=== PATIENT | male | born 1965 | race African-American/Black ===

== ENCOUNTER 2016-03-27 21:55 | Emergency (ER) | payer MEDICARE, OTHER ==
[~2016-03-27] VITALS: Ht 180.3 cm; Wt 136.0 kg
[~2016-03-27 21:55] MED LIST: ADVA250A INH; ALBU0.08 NEB; APIX5TAB PO; CEFT500T3 PO; CHLOR50 PO; DIFL0.0512 RIGHT EYE; DILA4TAB2 PO; DILT-64 PO; DOXE50CA3 PO; GABA300C5 PO; LIPI40TA PO; LORA2TAB7 PO; METH5INJ SQ; METO50TA PO; OXYB5TAB10 PO; POTA-163 PO; PROT40TA PO; ZOFR4TAB PO
[2016-03-27 21:57] VITALS: BP 129/82; PULSE 85; RESP 16; TEMP 98.6; O2SAT 97
[2016-03-28 00:30] VITALS: BP 144/90; PULSE 79; RESP 16; O2SAT 94
[2016-03-28] MEDS ORDERED: SODIUM CHLORID 0.9% 500 ML INJ 500 ML IV ONE (02:30)
[2016-03-28] MEDS ORDERED: ONDANSETRON HCL 4 MG/2 ML VIAL IV PUSH ONE ×2 (02:30→04:15)
[2016-03-28] MEDS ORDERED: KETOROLAC TROMETHAMINE 30 MG/ML (IVP) VIAL IV PUSH ONE (02:30)
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
[2016-03-28 02:52] LABS: AUTOMATED NEUTROPHIL # 4.1 TH/MM3 (1.8-7.7); BASOPHIL # 0.1 TH/MM3 (0-0.2); BASOPHIL % 0.8 % (0.0-2.0); EOSINOPHIL # 0.3 TH/MM3 (0-0.4); EOSINOPHIL % 3.8 % (0.0-4.0); HEMATOCRIT 39.4 % (39.0-51.0); HEMO FLAGS DIFF FINAL; LYMPH % 24.8 % (9.0-44.0); LYMPHOCYTE # 1.7 TH/MM3 (1.0-4.8); MEAN CELL VOLUME 78.7 FL (80.0-100.0); MEAN CORPUSCULAR HGB CONC 34.3 % (32.0-36.0); MONO % 11.7 % (0.0-8.0); NEUT % 58.9 % (16.0-70.0); PLATELET COUNT 327 TH/MM3 (150-450); RED CELL DISTRIBUTION WIDTH 15.3 % (11.6-17.2); WHITE BLOOD COUNT 6.9 TH/MM3 (4.0-11.0)
[2016-03-28 02:59] LABS: APTT (PATIENT) 31.2 SEC (24.3-30.1); INTERNATIONAL NORMALIZED RATIO 1.1 RATIO; PROTHROMBIN TIME - PATIENT 11.9 SEC (9.8-11.6)
--- NOTE | 2016-03-28 03:00 | RADRPT ---
EXAM DATE/TIME: 03/28/2016 02:47 [facility] COMPARISON: CHEST PA & LAT, February 25, 2016, 16:54. CHEST SINGLE AP, February 12, 2016, 23:52. INDICATIONS : Chest pain. MEDICAL HISTORY : Chronic obstructive pulmonary disease. Congestive heart failure. Cardiovascular disease. Hyperte nsion. Gastroesophageal reflux disease. Chemotherapy. SURGICAL HISTORY : Colon resection. ENCOUNTER: Initial ACUITY: 2 weeks PAIN SCORE: 6/10 LOCATION: Bilateral chest FINDINGS: 2 portable frontal views of the chest show no change in the bilateral pulmonary infiltrates and small effusions. Heart normal in size. CONCLUSION: No change. Frank Walton Jr., MD on March 28, 2016 at 2:57 Board Certified Radiologist. This report was verified electronically.
[2016-03-28 03:05] LABS: ALKALINE PHOSPHATASE 104 U/L (45-117); TOTAL BILIRUBIN ADULT 0.5 MG/DL (0.2-1.0)
[2016-03-28 03:18] LABS: ALT (GPT) 17 U/L (12-78); ANION GAP 7 MEQ/L (5-15); AST (GOT) 27 U/L (15-37); BICARBONATE 27.1 MEQ/L (21.0-32.0); BLOOD UREA NITROGEN 13 MG/DL (7-18); CHLORIDE 104 MEQ/L (98-107); GLOMERULAR FILTRATION RATE 91 ML/MIN (>89); POTASSIUM 4.6 MEQ/L (3.5-5.1); SODIUM (NA) 138 MEQ/L (136-145)
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
[2016-03-28] MEDS ORDERED: MORPHINE SULFATE 4 MG/ML INJ IV PUSH ONE (04:15)
[2016-03-28 04:25] LABS: BLOOD, URINE NEG (NEG); COMMENT (UR) CULT NOT INDICATED; CULTURE IF INDICATED CULT NOT INDICATED; GLUCOSE,URINE NEG (NEG); KETONE, URINE NEG (NEG); MUCUS URINE MOD /lpf (OCC); NITRITE,URINE NEG (NEG); PH, URINE 6.5 (5.0-8.5); SQUAMOUS EPITHELIAL CELL URINE <1 /hpf (0-5); URINE COLOR YELLOW (YELLW/STRAW)
[2016-03-28] MEDS ORDERED: CIPROFLOXACIN 400 MG PREMIX 200 ML IV ONE (04:30)
[2016-03-28] MEDS ORDERED: CIPR-9 PO (04:31)
[2016-03-28 06:13] VITALS: BP 133/82; PULSE 88; RESP 14; O2SAT 95
--- NOTE | 2016-03-28 11:08 | EKG ---
Date Performed: 03/28/2016 Time Performed: 03:28:15 PTAGE: 51 years EKG: Sinus rhythm POSSIBLE RIGHT VENTRICULAR CONDUCTION DELAY NONSPECIFIC T-WAVE ABNORMALITY BORDERLINE ECG PREVIOUS TRACING : 03/07/2016 18.11 DOCTOR: Prasanna Hsieh Interpretating Date/Time 03/28/2016 11:08:02
== END 2016-03-28 06:36 | disposition home or self-care (01) ==
LOC: NEPC 21:55
DX: R10.13 Epigastric pain (principal); I50.32 Chronic diastolic (congestive) heart failure; Z79.01 Long term (current) use of anticoagulants; J44.9 Chronic obstructive pulmonary disease, unspecified; I10 Essential (primary) hypertension; E78.5 Hyperlipidemia, unspecified
CPT/HCPCS: 71010; 74176; 80053; 81001; 83605; 83690; 85025; 85610; 85730; 86140; 93005; 96361; 96365; 96375; 96376; 99284; J0744; J1885; J2270; J2405; J7040

== ENCOUNTER 2016-04-02 20:20 | Emergency (ER) | payer MEDICARE, OTHER ==
[~2016-04-02] VITALS: Ht 180.3 cm; Wt 136.0 kg
[~2016-04-02 20:20] MED LIST changes: +CIPR-9 PO
[2016-04-02 20:23] VITALS: BP 128/64; PULSE 98; RESP 18; TEMP 98; O2SAT 95
[2016-04-03] MEDS ORDERED: ONDANSETRON HCL 4 MG/2 ML VIAL IVP ONE (02:00)
[2016-04-03] MEDS ORDERED: PANTOPRAZOLE SODIUM 40 MG VIAL IVP ONE (02:00)
[2016-04-03] MEDS ORDERED: SODIUM CHLORIDE 0.9% FLUSH 5 ML FLUSH IVF PRN (02:00)
[2016-04-03] MEDS ORDERED: MORPHINE SULFATE 4 MG/ML INJ IV PUSH ONE (02:00)
[2016-04-03 02:05] VITALS: O2SAT 99
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
[2016-04-03 02:48] VITALS: RESP 18
[2016-04-03 02:50] LABS: ANION GAP 3 MEQ/L (5-15); BICARBONATE 30.9 MEQ/L (21.0-32.0); BLOOD UREA NITROGEN 11 MG/DL (7-18); CHLORIDE 104 MEQ/L (98-107); GLOMERULAR FILTRATION RATE 75 ML/MIN (>89); SODIUM (NA) 138 MEQ/L (136-145)
[2016-04-03 02:51] LABS: POTASSIUM 4.7 MEQ/L (3.5-5.1)
[2016-04-03 02:53] LABS: AUTOMATED NEUTROPHIL # 3.8 TH/MM3 (1.8-7.7); BASOPHIL % 0.4 % (0.0-2.0); EOSINOPHIL # 0.3 TH/MM3 (0-0.4); EOSINOPHIL % 4.2 % (0.0-4.0); HEMATOCRIT 38.4 % (39.0-51.0); HEMO FLAGS DIFF FINAL; LYMPH % 25.7 % (9.0-44.0); LYMPHOCYTE # 1.7 TH/MM3 (1.0-4.8); MEAN CORPUSCULAR HEMOGLOBIN 26.2 PG (27.0-34.0); MEAN CORPUSCULAR HGB CONC 33.1 % (32.0-36.0); MONO % 12.7 % (0.0-8.0); PLATELET COUNT 393 TH/MM3 (150-450); RED BLOOD COUNT 4.86 MIL/MM3 (4.50-5.90); RED CELL DISTRIBUTION WIDTH 15.6 % (11.6-17.2); WHITE BLOOD COUNT 6.7 TH/MM3 (4.0-11.0)
--- NOTE | 2016-04-03 03:02 | RADRPT ---
EXAM DATE/TIME: 04/03/2016 02:02 [facility] COMPARISON: CHEST SINGLE AP, March 28, 2016, 2:47. INDICATIONS : Short of breath. MEDICAL HISTORY : Chronic obstructive pulmonary disease. Congestive heart failure. Cardiovascular disease. Hypertension . Gastroesophageal reflux disease. Chemotherapy. SURGICAL HISTORY : Colon resection. ENCOUNTER: Initial ACUITY: 1 day PAIN SCORE: Non-responsive. LOCATION: Bilateral chest FINDINGS: A single view of the chest demonstrates diffuse patchy bilateral airspace densities. Small right pleu ral effusion .The cardiomediastinal contours are unremarkable. Osseous structures are intact. CONCLUSION: 1. Unchanged bilateral pulmonary opacities. 2. Small right pleural effusion. Markell Falcon MD on April 03, 2016 at 3:01 Board Certified Radiologist. This report was verified electronically.
[2016-04-03 03:07] LABS: APTT (PATIENT) 29.7 SEC (24.3-30.1); PROTHROMBIN TIME - PATIENT 10.8 SEC (9.8-11.6)
[2016-04-03] MEDS ORDERED: IOHEXOL 350 MG/ML 10 ML VIAL (for RAD DIAG) IV ONE (03:23)
--- NOTE | 2016-04-03 04:10 | RADRPT ---
EXAM DATE/TIME: 04/03/2016 03:17 [facility] COMPARISON: CT ABDOMEN & PELVIS W/O CONTRAST, March 28, 2016, 3:04. INDICATIONS : Abdomen pain past 3 days.. IV CONTRAST: 96 cc Omnipaque 350 (iohexol) IV ORAL CONTRAST: No oral contrast ingested. RADIATION DOSE: 22.18 CTDIvol (mGy) MEDICAL HISTORY : Cardiovascular disease. Hypertension. Gastroesophageal reflux disease.COPD SURGICAL HISTORY : Colon resection. ENCOUNTER: Initial ACUITY: 3 days PAIN SCALE: 10/10 LOCATION: Bilateral abdomen TECHNIQUE: Volumetric scanning of the abdomen and pelvis was performed. Using automated exposure control and ad justment of the mA and/or kV according to patient size, radiation dose was kept as low as reasonably achievable to obtain optimal diagnostic quality images. FINDINGS: LOWER LUNGS: Right basilar consolidation LIVER: Homogeneous density without lesion. There is no dilation of the biliary tree. No calcified gallston es. SPLEEN: Normal size without lesion. PANCREAS: Within normal limits. KIDNEYS: Normal in size and shape. There is no mass, stone or hydronephrosis. ADRENAL GLANDS: Within normal limits. VASCULAR: There is no aortic aneurysm. BOWEL/MESENTERY: Postsurgical changes with previous bowel surgery in the left lower abdomen. There is no free intraper itoneal air or fluid. ABDOMINAL WALL: Within normal limits. RETROPERITONEUM: There is no lymphadenopathy. BLADDER: No wall thickening or mass. REPRODUCTIVE: Within normal limits. INGUINAL: There is no lymphadenopathy or hernia. MUSCULOSKELETAL: Within normal limits for patient age. CONCLUSION: 1. Right basilar consolidation. 2. No acute inflammatory process. 3. Previous bowel surgery. Markell Falcon MD on April 03, 2016 at 4:07 Board Certified Radiologist. This report was verified electronically.
[2016-04-03] MEDS ORDERED: IBUP-232 PO (04:26)
[2016-04-03] MEDS ORDERED: EXTR500C PO (05:17)
--- NOTE | 2016-04-03 14:09 | EKG ---
Date Performed: 04/03/2016 Time Performed: 01:30:42 PTAGE: 51 years EKG: Sinus rhythm NONSPECIFIC ST ELEVATION BORDERLINE ECG Since PREVIOUS TRACING , no significant change noted PREVIOUS TRACIN03/28/2016 03.28 DOCTOR: Bib Tirado Interpretating Date/Time 04/03/2016 14:01:01
== END 2016-04-03 05:39 | disposition home or self-care (01) ==
LOC: NEPE 20:20
DX: R10.9 Unspecified abdominal pain (principal); R94.31 Abnormal electrocardiogram [ECG] [EKG]; J44.9 Chronic obstructive pulmonary disease, unspecified; I10 Essential (primary) hypertension; E78.5 Hyperlipidemia, unspecified; I50.9 Heart failure, unspecified; I48.91 Unspecified atrial fibrillation; G47.30 Sleep apnea, unspecified
CPT/HCPCS: 71010; 74177; 80048; 83690; 84484; 85025; 85610; 85730; 93005; 96374; 96375; 99284; C9113; J2270; J2405; Q9967

== ENCOUNTER 2016-04-05 23:13 | Inpatient (IN) | payer MEDICARE, OTHER ==
[~2016-04-05] VITALS: Ht 180.3 cm; Wt 141.4 kg
[~2016-04-05 23:13] MED LIST changes: +EXTR500C PO; +IBUP-232 PO
[2016-04-05 23:25] VITALS: BP 177/102; PULSE 117; RESP 20; TEMP 100.1
[2016-04-05] MEDS ORDERED: HYDROmorphone HCL PF 1 MG/ML VIAL IV PUSH ONE (23:45)
[2016-04-05] MEDS ORDERED: ONDANSETRON HCL 4 MG/2 ML VIAL IV PUSH ONE (23:45)
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
[2016-04-05 23:53] LABS: AUTOMATED NEUTROPHIL # 6.6 TH/MM3 (1.8-7.7); BASOPHIL % 0.4 % (0.0-2.0); EOSINOPHIL # 0.2 TH/MM3 (0-0.4); EOSINOPHIL % 2.5 % (0.0-4.0); HEMATOCRIT 41.9 % (39.0-51.0); LYMPH % 20.8 % (9.0-44.0); LYMPHOCYTE # 1.9 TH/MM3 (1.0-4.8); MEAN CELL VOLUME 79.9 FL (80.0-100.0); MEAN CORPUSCULAR HEMOGLOBIN 25.3 PG (27.0-34.0); MEAN CORPUSCULAR HGB CONC 31.7 % (32.0-36.0); MONO % 5.5 % (0.0-8.0); NEUT % 70.8 % (16.0-70.0); PLATELET COUNT 436 TH/MM3 (150-450); RED BLOOD COUNT 5.24 MIL/MM3 (4.50-5.90); WHITE BLOOD COUNT 9.3 TH/MM3 (4.0-11.0)
[2016-04-05 23:56] LABS: HEMO FLAGS DIFF FINAL
[2016-04-06] VITALS (14 sets, daily range): BP systolic 116–167; BP diastolic 70–107; PULSE 82–109; RESP 15–20; TEMP 96.6–99.8; O2SAT 93–99
[2016-04-06 00:02] LABS: CHLORIDE 100 MEQ/L (98-107); POTASSIUM 4.2 MEQ/L (3.5-5.1); SODIUM (NA) 139 MEQ/L (136-145)
[2016-04-06 00:05] LABS: ANION GAP 8 MEQ/L (5-15); BICARBONATE 30.6 MEQ/L (21.0-32.0)
[2016-04-06 00:06] LABS: BLOOD UREA NITROGEN 10 MG/DL (7-18)
[2016-04-06 00:08] LABS: ALT (GPT) 13 U/L (12-78); AST (GOT) 10 U/L (15-37); GLOMERULAR FILTRATION RATE 85 ML/MIN (>89)
[2016-04-06 00:10] LABS: TOTAL BILIRUBIN ADULT 0.3 MG/DL (0.2-1.0)
[2016-04-06 00:11] LABS: ALKALINE PHOSPHATASE 108 U/L (45-117)
[2016-04-06] MEDS ORDERED: ACETAMINOPHEN 500 MG CPLT PO ONE (00:15)
--- NOTE | 2016-04-06 00:22 | RADHPO ---
EXAM DATE/TIME: 04/05/2016 23:46 [facility] COMPARISON: CT PULMONARY ANGIOGRAM, February 03, 2016, 23:58. CHEST SINGLE AP, February 07, 2016, 3:00. CHEST S KAMAR AP, April 03, 2016, 2:02. INDICATIONS : Shortness of breath. MEDICAL HISTORY : Hypertension. Chronic obstructive pulmonary disease. Congestive heart failure. Gastroesophageal r eflux disease, Cardiovascular disease SURGICAL HISTORY : Colon resection ENCOUNTER: Initial ACUITY: 1 day PAIN SCORE: 1/10 LOCATION: Bilateral chest FINDINGS: The cardiac silhouette is normal in transverse diameter. There is extensive chronic pleural-parenchym al disease bilaterally with superimposed acute opacity in the right midlung characteristic of pneumon ia. Followup examination is recommended if clinically indicated. No pleural effusions are identified. CONCLUSION: Extensive pulmonary fibrosis with superimposed acute opacity in the right midlung characteristic of p neumonia. Followup examination to insure clearing is recommended. Keven Moscoso MD on April 06, 2016 at 0:18 Board Certified Radiologist. This report was verified electronically.
[2016-04-06] MEDS ORDERED: ACETAMINOPHEN 325 MG TAB PO ONE (00:45)
[2016-04-06] MEDS ORDERED: CEFEPIME INJ 2,000 MG in SODIUM CHLORIDE 0.9% INJ 100 ML IV ONE (00:45)
[2016-04-06] MEDS ORDERED: AZITHROMYCIN INJ 500 MG in SODIUM CHLOR 0.9% 250 ML INJ 250 ML IV ONE (00:45)
--- NOTE | 2016-04-06 00:50 | PD ---
Data Data Last Documented VS Vital Signs Date Time Temp Pulse Resp B/P Pulse Ox O2 Delivery O2 Flow Rate FiO2 04/06/16 00:30 107 20 167/107 96 Nasal Cannula 2 04/05/16 23:25 100.1 Orders Electrocardiogram (04/05/16 23:36) Complete Blood Count With Diff (04/05/16 23:36) Comprehensive Metabolic Panel (04/05/16 23:36) Troponin I (04/05/16 23:36) B-Type Natriuretic Peptide (04/05/16 23:36) Lipase (04/05/16 23:36) Urinalysis - C+S If Indicated (04/05/16 23:36) Chest, Single Ap (04/05/16 23:36) Ondansetron Inj (Zofran Inj) (04/05/16 23:45) Hydromorphone Pf Inj (Dilaudid Pf Inj) (04/05/16 23:45) Acetaminophen (Tylenol) (04/06/16 00:15) Blood Culture (04/06/16 00:42) Cefepime Inj (Maxipime Inj) (04/06/16 00:45) Azithromycin Inj (Zithromax Inj) (04/06/16 00:45) Acetaminophen (Tylenol) (04/06/16 00:45) Admit Order (Ed Use Only) (04/06/16 01:24) Labs Laboratory Tests Test 04/05/16 23:45 White Blood Count 9.3 TH/MM3 Red Blood Count 5.24 MIL/MM3 Hemoglobin 13.3 GM/DL Hematocrit 41.9 % Mean Corpuscular Volume 79.9 FL Mean Corpuscular Hemoglobin 25.3 PG Mean Corpuscular Hemoglobin 31.7 % Concent Red Cell Distribution Width 15.0 % Platelet Count 436 TH/MM3 Mean Platelet Volume 7.6 FL Neutrophils (%) (Auto) 70.8 % Lymphocytes (%) (Auto) 20.8 % Monocytes (%) (Auto) 5.5 % Eosinophils (%) (Auto) 2.5 % Basophils (%) (Auto) 0.4 % Neutrophils # (Auto) 6.6 TH/MM3 Lymphocytes # (Auto) 1.9 TH/MM3 Monocytes # (Auto) 0.5 TH/MM3 Eosinophils # (Auto) 0.2 TH/MM3 Basophils # (Auto) 0.0 TH/MM3 CBC Comment DIFF FINAL Differential Comment Sodium Level 139 MEQ/L Potassium Level 4.2 MEQ/L Chloride Level 100 MEQ/L Carbon Dioxide Level 30.6 MEQ/L Anion Gap 8 MEQ/L Blood Urea Nitrogen 10 MG/DL Creatinine 1.10 MG/DL Estimat Glomerular Filtration 85 ML/MIN Rate Random Glucose 91 MG/DL Calcium Level 8.9 MG/DL Total Bilirubin 0.3 MG/DL Aspartate Amino Transf 10 U/L (AST/SGOT) Alanine Aminotransferase 13 U/L (ALT/SGPT) Alkaline Phosphatase 108 U/L Troponin I LESS THAN 0.02 NG/ML B-Type Natriuretic Peptide 9 PG/ML Total Protein 8.7 GM/DL Albumin 3.1 GM/DL Lipase 115 U/L [facility] Medical Record Reviewed: Yes Supervised Visit with JONNY: No Narrative Course Last Impressions Chest X-Ray 04/05/16 [id number] Signed Impressions: Service Date/Time: March 23:46 - CONCLUSION: Extensive pulmonary fibrosis with superimposed acute opacity in the right midlung characteristic of pneumonia. Followup examination to insure clearing is recommended. Keven Moscoso MD CBC & BMP Diagram 04/05/16 23:45 Tn < 0.02 BNP 9 EKG: Sinus, rate 107, normal axis/intervals Please refer to the outgoing provider documentation. In summary the patient's 51 years old and has had epigastric pain and fever. The workup today reveals a right lung pneumonia. He is currently not on any antibiotics. Patient will be admitted for treatment of right lung pneumonia and treatment of epigastric abdominal pain. Most recent stress test was > 18 months prior. Cefepime and azithromycin started. Blood cultures drawn. Case d/w Dr Villatoro. Sepsis Criteria SIRS Criteria (2 or more): Heart rate over 90 Diagnosis Primary Impression: PNA (pneumonia) Qualified Code: J18.1 - Pneumonia of right middle lobe due to infectious organism Additional Impressions: Epigastric abdominal pain Chest pain Qualified Code: R07.9 - Chest pain, unspecified type Admitting Information Admitting Physician Requests: Admit Armando Rice MD Apr 06, 2016 00:50
[2016-04-06] MEDS ORDERED: NALOXONE HCL 0.4 MG/ML AMP IV PRN (01:30)
[2016-04-06] MEDS ORDERED: SODIUM CHLORIDE 0.9% FLUSH 5 ML FLUSH FLUSH PRN (01:30)
[2016-04-06] MEDS ORDERED: FOLI1TAB4 PO (02:02)
[2016-04-06] MEDS ORDERED: VESI5TAB PO (02:02)
[2016-04-06] MEDS ORDERED: FURO40TA PO (02:02)
[2016-04-06] MEDS ORDERED: ALBUAER3 INH (02:04)
[2016-04-06 06:58] LABS: BLOOD, URINE NEG (NEG); GLUCOSE,URINE NEG (NEG); KETONE, URINE TRACE mg/dL (NEG); NITRITE,URINE NEG (NEG)
[2016-04-06] MEDS ORDERED: ACETAMINOPHEN 325 MG TAB PO PRN (07:00)
[2016-04-06 07:03] LABS: METHOD OF COLLECTION CLEAN CATCH; URINE COLOR YELLOW (YELLW/STRAW)
[2016-04-06 07:04] LABS: COMMENT (UR) CULT NOT INDICATED; CULTURE IF INDICATED CULT NOT INDICATED; WBC, URINE 0-2 /hpf (0-5)
[2016-04-06] MEDS ORDERED: KETOROLAC TROMETHAMINE 30 MG/ML (IVP) VIAL IV PUSH ONE (08:45)
[2016-04-06] MEDS: SODIUM CHLORIDE 0.9% FLUSH 5 ML FLUSH FLUSH SCH ×2 (08:55→21:18)
[2016-04-06] MEDS: ENOXAPARIN SODIUM 40 MG/0.4 ML SYRINGE SQ SCH (08:56)
[2016-04-06] MEDS ORDERED: LORazepam 2 MG TAB PO PRN (12:00)
--- NOTE | 2016-04-06 12:10 | HHI.HP ---
[facility] Service [facility] Primary Care Physician Non-Staff Admission Diagnosis R Lung PNA, Epigastric/Chest Discomfort Diagnoses: Travel History International Travel<30 Days: Yes Contact w/Intl Traveler <30 Da: Yes Traveled to Known Affected Are: Yes Sepsis Criteria SIRS Criteria (2 or more): Heart rate over 90 History of Present Illness Patient is a 51 year-old gentleman with a history of sarcoidosis who has been having increased chest and abdominal pain over the last several weeks. He has come to the emergency room for further evaluation. He reports that the pain is worse when he is eating although it does remain constantly. It is not relieved with ibuprofen. Patient did have evidence of a right lung consolidation and has been treated in the past for pneumonia. He has significant pulmonary fibrosis. Patient has also past and treated for partial bowel obstruction which resolved nonsurgically. Patient this time has been admitted to the hospital due to increased abdominal discomfort and for treatment of pneumonia. He normally does take methotrexate and folic acid but has been off of this due to his recent pneumonia treatment. He follows up at [facility] for sarcoidosis Review of Systems Constitutional: DENIES: Diaphoretic episodes, Fatigue, Fever, Weight gain, Weight loss, Chills, Dizziness, Change in appetite, Night Sweats Endocrine: DENIES: Heat/cold intolerance, Polydipsia, Polyuria, Polyphagia Eyes: DENIES: Blurred vision, Diplopia, Eye inflammation, Eye pain, Vision loss , Photosensitivity, Double Vision Ears, nose, mouth, throat: DENIES: Tinnitus, Hearing loss, Vertigo, Nasal discharge, Oral lesions, Throat pain, Hoarseness, Ear Pain, Running Nose, Epistaxis, Sinus Pain, Toothache, Odynophagia Respiratory: COMPLAINS OF: Cough, Shortness of breath, DENIES: Apneas, Snoring , Wheezing, Hemoptysis, Sputum production Cardiovascular: DENIES: Chest pain, Palpitations, Syncope, Dyspnea on Exertion , PND, Lower Extremity Edema, Orthopnea, Claudication Gastrointestinal: COMPLAINS OF: Abdominal pain, DENIES: Black stools, Bloody stools, Constipation, Diarrhea, Nausea, Vomiting, Difficulty Swallowing, Anorexia Genitourinary: DENIES: Sexual dysfunction, Urinary frequency, Urinary incontinence, Urgency, Hematuria, Dysuria, Nocturia, Penile Discharge, Testicular Pain, Testicular Swelling Musculoskeletal: DENIES: Joint pain, Muscle aches, Stiffness, Joint Swelling, Back pain, Neck pain Integumentary: DENIES: Abnormal pigmentation, Nail changes, Pruritus, Rash Hematologic/lymphatic: DENIES: Bruising, Lymphadenopathy Immunologic/allergic: DENIES: Eczema, Urticaria Neurologic: DENIES: Abnormal gait, Headache, Localized weakness, Paresthesias, Seizures, Speech Problems, Tremor, Poor Balance Psychiatric: DENIES: Anxiety, Confusion, Mood changes, Depression, Hallucinations, Agitation, Suicidal Ideation, Homicidal Ideation, Delusions Past Family Social History Past Medical History Sarcoidosis, COPD Chronic back pain on chronic narcotics a lot atrial fibrillation Hyperlipidemia Past Surgical History Exploratory laparotomy of the abdomen Hemorrhoidectomy eye surgery Reported Medications Reviewed in the medical record Allergies: Coded Allergies: No Known Allergies (Verified , 04/06/16) Active Ordered Medications Reviewed in the medical record Family History No family history of sarcoidosis, family history per patient is negative Social History No current tobacco or alcohol dependency, lives with his Physical Exam Vital Signs Vital Signs Date Time Temp Pulse Resp B/P Pulse Ox O2 Delivery O2 Flow Rate FiO2 04/06/16 09:06 97.3 92 15 116/82 93 04/06/16 08:00 88 04/06/16 06:00 98.1 98 18 125/75 04/06/16 04:00 98.1 98 18 125/75 93 04/06/16 03:37 92 18 147/70 97 04/06/16 03:30 82 04/06/16 03:00 100 17 144/89 97 Nasal Cannula 2 04/06/16 02:09 99 18 162/83 96 Nasal Cannula 2 04/06/16 01:35 99.8 109 20 153/86 96 Nasal Cannula 2 04/06/16 00:30 107 20 167/107 96 Nasal Cannula 2 04/06/16 00:22 17 04/05/16 23:25 100.1 117 20 177/102 Physical Exam GENERAL: This is an obese, well-developed patient, in no apparent distress. SKIN: No rashes, ecchymoses or lesions. Cool and dry. HEAD: Atraumatic. Normocephalic. No temporal or scalp tenderness. EYES: Pupils equal round and reactive. Extraocular motions intact. No scleral icterus. No injection or drainage. ENT: Nose without bleeding, purulent drainage or septal hematoma. Throat without erythema, tonsillar hypertrophy or exudate. Uvula midline. Airway patent. NECK: Trachea midline. No JVD or lymphadenopathy. Supple, nontender, no meningeal signs. CARDIOVASCULAR: Regular rate and rhythm without murmurs, gallops, or rubs. RESPIRATORY: Clear to auscultation. Breath sounds equal bilaterally. No wheezes , rales, or rhonchi. GASTROINTESTINAL: Abdomen soft, non-tender, nondistended. No hepato-splenomegaly , or palpable masses. No guarding. MUSCULOSKELETAL: Extremities without clubbing, cyanosis, or edema. No joint tenderness, effusion, or edema noted. No calf tenderness. Negative Homans sign bilaterally. NEUROLOGICAL: Awake and alert. Cranial nerves II through XII intact. Motor and sensory grossly within normal limits. Five out of 5 muscle strength in all muscle groups. Normal speech. Laboratory Laboratory Tests Test 04/05/16 04/06/16 23:45 06:37 White Blood Count 9.3 Red Blood Count 5.24 Hemoglobin 13.3 Hematocrit 41.9 Mean Corpuscular Volume 79.9 Mean Corpuscular Hemoglobin 25.3 Mean Corpuscular Hemoglobin 31.7 Concent Red Cell Distribution Width 15.0 Platelet Count 436 Mean Platelet Volume 7.6 Neutrophils (%) (Auto) 70.8 Lymphocytes (%) (Auto) 20.8 Monocytes (%) (Auto) 5.5 Eosinophils (%) (Auto) 2.5 Basophils (%) (Auto) 0.4 Neutrophils # (Auto) 6.6 Lymphocytes # (Auto) 1.9 Monocytes # (Auto) 0.5 Eosinophils # (Auto) 0.2 Basophils # (Auto) 0.0 CBC Comment DIFF FINAL Differential Comment Sodium Level 139 Potassium Level 4.2 Chloride Level 100 Carbon Dioxide Level 30.6 Anion Gap 8 Blood Urea Nitrogen 10 Creatinine 1.10 Estimat Glomerular Filtration 85 Rate Random Glucose 91 Calcium Level 8.9 Total Bilirubin 0.3 Aspartate Amino Transf 10 (AST/SGOT) Alanine Aminotransferase 13 (ALT/SGPT) Alkaline Phosphatase 108 Troponin I LESS THAN 0.02 B-Type Natriuretic Peptide 9 Total Protein 8.7 Albumin 3.1 Lipase 115 Urine Collection Type CLEAN CATCH Urine Color YELLOW Urine Turbidity CLEAR Urine pH 6.0 Urine Specific Ryan 1.027 Urine Protein NEG Urine Glucose (UA) NEG Urine Ketones TRACE Urine Occult Blood NEG Urine Nitrite NEG Urine Bilirubin NEG Urine Leukocyte Esterase NEG Urine WBC 0-2 Microscopic Urinalysis Comment CULT NOT INDICATED Date/Time Procedure Status Source Growth 04/06/16 01:09 Aerobic Blood Culture Received Blood Peripheral Pending 04/06/16 01:09 Anaerobic Blood Culture Received Blood Peripheral Pending Result Diagram: 04/05/16 2345 04/05/16 2345 Imaging Last Impressions Chest X-Ray 04/05/16 2336 Signed Impressions: Service Date/Time: March 23:46 - CONCLUSION: Extensive pulmonary fibrosis with superimposed acute opacity in the right midlung characteristic of pneumonia. Followup examination to insure clearing is recommended. Keven Moscoso MD Septic Shock Reassessment Heart: Regular rate and rhythm Lungs: Diminished Skin: Warm Peripheral Pulses: Bounding Right Radial Bounding Left Radial Bounding Right Popliteal Bounding Left Popliteal Bounding Right Dorsalis Pedis Bounding Left Dorsalis Pedis Bounding Right Posterior Tibial Bounding Left Posterior Tibial Capillary Refill: Brisk Assessment and Plan Problem List: (1) Pneumonia ICD Code: J18.9 Status: Acute Plan: Pulmonary consult pending Will continue with cefepime and azithromycin for now. Fever better. Shortness of breath is better. Patient more ambulatory with physical therapy this morning (2) COPD (chronic obstructive pulmonary disease) ICD Code: J44.9 Status: Chronic (3) Atrial fibrillation ICD Code: I48.91 Status: Chronic Plan: Rate controlled on Cardizem and metoprolol Continue Eliquis (4) Sarcoidosis ICD Code: D86.9 Status: Chronic Plan: Patient is on methotrexate which has been held due to his pneumonia. We' ll continue Fink acid Continue bronchodilators Significant pulmonary fibrosis on imaging. Patient follows up in [facility] Physician Certification 2 Midnight Certification Type: Admission for Inpatient Services Order for Inpatient Services The services are ordered in accordance with Medicare regulations or non- Medicare payer requirements, as applicable. In the case of services not specified as inpatient-only, they are appropriately provided as inpatient services in accordance with the 2-midnight benchmark. Estimated LOS (days): 3 3 days is the estimated time the patient will need to remain in the hospital, assuming treatment plan goals are met and no additional complications. Post-Hospital Plan: Not yet determined Zenaida Taylor MD Apr 06, 2016 12:10
[2016-04-06] MEDS: CEFEPIME INJ 2,000 MG in SODIUM CHLORIDE 0.9% INJ 100 ML IV SCH (13:06)
[2016-04-06] MEDS: HYDROmorphone HCL 4 MG TAB PO PRN (13:07)
[2016-04-06] MEDS ORDERED: ONDANSETRON HCL 4 MG/2 ML VIAL IV PUSH PRN (14:45)
--- NOTE | 2016-04-06 18:52 | EKG ---
Date Performed: 04/06/2016 Time Performed: 00:05:06 PTAGE: 51 years EKG: Sinus tachycardia Normal ECG except for rate PREVIOUS TRACING : 04/03/2016 0130.42 Since previous tracing, no significant change note d DOCTOR: Codi Duff Interpretating Date/Time 04/06/2016 18:51:07
[2016-04-06] MEDS: GABAPENTIN 300 MG CAP PO SCH (20:14)
[2016-04-06] MEDS: DOXEPIN HCL 50 MG CAP PO SCH (20:15)
[2016-04-06] MEDS: METOPROLOL TARTRATE 50 MG TAB PO SCH (20:15)
[2016-04-06] MEDS: POTASSIUM CHLORIDE 20 MEQ CONTROLLED RELEASE TAB PO SCH (20:15)
[2016-04-06] MEDS: ATORVASTATIN 40 MG TAB PO SCH (20:15)
[2016-04-06] MEDS: APIXABAN 5 MG TABLET PO SCH (20:15)
[2016-04-06] MEDS ORDERED: IOHEXOL 350 MG/ML 10 ML VIAL (for RAD DIAG) IV ONE (20:52)
[2016-04-06] MEDS: methylPREDNISolone SOD SUCC 40 MG/1 ML VIAL IV PUSH SCH (21:17)
--- NOTE | 2016-04-06 21:19 | RADHPO ---
EXAM DATE/TIME: 04/06/2016 20:28 [place] COMPARISON: CT PULMONARY ANGIOGRAM, February 03, 2016, 23:58. INDICATIONS : Bilateral lower chest pain and shortness of breath. IV CONTRAST: 70 cc Omnipaque 350 (iohexol) IV RADIATION DOSE: 34.82 CTDIvol (mGy) MEDICAL HISTORY : Congestive heart failure. Chronic obstructive pulmonary disease. Gastroesophage al reflux disease .Hypertension. Sarcoidosis. SURGICAL HISTORY : Tonsillectomy. ENCOUNTER: Initial ACUITY: 2 days PAIN SCALE: 4/10 LOCATION: Bilateral lower chest TECHNIQUE: Volumetric scanning of the chest was performed. Using automated exposure control and adjustment of the mA and/or kV according to patient size, radiation dose was kept as low as reasonab ly achievable to obtain optimal diagnostic quality images. FINDINGS: There are irregular areas of parenchymal density seen in the upper lungs bilaterally. The area in the anterior left upper lung appears to be the most prominent in the upper lungs measurin g 7.3 x 3.3 cm. This area has enlarged since the prior exam. The areas of density in the periphery of the right upper lung also appear to have progressed. There is increased density in the subpleura l regional bilaterally in the lower lungs being worse on the right. There is chronic appearing inter stitial disease at the lung bases seen as prominent linear and tiny nodular densities. There is adenopathy seen throughout the mediastinum. The largest lymph node is seen in the posterior superior right mediastinum measuring 2.9 x 2.3 cm. There are lymph nodes throughout the superior med iastinum, in the right paratracheal, left paratracheal, subcarinal, tracheal bronchial and hilar audi ons bilaterally. A significant effusion is not seen. There is mild fatty infiltration of the liver. The remaining visualized structures in the upper abdom en are unremarkable. CONCLUSION: 1. Progression of areas of parenchymal density seen throughout the lungs. 2. Persistent chronic interstitial change at the lung bases. 3. Prominent adenopathy throughout the mediastinum and hilar regions. This was present previously. Benjie Adamson MD on April 06, 2016 at 20:51 Board Certified Radiologist. This report was verified electronically.
[2016-04-06] MEDS: RESP: ALBUTEROL 2.5 MG/IPRATROPIUM 0.5 MG NEB (SCH) NEB (23:44)
[2016-04-07] VITALS (8 sets, daily range): BP systolic 119–150; BP diastolic 75–107; PULSE 81–106; RESP 14–18; TEMP 97–98; O2SAT 91–98
[2016-04-07] MEDS: CEFEPIME INJ 2,000 MG in SODIUM CHLORIDE 0.9% INJ 100 ML IV SCH ×2 (00:06→13:32)
[2016-04-07] MEDS: HYDROmorphone HCL 4 MG TAB PO PRN ×2 (00:11→20:39)
[2016-04-07 00:14] LABS: BLOOD GAS BASE EXCESS 3.9 mmol/L (-2-2); BLOOD GAS CARBOXYHEMOGLOBIN 1.3 % (0-4); BLOOD GAS HCO3 29 mmol/L (22-26); BLOOD GAS METHEMOGLOBIN 0.8 % (0-2); BLOOD GAS O2 HGB SATURATION 95 % (90-100); BLOOD GAS OXYGEN CONTENT 17.1 Vol % (12.0-20.0); BLOOD GAS PCO2 58 mmHg (38-42); BLOOD GAS PO2 82 mmHg (61-120); BLOOD GAS TOTAL HGB 12.8 G/DL (12.0-16.0)
[2016-04-07 00:15] LABS: CRITICAL VALUE YES; DRAW SITE LT BRACHIAL; LITER FLOW 2 L/M; NUMBER OF ARTERIAL PUNCTURES 1; OXYGEN DEVICE NASAL CANNULA; STAT NO
[2016-04-07] MEDS: AZITHROMYCIN INJ 500 MG in SODIUM CHLOR 0.9% 250 ML INJ 250 ML IV SCH (01:12)
[2016-04-07] MEDS: methylPREDNISolone SOD SUCC 40 MG/1 ML VIAL IV PUSH SCH ×3 (06:11→20:31)
--- NOTE | 2016-04-07 06:38 | MB ---
cc: ALIZA HARDING DATE OF CONSULTATION: 04/06/2016 REASON FOR CONSULTATION: Sarcoidosis and respiratory distress. PRESENT ILLNESS This 48-year-old man with a history of sarcoidosis, has had bilateral pulmonary infiltrates with extensive fibrotic lung disease. The patient apparently came to the ER for abdominal and epigastric pain and he had some bloating as well. His chest x-ray demonstrated an infiltrate in the right lung field as well as interstitial pulmonary infiltrates. The patient does have a cough and brings up whitish mucus. He is on oxygen at 2 liters. He has previously been diagnosed to have sarcoidosis and received methotrexate therapy at [facility] in [place] and has been treated for pneumonia in the past. PAST HISTORY Also includes chronic back pain and exploratory laparotomy with lysis of the lesions and hemorrhoidectomy. ALLERGIES None listed. FAMILY HISTORY Significant for hypertension. HABITS The patient does not smoke and uses alcohol occasionally. REVIEW OF SYSTEMS The patient has been overweight. He has dizziness, postnasal drip, cough and wheezing, epigastric distress. No nausea, vomiting or urinary symptoms. No leg or calf muscle pains. She has had some joint pains. Extremities and no skin lesions. PHYSICAL EXAMINATION: IN GENERAL: This a moderately obese middle-aged -[place]alian male no acute distress. VITAL SIGNS: Blood pressure 130/70, pulse 85, respirations 22, temperature 92. HEAD, EYES, EARS, NOSE, AND THROAT: Head normocephalic. Pupils reactive. Tongue is moist. Throat was clear. Nasal mucosa injected. NECK: Supple. No bruits or thyroid enlargement. CHEST: Equal movements with distant breath sounds in spite of the expiratory wheezes scattered bilaterally. HEART: Heart sounds irregular, normal S1-S2. ABDOMEN: Soft, protuberant without masses or organomegaly. EXTREMITIES: No edema. No lesions. NEUROLOGIC: Normal reflexes. No gross motor deficits. Cranial nerves grossly intact. RECTUM: The rectal exam is deferred. IMPRESSION 1. Chronic obstructive pulmonary disease with acute exacerbation. 2. History of sarcoidosis in remission. 3. Nicotine dependency. PLAN 1. The patient has been placed on O2 at 2 liters nasal cannula. Continue with Zithromax 500 mg IV daily. 2. Cefepime 1 gram IV q.8 h 3. CTA of the chest to be done to evaluate him for any lung densities or pulmonary emboli. 4. PFT to be done at the bedside and he will be switched to Solu-Medrol 40 mg IV every 8 hours. 5. Follow up chest x-ray to be done in follow the case with you Dr. Dr. Zenaida Taylor, thank you for this consultation MD TERRY Rdz/veronica /11:34 PM /6:19 AM
[2016-04-07 07:47] LABS: AUTOMATED NEUTROPHIL # 7.4 TH/MM3 (1.8-7.7); BASOPHIL % 0.2 % (0.0-2.0); EOSINOPHIL % 0.1 % (0.0-4.0); HEMATOCRIT 38.8 % (39.0-51.0); LYMPH % 15.7 % (9.0-44.0); LYMPHOCYTE # 1.4 TH/MM3 (1.0-4.8); MEAN CELL VOLUME 79.9 FL (80.0-100.0); MEAN CORPUSCULAR HEMOGLOBIN 26.1 PG (27.0-34.0); MEAN CORPUSCULAR HGB CONC 32.7 % (32.0-36.0); MONO % 1.7 % (0.0-8.0); NEUT % 82.3 % (16.0-70.0); PLATELET COUNT 400 TH/MM3 (150-450); RED BLOOD COUNT 4.85 MIL/MM3 (4.50-5.90); RED CELL DISTRIBUTION WIDTH 14.3 % (11.6-17.2)
[2016-04-07 07:50] LABS: HEMO FLAGS AUTO DIFF
[2016-04-07 07:51] LABS: POTASSIUM 4.9 MEQ/L (3.5-5.1)
[2016-04-07 07:56] LABS: BICARBONATE 31.5 MEQ/L (21.0-32.0)
[2016-04-07] MEDS: RESP: ALBUTEROL 2.5 MG/IPRATROPIUM 0.5 MG NEB (SCH) NEB ×3 (07:56→19:48)
[2016-04-07] MEDS: FUROSEMIDE 40 MG TAB PO SCH (08:34)
[2016-04-07] MEDS: METOPROLOL TARTRATE 50 MG TAB PO SCH ×2 (08:35→20:31)
[2016-04-07] MEDS: DILTIAZEM-CD 240 MG CAP ER PO SCH (08:35)
[2016-04-07] MEDS: CHLORTHALIDONE 50 MG TAB PO SCH (08:35)
[2016-04-07] MEDS: POTASSIUM CHLORIDE 20 MEQ CONTROLLED RELEASE TAB PO SCH ×2 (08:35→20:31)
[2016-04-07] MEDS: PANTOPRAZOLE SOD 40 MG DELAYED RELEASE TAB PO SCH (08:36)
[2016-04-07] MEDS: TOLTERODINE TARTRATE 2 MG CAP LA PO SCH (08:36)
[2016-04-07] MEDS: FOLIC ACID 1 MG TAB PO SCH (08:36)
[2016-04-07] MEDS: APIXABAN 5 MG TABLET PO SCH ×2 (08:36→20:31)
[2016-04-07] MEDS: SODIUM CHLORIDE 0.9% FLUSH 5 ML FLUSH FLUSH SCH ×2 (08:37→20:32)
[2016-04-07] MEDS: ENOXAPARIN SODIUM 40 MG/0.4 ML SYRINGE SQ SCH (08:37)
[2016-04-07 08:46] LABS: SCAN/DIFF AUTO DIFF CONFIRMED
[2016-04-07] MEDS ORDERED: NON-FORMULARY DRUG (Solifenacin (Vesicare) 5 MG) PO SCH (09:00)
--- NOTE | 2016-04-07 12:57 | HHI.PR ---
Subjective Remarks Seen and evaluated in follow-up for abdominal pain, pneumonia and sarcoidosis. Doing better today. Jaskaran has remained stable. Had a discussion with his regarding patient's conditions and overall plan of care. hemoglobin 12.7 Blood cultures negative patient request pain meds Objective Vitals Vital Signs Date Time Temp Pulse Resp B/P Pulse Ox O2 Delivery O2 Flow Rate FiO2 04/07/16 08:00 97.7 83 18 147/107 97 04/07/16 04:00 97.0 106 18 119/87 91 04/07/16 00:57 97.3 82 18 150/103 95 04/06/16 23:45 94 Nasal Cannula 2.00 04/06/16 21:38 96.6 93 20 143/92 94 04/06/16 18:19 96.8 82 16 138/87 98 04/06/16 13:39 97.0 87 18 141/82 99 I/O 04/06/16 04/06/16 04/06/16 04/07/16 04/07/16 04/07/16 07:00 15:00 23:00 07:00 15:00 23:00 Intake Total 430 ml 1000 ml Output Total 200 ml 300 ml Balance 430 ml 800 ml -300 ml Intake Oral 80 ml 1000 ml IV Total 350 ml Output Urine Total 200 ml 300 ml # Voids 0 4 4 # Bowel Movements 0 1 Result Diagram: 04/07/16 0650 04/07/16 0650 Objective Remarks Last Impressions Chest CT 04/06/16 1950 Signed Impressions: Service Date/Time: Wednesday, April 06, 2016 20:28 - CONCLUSION: 1. Progression of areas of parenchymal density seen throughout the lungs. 2. Persistent chronic interstitial change at the lung bases. 3. Prominent adenopathy throughout the mediastinum and hilar regions. This was present previously. Benjie Adamson MD Chest X-Ray 04/05/16 [id number] Signed Impressions: Service Date/Time: March 23:46 - CONCLUSION: Extensive pulmonary fibrosis with superimposed acute opacity in the right midlung characteristic of pneumonia. Followup examination to insure clearing is recommended. Keven Moscoso MD A/P Problem List: (1) Pneumonia ICD Code: J18.9 Status: Acute Plan: Pulmonary consult pending Will continue with cefepime and azithromycin for now. Fever better. Shortness of breath is better. Patient more ambulatory with physical therapy this morning (2) COPD (chronic obstructive pulmonary disease) ICD Code: J44.9 Status: Chronic Plan: Pulmonary consult appreciated IV Steroids, Bronchodilators Abx, (3) Atrial fibrillation ICD Code: I48.91 Status: Chronic Plan: Rate controlled on Cardizem and metoprolol Continue Eliquis (4) Sarcoidosis ICD Code: D86.9 Status: Chronic Plan: Patient is on methotrexate which has been held due to his pneumonia. We' ll continue Folic acid Continue bronchodilators Significant pulmonary fibrosis on imaging. Patient follows up in [facility] (5) Abdominal pain ICD Code: R10.9 Status: Acute Plan: Chronic since December, patient will continue with proton pump inhibitor. Already has outpatient endoscopy scheduled through his doctors in [place] We'll follow hemoglobin Assessment and Plan Zenaida Parker MD Apr 07, 2016 12:57
[2016-04-07] MEDS: POLYETHYLENE GLYCOL 17 GM PKG PO SCH (13:29)
[2016-04-07] MEDS: ACETAMINOPHEN/HYDROcodone 325 MG/10 MG TAB PO SCH ×2 (13:29→17:10)
--- NOTE | 2016-04-07 18:53 | HHI.PR ---
Subjective Remarks 51 YOAA male with Sasrcoidosis, follows at [facility] has sob but improving No Fever Mild wheezing Objective Vital Signs Vital Signs Date Time Temp Pulse Resp B/P Pulse Ox O2 Delivery O2 Flow Rate FiO2 04/07/16 16:00 98.0 86 18 133/88 98 04/07/16 13:40 93 21 04/07/16 12:00 98.0 81 18 129/89 98 04/07/16 08:00 97.7 83 18 147/107 97 04/07/16 04:00 97.0 106 18 119/87 91 04/07/16 00:57 97.3 82 18 150/103 95 04/06/16 23:45 94 Nasal Cannula 2.00 04/06/16 21:38 96.6 93 20 143/92 94 I/O 04/06/16 04/06/16 04/06/16 04/07/16 04/07/16 04/07/16 07:00 15:00 23:00 07:00 15:00 23:00 Intake Total 430 ml 1000 ml 600 ml Output Total 200 ml 300 ml Balance 430 ml 800 ml -300 ml 600 ml Intake Oral 80 ml 1000 ml 600 ml IV Total 350 ml Output Urine Total 200 ml 300 ml # Voids 0 4 4 3 # Bowel Movements 0 1 Result Diagram: 04/07/16 0650 04/07/16 0650 Objective Remarks GENERAL: WBWN AA male mild sob SKIN: Warm and dry. HEAD: Normocephalic. EYES: No scleral icterus. No injection or drainage. NECK: Supple, trachea midline. No JVD or lymphadenopathy. CARDIOVASCULAR: Regular rate and rhythm without murmurs, gallops, or rubs. RESPIRATORY: Breath sounds equal bilaterally. No accessory muscle use. Exp rhonchi GASTROINTESTINAL: Abdomen soft, non-tender, nondistended. MUSCULOSKELETAL: No cyanosis, or edema. BACK: Nontender without obvious deformity. No CVA tenderness. A/P Assessment and Plan Pneumonia Worsening int infilt Sarcoidosis PLAN: Cont Abx Aerosol nebs Supplement 02 IV Solumedrol Eliquis 5 mg bid DW pt and his KyaraReji MD Apr 07, 2016 18:53
[2016-04-07] MEDS: GABAPENTIN 300 MG CAP PO SCH (20:31)
[2016-04-07] MEDS: ATORVASTATIN 40 MG TAB PO SCH (20:31)
[2016-04-07] MEDS: DOXEPIN HCL 50 MG CAP PO SCH (20:31)
[2016-04-08] VITALS (7 sets, daily range): BP systolic 130–150; BP diastolic 82–92; PULSE 71–94; RESP 18–20; TEMP 96–98; O2SAT 92–98
[2016-04-08] MEDS: CEFEPIME INJ 2,000 MG in SODIUM CHLORIDE 0.9% INJ 100 ML IV SCH ×2 (00:53→13:16)
[2016-04-08] MEDS: AZITHROMYCIN INJ 500 MG in SODIUM CHLOR 0.9% 250 ML INJ 250 ML IV SCH (02:55)
[2016-04-08] MEDS: methylPREDNISolone SOD SUCC 40 MG/1 ML VIAL IV PUSH SCH ×3 (06:29→21:46)
[2016-04-08] MEDS: RESP: ALBUTEROL 2.5 MG/IPRATROPIUM 0.5 MG NEB (SCH) NEB ×3 (07:38→20:10)
[2016-04-08 07:58] LABS: AUTOMATED NEUTROPHIL # 16.4 TH/MM3 (1.8-7.7); BASOPHIL % 0.1 % (0.0-2.0); HEMATOCRIT 38.3 % (39.0-51.0); LYMPH % 8.6 % (9.0-44.0); LYMPHOCYTE # 1.7 TH/MM3 (1.0-4.8); MEAN CELL VOLUME 80.6 FL (80.0-100.0); MEAN CORPUSCULAR HEMOGLOBIN 26.2 PG (27.0-34.0); MEAN CORPUSCULAR HGB CONC 32.6 % (32.0-36.0); MONO % 5.5 % (0.0-8.0); NEUT % 85.8 % (16.0-70.0); PLATELET COUNT 416 TH/MM3 (150-450); RED BLOOD COUNT 4.76 MIL/MM3 (4.50-5.90); RED CELL DISTRIBUTION WIDTH 14.7 % (11.6-17.2); WHITE BLOOD COUNT 19.2 TH/MM3 (4.0-11.0)
[2016-04-08 08:02] LABS: HEMO FLAGS AUTO DIFF
[2016-04-08 08:25] LABS: SCAN/DIFF AUTO DIFF CONFIRMED
[2016-04-08] MEDS: SODIUM CHLORIDE 0.9% FLUSH 5 ML FLUSH FLUSH SCH ×2 (09:00→21:45)
[2016-04-08] MEDS: CHLORTHALIDONE 50 MG TAB PO SCH (09:00)
[2016-04-08] MEDS: POLYETHYLENE GLYCOL 17 GM PKG PO SCH (10:41)
[2016-04-08] MEDS: TOLTERODINE TARTRATE 2 MG CAP LA PO SCH (10:41)
[2016-04-08] MEDS: APIXABAN 5 MG TABLET PO SCH ×2 (10:41→21:45)
[2016-04-08] MEDS: FOLIC ACID 1 MG TAB PO SCH (10:41)
[2016-04-08] MEDS: POTASSIUM CHLORIDE 20 MEQ CONTROLLED RELEASE TAB PO SCH ×2 (10:41→21:45)
[2016-04-08] MEDS: ENOXAPARIN SODIUM 40 MG/0.4 ML SYRINGE SQ SCH (10:41)
[2016-04-08] MEDS: DILTIAZEM-CD 240 MG CAP ER PO SCH (10:41)
[2016-04-08] MEDS: ACETAMINOPHEN/HYDROcodone 325 MG/10 MG TAB PO SCH ×3 (10:42→17:46)
[2016-04-08] MEDS: FUROSEMIDE 40 MG TAB PO SCH (10:42)
[2016-04-08] MEDS: METOPROLOL TARTRATE 50 MG TAB PO SCH ×2 (10:42→21:46)
[2016-04-08] MEDS: PANTOPRAZOLE SOD 40 MG DELAYED RELEASE TAB PO SCH (10:42)
--- NOTE | 2016-04-08 17:41 | HHI.PR ---
Subjective Remarks Patient evaluated this morning. Follow-up for pneumonia, h/o sarcoidosis. Patient states he is "up and down". He denies fevers or chills overnight. Denies cough. Denies any current abdominal pain. Denies vomiting or diarrhea. Objective Vitals Vital Signs Date Time Temp Pulse Resp B/P Pulse Ox O2 Delivery O2 Flow Rate FiO2 04/08/16 14:17 18 04/08/16 13:07 97.9 80 18 133/84 98 04/08/16 08:00 96.6 82 18 142/92 98 04/08/16 07:26 97 Nasal Cannula 2.00 04/08/16 01:21 96.0 78 18 146/82 92 04/07/16 20:18 97.8 96 14 142/75 98 04/07/16 19:48 96 Nasal Cannula 2.00 I/O 04/07/16 04/07/16 04/07/16 04/08/16 04/08/16 04/08/16 07:00 15:00 23:00 07:00 15:00 23:00 Intake Total 600 ml 900 ml 250 ml Output Total 300 ml Balance -300 ml 600 ml 900 ml 250 ml Intake Oral 600 ml 900 ml 250 ml Output Urine Total 300 ml # Voids 4 3 Result Diagram: 04/08/16 0720 04/07/16 0650 Imaging Last Impressions Chest CT 04/06/16 1950 Signed Impressions: Service Date/Time: Wednesday, April 06, 2016 20:28 - CONCLUSION: 1. Progression of areas of parenchymal density seen throughout the lungs. 2. Persistent chronic interstitial change at the lung bases. 3. Prominent adenopathy throughout the mediastinum and hilar regions. This was present previously. Benjie Adamson MD Chest X-Ray 04/05/16 [id number] Signed Impressions: Service Date/Time: March 23:46 - CONCLUSION: Extensive pulmonary fibrosis with superimposed acute opacity in the right midlung characteristic of pneumonia. Followup examination to insure clearing is recommended. Keven Moscoso MD Objective Remarks GENERAL: Morbidly obese well-developed patient in no apparent distress. SKIN: Warm and dry. CARDIOVASCULAR: Regular rate and rhythm. RESPIRATORY: Diminished expiratory breath sounds at the bases bilaterally, but otherwise clear. GASTROINTESTINAL: Abdomen soft, non-tender, nondistended. MUSCULOSKELETAL: No lower extremity edema. NEUROLOGICAL: Awake and alert. Motor grossly within normal limits. Normal speech. PSYCHIATRIC: Appropriate mood and affect; insight and judgment normal. Urinary Catheter: No Vascular Central Line Catheter: No A/P Problem List: (1) Pneumonia ICD Code: J18.9 Status: Acute (2) COPD (chronic obstructive pulmonary disease) ICD Code: J44.9 Status: Chronic (3) Atrial fibrillation ICD Code: I48.91 Status: Chronic (4) Sarcoidosis ICD Code: D86.9 Status: Chronic (5) Abdominal pain ICD Code: R10.9 Status: Acute Assessment and Plan (1) Pneumonia Pulmonary consultation appreciated Will continue with cefepime and azithromycin IV. Improved. Afebrile. 98% on 2 L. WBC increased to 19.2 likely due to steroids. Monitor CBC. (2) COPD (chronic obstructive pulmonary disease) Chronic Pulmonary consultation appreciated Continue Solu-Medrol 40 mg q8 hours, Bronchodilators Abx as above (3) Atrial fibrillation Chronic Rate controlled on Cardizem and metoprolol. Continue Eliquis. (4) Sarcoidosis Chronic Patient is on methotrexate which has been held due to his pneumonia. We'll continue Folic acid Continue bronchodilators Significant pulmonary fibrosis on imaging. Patient follows up in [facility] (5) Abdominal pain Acute Chronic since December, patient will continue with proton pump inhibitor. Already has outpatient endoscopy scheduled through his doctors in [place] Hemoglobin stable. DVT prophylaxis: Eliquis. Discharge Planning Patient has home oxygen, CPAP, and nebulizer. HHC? on discharge. Yue Radford Apr 08, 2016 17:41
--- NOTE | 2016-04-08 19:26 | HHI.PR ---
Subjective Remarks 51 YOAA male with Sasrcoidosis, follows at [facility] has sob but improving No Fever Mild wheezing breathing better Off 02 Objective Vital Signs Vital Signs Date Time Temp Pulse Resp B/P Pulse Ox O2 Delivery O2 Flow Rate FiO2 04/08/16 18:52 18 04/08/16 16:00 98.0 94 20 130/88 98 04/08/16 13:07 97.9 80 18 133/84 98 04/08/16 08:00 96.6 82 18 142/92 98 04/08/16 07:26 97 Nasal Cannula 2.00 04/08/16 01:21 96.0 78 18 146/82 92 04/07/16 20:18 97.8 96 14 142/75 98 04/07/16 19:48 96 Nasal Cannula 2.00 I/O 04/07/16 04/07/16 04/07/16 04/08/16 04/08/16 04/08/16 06:59 14:59 22:59 06:59 14:59 22:59 Intake Total 600 ml 900 ml 250 ml Output Total 300 ml Balance -300 ml 600 ml 900 ml 250 ml Intake Oral 600 ml 900 ml 250 ml Output Urine Total 300 ml # Voids 4 3 Result Diagram: 04/08/16 0720 04/07/16 0650 Objective Remarks GENERAL: WBWN AA male mild sob SKIN: Warm and dry. HEAD: Normocephalic. EYES: No scleral icterus. No injection or drainage. NECK: Supple, trachea midline. No JVD or lymphadenopathy. CARDIOVASCULAR: Regular rate and rhythm without murmurs, gallops, or rubs. RESPIRATORY: Breath sounds equal bilaterally. No accessory muscle use. Exp rhonchi GASTROINTESTINAL: Abdomen soft, non-tender, nondistended. MUSCULOSKELETAL: No cyanosis, or edema. BACK: Nontender without obvious deformity. No CVA tenderness. A/P Assessment and Plan Pneumonia Worsening int infilt Sarcoidosis PLAN: Cont Abx Aerosol nebs IV Solumedrol Eliquis 5 mg bid DW pt and his will FU in AM Reji Sparrow MD Apr 08, 2016 19:25
[2016-04-08] MEDS: GABAPENTIN 300 MG CAP PO SCH (21:46)
[2016-04-08] MEDS: ATORVASTATIN 40 MG TAB PO SCH (21:46)
[2016-04-08] MEDS: DOXEPIN HCL 50 MG CAP PO SCH (21:46)
[2016-04-08] MEDS: HYDROmorphone HCL 4 MG TAB PO PRN (21:51)
[2016-04-09] VITALS: BP 143/90; PULSE 90; RESP 20; TEMP 95.5; O2SAT 93
[2016-04-09] MEDS: CEFEPIME INJ 2,000 MG in SODIUM CHLORIDE 0.9% INJ 100 ML IV SCH (00:41)
[2016-04-09] MEDS: AZITHROMYCIN INJ 500 MG in SODIUM CHLOR 0.9% 250 ML INJ 250 ML IV SCH (01:35)
[2016-04-09 04:00] VITALS: BP 143/94; PULSE 80; RESP 20; TEMP 97.2; O2SAT 93
[2016-04-09] MEDS: methylPREDNISolone SOD SUCC 40 MG/1 ML VIAL IV PUSH SCH (06:11)
[2016-04-09 08:00] VITALS: BP 157/100; PULSE 87; RESP 18; TEMP 97.5; O2SAT 96
[2016-04-09 08:02] VITALS: O2SAT 96
[2016-04-09] MEDS: RESP: ALBUTEROL 2.5 MG/IPRATROPIUM 0.5 MG NEB (SCH) NEB (08:02)
[2016-04-09] MEDS: DILTIAZEM-CD 240 MG CAP ER PO SCH (08:32)
[2016-04-09] MEDS: POTASSIUM CHLORIDE 20 MEQ CONTROLLED RELEASE TAB PO SCH (08:32)
[2016-04-09] MEDS: METOPROLOL TARTRATE 50 MG TAB PO SCH (08:32)
[2016-04-09] MEDS: CHLORTHALIDONE 50 MG TAB PO SCH (08:32)
[2016-04-09] MEDS: ENOXAPARIN SODIUM 40 MG/0.4 ML SYRINGE SQ SCH (08:32)
[2016-04-09] MEDS: FUROSEMIDE 40 MG TAB PO SCH (08:32)
[2016-04-09] MEDS: TOLTERODINE TARTRATE 2 MG CAP LA PO SCH (08:32)
[2016-04-09] MEDS: FOLIC ACID 1 MG TAB PO SCH (08:32)
[2016-04-09] MEDS: POLYETHYLENE GLYCOL 17 GM PKG PO SCH (08:32)
[2016-04-09] MEDS: PANTOPRAZOLE SOD 40 MG DELAYED RELEASE TAB PO SCH (08:33)
[2016-04-09] MEDS: SODIUM CHLORIDE 0.9% FLUSH 5 ML FLUSH FLUSH SCH (08:33)
[2016-04-09] MEDS: ACETAMINOPHEN/HYDROcodone 325 MG/10 MG TAB PO SCH (08:33)
[2016-04-09] MEDS: APIXABAN 5 MG TABLET PO SCH (08:33)
[2016-04-09 08:34] LABS: BASOPHIL % 0.2 % (0.0-2.0); HEMATOCRIT 38.2 % (39.0-51.0); LYMPH % 9.4 % (9.0-44.0); LYMPHOCYTE # 1.6 TH/MM3 (1.0-4.8); MEAN CELL VOLUME 80.2 FL (80.0-100.0); MEAN CORPUSCULAR HEMOGLOBIN 25.8 PG (27.0-34.0); MEAN CORPUSCULAR HGB CONC 32.2 % (32.0-36.0); MONO % 2.4 % (0.0-8.0); PLATELET COUNT 418 TH/MM3 (150-450); RED BLOOD COUNT 4.76 MIL/MM3 (4.50-5.90); RED CELL DISTRIBUTION WIDTH 15.1 % (11.6-17.2)
[2016-04-09 08:36] LABS: HEMO FLAGS DIFF FINAL
[2016-04-09] MEDS ORDERED: CEFT500T3 PO (10:40)
[2016-04-09] MEDS ORDERED: AZIT500T2 PO (10:40)
--- NOTE | 2016-04-09 10:41 | HHI.DCPOC ---
Discharge Care Plan Diagnosis: (1) Bronchitis (2) Sarcoidosis Goals to Promote Your Health * To prevent worsening of your condition and complications * To maintain your health at the optimal level Directions to Meet Your Goals Take your medications as prescribed Follow your dietary instruction Follow activity as directed Keep your appointments as scheduled Take your immunizations and boosters as scheduled If your symptoms worsen call your PCP, if no PCP go to Urgent Care Center or Emergency Room Smoking is Dangerous to Your Health. Avoid second hand smoke Call the 24-hour hour crisis hotline for domestic abuse at Zenaida Taylor MD Apr 09, 2016 10:41
[2016-04-09] MEDS ORDERED: PRED20 PO (10:42)
--- NOTE | 2016-04-09 10:44 | HHI.DS ---
Discharge Summary Admission Date Apr 06, 2016 at 01:27 Discharge Date: Apr 09, 2016 Admitting Diagnosis R Lung PNA, Epigastric/Chest Discomfort (1) Pneumonia ICD Code: J18.9 (2) COPD (chronic obstructive pulmonary disease) ICD Code: J44.9 (3) Atrial fibrillation ICD Code: I48.91 (4) Sarcoidosis ICD Code: D86.9 (5) Abdominal pain ICD Code: R10.9 Procedures none Brief History - From Admission Patient is a 51 year-old gentleman with a history of sarcoidosis who has been having increased chest and abdominal pain over the last several weeks. He has come to the emergency room for further evaluation. He reports that the pain is worse when he is eating although it does remain constantly. It is not relieved with ibuprofen. Patient did have evidence of a right lung consolidation and has been treated in the past for pneumonia. He has significant pulmonary fibrosis. Patient has also past and treated for partial bowel obstruction which resolved nonsurgically. Patient this time has been admitted to the hospital due to increased abdominal discomfort and for treatment of pneumonia. He normally does take methotrexate and folic acid but has been off of this due to his recent pneumonia treatment. He follows up at [facility] for sarcoidosis CBC/BMP: 04/09/16 0810 04/07/16 0650 Significant Findings Laboratory Tests Test 04/07/16 04/07/16 04/08/16 04/09/16 00:00 06:50 07:20 08:10 Blood Gas HCO3 29 mmol/L (22-26) Blood Gas Base Excess 3.9 mmol/L (-2-2) Arterial Blood pH 7.33 (7.380-7.420) Arterial Blood Partial 58 mmHg (38-42) Pressure CO2 Hemoglobin 12.7 GM/DL 12.5 GM/DL 12.3 GM/DL (13.0-17.0) (13.0-17.0) (13.0-17.0) Hematocrit 38.8 % 38.3 % 38.2 % (39.0-51.0) (39.0-51.0) (39.0-51.0) Mean Corpuscular Volume 79.9 FL (80.0-100.0) Mean Corpuscular Hemoglobin 26.1 PG 26.2 PG 25.8 PG (27.0-34.0) (27.0-34.0) (27.0-34.0) Neutrophils (%) (Auto) 82.3 % 85.8 % 88.0 % (16.0-70.0) (16.0-70.0) (16.0-70.0) Random Glucose 108 MG/DL (74-106) White Blood Count 19.2 TH/MM3 17.0 TH/MM3 (4.0-11.0) (4.0-11.0) Lymphocytes (%) (Auto) 8.6 % (9.0-44.0) Neutrophils # (Auto) 16.4 TH/MM3 15.0 TH/MM3 (1.8-7.7) (1.8-7.7) Monocytes # (Auto) 1.1 TH/MM3 (0-0.9) Imaging Last Impressions Chest CT 04/06/16 1950 Signed Impressions: Service Date/Time: Wednesday, April 06, 2016 20:28 - CONCLUSION: 1. Progression of areas of parenchymal density seen throughout the lungs. 2. Persistent chronic interstitial change at the lung bases. 3. Prominent adenopathy throughout the mediastinum and hilar regions. This was present previously. Benjie Adamson MD Chest X-Ray 04/05/16 2336 Signed Impressions: Service Date/Time: March 23:46 - CONCLUSION: Extensive pulmonary fibrosis with superimposed acute opacity in the right midlung characteristic of pneumonia. Followup examination to insure clearing is recommended. Keven Moscoso MD PE at Discharge GENERAL: Morbidly obese well-developed patient in no apparent distress. SKIN: Warm and dry. CARDIOVASCULAR: Regular rate and rhythm. RESPIRATORY: Diminished expiratory breath sounds at the bases bilaterally, but otherwise clear. GASTROINTESTINAL: Abdomen soft, non-tender, nondistended. MUSCULOSKELETAL: No lower extremity edema. NEUROLOGICAL: Awake and alert. Motor grossly within normal limits. Normal speech. PSYCHIATRIC: Appropriate mood and affect; insight and judgment normal. Pt update on day of discharge Is seen today in follow-up for discharge planning. Respiratory status is stable. Discharge discussed with patient and with family. Patient tolerating antibiotics. Hospital Course Patient is a 51-year-old gentleman with sarcoidosis. Appear to have pneumonia and this was treated with antibiotics. He was also seen by pulmonary team for further evaluation due to his history of sarcoidosis. Patient has significant fibrosis in his lung. Patient also has chronic abdominal discomfort which is being monitored by his primary care team at [facility] and for which she has outpatient endoscopy scheduled. Patient will continue with current regimen at home. Pt Condition on Discharge: Good Discharge Disposition: Discharge Home Discharge Time: > 30 minutes Discharge Instructions DIET: Follow Instructions for: As Tolerated, No Restrictions Activities you can perform: Regular-No Restrictions Follow up Referrals: PCP Follow-up - 2 Weeks New Medications: Azithromycin (Azithromycin) 500 Mg Tab 500 MG PO DAILY Infection #5 Ref 0 TAB Cefuroxime (Ceftin) 500 Mg Tab 500 MG PO BID Infection #10 Ref 0 TAB Prednisone (Prednisone) 20 Mg Tab 20 MG PO BID Inflammation #10 Ref 0 TAB Continued Medications: Acetaminophen (Acetaminophen Extra Strength) 500 Mg Cap 500 MG PO Q6H PRN #20 Ref 0 CAP Albuterol 8.5 GM Inh (Proair Hfa 8.5 GM Inh) 90 Mcg/Act Aer 1 PUFF INH Q6H 108 mcg/actuation PRN SHORTNESS OF BREATH #1 Ref 0 INHALER Albuterol Neb (Albuterol Neb) 2.5 Mg/3 Ml Neb 2.5 MG NEB Q4HR NEB While awake Breathing Treatment #60 Ref 0 NEBULE Apixaban (Eliquis) 5 Mg Tab 5 MG PO BID Blood Clot Prevention #60 Ref 0 TAB Atorvastatin (Lipitor) 40 Mg Tab 40 MG PO HS Cholesterol Management #30 Ref 0 TAB Chlorthalidone (Chlorthalidone) 50 Mg Tab 50 MG PO DAILY Ref 0 TAB Diltiazem CD 24 HR (Diltiazem CD 24 HR) 240 Mg Caper 240 MG PO DAILY #30 Ref 0 CAP Doxepin (Doxepin) 50 Mg Cap 50 MG PO HS #30 Ref 0 CAP Folic Acid (Folate) 1 Mg Tab 1 MG PO DAILY Nutritional Supplement Ref 0 TAB Furosemide (Furosemide) 40 Mg Tab 40 MG PO DAILY #30 Ref 0 TAB Gabapentin (Gabapentin) 300 Mg Cap 300 MG PO HS #30 Ref 0 CAP Hydromorphone (Dilaudid) 4 Mg Tab 4 MG PO Q4H PRN Pain Management Ref 0 TAB Lorazepam (Lorazepam) 2 Mg Tab 2 MG PO Q6H PRN ANXIETY Ref 0 TAB Methotrexate Inj (Methotrexate Inj) 50 Mg/2 Ml Inj 15 MG SQ EVERY TWO WEEKS Metoprolol Tartrate (Metoprolol Tartrate) 50 Mg Tab 50 MG PO BID #60 Ref 0 TAB Ondansetron (Zofran) 4 Mg Tab 4 MG PO Q8HR PRN NAUSEA OR VOMITING Ref 0 TAB Pantoprazole (Protonix) 40 Mg Tab 40 MG PO DAILY Reflux #30 Ref 0 TAB Potassium Chloride ER (Potassium Chloride ER) 20 Meq Tab 20 MEQ PO BID Electrolyte Replacement #60 Ref 0 TAB Solifenacin (Vesicare) 5 Mg Tab 5 MG PO DAILY Urinary Symptom Managemen #30 Ref 0 TAB Zenaida Taylor MD Apr 09, 2016 10:44
--- NOTE | 2016-04-12 08:21 | RSPPFT ---
DATE OF PROCEDURE: 04/07/16 COMMENTS: Spirometry demonstrates an FEV1 of 1.1 at 30% of predicted, FVC of 2.5 at 50%, FEV1/FVC ratio is 47%. The FEF 25-75 is 9% of predicted. Post-bronchodilator study demonstrated improvements in the FEV1 and FEF 25-75. Flow volume loops suggest an obstructive pattern. IMPRESSION: 1. Severe obstructive disease. 2. Significant response to use of bronchodilator indicating reversibility.
== END 2016-04-09 11:29 | disposition home or self-care (01) | DRG 190 ==
LOC: PHED 23:13 → PHEDA 04-06 01:27 → PH3B 04-06 03:30
PROVIDERS: ADMIT Hospitalist; ATTEND Hospitalist
DX: J44.0 Chronic obstructive pulmonary disease with (acute) lower respiratory infection (principal); J18.9 Pneumonia, unspecified organism; J84.10 Pulmonary fibrosis, unspecified; Z68.41 Body mass index [BMI] 40.0-44.9, adult; D86.9 Sarcoidosis, unspecified; E66.01 Morbid (severe) obesity due to excess calories; K92.1 Melena; J44.1 Chronic obstructive pulmonary disease with (acute) exacerbation; R10.13 Epigastric pain; E78.5 Hyperlipidemia, unspecified; M54.9 Dorsalgia, unspecified; G89.29 Other chronic pain; R63.4 Abnormal weight loss; M19.90 Unspecified osteoarthritis, unspecified site; J45.909 Unspecified asthma, uncomplicated; I10 Essential (primary) hypertension; G47.30 Sleep apnea, unspecified; Z87.01 Personal history of pneumonia (recurrent); I48.2 Chronic atrial fibrillation; K21.9 Gastro-esophageal reflux disease without esophagitis; Z79.891 Long term (current) use of opiate analgesic; R94.31 Abnormal electrocardiogram [ECG] [EKG]
CPT/HCPCS: 36600; 71010; 71260; 74177; 80048; 80053; 81001; 82805; 83690; 83880; 84484; 85025; 85610; 85730; 87040; 87205; 93005; 94060; 94640; 94664; 96365; 96374; 96375; C9113; J0456; J0692; J1170; J1650; J1885; J2270; J2405; J2920; J7050; Q9967

== ENCOUNTER 2016-04-14 21:48 | Inpatient (IN) | payer MEDICARE, MEDICAID ==
[~2016-04-14] VITALS: Ht 180.3 cm; Wt 150.0 kg
[~2016-04-14 21:48] MED LIST changes: -ADVA250A INH; +ALBUAER3 INH; +AZIT500T2 PO; -CIPR-9 PO; -DIFL0.0512 RIGHT EYE; +FOLI1TAB4 PO; +FURO40TA PO; -IBUP-232 PO; -OXYB5TAB10 PO; +PRED20 PO; +VESI5TAB PO
[2016-04-14 21:51] VITALS: BP 139/93; PULSE 110; RESP 20; TEMP 97.9; O2SAT 94
[2016-04-14] MEDS ORDERED: SODIUM CHLOR 0.9% 1000 ML INJ 1,000 ML IV SCH (22:12)
[2016-04-14] MEDS ORDERED: ONDANSETRON HCL 4 MG/2 ML VIAL IVP ONE (22:15)
[2016-04-14] MEDS ORDERED: MORPHINE SULFATE 4 MG/ML INJ IV PUSH ONE (22:15)
[2016-04-14] MEDS ORDERED: SODIUM CHLORIDE 0.9% FLUSH 5 ML FLUSH IVF PRN (22:15)
[2016-04-14] MEDS ORDERED: PANTOPRAZOLE SODIUM 40 MG VIAL IVP ONE (22:15)
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
[2016-04-14 22:30] VITALS: PULSE 109; RESP 20; O2SAT 96
[2016-04-14 22:56] LABS: AUTOMATED NEUTROPHIL # 6.8 TH/MM3 (1.8-7.7); BASOPHIL # 0.1 TH/MM3 (0-0.2); BASOPHIL % 0.8 % (0.0-2.0); EOSINOPHIL # 0.3 TH/MM3 (0-0.4); EOSINOPHIL % 2.6 % (0.0-4.0); HEMATOCRIT 37.7 % (39.0-51.0); HEMO FLAGS DIFF FINAL; LYMPH % 19.9 % (9.0-44.0); MEAN CELL VOLUME 78.2 FL (80.0-100.0); MEAN CORPUSCULAR HEMOGLOBIN 26.9 PG (27.0-34.0); MEAN CORPUSCULAR HGB CONC 34.5 % (32.0-36.0); MONO % 10.8 % (0.0-8.0); NEUT % 65.9 % (16.0-70.0); PLATELET COUNT 365 TH/MM3 (150-450); RED BLOOD COUNT 4.82 MIL/MM3 (4.50-5.90); RED CELL DISTRIBUTION WIDTH 16.1 % (11.6-17.2); WHITE BLOOD COUNT 10.3 TH/MM3 (4.0-11.0)
[2016-04-14 23:15] LABS: ALKALINE PHOSPHATASE 101 U/L (45-117); TOTAL BILIRUBIN ADULT 0.4 MG/DL (0.2-1.0)
[2016-04-14 23:22] LABS: ALT (GPT) 29 U/L (12-78); ANION GAP 8 MEQ/L (5-15); AST (GOT) 44 U/L (15-37); BLOOD UREA NITROGEN 19 MG/DL (7-18); CHLORIDE 103 MEQ/L (98-107); GLOMERULAR FILTRATION RATE 83 ML/MIN (>89); POTASSIUM 5.3 MEQ/L (3.5-5.1); SODIUM (NA) 138 MEQ/L (136-145)
[2016-04-14 23:34] LABS: APTT (PATIENT) 28.5 SEC (24.3-30.1); PROTHROMBIN TIME - PATIENT 10.8 SEC (9.8-11.6)
[2016-04-14] MEDS ORDERED: IOHEXOL 350 MG/ML 10 ML VIAL (for RAD DIAG) IV ONE (23:44)
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
[2016-04-15] VITALS (11 sets, daily range): BP systolic 130–152; BP diastolic 77–94; PULSE 87–98; RESP 20; TEMP 96.5–98.3; O2SAT 92–97
--- NOTE | 2016-04-15 00:09 | RADRPT ---
EXAM DATE/TIME: 04/14/2016 23:36 [facility] COMPARISON: CT ABDOMEN & PELVIS W CONTRAST, April 03, 2016, 3:17. INDICATIONS : Abdominal pain with nausea, vomiting, and diarrhea starting today. IV CONTRAST: 96 cc Omnipaque 350 (iohexol) IV ORAL CONTRAST: No oral contrast ingested. RADIATION DOSE: 30.82 CTDIvol (mGy) MEDICAL HISTORY : Gastroesophageal reflux disease. Chronic obstructive pulmonary disease. Congestive heart failure.Hype rtension. Hiatal Hernia. Sarcoidosis. SURGICAL HISTORY : Colon resection. ENCOUNTER: Initial ACUITY: 1 week PAIN SCALE: 10/10 LOCATION: Bilateral upper quadrant TECHNIQUE: Volumetric scanning of the abdomen and pelvis was performed. Using automated exposure control and ad justment of the mA and/or kV according to patient size, radiation dose was kept as low as reasonably achievable to obtain optimal diagnostic quality images. FINDINGS: LOWER LUNGS: Patchy infiltrates at the right lung base are similar to prior CT. LIVER: Homogeneous density without lesion. There is no dilation of the biliary tree. No calcified gallston es. SPLEEN: Normal size without lesion. PANCREAS: Within normal limits. KIDNEYS: Normal in size and shape. There is no mass, stone or hydronephrosis. ADRENAL GLANDS: Within normal limits. VASCULAR: There is no aortic aneurysm. BOWEL/MESENTERY: Anastomosis suture from prior bowel surgery in the low midline abdomen. The configuration of the bow el loops observed placenta similar to prior CT on 04/03/16. No evidence of free fluid or free intrape ritoneal gas. ABDOMINAL WALL: Within normal limits. RETROPERITONEUM: There is no lymphadenopathy. BLADDER: No wall thickening or mass. REPRODUCTIVE: Within normal limits. INGUINAL: There is no lymphadenopathy or hernia. MUSCULOSKELETAL: Within normal limits for patient age. CONCLUSION: Persistent right lower lung partially consolidative infiltrates. No acute findings in the abdomen/pe lvis. Frank Ortega MD on April 15, 2016 at 0:01 Board Certified Radiologist. This report was verified electronically.
--- NOTE | 2016-04-15 00:24 | PD ---
Data Data Last Documented VS Vital Signs Date Time Temp Pulse Resp B/P Pulse Ox O2 Delivery O2 Flow Rate FiO2 04/14/16 23:19 98 Nasal Cannula 3 04/14/16 22:30 109 20 04/14/16 21:51 97.9 139/93 Orders Complete Blood Count With Diff (04/14/16 22:12) Comprehensive Metabolic Panel (04/14/16 22:12) Lipase (04/14/16 22:12) Lactic Acid (04/14/16 22:12) Prothrombin Time / Inr (Pt) (04/14/16 22:12) Act Partial Throm Time (Ptt) (04/14/16 22:12) Urinalysis - C+S If Indicated (04/14/16 22:12) Iv Access Insert/Monitor (04/14/16 22:12) Ecg Monitoring (04/14/16 22:12) Oximetry (04/14/16 22:12) NPO (04/14/16 22:12) Morphine Inj (Morphine Inj) (04/14/16 22:15) Ondansetron Inj (Zofran Inj) (04/14/16 22:15) Pantoprazole Inj (Protonix Inj) (04/14/16 22:15) Sodium Chlor 0.9% 1000 Ml Inj (Ns 1000 M (04/14/16 22:12) Sodium Chloride 0.9% Flush (Ns Flush) (04/14/16 22:15) Electrocardiogram (04/14/16 22:12) Chest, Pa & Lat (04/14/16 22:12) Ct Abd/Pel W Iv Contrast(Rout) (04/14/16 22:17) Influenzae A/B Antigen (04/14/16 22:24) Blood Culture (04/14/16 23:33) B-Type Natriuretic Peptide (04/14/16 23:39) Iohexol 350 Inj (Omnipaque 350 Inj) (04/14/16 23:44) Admit Order (Ed Use Only) (04/15/16 00:20) Labs Laboratory Tests Test 04/14/16 22:35 White Blood Count 10.3 TH/MM3 Red Blood Count 4.82 MIL/MM3 Hemoglobin 13.0 GM/DL Hematocrit 37.7 % Mean Corpuscular Volume 78.2 FL Mean Corpuscular Hemoglobin 26.9 PG Mean Corpuscular Hemoglobin 34.5 % Concent Red Cell Distribution Width 16.1 % Platelet Count 365 TH/MM3 Mean Platelet Volume 8.3 FL Neutrophils (%) (Auto) 65.9 % Lymphocytes (%) (Auto) 19.9 % Monocytes (%) (Auto) 10.8 % Eosinophils (%) (Auto) 2.6 % Basophils (%) (Auto) 0.8 % Neutrophils # (Auto) 6.8 TH/MM3 Lymphocytes # (Auto) 2.0 TH/MM3 Monocytes # (Auto) 1.1 TH/MM3 Eosinophils # (Auto) 0.3 TH/MM3 Basophils # (Auto) 0.1 TH/MM3 CBC Comment DIFF FINAL Differential Comment Prothrombin Time 10.8 SEC Prothromb Time International 1.0 RATIO Ratio Activated Partial 28.5 SEC Thromboplast Time Sodium Level 138 MEQ/L Potassium Level 5.3 MEQ/L Chloride Level 103 MEQ/L Carbon Dioxide Level 27.0 MEQ/L Anion Gap 8 MEQ/L Blood Urea Nitrogen 19 MG/DL Creatinine 1.12 MG/DL Estimat Glomerular Filtration 83 ML/MIN Rate Random Glucose 108 MG/DL Lactic Acid Level 1.6 mmol/L Calcium Level 8.1 MG/DL Total Bilirubin 0.4 MG/DL Aspartate Amino Transf 44 U/L (AST/SGOT) Alanine Aminotransferase 29 U/L (ALT/SGPT) Alkaline Phosphatase 101 U/L Total Protein 7.9 GM/DL Albumin 3.3 GM/DL Lipase 225 U/L MDM Supervised Visit with JONNY: Yes Narrative Course I, Dr. Torrez, have reviewed the advance practice practitioner's documentation and am in agreement, met with the patient face to face, made the diagnosis, and the medical decision making was done by me. See his note for further details. Briefly this is a 51-year-old male with history of sarcoidosis, recurrent abdominal pain, recent admission for pneumonia, discharged home on azithromycin and cefuroxime, here for evaluation of cough that is nonproductive, worsening, abdominal discomfort, multiple episodes of diarrhea, and hematemesis. Patient also states he noticed blood in his stool. Stool here is heme negative. He has mild abdominal tenderness which is diffuse. CBC is unremarkable. CMP is remarkable for potassium 5.3 with moderate hemolysis, otherwise unremarkable. Lipase is 225. Initial vital signs show heart rate of 110, blood pressure 139/ 93, pulse ox 94% on room air, oral temp of 97.9F. Chest x-ray shows stable diffuse bilateral infiltrates in stable right pleural effusion. CT abdomen pelvis shows a persistent right lower lung partial consolidative infiltrates, no acute finding in the abdomen or pelvis. Patient was started on cefepime and vancomycin. C. difficile PCR pending. Patient was made aware of all findings and plan for admission. Case discussed with hospitalist Dr. Cisse who will admit the patient to her service. Diagnosis Primary Impression: PNA (pneumonia) Qualified Code: J18.1 - Pneumonia of right lower lobe due to infectious organism Admitting Information Admitting Physician Requests: Admit Condition: Stable Lance Torrez MD Apr 15, 2016 00:24
[2016-04-15] MEDS ORDERED: BISACODYL 10 MG SUPP PR PRN (00:30)
[2016-04-15] MEDS ORDERED: CEFEPIME INJ 1,000 MG in SODIUM CHLORIDE 0.9% INJ 100 ML IV ONE (00:30)
[2016-04-15] MEDS ORDERED: RESP: ALBUTEROL 2.5 MG/3 ML NEB (PRN) NEB (00:30)
[2016-04-15] MEDS ORDERED: Vancomycin Consult Pharmacy 1 EA OTHER SCH (00:30)
[2016-04-15] MEDS ORDERED: ONDANSETRON HCL 4 MG/2 ML VIAL IVP PRN (00:30)
[2016-04-15] MEDS ORDERED: VANCOMYCIN INJ 1,000 MG in SODIUM CHLOR 0.9% 250 ML INJ 250 ML IV ONE (00:30)
[2016-04-15] MEDS ORDERED: ACETAMINOPHEN 325 MG TAB PO PRN (00:30)
[2016-04-15] MEDS ORDERED: SODIUM CHLORIDE 0.9% FLUSH 5 ML FLUSH FLUSH PRN (00:30)
--- NOTE | 2016-04-15 01:21 | HHI.HP ---
HPI Service [facility] Primary Care Physician Non-Staff Admission Diagnosis right lung pneumonia, shortness of breath Diagnoses: (1) Sarcoidosis Diagnosis: Principal (2) PNA (pneumonia) Diagnosis: Principal (3) Abdominal pain Diagnosis: Principal (4) Diarrhea Diagnosis: Principal (5) A-fib Diagnosis: Principal Travel History International Travel<30 Days: No Contact w/Intl Traveler <30 Da: No Traveled to Known Affected Are: No History of Present Illness This is a 51-year-old male with PMH of HTN, A. fib on Eliquis, Sarcoidosis and COPD who presented to the ER w/ complaints of abdominal pain, diarrhea and SOB. Recent admit 04/06-04/09/16 for similar complaints, found to have PNA and started on IV Abx, w/ eval by Dr. Stanley w/ Pulmonology and underwent PFTs. Pt normally on Methotrexate and Folic Acid, follows at [facility] for Sarcoidosis, off MTX x3 wks due to ongoing PNA. D/c'd on 04/09/16 w/ Zithro/Ceftin x5 days, however returned to ER today w/ progressive SOB and abd pain/diarrhea. H/o Chronic Abdominal Pain for which he is also following at [facility], and is scheduled for upcoming EGD. On arrival, BP 139/93, HR 110, O2 sat 94% on RA, Afebrile. WBC normal. K+ 5.3 w/ moderate hemolysis. CXR with persistent diffuse bilateral infiltrates and stable right pleural effusion. CT Abd/Pelvis w/ no intra-abdominal pathology. S/p Blood Cultures, Vanc/Cefepime in ER. Review of Systems Other ROS: 14 point review of systems otherwise negative. Past Family Social History Past Medical History PMH: HTN, A. fib on Eliquis, Sarcoidosis and [employer] Past Surgical History PAST SURGICAL HISTORY: Eye Surgery, Tonsillectomy, Hemorrhoidectomy Allergies: Coded Allergies: No Known Allergies (Verified , 04/14/16) Family History PAST FAMILY HISTORY: Reviewed. No h/o DM or CAD Social History PAST SOCIAL HISTORY: Negative for alcohol, tobacco or drugs. Physical Exam Vital Signs Vital Signs Date Time Temp Pulse Resp B/P Pulse Ox O2 Delivery O2 Flow Rate FiO2 04/15/16 00:42 97 Nasal Cannula 3.00 04/14/16 23:19 98 Nasal Cannula 3 04/14/16 22:30 109 20 96 Room Air 04/14/16 22:30 109 22 96 Room Air 04/14/16 21:51 97.9 110 20 139/93 94 Room Air Physical Exam PE: GENERAL: Middle-aged black male in no acute distress. HEENT: PERRLA, EOMI. No scleral icterus or conjunctival pallor. No lid lag or facial droop. CARDIOVASCULAR: Regular rate and rhythm. No obvious murmurs to auscultation. No chest tenderness to palpation. RESPIRATORY: No obvious rhonchi. Occasional expiratory wheezing. Breath sounds equal bilaterally. GASTROINTESTINAL: Abdomen soft, mild generalized tenderness to palpation, nondistended. BS normal. MUSCULOSKELETAL: Extremities without clubbing, cyanosis, or edema. No obvious deformities. NEUROLOGICAL: Awake, alert and oriented x4. No focal neurologic deficits. Moving both upper and lower extremities spontaneously. Laboratory Laboratory Tests Test 04/14/16 22:35 White Blood Count 10.3 Red Blood Count 4.82 Hemoglobin 13.0 Hematocrit 37.7 Mean Corpuscular Volume 78.2 Mean Corpuscular Hemoglobin 26.9 Mean Corpuscular Hemoglobin 34.5 Concent Red Cell Distribution Width 16.1 Platelet Count 365 Mean Platelet Volume 8.3 Neutrophils (%) (Auto) 65.9 Lymphocytes (%) (Auto) 19.9 Monocytes (%) (Auto) 10.8 Eosinophils (%) (Auto) 2.6 Basophils (%) (Auto) 0.8 Neutrophils # (Auto) 6.8 Lymphocytes # (Auto) 2.0 Monocytes # (Auto) 1.1 Eosinophils # (Auto) 0.3 Basophils # (Auto) 0.1 CBC Comment DIFF FINAL Differential Comment Prothrombin Time 10.8 Prothromb Time International 1.0 Ratio Activated Partial 28.5 Thromboplast Time Sodium Level 138 Potassium Level 5.3 Chloride Level 103 Carbon Dioxide Level 27.0 Anion Gap 8 Blood Urea Nitrogen 19 Creatinine 1.12 Estimat Glomerular Filtration 83 Rate Random Glucose 108 Lactic Acid Level 1.6 Calcium Level 8.1 Total Bilirubin 0.4 Aspartate Amino Transf 44 (AST/SGOT) Alanine Aminotransferase 29 (ALT/SGPT) Alkaline Phosphatase 101 Total Protein 7.9 Albumin 3.3 Lipase 225 B-Type Natriuretic Peptide LESS THAN 2 Date/Time Procedure Status Source Growth 04/15/16 00:20 Aerobic Blood Culture Received Blood Peripheral Pending 04/15/16 00:20 Anaerobic Blood Culture Received Blood Peripheral Pending 04/14/16 22:40 Influenza Types A,B Antigen (SABRINA) - Final Complete Nasal Washing NEGATIVE FOR FLU A AND B ANTIGEN.... Result Diagram: 04/14/16223404/14/162234 Assessment and Plan Problem List: (1) Sarcoidosis ICD Code: D86.9 Status: Acute (2) PNA (pneumonia) ICD Code: J18.9 Status: Acute (3) Abdominal pain ICD Code: R10.9 Status: Acute (4) Diarrhea ICD Code: R19.7 Status: Acute (5) A-fib ICD Code: I48.91 Status: Acute Assessment and Plan A/P: 1. Sarcoidosis: w/ severe pulmonary fibrosis, follows w/ Manager Freelance at [facility], s/p eval by Dr. Stanley on recent admission w/ PFTs 04/07/16 showing severe obstructive disease. On MTX and Folic Acid, however off treatment x3 wks due to ongoing PNA. Plan for outpatient follow up at [facility] w/ his Manager Freelance. Solu-Medrol, Albuterol prn. 2. PNA: Recent admit 04/06-04/09/16 w/ PNA s/p IV Abx, d/c'd on Zithro and Ceftin x5 days, CXR w/ persistent bilateral infiltrates and stable right pleural effusion, images reviewed by me. S/p Vanc/Cefepime in ER, will continue w/ IV Abx. 3. Abdominal Pain: Chronic. Schedule for EGD at [facility]. CT Abd/Pelvis w/ no acute intra-abdominal pathology, images reviewed by me. Protonix, analgesics/ antiemetics. 4. Diarrhea: Non-bloody, Hemoccult negative. C Diff pending. 5. A-fib: Chronic. Controlled. Resume home Cardizem, Metoprolol and Eliquis. 6. DVT Prophylaxis: On Eliquis. 7. Social work for d/c planning as needed. 8. Case discussed w/ ER physician at length. Physician Certification 2 Midnight Certification Type: Admission for Inpatient Services Order for Inpatient Services The services are ordered in accordance with Medicare regulations or non- Medicare payer requirements, as applicable. In the case of services not specified as inpatient-only, they are appropriately provided as inpatient services in accordance with the 2-midnight benchmark. Estimated LOS (days): 2 days is the estimated time the patient will need to remain in the hospital, assuming treatment plan goals are met and no additional complications. Post-Hospital Plan: Home Problem Qualifiers (1) PNA (pneumonia): Qualified Code: J18.1 - Pneumonia of right lower lobe due to infectious organism Claudia Cisse MD Apr 15, 2016 01:21
[2016-04-15] MEDS ORDERED: VANCOMYCIN 1,000 MG/NS 250 ML IV ONE ×2 (02:00)
[2016-04-15] MEDS: MORPHINE SULFATE 4 MG/ML INJ IV PRN ×4 (02:15→18:16)
[2016-04-15 02:33] LABS: BLOOD, URINE NEG (NEG); COMMENT (UR) CULT NOT INDICATED; CULTURE IF INDICATED CULT NOT INDICATED; GLUCOSE,URINE NEG (NEG); KETONE, URINE NEG (NEG); MUCUS URINE FEW /lpf (OCC); NITRITE,URINE NEG (NEG); SQUAMOUS EPITHELIAL CELL URINE <1 /hpf (0-5); URINE COLOR YELLOW (YELLW/STRAW)
[2016-04-15] MEDS: RESP: ALBUTEROL 2.5 MG/3 ML NEB (SCH) NEB ×6 (03:18→23:17)
[2016-04-15] MEDS: methylPREDNISolone SOD SUCC 40 MG/1 ML VIAL IV PUSH SCH ×3 (05:01→21:23)
--- NOTE | 2016-04-15 08:59 | HHI.PR ---
Subjective Remarks Follow-up for diarrhea. The patient states that after he was discharged home earlier this week, he had been feeling better and his shortness of breath had improved. He states at about day after discharge she began having abdominal pain, diarrhea. He states that he's been feeling hot and cold, no specific fevers or chills. For the past 2 days he's been having episodes of bright red vomitus. He still reports some shortness of breath, but continues to report that is better than his previous admission. No EGD scheduled yet in [facility]. Continues to have loose stools. Objective Vitals Vital Signs Date Time Temp Pulse Resp B/P Pulse Ox O2 Delivery O2 Flow Rate FiO2 04/15/16 07:37 96.5 88 20 134/77 92 04/15/16 05:19 98.2 95 20 152/94 93 04/15/16 02:11 98.2 93 20 152/88 96 04/15/16 02:00 98 04/15/16 00:42 97 Nasal Cannula 3.00 04/14/16 23:19 98 Nasal Cannula 3 04/14/16 22:30 109 20 96 Room Air 04/14/16 22:30 109 22 96 Room Air 04/14/16 21:51 97.9 110 20 139/93 94 Room Air Result Diagram: 04/14/16223404/14/162234 Imaging Last Impressions Abdomen/Pelvis CT 04/14/162216 Signed Impressions: Service Date/Time: Thursday, April 14, 2016 23:36 - CONCLUSION: Persistent right lower lung partially consolidative infiltrates. No acute findings in the abdomen/pelvis. Frank Ortega MD Chest X-Ray 04/14/162211 Signed Impressions: Service Date/Time: Thursday, April 14, 2016 23:20 - CONCLUSION: Stable diffuse bilateral infiltrates and stable right pleural effusion. Frank Ortega MD Objective Remarks GENERAL: Well-developed well-nourished morbidly obese. In no acute distress. SKIN: Warm and dry. No lesions noted. HEENT: Normocephalic. Pupils equal and round. Mucous membranes pink and moist. CARDIOVASCULAR: Regular rate and rhythm. No murmur appreciated. RESPIRATORY: No accessory muscle use. Clear to auscultation. Wheezing and decreased breath sounds. GASTROINTESTINAL: Abdomen large with previous midline incision, soft, non-tender , nondistended. Bowel sounds x4. MUSCULOSKELETAL: No obvious deformities. No clubbing or cyanosis. No edema. NEUROLOGICAL: Awake and alert. No focal neurological deficits. Moves upper and lower extremities spontaneously. Normal speech. PSYCHIATRIC: Appropriate mood and affect; insight and judgment normal. A/P Problem List: (1) Sarcoidosis ICD Code: D86.9 Status: Acute (2) PNA (pneumonia) ICD Code: J18.9 Status: Acute (3) Abdominal pain ICD Code: R10.9 Status: Acute (4) Diarrhea ICD Code: R19.7 Status: Acute (5) A-fib ICD Code: I48.91 Status: Acute Assessment and Plan 51-year-old male with PMH of HTN, A. fib on Eliquis, Sarcoidosis and COPD who presented to the ER w/ complaints of abdominal pain, diarrhea and SOB Sarcoidosis: w/ severe pulmonary fibrosis/chronic respiratory failure on home O2. Follows w/ Impress Associate at [facility]. PFTs 04/07/16 showing severe obstructive disease. On MTX and Folic Acid, however off treatment x3 wks due to ongoing PNA. Plan for outpatient follow up at [facility] w/ his Impress Associate. IV Solu- Medrol. Albuterol prn. PNA: Recent admit 04/06-04/09/16 w/ PNA s/p IV Abx, d/c'd on Zithro and Ceftin x5 days, CXR w/ persistent bilateral infiltrates and stable right pleural effusion. Covering for HCAP with IV Vanc/Cefepime, although patient has been slowly clinically improving. Chronic Abdominal Pain with hematemesis: Hemoglobin stable, lipase within normal limits. CT Abd/Pelvis w/ no acute intra-abdominal pathology. Protonix, analgesics/antiemetics. Consult gastroenterology. Clear liquids, diet per GI. Hold Eliquis. Repeat CBC today and in the morning Diarrhea: Non-bloody, Hemoccult negative. C Diff negative. Lactinex. A-fib: Chronic. Controlled. Continue home Cardizem, Metoprolol and hold Eliquis secondary to GI bleed. Hyperkalemia: Potassium 5.3. Moderate hemolysis noted. Follow-up BMP. DVT Prophylaxis: SCD Written by Brien Marshall, acting as scribe for Dr. Rocha on 04/15/16 at 08:59. The documentation accurately reflects the work performed [id number] by me on at 0859 Discharge Planning Disposition pending clinical course. Problem Qualifiers (1) PNA (pneumonia): Qualified Code: J18.1 - Pneumonia of right lower lobe due to infectious organism Brien Marshall Apr 15, 2016 08:59 Ramirez Rocha MD Apr 15, 2016 15:14
[2016-04-15 09:52] LABS: C. DIFF EPI 027 PRESUMPTIVE NEGATIVE (NEGATIVE); C. DIFF TOXIN PCR NEGATIVE (NEGATIVE)
[2016-04-15] MEDS: CEFEPIME INJ 1,000 MG in SODIUM CHLORIDE 0.9% INJ 100 ML IV SCH (10:23)
[2016-04-15] MEDS: DILTIAZEM-CD 240 MG CAP ER PO SCH (10:23)
[2016-04-15] MEDS: PANTOPRAZOLE SOD 40 MG DELAYED RELEASE TAB PO SCH (10:23)
[2016-04-15] MEDS: APIXABAN 5 MG TABLET PO SCH (10:23)
[2016-04-15] MEDS: METOPROLOL TARTRATE 50 MG TAB PO SCH ×2 (10:24→21:21)
[2016-04-15] MEDS: TOLTERODINE TARTRATE 2 MG CAP LA PO SCH (10:24)
[2016-04-15] MEDS: LACTOBACILLUS ACIDOPHILUS TAB PO SCH ×3 (10:24→18:10)
[2016-04-15] MEDS: FUROSEMIDE 40 MG TAB PO SCH (10:24)
[2016-04-15] MEDS: SODIUM CHLORIDE 0.9% FLUSH 5 ML FLUSH FLUSH SCH ×2 (10:24→21:21)
[2016-04-15] MEDS: FOLIC ACID 1 MG TAB PO SCH (10:24)
[2016-04-15] MEDS: CHLORTHALIDONE 50 MG TAB PO SCH (10:24)
[2016-04-15] MEDS: ACETAMINOPHEN/HYDROcodone 325 MG/5 MG TAB PO PRN (10:26)
[2016-04-15] MEDS: VANCOMYCIN INJ 1,750 MG in SODIUM CHLORID 0.9% 500 ML INJ 500 ML IV SCH (12:34)
[2016-04-15 16:44] LABS: AUTOMATED NEUTROPHIL # 8.5 TH/MM3 (1.8-7.7); BASOPHIL % 0.5 % (0.0-2.0); EOSINOPHIL % 0.2 % (0.0-4.0); HEMATOCRIT 39.4 % (39.0-51.0); HEMO FLAGS DIFF FINAL; LYMPH % 12.2 % (9.0-44.0); LYMPHOCYTE # 1.2 TH/MM3 (1.0-4.8); MEAN CELL VOLUME 80.3 FL (80.0-100.0); MEAN CORPUSCULAR HEMOGLOBIN 26.3 PG (27.0-34.0); MEAN CORPUSCULAR HGB CONC 32.8 % (32.0-36.0); MONO % 1.2 % (0.0-8.0); NEUT % 85.9 % (16.0-70.0); PLATELET COUNT 360 TH/MM3 (150-450); RED BLOOD COUNT 4.91 MIL/MM3 (4.50-5.90); RED CELL DISTRIBUTION WIDTH 16.9 % (11.6-17.2); WHITE BLOOD COUNT 9.9 TH/MM3 (4.0-11.0)
[2016-04-15 17:23] LABS: BICARBONATE 27.1 MEQ/L (21.0-32.0); MAGNESIUM 2.2 MG/DL (1.5-2.5); POTASSIUM 4.6 MEQ/L (3.5-5.1)
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
[2016-04-15] MEDS: GABAPENTIN 300 MG CAP PO SCH (21:21)
[2016-04-15] MEDS: ATORVASTATIN 40 MG TAB PO SCH (21:21)
[2016-04-15] MEDS: DOXEPIN HCL 50 MG CAP PO SCH (21:22)
--- NOTE | 2016-04-15 23:35 | EKG ---
Date Performed: 04/14/2016 Time Performed: 22:31:02 PTAGE: 51 years EKG: SINUS TACHYCARDIA NONSPECIFIC T-WAVE ABNORMALITY ABNORMAL RHYTHM ECG PREVIOUS TRACING : 04/06/2016 00.05 Compared to prior tracing no significant change DOCTOR: Alejandro Rice Interpretating Date/Time 04/15/2016 23:33:10
[2016-04-16] VITALS (11 sets, daily range): BP systolic 131–158; BP diastolic 63–88; PULSE 75–99; RESP 18–20; TEMP 95.8–98.2; O2SAT 91–98
[2016-04-16] MEDS: CEFEPIME INJ 1,000 MG in SODIUM CHLORIDE 0.9% INJ 100 ML IV SCH ×3 (00:52→23:23)
[2016-04-16] MEDS: VANCOMYCIN INJ 1,750 MG in SODIUM CHLORID 0.9% 500 ML INJ 500 ML IV SCH ×2 (02:54→15:00)
[2016-04-16] MEDS: RESP: ALBUTEROL 2.5 MG/3 ML NEB (SCH) NEB ×5 (03:02→20:48)
[2016-04-16] MEDS: methylPREDNISolone SOD SUCC 40 MG/1 ML VIAL IV PUSH SCH ×3 (05:38→22:05)
[2016-04-16] MEDS: MORPHINE SULFATE 4 MG/ML INJ IV PRN ×3 (05:40→22:13)
[2016-04-16 06:06] LABS: AUTOMATED NEUTROPHIL # 14.5 TH/MM3 (1.8-7.7); BASOPHIL % 0.2 % (0.0-2.0); HEMATOCRIT 37.5 % (39.0-51.0); HEMO FLAGS DIFF FINAL; LYMPH % 8.7 % (9.0-44.0); LYMPHOCYTE # 1.4 TH/MM3 (1.0-4.8); MEAN CELL VOLUME 78.9 FL (80.0-100.0); MEAN CORPUSCULAR HEMOGLOBIN 25.8 PG (27.0-34.0); MEAN CORPUSCULAR HGB CONC 32.7 % (32.0-36.0); MONO % 3.3 % (0.0-8.0); NEUT % 87.8 % (16.0-70.0); PLATELET COUNT 313 TH/MM3 (150-450); RED BLOOD COUNT 4.75 MIL/MM3 (4.50-5.90); RED CELL DISTRIBUTION WIDTH 16.8 % (11.6-17.2); WHITE BLOOD COUNT 16.6 TH/MM3 (4.0-11.0)
[2016-04-16 06:28] LABS: ALKALINE PHOSPHATASE 85 U/L (45-117); ALT (GPT) 19 U/L (12-78); ANION GAP 11 MEQ/L (5-15); AST (GOT) 8 U/L (15-37); BICARBONATE 28.5 MEQ/L (21.0-32.0); BLOOD UREA NITROGEN 12 MG/DL (7-18); CHLORIDE 98 MEQ/L (98-107); GLOMERULAR FILTRATION RATE 94 ML/MIN (>89); POTASSIUM 4.3 MEQ/L (3.5-5.1); SODIUM (NA) 137 MEQ/L (136-145); TOTAL BILIRUBIN ADULT 0.2 MG/DL (0.2-1.0)
[2016-04-16] MEDS: CHLORTHALIDONE 50 MG TAB PO SCH (10:03)
[2016-04-16] MEDS: FOLIC ACID 1 MG TAB PO SCH (10:03)
[2016-04-16] MEDS: FUROSEMIDE 40 MG TAB PO SCH (10:04)
[2016-04-16] MEDS: DILTIAZEM-CD 240 MG CAP ER PO SCH (10:04)
[2016-04-16] MEDS: TOLTERODINE TARTRATE 2 MG CAP LA PO SCH (10:04)
[2016-04-16] MEDS: METOPROLOL TARTRATE 50 MG TAB PO SCH ×2 (10:04→22:05)
[2016-04-16] MEDS: PANTOPRAZOLE SOD 40 MG DELAYED RELEASE TAB PO SCH (10:04)
[2016-04-16] MEDS: LACTOBACILLUS ACIDOPHILUS TAB PO SCH ×3 (10:04→17:27)
[2016-04-16] MEDS: SODIUM CHLORIDE 0.9% FLUSH 5 ML FLUSH FLUSH SCH ×2 (10:06→22:06)
[2016-04-16] MEDS: ACETAMINOPHEN/HYDROcodone 325 MG/5 MG TAB PO PRN (10:06)
--- NOTE | 2016-04-16 10:21 | HHI.PR ---
Subjective Remarks Follow-up for abdominal pain. The patient is reports some upper abdominal discomfort. He is tolerating clear liquids with no vomiting. He denies any hematemesis or bloody stools. No diarrhea. Objective Vitals Vital Signs Date Time Temp Pulse Resp B/P Pulse Ox O2 Delivery O2 Flow Rate FiO2 04/16/16 08:45 95.8 91 18 158/88 97 04/16/16 07:45 97 Nasal Cannula 3.00 04/16/16 05:45 22 04/16/16 04:47 98.2 91 20 131/79 94 04/16/16 01:39 98.2 75 20 148/80 98 04/15/16 20:08 97.8 94 20 130/78 97 04/15/16 19:40 93 04/15/16 16:23 89 04/15/16 15:39 97.8 87 20 135/87 97 04/15/16 11:17 98.3 91 20 145/89 93 04/15/16 11:03 96 Nasal Cannula 2.00 I/O 04/15/16 04/15/16 04/15/16 04/16/16 04/16/16 04/16/16 07:00 15:00 23:00 07:00 15:00 23:00 Intake Total 1560 ml Output Total 1000 ml Balance 560 ml Intake Oral 960 ml IV Total 600 ml Output Urine Total 1000 ml # Voids 2 Result Diagram: 04/16/16 0532 04/16/16 0532 Imaging Last Impressions Abdomen/Pelvis CT 04/14/162216 Signed Impressions: Service Date/Time: Thursday, April 14, 2016 23:36 - CONCLUSION: Persistent right lower lung partially consolidative infiltrates. No acute findings in the abdomen/pelvis. Frank Ortega MD Chest X-Ray 04/14/162211 Signed Impressions: Service Date/Time: Thursday, April 14, 2016 23:20 - CONCLUSION: Stable diffuse bilateral infiltrates and stable right pleural effusion. Frank Ortega MD Objective Remarks GENERAL: Well-developed well-nourished morbidly obese. In no acute distress. Sitting up in a chair eating breakfast. SKIN: Warm and dry. No lesions noted. HEENT: Normocephalic. Pupils equal and round. Mucous membranes pink and moist. CARDIOVASCULAR: Regular rate and rhythm. No murmur appreciated. RESPIRATORY: No accessory muscle use. Clear to auscultation. Wheezing and decreased breath sounds. GASTROINTESTINAL: Abdomen large with previous midline incision, soft, mild epigastric TTP, nondistended. Bowel sounds x4. MUSCULOSKELETAL: No obvious deformities. No clubbing or cyanosis. No edema. NEUROLOGICAL: Awake and alert. No focal neurological deficits. Moves upper and lower extremities spontaneously. Normal speech. PSYCHIATRIC: Appropriate mood and affect; insight and judgment normal. A/P Problem List: (1) Sarcoidosis ICD Code: D86.9 Status: Acute (2) PNA (pneumonia) ICD Code: J18.9 Status: Acute (3) Abdominal pain ICD Code: R10.9 Status: Acute (4) Diarrhea ICD Code: R19.7 Status: Acute (5) A-fib ICD Code: I48.91 Status: Acute Assessment and Plan 51-year-old male with PMH of HTN, A. fib on Eliquis, Sarcoidosis and COPD who presented to the ER w/ complaints of abdominal pain, diarrhea and SOB Sarcoidosis: w/ severe pulmonary fibrosis/chronic respiratory failure on home O2. Follows w/ Front Office Administrator at [facility]. PFTs 04/07/16 showing severe obstructive disease. On MTX and Folic Acid, however off treatment x3 wks due to ongoing PNA. IV Solu-Medrol. Albuterol prn. Pulmonology consulted for clearance for EGD. PNA: Recent admit 04/06-04/09/16 w/ PNA s/p IV Abx, d/c'd on Zithro and Ceftin x5 days, CXR w/ persistent bilateral infiltrates and stable right pleural effusion. Covering for HCAP with IV Vanc/Cefepime, although patient has been slowly clinically improving. Chronic Abdominal Pain with hematemesis: Hemoglobin stable, lipase within normal limits. CT Abd/Pelvis w/ no acute intra-abdominal pathology. Protonix, analgesics/antiemetics. Consulted gastroenterology, plan for EGD and colonoscopy when cleared by pulmonology. Clear liquids, diet per GI. No recurrence of hematemesis Diarrhea: Non-bloody, Hemoccult negative. C Diff negative. Lactinex. A-fib: Chronic. Controlled. Continue home Cardizem, Metoprolol. Resume anticoagulation with no further hematemesis and stable blood counts Hyperkalemia: Potassium 5.3. Moderate hemolysis noted. Follow-up BMP showed potassium within normal limits. DVT Prophylaxis: SCDs. Written by Brien Marshall, acting as scribe for Dr. Rocha on 04/16/16 at 10:21. The documentation accurately reflects the work performed [id number] by me on at 1021 Discharge Planning Disposition pending clinical course. Problem Qualifiers (1) PNA (pneumonia): Qualified Code: J18.1 - Pneumonia of right lower lobe due to infectious organism Brien Marshall Apr 16, 2016 10:21 Ramirez Rocha MD Apr 16, 2016 16:28
[2016-04-16] MEDS ORDERED: PHARMACY ORDERED LAB XX ONE (12:45)
--- NOTE | 2016-04-16 13:16 | HHI.GIFU ---
Subjective Remarks Resting in bed. Denies any nausea or vomiting. States his abdominal pain is better. Moved his bowels earlier today. Tolerating a clear liquid diet and would like this advance. Pulmonary consult has been placed (Susu Lauernt) Objective Vitals I&O Vital Signs Date Time Temp Pulse Resp B/P Pulse Ox O2 Delivery O2 Flow Rate FiO2 04/16/16 11:49 95.9 85 18 143/77 94 04/16/16 11:25 18 04/16/16 08:45 95.8 91 18 158/88 97 04/16/16 07:45 97 Nasal Cannula 3.00 04/16/16 05:45 22 04/16/16 04:47 98.2 91 20 131/79 94 04/16/16 01:39 98.2 75 20 148/80 98 04/15/16 20:08 97.8 94 20 130/78 97 04/15/16 19:40 93 04/15/16 16:23 89 04/15/16 15:39 97.8 87 20 135/87 97 I/O 04/15/16 04/15/16 04/15/16 04/16/16 04/16/16 04/16/16 07:00 15:00 23:00 07:00 15:00 23:00 Intake Total 1560 ml Output Total 1000 ml Balance 560 ml Intake Oral 960 ml IV Total 600 ml Output Urine Total 1000 ml # Voids 2 Laboratory Laboratory Tests Test 04/15/16 04/16/16 16:19 05:32 White Blood Count 9.9 16.6 Red Blood Count 4.91 4.75 Hemoglobin 12.9 12.3 Hematocrit 39.4 37.5 Mean Corpuscular Volume 80.3 78.9 Mean Corpuscular Hemoglobin 26.3 25.8 Mean Corpuscular Hemoglobin 32.8 32.7 Concent Red Cell Distribution Width 16.9 16.8 Platelet Count 360 313 Mean Platelet Volume 8.4 7.8 Neutrophils (%) (Auto) 85.9 87.8 Lymphocytes (%) (Auto) 12.2 8.7 Monocytes (%) (Auto) 1.2 3.3 Eosinophils (%) (Auto) 0.2 0.0 Basophils (%) (Auto) 0.5 0.2 Neutrophils # (Auto) 8.5 14.5 Lymphocytes # (Auto) 1.2 1.4 Monocytes # (Auto) 0.1 0.5 Eosinophils # (Auto) 0.0 0.0 Basophils # (Auto) 0.0 0.0 CBC Comment DIFF FINAL DIFF FINAL Differential Comment Sodium Level 135 137 Potassium Level 4.6 4.3 Chloride Level 100 98 Carbon Dioxide Level 27.1 28.5 Anion Gap 8 11 Blood Urea Nitrogen 10 12 Creatinine 1.07 1.01 Estimat Glomerular Filtration 88 94 Rate Random Glucose 168 138 Calcium Level 8.8 8.4 Magnesium Level 2.2 Total Bilirubin 0.2 Aspartate Amino Transf 8 (AST/SGOT) Alanine Aminotransferase 19 (ALT/SGPT) Alkaline Phosphatase 85 Total Protein 7.7 Albumin 3.1 Date/Time Procedure Status Source Growth 04/15/16 00:20 Aerobic Blood Culture - Preliminary Resulted Blood Peripheral NO GROWTH IN 1 DAY 04/15/16 00:20 Anaerobic Blood Culture - Preliminary Resulted Staphylococcus Aureus 04/14/16 22:40 Influenza Types A,B Antigen (SABRINA) - Final Complete Nasal Washing NEGATIVE FOR FLU A AND B ANTIGEN.... Imaging Last Impressions Abdomen/Pelvis CT 04/14/162216 Signed Impressions: Service Date/Time: Thursday, April 14, 2016 23:36 - CONCLUSION: Persistent right lower lung partially consolidative infiltrates. No acute findings in the abdomen/pelvis. Frank Ortega MD Chest X-Ray 04/14/162211 Signed Impressions: Service Date/Time: Thursday, April 14, 2016 23:20 - CONCLUSION: Stable diffuse bilateral infiltrates and stable right pleural effusion. Frank Ortega MD Physical Exam HEENT: Normocephalic; atraumatic; no jaundice. Throat is clear. NECK: Neck is supple, no JVD, no lymphadenopathy. CHEST: Resp even/unlabored, diminished CARDIAC: RRR. ABDOMEN: Soft, obese, nondistended, nontender; no hepatosplenomegaly; bowel sounds are present in all four quadrants. SKIN: Normal; no rash; no jaundice. ACADEMIC AFFAIRS VICE PRESIDENT: No focal deficits; alert and oriented times three. (Susu Laurent) Assessment and Plan Plan ASSESSMENT: - Abdominal pain. Abdomen/Pelvis CT (04/14/16)----> Persistent right lower lung partially consolidative infiltrates. No acute findings in the abdomen/pelvis. Feeling better. Tolerating clear liquids- wants diet advanced. Pulmonology consulted for pulmonary clearance prior to EGD/Colonoscopy. - Hematemesis. No further episodes. Tolerating clears. - Diarrhea. One bm today per patient. CT as above. CDiff negative. EGD/ Colonoscopy once cleared - Sarcoidosis with severe pulmonary fibrosis and chronic respiratory failure. He is on home O2. He follows at [facility]. Recent PFT showed severe obstructive disease. He was recently taken off his methotrexate for ongoing pneumonia. - PNA, nebs. Abx per primary. - Atrial fibrillation. Eliquis on hold. PLAN: - Heart healthy diet for now - Continue PPI - Monitor H&H - Stool studies - Plan for EGD/colonoscopy once cleared by pulmonology - Notify GI of active bleeding - Supportive care - Further recommendations to follow based on results of above - Patient seen and examined by Dr. Lopez and myself and this note is written on her behalf (Susu Laurent) Physician Comments seen, examined agree with above (Jeanette Lopez MD) Susu Laurent Apr 16, 2016 13:16 Jeanette Lopez MD Apr 16, 2016 18:47
[2016-04-16 18:16] LABS: BLOOD GAS BASE EXCESS 3.6 mmol/L (-2-2); BLOOD GAS HCO3 28 mmol/L (22-26); BLOOD GAS O2 HGB SATURATION 94 % (90-100); BLOOD GAS OXYGEN CONTENT 17.1 Vol % (12.0-20.0); BLOOD GAS PCO2 46 mmHg (38-42); BLOOD GAS PO2 92 mmHG (61-120); BLOOD GAS TOTAL HGB 12.8 G/DL (12.0-16.0); CRITICAL VALUE NO; DRAW SITE RT RADIAL; FIO2 21 %; NUMBER OF ARTERIAL PUNCTURES 1; TEMP CORR TO 98.6; ULNAR PULSE PRESENT
[2016-04-16 18:17] LABS: STAT NO
--- NOTE | 2016-04-16 18:18 | RADRPT ---
EXAM DATE/TIME: 04/16/2016 17:42 [place] COMPARISON: CT THORAX W CONTRAST, April 06, 2016, 20:28. INDICATIONS : Evaluate pleural effusions. RADIATION DOSE: 15.20 CTDIvol (mGy) MEDICAL HISTORY : Cardiovascular disease. Hypertension. Hiatal hernia SURGICAL HISTORY : None. ENCOUNTER: Initial ACUITY: 1 day PAIN SCALE: 0/10 LOCATION: chest TECHNIQUE: Volumetric scanning of the chest was performed. Using automated exposure control and adjustment of t he mA and/or kV according to patient size, radiation dose was kept as low as reasonably achievable to obtain optimal diagnostic quality images. FINDINGS: Comparison is April 06, 2016 and multiple prior studies over the last several years. There is chron ic parenchymal air space disease in both lungs with a chronic conglomerate mass of the left upper lob e and right lung base. There is chronic pleural thickening with some pleural calcification and thicke chase of the extrapleural fat. There is chronic adenopathy, stable since most recent examination. No s ignificant new abnormalities identified. Findings are most characteristic of chronic sarcoidosis. Asb estos-related pleural disease could give a similar appearance of the lung bases. CONCLUSION: 1. No significant change since April 06. Chronic parenchymal air space disease and adenopathy in th e lungs most characteristic of chronic sarcoidosis. Underlying pneumoconiosis and asbestos related pl eural disease can have a similar appearance. 2. Gallstones in gallbladder. No acute findings in upper abdomen. Inder Blanca MD on April 16, 2016 at 18:10 Board Certified Radiologist. This report was verified electronically.
[2016-04-16] MEDS: APIXABAN 5 MG TABLET PO SCH (22:05)
[2016-04-16] MEDS: DOXEPIN HCL 50 MG CAP PO SCH (22:05)
[2016-04-16] MEDS: GABAPENTIN 300 MG CAP PO SCH (22:05)
[2016-04-16] MEDS: ATORVASTATIN 40 MG TAB PO SCH (22:06)
[2016-04-17] MEDS: VANCOMYCIN INJ 1,750 MG in SODIUM CHLORID 0.9% 500 ML INJ 500 ML IV SCH ×2 (00:19→16:00)
[2016-04-17] MEDS: RESP: ALBUTEROL 2.5 MG/3 ML NEB (SCH) NEB ×6 (04:36→19:45)
[2016-04-17 04:50] VITALS: BP 119/62; PULSE 77; RESP 20; TEMP 98.1; O2SAT 95
[2016-04-17] MEDS: methylPREDNISolone SOD SUCC 40 MG/1 ML VIAL IV PUSH SCH ×3 (05:23→21:59)
--- NOTE | 2016-04-17 07:15 | MB ---
cc: ROBYN CARLSON,FADI DATE OF CONSULTATION 04/16/2016 REASON FOR CONSULTATION Sarcoidosis HISTORY OF PRESENT ILLNESS The patient is a 51-year-old -[place] male admitted with abdominal pain. GI evaluating same at this time. The patient was recently hospitalized at [facility] with pneumonia which has improved. The patient's chest x-ray reveals chronic changes which have not changed at least from the last admission from his last hospitalization. He denies a history of fever, chills, cough, expectoration or hemoptysis. He tells me he was followed by Dr. Jimenez in the past. He was on steroid therapy, however, this been stopped four months ago. PAST MEDICAL HISTORY 1. Hypertension 2. Atrial fibrillation on Eliquis 3. COPD 4. Previous tonsillectomy and adenoidectomy as a child. ALLERGIES None known to medication. FAMILY HISTORY Positive for hypertension, otherwise unremarkable. SOCIAL HISTORY Does not smoke or drink. No TB or industrial exposure. REVIEW OF SYSTEMS A 12-point review of systems as per HPI and past history otherwise negative. PHYSICAL EXAM On exam, the patient is alert. VITAL SIGNS: Temperature 96, pulse 84, respirations 18, blood pressure 140/76, oxygen saturation 94% on four liters oxygen nasal cannula. HEENT: Exam unremarkable. Eyes without icterus. NECK: Without adenopathy, thyroid enlargement, central trachea. CHEST: Without dullness to percussion, a few scattered rhonchi on auscultation. CARDIAC: PMI distant. S1-S2 audible. No murmur or rub. ABDOMEN: Lax, bowel sounds audible. EXTREMITIES: No clubbing, cyanosis or edema. LABORATORY DATA White count upon presentation 10,000, on the 9.9, today 16.6, hemoglobin 12.3, platelets at 313,000, INR 1.0. Sodium 137, potassium 4.3, BUN 12, creatinine 1.0. Chest x-ray done upon presentation with diffuse infiltrates bilaterally and right pleural effusion. IMPRESSION 1. Sarcoidosis by history as outlined above. 2. History of recent pneumonia. 3. Abdominal pain. 4. Morbid obesity PLAN The patient sarcoidosis apparently has been stable. We will attempt to obtain previous records to compare radiologic findings and whether the diffuse changes in both lungs are chronic. Meanwhile, we will obtain CT scan of the chest to further evaluate the findings on chest x-ray and the significance of the patient's pleural effusion and if indeed this is the case, a thoracentesis may become necessary. Baseline pulmonary function, arterial blood gas will be obtained. I do thank you for asking to partake in Mr. Billings's care. Robyn Carlson MD WWW/CHUNG /5:06 PM /7:00 AM
[2016-04-17] MEDS: SODIUM CHLORIDE 0.9% FLUSH 5 ML FLUSH FLUSH SCH ×2 (07:43→20:38)
[2016-04-17] MEDS: MORPHINE SULFATE 4 MG/ML INJ IV PRN ×2 (07:44→19:17)
[2016-04-17 08:00] VITALS: BP 135/79; PULSE 78; RESP 20; TEMP 96.6; O2SAT 94
[2016-04-17] MEDS: LACTOBACILLUS ACIDOPHILUS TAB PO SCH ×3 (08:20→18:03)
[2016-04-17] MEDS: PANTOPRAZOLE SOD 40 MG DELAYED RELEASE TAB PO SCH (08:20)
[2016-04-17] MEDS: METOPROLOL TARTRATE 50 MG TAB PO SCH ×2 (08:20→20:38)
[2016-04-17] MEDS: DILTIAZEM-CD 240 MG CAP ER PO SCH (08:20)
[2016-04-17] MEDS: FOLIC ACID 1 MG TAB PO SCH (08:21)
[2016-04-17] MEDS: APIXABAN 5 MG TABLET PO SCH ×2 (08:21→20:38)
[2016-04-17] MEDS: CHLORTHALIDONE 50 MG TAB PO SCH (08:21)
[2016-04-17] MEDS: FUROSEMIDE 40 MG TAB PO SCH (08:21)
[2016-04-17] MEDS: TOLTERODINE TARTRATE 2 MG CAP LA PO SCH (08:21)
--- NOTE | 2016-04-17 09:25 | HHI.PR ---
Subjective Remarks Follow-up Abdominal pain. Continues to have intermittent epigastric discomfort. No hematemesis, diarrhea and shortness of breath. Discussed with RN, awaiting pulmonary clearance for endoscopy. Objective Vitals Vital Signs Date Time Temp Pulse Resp B/P Pulse Ox O2 Delivery O2 Flow Rate FiO2 04/17/16 08:00 96.6 78 20 135/79 94 04/17/16 04:50 98.1 77 20 119/62 95 04/16/16 23:48 98.1 99 20 136/82 96 04/16/16 23:28 76 04/16/16 20:48 96 Nasal Cannula 3.00 04/16/16 19:48 98.1 90 20 132/63 95 04/16/16 17:36 96.4 96 18 148/82 91 04/16/16 16:00 18 04/16/16 11:49 95.9 85 18 143/77 94 04/16/16 11:25 18 I/O 04/16/16 04/16/16 04/16/16 04/17/16 04/17/16 04/17/16 07:00 15:00 23:00 07:00 15:00 23:00 Intake Total 255 ml Balance 255 ml IV Total 255 ml # Voids 1 Result Diagram: 04/16/16 0532 04/17/16 0657 Imaging Last Impressions Chest CT 04/16/16 0000 Signed Impressions: Service Date/Time: Saturday, April 16, 2016 17:42 - CONCLUSION: 1. No significant change since April 06. Chronic parenchymal air space disease and adenopathy in the lungs most characteristic of chronic sarcoidosis. Underlying pneumoconiosis and asbestos related pleural disease can have a similar appearance. 2. Gallstones in gallbladder. No acute findings in upper abdomen. Inder Blanca MD Abdomen/Pelvis CT 04/14/162216 Signed Impressions: Service Date/Time: Thursday, April 14, 2016 23:36 - CONCLUSION: Persistent right lower lung partially consolidative infiltrates. No acute findings in the abdomen/pelvis. Frank Ortega MD Chest X-Ray 04/14/162211 Signed Impressions: Service Date/Time: Thursday, April 14, 2016 23:20 - CONCLUSION: Stable diffuse bilateral infiltrates and stable right pleural effusion. Frank Ortega MD Objective Remarks GENERAL: Well-developed well-nourished morbidly obese. In no acute distress. SKIN: Warm and dry. No lesions noted. HEENT: Normocephalic. Pupils equal and round. Mucous membranes pink and moist. CARDIOVASCULAR: Regular rate and rhythm. No murmur appreciated. RESPIRATORY: No accessory muscle use. Clear to auscultation. Decreased breath sounds. GASTROINTESTINAL: Abdomen large with previous midline incision, soft, mild epigastric TTP, nondistended. Bowel sounds x4. MUSCULOSKELETAL: No obvious deformities. No clubbing or cyanosis. No edema. NEUROLOGICAL: Awake and alert. No focal neurological deficits. Moves upper and lower extremities spontaneously. Normal speech. PSYCHIATRIC: Appropriate mood and affect; insight and judgment normal. A/P Problem List: (1) Sarcoidosis ICD Code: D86.9 Status: Acute (2) PNA (pneumonia) ICD Code: J18.9 Status: Acute (3) Abdominal pain ICD Code: R10.9 Status: Acute (4) Diarrhea ICD Code: R19.7 Status: Acute (5) A-fib ICD Code: I48.91 Status: Acute Assessment and Plan 51-year-old male with PMH of HTN, A. fib on Eliquis, Sarcoidosis and COPD who presented to the ER w/ complaints of abdominal pain, diarrhea and SOB Sarcoidosis: w/ severe pulmonary fibrosis/chronic respiratory failure on home O2. Follows w/ Single [facility] [facility]. PFTs 04/07/16 showing severe obstructive disease. On MTX and Folic Acid, however off treatment x3 wks due to ongoing PNA. IV Solu-Medrol. Albuterol prn. Pulmonology consulted for clearance for EGD. CT thorax no significant changes, ABG unremarkable pending ANN-MARIE inhibitor level and pulmonary function test PNA: Recent admit 04/06-04/09/16 w/ PNA s/p IV Abx, d/c'd on Zithro and Ceftin x5 days, CXR w/ persistent bilateral infiltrates and stable right pleural effusion. Covering for HCAP with IV Vanc/Cefepime, clinically improving. Chronic Abdominal Pain with hematemesis: Hemoglobin stable, lipase within normal limits. CT Abd/Pelvis w/ no acute intra-abdominal pathology. Protonix, analgesics/antiemetics. Consulted gastroenterology, plan for EGD and colonoscopy when cleared by pulmonology. Diet per GI. No recurrence of hematemesis Diarrhea: Non-bloody, Hemoccult negative. C Diff negative. Lactinex. A-fib: Chronic. Controlled. Continue home Cardizem, Metoprolol. Resume anticoagulation with no further hematemesis and stable blood counts Hyperkalemia: Potassium 5.3. Moderate hemolysis noted. Follow-up BMP showed potassium within normal limits. DVT Prophylaxis: SCDs. Discharge Planning Dc after endoscopy Problem Qualifiers (1) PNA (pneumonia): Qualified Code: J18.1 - Pneumonia of right lower lobe due to infectious organism Ramirez Rocha MD Apr 17, 2016 09:24
--- NOTE | 2016-04-17 09:28 | HHI.GIFU ---
Subjective Remarks Resting in bed. C/O epigastric pain- worse with any solid food intake. States at home, this was worse and he was having frequent nausea/vomiting of undigested food shortly after eating. (Susu Laurent) Objective Vitals I&O Vital Signs Date Time Temp Pulse Resp B/P Pulse Ox O2 Delivery O2 Flow Rate FiO2 04/17/16 08:00 96.6 78 20 135/79 94 04/17/16 04:50 98.1 77 20 119/62 95 04/16/16 23:48 98.1 99 20 136/82 96 04/16/16 23:28 76 04/16/16 20:48 96 Nasal Cannula 3.00 04/16/16 19:48 98.1 90 20 132/63 95 04/16/16 17:36 96.4 96 18 148/82 91 04/16/16 16:00 18 04/16/16 11:49 95.9 85 18 143/77 94 04/16/16 11:25 18 I/O 04/16/16 04/16/16 04/16/16 04/17/16 04/17/16 04/17/16 07:00 15:00 23:00 07:00 15:00 23:00 Intake Total 255 ml Balance 255 ml IV Total 255 ml # Voids 1 Laboratory Laboratory Tests Test 04/16/16 04/16/16 04/17/16 12:45 18:05 06:57 Vancomycin Level Trough 15.5 Blood Gas Puncture Site RT RADIAL Blood Gas Patient Temperature 98.6 Blood Gas HCO3 28 Blood Gas Base Excess 3.6 Blood Gas Oxygen Saturation 94 Arterial Blood pH 7.41 Arterial Blood Partial 46 Pressure CO2 Arterial Blood Partial 92 Pressure O2 Arterial Blood Oxygen Content 17.1 Arterial Blood 2.0 Carboxyhemoglobin Arterial Blood Methemoglobin 2.0 Blood Gas Hemoglobin 12.8 Blood Gas Inspired Oxygen 21 Creatinine 1.31 Estimat Glomerular Filtration 69 Rate Date/Time Procedure Status Source Growth 04/15/16 00:20 Aerobic Blood Culture - Preliminary Resulted Blood Peripheral NO GROWTH IN 1 DAY 04/15/16 00:20 Anaerobic Blood Culture - Preliminary Resulted Staphylococcus Aureus 04/14/16 22:40 Influenza Types A,B Antigen (SABRINA) - Final Complete Nasal Washing NEGATIVE FOR FLU A AND B ANTIGEN.... Imaging Last Impressions Chest CT 04/16/16 0000 Signed Impressions: Service Date/Time: Saturday, April 16, 2016 17:42 - CONCLUSION: 1. No significant change since April 06. Chronic parenchymal air space disease and adenopathy in the lungs most characteristic of chronic sarcoidosis. Underlying pneumoconiosis and asbestos related pleural disease can have a similar appearance. 2. Gallstones in gallbladder. No acute findings in upper abdomen. Inder Blanca MD Abdomen/Pelvis CT 04/14/167 Signed Impressions: Service Date/Time: Thursday, April 14, 2016 23:36 - CONCLUSION: Persistent right lower lung partially consolidative infiltrates. No acute findings in the abdomen/pelvis. Frank Ortega MD Chest X-Ray 04/14/162211 Signed Impressions: Service Date/Time: Thursday, April 14, 2016 23:20 - CONCLUSION: Stable diffuse bilateral infiltrates and stable right pleural effusion. Frank Ortega MD Physical Exam HEENT: Normocephalic; atraumatic; no jaundice. Throat is clear. NECK: Neck is supple, no JVD, no lymphadenopathy. CHEST: Resp even/unlabored, diminished CARDIAC: RRR. ABDOMEN: Soft, obese, nondistended, epigastric area tenderness; no hepatosplenomegaly; bowel sounds are present in all four quadrants. SKIN: Normal; no rash; no jaundice. TIMBER TRIMMER: No focal deficits; alert and oriented times three. (Susu Laurent [facility]) Assessment and Plan Plan ASSESSMENT: - Abdominal pain. Abdomen/Pelvis CT (04/14/16)----> Persistent right lower lung partially consolidative infiltrates. No acute findings in the abdomen/pelvis. Pt having epigastric pain, worse with solid food intake. He states this is much worse at home and that he has frequent nausea/vomiting with undigested food shortly after eating while he is at home. Pulmonary workup with Dr. Carlson pending. Will get GES today to rule out gastroparesis. EGD/Colonoscopy once cleared by Dr. Carlson - Hematemesis. No further episodes - Diarrhea. Improved. CT as above. CDiff negative. EGD/Colonoscopy once cleared - Sarcoidosis with severe pulmonary fibrosis and chronic respiratory failure. He is on home O2. He follows at [facility]. Recent PFT showed severe obstructive disease. He was recently taken off his methotrexate for ongoing pneumonia. Pulmonary following, workup in progress - PNA, nebs. Abx per primary. - Atrial fibrillation. Eliquis on hold. PLAN: - Heart healthy diet for now - Continue PPI - Monitor H&H - Stool studies - GES - Supportive care - Plan for EGD/colonoscopy once cleared by pulmonology - Further recommendations to follow based on results of above - Patient seen and examined by Dr. Lopez and myself and this note is written on her behalf (Susu Laurent) Physician Comments agree (Jeanette Lopez MD) Susu Laurent Apr 17, 2016 09:28 Jeanette Lopez MD Apr 17, 2016 20:21
[2016-04-17 10:54] LABS: HEMATOCRIT 40.5 % (39.0-51.0)
[2016-04-17 12:00] VITALS: BP 137/96; PULSE 84; RESP 20; TEMP 97.7; O2SAT 95
[2016-04-17] MEDS: CEFEPIME INJ 1,000 MG in SODIUM CHLORIDE 0.9% INJ 100 ML IV SCH (12:04)
[2016-04-17] MEDS ORDERED: METOCLOPRAMIDE HCL 10 MG/2 ML VIAL ONE (14:59)
[2016-04-17 16:00] VITALS: BP 139/85; PULSE 79; RESP 20; TEMP 96; O2SAT 92
--- NOTE | 2016-04-17 16:41 | RADRPT ---
EXAM DATE/TIME: 04/17/2016 13:33 [facility] COMPARISON: CT ABDOMEN & PELVIS W CONTRAST, April 14, 2016, 23:36. INDICATIONS : Abdominal pain with nausea and vomiting. DOSE: 1.0 mCi Tc99m Sulfur Colloid Labeled Whole egg PO MEDICATONS: 1.) 5 mg Reglan IV at 90 minutes IMAGIN hrs MEDICAL HISTORY : Chronic obstructive pulmonary disease. Hypertension. Congestive heart failure. Sarcoidosis and atrial fibrillation. SURGICAL HISTORY : Tonsillectomy. Right eye. ENCOUNTER: Initial ACUITY: 3 days PAIN SCALE: 3/10 LOCATION: Abdomen. TECHNIQUE: Following the oral ingestion of radiotracer-labeled meal, dynamic sequential images in the LISE projec tion were acquired with simultaneous computer acquisition. The data set was decay-corrected. FINDINGS: LAG PHASE: There is approximately 80 minutes before onset of gastric emptying. EMPTYING: Gastric emptying kinetics are linear. The decay-corrected, back-extrapolated half-time of emptying i s greater than 3 hours. (Normal for this lab is 45- 90 minutes.) INTERVENTION: At 90 minutes into the examination, Reglan was administered and the remaining gastric contents empty into the small bowel. CONCLUSION: Delayed gastric emptying. Following Reglan administration the gastric contents completely empty. Benjie Zavala MD on April 17, 2016 at 16:36 Board Certified Radiologist. This report was verified electronically.
[2016-04-17 19:08] VITALS: BP 175/90; PULSE 90; RESP 22; TEMP 98.6; O2SAT 97
[2016-04-17 20:00] VITALS: PULSE 78
[2016-04-17] MEDS: DOXEPIN HCL 50 MG CAP PO SCH (20:37)
[2016-04-17] MEDS: GABAPENTIN 300 MG CAP PO SCH (20:38)
[2016-04-17] MEDS: ATORVASTATIN 40 MG TAB PO SCH (20:38)
[2016-04-18] VITALS (9 sets, daily range): BP systolic 117–158; BP diastolic 65–97; PULSE 70–88; RESP 16–20; TEMP 96.3–98.1; O2SAT 93–99
[2016-04-18] MEDS: CEFEPIME INJ 1,000 MG in SODIUM CHLORIDE 0.9% INJ 100 ML IV SCH ×2 (00:18→11:25)
[2016-04-18] MEDS ORDERED: PHARMACY ORDERED LAB XX ONE (00:45)
[2016-04-18] MEDS: RESP: ALBUTEROL 2.5 MG/3 ML NEB (SCH) NEB ×6 (00:45→19:47)
[2016-04-18] MEDS: MORPHINE SULFATE 4 MG/ML INJ IV PRN ×4 (00:56→22:16)
[2016-04-18] MEDS: VANCOMYCIN INJ 1,750 MG in SODIUM CHLORID 0.9% 500 ML INJ 500 ML IV SCH (01:20)
[2016-04-18] MEDS: methylPREDNISolone SOD SUCC 40 MG/1 ML VIAL IV PUSH SCH (06:22)
[2016-04-18] MEDS: METOPROLOL TARTRATE 50 MG TAB PO SCH ×2 (07:57→22:07)
[2016-04-18] MEDS: SODIUM CHLORIDE 0.9% FLUSH 5 ML FLUSH FLUSH SCH ×2 (08:29→22:07)
[2016-04-18] MEDS: LACTOBACILLUS ACIDOPHILUS TAB PO SCH ×3 (09:00→18:10)
[2016-04-18] MEDS: TOLTERODINE TARTRATE 2 MG CAP LA PO SCH (09:00)
[2016-04-18] MEDS: CHLORTHALIDONE 50 MG TAB PO SCH (09:00)
[2016-04-18] MEDS ORDERED: DO NOT ADM ANY ANTICOAGULANT DRUGS XX PRN (09:55)
--- NOTE | 2016-04-18 09:56 | RSPPFT ---
DATE OF PROCEDURE: 04/17/16 COMMENTS: Spirometry with FVC of 1.4, FEV1 of 0.9, FEV1/FVC ratio at 61%. A positive but non-significant response to acutely inhaled bronchodilator noted. IMPRESSION: 1. Severe airways obstruction. 2. Non-significant response to acutely inhaled bronchodilator.
[2016-04-18] MEDS ORDERED: PROPOFOL 200 MG/20 ML AMP IV ONE (10:13)
[2016-04-18] MEDS ORDERED: PEG (High)/E-LYTE SOLN 4000 ML BTL PO ONE (10:15)
[2016-04-18] MEDS: FUROSEMIDE 40 MG TAB PO SCH (10:49)
[2016-04-18] MEDS: FOLIC ACID 1 MG TAB PO SCH (10:50)
[2016-04-18] MEDS: DILTIAZEM-CD 240 MG CAP ER PO SCH (10:50)
[2016-04-18] MEDS: PANTOPRAZOLE SOD 40 MG DELAYED RELEASE TAB PO SCH (10:50)
--- NOTE | 2016-04-18 11:23 | HHI.PR ---
Subjective Remarks Follow-up acute kidney injury and bacteremia. Patient feels okay status post EGD. He is avoiding. Discussed with RN Objective Vitals Vital Signs Date Time Temp Pulse Resp B/P Pulse Ox O2 Delivery O2 Flow Rate FiO2 04/18/16 10:36 71 04/18/16 10:05 74 16 127/91 98 04/18/16 09:55 98.0 72 16 129/87 96 04/18/16 09:30 98.1 88 16 158/97 99 04/18/16 08:43 96.6 77 20 117/75 97 04/18/16 04:51 97.1 73 17 141/81 93 04/18/16 00:32 97.2 85 20 135/65 95 04/17/16 20:00 78 04/17/16 19:08 98.6 90 22 175/90 97 04/17/16 16:00 96.0 79 20 139/85 92 04/17/16 12:00 97.7 84 20 137/96 95 I/O 04/17/16 04/17/16 04/17/16 04/18/16 04/18/16 04/18/16 07:00 15:00 23:00 07:00 15:00 23:00 Intake Total 0 ml Output Total 300 ml Balance 0 ml -300 ml Intake Oral 0 ml Output Urine Total 300 ml # Voids 4 1 # Bowel Movements 0 Result Diagram: 04/17/16 0945 04/17/16 0657 Objective Remarks GENERAL: Well-developed well-nourished morbidly obese. In no acute distress. SKIN: Warm and dry. No lesions noted. HEENT: Normocephalic. Pupils equal and round. Mucous membranes pink and moist. CARDIOVASCULAR: Regular rate and rhythm. No murmur appreciated. RESPIRATORY: No accessory muscle use. Clear to auscultation. Decreased breath sounds. GASTROINTESTINAL: Abdomen large with previous midline incision, soft, mild epigastric TTP, nondistended. Bowel sounds x4. MUSCULOSKELETAL: No obvious deformities. No clubbing or cyanosis. No edema. NEUROLOGICAL: Awake and alert. No focal neurological deficits. Moves upper and lower extremities spontaneously. Normal speech. PSYCHIATRIC: Appropriate mood and affect; insight and judgment normal. A/P Problem List: (1) Sarcoidosis ICD Code: D86.9 Status: Acute (2) PNA (pneumonia) ICD Code: J18.9 Status: Acute (3) Abdominal pain ICD Code: R10.9 Status: Acute (4) Diarrhea ICD Code: R19.7 Status: Acute (5) A-fib ICD Code: I48.91 Status: Acute Assessment and Plan 51-year-old male with PMH of HTN, A. fib on Eliquis, Sarcoidosis and COPD who presented to the ER w/ complaints of abdominal pain, diarrhea and SOB Sarcoidosis: w/ severe pulmonary fibrosis/chronic respiratory failure on home O2. 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 PFTs 04/07/16 showing severe obstructive disease. On MTX and Folic Acid, however off treatment x3 wks due to ongoing PNA. IV Solu-Medrol. Albuterol prn. Pulmonology consulted for clearance for EGD. CT thorax no significant changes, ABG unremarkable pending ANN-MARIE inhibitor level and pulmonary function test PNA: Recent admit 04/06-04/09/16 w/ PNA s/p IV Abx, d/c'd on Zithro and Ceftin x5 days, CXR w/ persistent bilateral infiltrates and stable right pleural effusion. Covering for HCAP with IV Vanc/Cefepime, clinically improving. Switch to by mouth Levaquin MSSA bacteremia 03/28 bottles vs contamination. Patient clinically stable. Repeat blood culture in the morning. Chronic Abdominal Pain with hematemesis: Hemoglobin stable, lipase within normal limits. CT Abd/Pelvis w/ no acute intra-abdominal pathology. Protonix, analgesics/antiemetics. Consulted gastroenterology, plan for EGD and colonoscopy when cleared by pulmonology. Diet per GI. No recurrence of hematemesis -EGD with duodenitis and gastritis. Follow biopsy. Continue PPI and antireflux mechanisms. No NSAIDs. For colonoscopy in the morning Diarrhea: Non-bloody, Hemoccult negative. C Diff negative. Lactinex. A-fib: Chronic. Controlled. Continue home Cardizem, Metoprolol. Resume anticoagulation with no further hematemesis and stable blood counts Hyperkalemia: Potassium 5.3. Moderate hemolysis noted. Follow-up BMP showed potassium within normal limits. Acute on chronic kidney injury stage II. Nonoliguric. Avoid nephrotoxins. Hold diuretics for now and discontinue vancomycin. Repeat BMP and magnesium in the morning DVT Prophylaxis: SCDs. Discharge Planning Dc after endoscopy Problem Qualifiers (1) PNA (pneumonia): Qualified Code: J18.1 - Pneumonia of right lower lobe due to infectious organism Ramirez Rocha MD Apr 18, 2016 11:23
[2016-04-18] MEDS: LEVOFLOXACIN 750 MG TAB PO SCH (12:58)
[2016-04-18] MEDS: predniSONE 20 MG TAB PO SCH (12:59)
[2016-04-18 13:18] LABS: AUTOMATED NEUTROPHIL # 21.3 TH/MM3 (1.8-7.7); BASOPHIL % 0.2 % (0.0-2.0); LYMPH % 6.5 % (9.0-44.0); LYMPHOCYTE # 1.5 TH/MM3 (1.0-4.8); MEAN CELL VOLUME 81.6 FL (80.0-100.0); MEAN CORPUSCULAR HEMOGLOBIN 25.9 PG (27.0-34.0); MEAN CORPUSCULAR HGB CONC 31.7 % (32.0-36.0); MONO % 2.1 % (0.0-8.0); NEUT % 91.2 % (16.0-70.0); PLATELET COUNT 337 TH/MM3 (150-450); RED BLOOD COUNT 5.02 MIL/MM3 (4.50-5.90); RED CELL DISTRIBUTION WIDTH 17.3 % (11.6-17.2); WHITE BLOOD COUNT 23.3 TH/MM3 (4.0-11.0)
[2016-04-18 13:21] LABS: HEMO FLAGS AUTO DIFF
[2016-04-18 13:49] LABS: BICARBONATE 26.9 MEQ/L (21.0-32.0)
[2016-04-18 13:51] LABS: MAGNESIUM 2.4 MG/DL (1.5-2.5); POTASSIUM 4.1 MEQ/L (3.5-5.1)
[2016-04-18 14:23] LABS: PLATELET ESTIMATE SMEAR NORMAL (NORMAL); PLATELET MORPHOLOGY NORMAL (NORMAL); SCAN/DIFF AUTO DIFF CONFIRMED
[2016-04-18] MEDS: DOXEPIN HCL 50 MG CAP PO SCH (22:07)
[2016-04-18] MEDS: GABAPENTIN 300 MG CAP PO SCH (22:07)
[2016-04-18] MEDS: ATORVASTATIN 40 MG TAB PO SCH (22:07)
[2016-04-19] VITALS (10 sets, daily range): BP systolic 129–145; BP diastolic 79–92; PULSE 72–97; RESP 18–20; TEMP 96–98.5; O2SAT 91–98
[2016-04-19] MEDS: RESP: ALBUTEROL 2.5 MG/3 ML NEB (SCH) NEB ×5 (00:24→22:06)
[2016-04-19] MEDS: MORPHINE SULFATE 4 MG/ML INJ IV PRN ×4 (02:47→23:42)
[2016-04-19] MEDS: TOLTERODINE TARTRATE 2 MG CAP LA PO SCH (08:25)
[2016-04-19] MEDS: SODIUM CHLORIDE 0.9% FLUSH 5 ML FLUSH FLUSH SCH ×2 (08:25→21:35)
[2016-04-19] MEDS: METOPROLOL TARTRATE 50 MG TAB PO SCH ×2 (08:26→21:31)
[2016-04-19] MEDS: LACTOBACILLUS ACIDOPHILUS TAB PO SCH ×3 (08:26→17:34)
[2016-04-19] MEDS: DILTIAZEM-CD 240 MG CAP ER PO SCH (08:26)
[2016-04-19] MEDS: FOLIC ACID 1 MG TAB PO SCH (08:26)
[2016-04-19] MEDS: PANTOPRAZOLE SOD 40 MG DELAYED RELEASE TAB PO SCH (08:27)
[2016-04-19] MEDS: LEVOFLOXACIN 750 MG TAB PO SCH (08:27)
[2016-04-19] MEDS: predniSONE 20 MG TAB PO SCH (08:27)
[2016-04-19] MEDS ORDERED: SINCALIDE 5 MCG/5 ML VIAL IV ONE (10:08)
--- NOTE | 2016-04-19 10:58 | RADRPT ---
EXAM DATE/TIME: 04/19/2016 08:59 [facility] COMPARISON: CT ABDOMEN & PELVIS W CONTRAST, April 14, 2016, 23:36. INDICATIONS : Abdominal pain for 3 days. DOSE: 4.3 mCi Tc99m Mebrofenin IV MEDICATION: 1.4 mcg Cholecystokinin IV; No symptomatic response. Cholecystokinin was administered by slow infusion over 8 minutes beginning at 60 minutes. MEDICAL HISTORY : Chronic obstructive pulmonary disease. Congestive heart failure. Atrial fibrillation. SURGICAL HISTORY : Inguinal hernia repair. Parotidectomy and hemmorhoidectomy. ENCOUNTER: Initial ACUITY: 3 days PAIN SCALE: 3/10 LOCATION: Right upper quadrant TECHNIQUE: Following the intravenous administration of radiotracer, dynamic sequential image were performed with continuous acquisition. Time-activity curves were generated. FINDINGS: HEPATIIC KINETICS: There is prompt uptake of radiotracer in the liver. No focal defects are seen. There is normal rate of washout from the hepatic parenchyma. BILIARY CLEARANCE: Activity is first seen in the extrahepatic biliary system at 20 minutes. There is normal excretion i nto the small bowel. GALLBLADDER: Activity is first seen in the gallbladder at 10 minutes. POST CHOLECYSTOKININ: After Cholecystokinin administration, there is prompt emptying of the gallbladder with an approximate ly 60 % ejection fraction. Common bile duct kinetics are normal and there is no evidence of biliary obstruction. BILIARY ENTERIC REFLUX: None observed. CLINICAL: The patient was asymptomatic after Cholecystokinin administration. CONCLUSION: 1. Normal examination. Gallbladder activity is visualized indicating a patent cystic duct. 2. There is a normal gallbladder response to CCK administration. Benjie Zavala MD on April 19, 2016 at 10:54 Board Certified Radiologist. This report was verified electronically.
[2016-04-19] MEDS: METOCLOPRAMIDE HCL 10 MG TAB PO SCH ×3 (11:02→21:31)
--- NOTE | 2016-04-19 11:38 | HHI.PR ---
Subjective Remarks Follow-up abdominal pain. Patient with increased abdominal pain during had the scan. Currently with resolved pain awaiting colonoscopy. Patient educated on gastroparesis Objective Vitals Vital Signs Date Time Temp Pulse Resp B/P Pulse Ox O2 Delivery O2 Flow Rate FiO2 04/19/16 11:10 16 04/19/16 08:33 97 04/19/16 04:00 98.5 78 18 141/92 91 04/19/16 00:26 98 21 04/19/16 00:00 97.5 76 20 145/82 95 04/18/16 20:00 96.7 76 20 157/92 96 04/18/16 17:13 96.3 82 20 158/78 96 04/18/16 16:19 96 21 04/18/16 13:02 96.9 70 20 131/68 98 I/O 04/18/16 04/18/16 04/18/16 04/19/16 04/19/16 04/19/16 07:00 15:00 23:00 07:00 15:00 23:00 Intake Total 720 ml Output Total 300 ml Balance -300 ml 720 ml Intake Oral 720 ml Output Urine Total 300 ml # Voids 1 5 Result Diagram: 04/18/16 1250 04/19/16 0639 Imaging Last Impressions Hepatobiliary Scan Nuclear Medicine 04/19/16 0000 Signed Impressions: Service Date/Time: March 08:59 - CONCLUSION: 1. Normal examination. Gallbladder activity is visualized indicating a patent cystic duct. 2. There is a normal gallbladder response to CCK administration. Benjie Zavala MD Gastric Emptying Nuclear Medicine 04/17/16 0000 Signed Impressions: Service Date/Time: Sunday, April 17, 2016 13:33 - CONCLUSION: Delayed gastric emptying. Following Reglan administration the gastric contents completely empty. Benjie Zavala MD Chest CT 04/16/16 0000 Signed Impressions: Service Date/Time: Saturday, April 16, 2016 17:42 - CONCLUSION: 1. No significant change since April 06. Chronic parenchymal air space disease and adenopathy in the lungs most characteristic of chronic sarcoidosis. Underlying pneumoconiosis and asbestos related pleural disease can have a similar appearance. 2. Gallstones in gallbladder. No acute findings in upper abdomen. Inder Blanca MD Abdomen/[place] [address] Signed Impressions: Service Date/Time: Thursday, April 14, 2016 23:36 - CONCLUSION: Persistent right lower lung partially consolidative infiltrates. No acute findings in the abdomen/pelvis. Frank Ortega MD Chest X-Ray 04/14/162211 Signed Impressions: Service Date/Time: Thursday, April 14, 2016 23:20 - CONCLUSION: Stable diffuse bilateral infiltrates and stable right pleural effusion. Farnk Ortega MD Objective Remarks GENERAL: Well-developed well-nourished morbidly obese. In no acute distress. SKIN: Warm and dry. No lesions noted. HEENT: Normocephalic. Pupils equal and round. Mucous membranes pink and moist. CARDIOVASCULAR: Regular rate and rhythm. No murmur appreciated. RESPIRATORY: No accessory muscle use. Clear to auscultation. Decreased breath sounds. GASTROINTESTINAL: Abdomen large with previous midline incision, soft, nontender , nondistended. Bowel sounds x4. MUSCULOSKELETAL: No obvious deformities. No clubbing or cyanosis. No edema. NEUROLOGICAL: Awake and alert. No focal neurological deficits. Moves upper and lower extremities spontaneously. Normal speech. PSYCHIATRIC: Appropriate mood and affect; insight and judgment normal. Procedures EGD and colonoscopy A/P Problem List: (1) Sarcoidosis ICD Code: D86.9 Status: Acute (2) PNA (pneumonia) ICD Code: J18.9 Status: Acute (3) Abdominal pain ICD Code: R10.9 Status: Acute (4) Diarrhea ICD Code: R19.7 Status: Acute (5) A-fib ICD Code: I48.91 Status: Acute Assessment and Plan 51-year-old male with PMH of HTN, A. fib on Eliquis, Sarcoidosis and COPD who presented to the ER w/ complaints of abdominal pain, diarrhea and SOB Sarcoidosis: w/ severe pulmonary fibrosis/chronic respiratory failure on home O2. 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. PFTs 04/07/16 showing severe obstructive disease. On MTX and Folic Acid, however off treatment x3 wks due to ongoing PNA. IV Solu-Medrol. Albuterol prn. Pulmonology has cleared patient for endoscopy. CT thorax no significant changes, ABG unremarkable , pulmonary function test with severe obstruction pending ANN-MARIE inhibitor level PNA: Recent admit 04/06-1/16/17 w/ PNA s/p IV Abx, d/c'd on Zithro and Ceftin x5 days, CXR w/ persistent bilateral infiltrates and stable right pleural effusion. Covering for HCAP with IV Vanc/Cefepime, clinically improving. Switch to by mouth Levaquin MSSA bacteremia 1/4 bottles vs contamination. Patient clinically stable. Follow up Repeat blood culture Chronic Abdominal Pain with hematemesis: Hemoglobin stable, lipase within normal limits. CT Abd/Pelvis w/ no acute intra-abdominal pathology. Protonix, analgesics/antiemetics. Consulted gastroenterology, plan for EGD and colonoscopy when cleared by pulmonology. Diet per GI. No recurrence of hematemesis -EGD with duodenitis and gastritis. Follow biopsy. Continue PPI and antireflux mechanisms. No NSAIDs. For colonoscopy today Gastroparesis. Start Reglan. Avoid narcotics. Diarrhea: Non-bloody, Hemoccult negative. C Diff negative. Lactinex. A-fib: Chronic. Controlled. Continue home Cardizem, Metoprolol. Resume anticoagulation with no further hematemesis and stable blood counts Hyperkalemia: Potassium 5.3. Moderate hemolysis noted. Follow-up BMP showed potassium within normal limits. Acute on chronic kidney injury stage II. Nonoliguric. Improved. Hold diuretics for now and discontinue vancomycin. Avoid nephrotoxins. Repeat BMP and magnesium outpatient DVT Prophylaxis: SCDs. Discharge Planning Dc after colonoscopy Problem Qualifiers (1) PNA (pneumonia): Qualified Code: J18.1 - Pneumonia of right lower lobe due to infectious organism Ramirez Rocha MD Apr 19, 2016 11:38
[2016-04-19] MEDS ORDERED: PRED20 PO (11:43)
[2016-04-19] MEDS ORDERED: METO10TA PO (11:43)
[2016-04-19] MEDS ORDERED: LEVA750T PO (11:43)
--- NOTE | 2016-04-19 11:44 | HHI.DCPOC ---
Discharge Care Plan Diagnosis: (1) PNA (pneumonia) (2) Abdominal pain (3) Sarcoidosis Your Health Problems Are: Difficulty with ADL Exercise Tolerance Goals to Promote Your Health * To prevent worsening of your condition and complications * To maintain your health at the optimal level Directions to Meet Your Goals Take your medications as prescribed Follow your dietary instruction Follow activity as directed Keep your appointments as scheduled Take your immunizations and boosters as scheduled If your symptoms worsen call your PCP, if no PCP go to Urgent Care Center or Emergency Room Smoking is Dangerous to Your Health. Avoid second hand smoke Call the 24-hour hour crisis hotline for domestic abuse at Ramirez Rocha MD Apr 19, 2016 11:44
--- NOTE | 2016-04-19 14:14 | HHI.DS ---
Discharge Summary Admission Date Apr 15, 2016 at 00:27 Discharge Date: Apr 20, 2016 Admitting Diagnosis right lung pneumonia, shortness of breath (1) Sarcoidosis ICD Code: D86.9 Diagnosis: Principal (2) PNA (pneumonia) ICD Code: J18.9 Diagnosis: Principal (3) Abdominal pain ICD Code: R10.9 Diagnosis: Principal (4) Diarrhea ICD Code: R19.7 Diagnosis: Principal (5) A-fib ICD Code: I48.91 Diagnosis: Secondary Procedures EGD and colonoscopy Brief History - From Admission This is a 51-year-old male with PMH of HTN, A. fib on Eliquis, Sarcoidosis and COPD who presented to the ER w/ complaints of abdominal pain, diarrhea and SOB. Recent admit 04/06-04/09/16 for similar complaints, found to have PNA and started on IV Abx, w/ eval by Dr. Stanley w/ Pulmonology and underwent PFTs. Pt normally on Methotrexate and Folic Acid, follows at [facility] for Sarcoidosis, off MTX x3 wks due to ongoing PNA. D/c'd on 04/09/16 w/ Zithro/Ceftin x5 days, however returned to ER today w/ progressive SOB and abd pain/diarrhea. H/o Chronic Abdominal Pain for which he is also following at [facility], and is scheduled for upcoming EGD. On arrival, BP 139/93, HR 110, O2 sat 94% on RA, Afebrile. WBC normal. K+ 5.3 w/ moderate hemolysis. CXR with persistent diffuse bilateral infiltrates and stable right pleural effusion. CT Abd/Pelvis w/ no intra-abdominal pathology. S/p Blood Cultures, Vanc/Cefepime in ER. CBC/BMP: 04/18/16 1250 04/19/16 0639 Significant Findings Laboratory Tests Test 04/16/16 04/17/16 04/17/16 04/18/16 18:05 06:57 09:45 01:30 Blood Gas HCO3 28 mmol/L (22-26) Blood Gas Base Excess 3.6 mmol/L (-2-2) Arterial Blood Partial 46 mmHg (38-42) Pressure CO2 Creatinine 1.31 MG/DL (0.60-1.30) Estimat Glomerular Filtration 69 ML/MIN (>89) Rate Hemoglobin 12.9 GM/DL (13.0-17.0) Vancomycin Level Trough 16.5 MCG/ML (5.0-10.0) Test 04/18/16 04/19/16 12:50 06:39 White Blood Count 23.3 TH/MM3 (4.0-11.0) Mean Corpuscular Hemoglobin 25.9 PG (27.0-34.0) Mean Corpuscular Hemoglobin 31.7 % Concent (32.0-36.0) Red Cell Distribution Width 17.3 % (11.6-17.2) Neutrophils (%) (Auto) 91.2 % (16.0-70.0) Lymphocytes (%) (Auto) 6.5 % (9.0-44.0) Neutrophils # (Auto) 21.3 TH/MM3 (1.8-7.7) Chloride Level 97 MEQ/L (98-107) Blood Urea Nitrogen 20 MG/DL (7-18) Estimat Glomerular Filtration 78 ML/MIN (>89) 88 ML/MIN (>89) Rate Random Glucose 202 MG/DL (74-106) Calcium Level 8.3 MG/DL (8.5-10.1) Imaging Last Impressions Hepatobiliary Scan Nuclear Medicine 04/19/16 0000 Signed Impressions: Service Date/Time: March 08:59 - CONCLUSION: 1. Normal examination. Gallbladder activity is visualized indicating a patent cystic duct. 2. There is a normal gallbladder response to CCK administration. Benjie Zavala MD Gastric Emptying Nuclear Medicine 04/17/16 0000 Signed Impressions: Service Date/Time: Sunday, April 17, 2016 13:33 - CONCLUSION: Delayed gastric emptying. Following Reglan administration the gastric contents completely empty. Benjie Zavala MD Chest CT 04/16/16 0000 Signed Impressions: Service Date/Time: Saturday, April 16, 2016 17:42 - CONCLUSION: 1. No significant change since April 06. Chronic parenchymal air space disease and adenopathy in the lungs most characteristic of chronic sarcoidosis. Underlying pneumoconiosis and asbestos related pleural disease can have a similar appearance. 2. Gallstones in gallbladder. No acute findings in upper abdomen. Inder Blanca MD Abdomen/Pelvis CT 04/14/162216 Signed Impressions: Service Date/Time: Thursday, April 14, 2016 23:36 - CONCLUSION: Persistent right lower lung partially consolidative infiltrates. No acute findings in the abdomen/pelvis. Frank Ortega MD Chest X-Ray 04/14/162 Signed Impressions: Service Date/Time: Thursday, April 14, 2016 23:20 - CONCLUSION: Stable diffuse bilateral infiltrates and stable right pleural effusion. Frank Ortega MD PE at Discharge GENERAL: Well-developed well-nourished morbidly obese. In no acute distress. SKIN: Warm and dry. No lesions noted. HEENT: Normocephalic. Pupils equal and round. Mucous membranes pink and moist. CARDIOVASCULAR: Regular rate and rhythm. No murmur appreciated. RESPIRATORY: No accessory muscle use. Clear to auscultation. Decreased breath sounds. GASTROINTESTINAL: Abdomen large with previous midline incision, soft, nontender , nondistended. Bowel sounds x4. MUSCULOSKELETAL: No obvious deformities. No clubbing or cyanosis. No edema. NEUROLOGICAL: Awake and alert. No focal neurological deficits. Moves upper and lower extremities spontaneously. Normal speech. PSYCHIATRIC: Appropriate mood and affect; insight and judgment normal. Hospital Course 51-year-old male with PMH of HTN, A. fib on Eliquis, Sarcoidosis and COPD who presented to the ER w/ complaints of abdominal pain, diarrhea and SOB Sarcoidosis: w/ severe pulmonary fibrosis/chronic respiratory failure on home O2. 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 PFTs 04/07/16 showing severe obstructive disease. On MTX and Folic Acid, however off treatment x3 wks due to ongoing PNA. IV Solu-Medrol. Albuterol prn. Pulmonology has cleared patient for endoscopy. CT thorax no significant changes, ABG unremarkable , pulmonary function test with severe obstruction pending ANN-MARIE inhibitor level PNA: Recent admit 04/06-04/09/16 w/ PNA s/p IV Abx, d/c'd on Zithro and Ceftin x5 days, CXR w/ persistent bilateral infiltrates and stable right pleural effusion. Covering for HCAP with IV Vanc/Cefepime, clinically improving. Switch to by mouth Levaquin MSSA bacteremia 1/4 bottles vs contamination. Patient clinically stable. Follow up Repeat blood culture Chronic Abdominal Pain with hematemesis: Hemoglobin stable, lipase within normal limits. CT Abd/Pelvis w/ no acute intra-abdominal pathology. Protonix, analgesics/antiemetics. Consulted gastroenterology, plan for EGD and colonoscopy when cleared by pulmonology. Diet per GI. No recurrence of hematemesis -EGD with duodenitis and gastritis. Negative biopsy. Continue PPI and antireflux mechanisms. No NSAIDs. Colonoscopy with poor preparation, internal and external hemorrhoids. Consider pill cam Gastroparesis. Improved continue Reglan. Avoid narcotics. Diarrhea: Non-bloody, Hemoccult negative. C Diff negative. Improved. Lactinex. A-fib: Chronic. Controlled. Continue home Cardizem, Metoprolol. Resume anticoagulation with no further hematemesis and stable blood counts Hyperkalemia: Potassium 5.3. Moderate hemolysis noted. Follow-up BMP showed potassium within normal limits. Acute on chronic kidney injury stage II. Nonoliguric. Improved. Hold diuretics for now and discontinue vancomycin. Avoid nephrotoxins. Repeat BMP and magnesium outpatient DVT Prophylaxis: SCDs. Pt Condition on Discharge: Stable Discharge Disposition: Discharge Home Discharge Time: <= 30 minutes Discharge Instructions DIET: Follow Instructions for: Heart Healthy Diet, Diabetic Diet Activities you can perform: Regular-No Restrictions Activities to Avoid: Driving Follow up Referrals: Gastroenterology - 1 Week PCP Follow-up - 1 Week Pulmonology - 1 Week New Orders: BASIC METABOLIC PROF - 04/23/16 CBC WITH DIFF - 04/23/16 X-RAY CHEST PA & LAT - 6 Weeks New Medications: Levofloxacin (Levaquin) 750 Mg Tab 750 MG PO DAILY Infection #5 TAB Metoclopramide (Metoclopramide) 10 Mg Tab 10 MG PO ACHS stomach pain #120 TAB Prednisone (Prednisone) 20 Mg Tab 40 MG PO DAILY Control Inflammation #4 TAB Continued Medications: Acetaminophen (Acetaminophen Extra Strength) 500 Mg Cap 500 MG PO Q6H PRN #20 Ref 0 CAP Albuterol 8.5 GM Inh (Proair Hfa 8.5 GM Inh) 90 Mcg/Act Aer 1 PUFF INH Q6H 108 mcg/actuation PRN SHORTNESS OF BREATH #1 Ref 0 INHALER Albuterol Neb (Albuterol Neb) 2.5 Mg/3 Ml Neb 2.5 MG NEB Q4HR NEB While awake Breathing Treatment #60 Ref 0 NEBULE Apixaban (Eliquis) 5 Mg Tab 5 MG PO BID Blood Clot Prevention #60 Ref 0 TAB Atorvastatin (Lipitor) 40 Mg Tab 40 MG PO HS Cholesterol Management #30 Ref 0 TAB Chlorthalidone (Chlorthalidone) 50 Mg Tab 50 MG PO DAILY Ref 0 TAB Diltiazem CD 24 HR (Diltiazem CD 24 HR) 240 Mg Caper 240 MG PO DAILY #30 Ref 0 CAP Doxepin (Doxepin) 50 Mg Cap 50 MG PO HS #30 Ref 0 CAP Folic Acid (Folate) 1 Mg Tab 1 MG PO DAILY Nutritional Supplement Ref 0 TAB Furosemide (Furosemide) 40 Mg Tab 40 MG PO DAILY #30 Ref 0 TAB Gabapentin (Gabapentin) 300 Mg Cap 300 MG PO HS #30 Ref 0 CAP Methotrexate Inj (Methotrexate Inj) 50 Mg/2 Ml Inj 15 MG SQ EVERY TWO WEEKS Metoprolol Tartrate (Metoprolol Tartrate) 50 Mg Tab 50 MG PO BID #60 Ref 0 TAB Ondansetron (Zofran) 4 Mg Tab 4 MG PO Q8HR PRN NAUSEA OR VOMITING Ref 0 TAB Pantoprazole (Protonix) 40 Mg Tab 40 MG PO DAILY Reflux #30 Ref 0 TAB Potassium Chloride ER (Potassium Chloride ER) 20 Meq Tab 20 MEQ PO BID Electrolyte Replacement #60 Ref 0 TAB Solifenacin (Vesicare) 5 Mg Tab 5 MG PO DAILY Urinary Symptom Managemen #30 Ref 0 TAB Ramirez Rocha MD Apr 19, 2016 14:14
[2016-04-19] MEDS ORDERED: PROPOFOL 200 MG/20 ML AMP IV ONE (14:49)
[2016-04-19] MEDS ORDERED: DO NOT ADM ANY ANTICOAGULANT DRUGS XX PRN (15:15)
[2016-04-19] MEDS: DOXEPIN HCL 50 MG CAP PO SCH (21:30)
[2016-04-19] MEDS: GABAPENTIN 300 MG CAP PO SCH (21:30)
[2016-04-19] MEDS: ATORVASTATIN 40 MG TAB PO SCH (21:31)
[2016-04-19] MEDS: APIXABAN 5 MG TABLET PO SCH (21:31)
[2016-04-19] MEDS ORDERED: METOCLOPRAMIDE HCL 10 MG/2 ML VIAL IM SCH (22:00)
[2016-04-20] VITALS: BP 132/90; PULSE 77; RESP 20; TEMP 96.6; O2SAT 95
[2016-04-20] MEDS: RESP: ALBUTEROL 2.5 MG/3 ML NEB (SCH) NEB ×4 (01:50→13:35)
[2016-04-20 04:00] VITALS: BP 117/72; PULSE 80; RESP 20; TEMP 96.6; O2SAT 95
[2016-04-20] MEDS: MORPHINE SULFATE 4 MG/ML INJ IV PRN ×2 (04:31→11:05)
[2016-04-20] MEDS: METOCLOPRAMIDE HCL 10 MG TAB PO SCH ×2 (06:27→11:00)
[2016-04-20 08:31] VITALS: BP 137/78; PULSE 80; RESP 20; TEMP 95.7; O2SAT 97
[2016-04-20 08:39] LABS: AUTOMATED NEUTROPHIL # 12.5 TH/MM3 (1.8-7.7); BASOPHIL % 0.1 % (0.0-2.0); EOSINOPHIL # 0.1 TH/MM3 (0-0.4); EOSINOPHIL % 0.5 % (0.0-4.0); HEMATOCRIT 41.3 % (39.0-51.0); LYMPH % 15.2 % (9.0-44.0); LYMPHOCYTE # 2.5 TH/MM3 (1.0-4.8); MEAN CELL VOLUME 79.4 FL (80.0-100.0); MEAN CORPUSCULAR HGB CONC 32.8 % (32.0-36.0); MONO % 8.9 % (0.0-8.0); NEUT % 75.3 % (16.0-70.0); PLATELET COUNT 326 TH/MM3 (150-450); RED BLOOD COUNT 5.21 MIL/MM3 (4.50-5.90); WHITE BLOOD COUNT 16.5 TH/MM3 (4.0-11.0)
[2016-04-20 08:41] LABS: HEMO FLAGS AUTO DIFF
[2016-04-20 08:58] LABS: BICARBONATE 33.8 MEQ/L (21.0-32.0); MAGNESIUM 2.6 MG/DL (1.5-2.5)
[2016-04-20] MEDS: DILTIAZEM-CD 240 MG CAP ER PO SCH (09:37)
[2016-04-20] MEDS: predniSONE 20 MG TAB PO SCH (09:37)
[2016-04-20] MEDS: LACTOBACILLUS ACIDOPHILUS TAB PO SCH ×2 (09:37→12:33)
[2016-04-20] MEDS: PANTOPRAZOLE SOD 40 MG DELAYED RELEASE TAB PO SCH (09:38)
[2016-04-20] MEDS: APIXABAN 5 MG TABLET PO SCH (09:38)
[2016-04-20] MEDS: SODIUM CHLORIDE 0.9% FLUSH 5 ML FLUSH FLUSH SCH (09:38)
[2016-04-20] MEDS: METOPROLOL TARTRATE 50 MG TAB PO SCH (09:38)
[2016-04-20] MEDS: TOLTERODINE TARTRATE 2 MG CAP LA PO SCH (09:38)
[2016-04-20] MEDS: FOLIC ACID 1 MG TAB PO SCH (09:38)
[2016-04-20] MEDS: LEVOFLOXACIN 750 MG TAB PO SCH (09:38)
[2016-04-20 10:02] LABS: MYELOCYTES 1 % (0-0); NEUTROPHIL # MANUAL DIFF 11.4 TH/MM3 (1.8-7.7); POLYS (SEG NEUTROPHILS) 68 % (16-70); SCAN/DIFF FINAL DIFF MANUAL; WBC DIFF SAMPLE 100
[2016-04-20 10:03] LABS: PLATELET ESTIMATE SMEAR NORMAL (NORMAL); PLATELET MORPHOLOGY NORMAL (NORMAL)
[2016-04-20 10:07] VITALS: O2SAT 97
[2016-04-20] MEDS ORDERED: POTASSIUM CHLORIDE 10 MEQ CONTROLLED RELEASE TAB PO SCH (12:00)
[2016-04-20] MEDS ORDERED: POTASSIUM CHLORIDE 10 MEQ CONTROLLED RELEASE TAB PO ONE (12:00)
--- NOTE | 2016-04-20 12:21 | HHI.PR ---
Subjective Remarks Follow-up gastroparesis. No nausea and vomiting but still having abdominal pain. Seen with . Agreed to be discharged after discussion with GI. Discussed with RN Objective Vitals Vital Signs Date Time Temp Pulse Resp B/P Pulse Ox O2 Delivery O2 Flow Rate FiO2 04/20/16 11:11 18 04/20/16 10:07 97 04/20/16 08:31 95.7 80 20 137/78 97 04/20/16 04:00 96.6 80 20 117/72 95 04/20/16 00:00 96.6 77 20 132/90 95 04/19/16 22:07 95 04/19/16 20:00 82 04/19/16 20:00 96.0 94 20 129/82 97 04/19/16 16:56 97.2 79 18 131/83 95 04/19/16 16:41 95 Nasal Cannula 2.00 04/19/16 14:41 75 16 105/63 97 04/19/16 14:28 77 16 114/71 96 04/19/16 14:18 97.9 78 16 123/81 97 04/19/16 13:39 98.5 72 20 143/79 95 I/O 04/19/16 04/19/16 04/19/16 04/20/16 04/20/16 04/20/16 07:00 15:00 23:00 07:00 15:00 23:00 Intake Total 100 ml 480 ml 240 ml Balance 100 ml 480 ml 240 ml Intake Oral 480 ml 240 ml Other 100 ml # Voids 5 1 1 0 # Bowel Movements 0 0 Result Diagram: 04/20/16 0757 04/20/16 0757 Objective Remarks GENERAL: Well-developed well-nourished morbidly obese. In no acute distress. SKIN: Warm and dry. No lesions noted. HEENT: Normocephalic. Pupils equal and round. Mucous membranes pink and moist. CARDIOVASCULAR: Regular rate and rhythm. No murmur appreciated. RESPIRATORY: No accessory muscle use. Clear to auscultation. Decreased breath sounds. GASTROINTESTINAL: Abdomen large with previous midline incision, soft, nontender , nondistended. Bowel sounds x4. MUSCULOSKELETAL: No obvious deformities. No clubbing or cyanosis. No edema. NEUROLOGICAL: Awake and alert. No focal neurological deficits. Moves upper and lower extremities spontaneously. Normal speech. PSYCHIATRIC: Appropriate mood and affect; insight and judgment normal. Procedures EGD and colonoscopy A/P Problem List: (1) Sarcoidosis ICD Code: D86.9 Status: Acute (2) PNA (pneumonia) ICD Code: J18.9 Status: Acute (3) Abdominal pain ICD Code: R10.9 Status: Acute (4) Diarrhea ICD Code: R19.7 Status: Acute (5) A-fib ICD Code: I48.91 Status: Acute Assessment and Plan 51-year-old male with PMH of HTN, A. fib on Eliquis, Sarcoidosis and COPD who presented to the ER w/ complaints of abdominal pain, diarrhea and SOB Sarcoidosis: w/ severe pulmonary fibrosis/chronic respiratory failure on home O2. 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 PFTs 04/07/16 showing severe obstructive disease. On MTX and Folic Acid, however off treatment x3 wks due to ongoing PNA. IV Solu-Medrol. Albuterol prn. Pulmonology has cleared patient for endoscopy. CT thorax no significant changes, ABG unremarkable , pulmonary function test with severe obstruction pending ANN-MARIE inhibitor level PNA: Recent admit 04/06-04/09/16 w/ PNA s/p IV Abx, d/c'd on Zithro and Ceftin x5 days, CXR w/ persistent bilateral infiltrates and stable right pleural effusion. Covering for HCAP with IV Vanc/Cefepime, clinically improving. Switch to by mouth Levaquin MSSA bacteremia 1/ bottles vs contamination. Patient clinically stable. Follow up Repeat blood culture Chronic Abdominal Pain with hematemesis: Hemoglobin stable, lipase within normal limits. CT Abd/Pelvis w/ no acute intra-abdominal pathology. Protonix, analgesics/antiemetics. Consulted gastroenterology, plan for EGD and colonoscopy when cleared by pulmonology. Diet per GI. No recurrence of hematemesis -EGD with duodenitis and gastritis. Negative biopsy. Continue PPI and antireflux mechanisms. No NSAIDs. Colonoscopy with poor preparation, internal and external hemorrhoids Gastroparesis. Improved continue Reglan. Avoid narcotics. Diarrhea: Non-bloody, Hemoccult negative. C Diff negative. Improved. Lactinex. A-fib: Chronic. Controlled. Continue home Cardizem, Metoprolol. Resume anticoagulation with no further hematemesis and stable blood counts Hyperkalemia: Potassium 5.3. Moderate hemolysis noted. Follow-up BMP showed potassium within normal limits. Acute on chronic kidney injury stage II. Nonoliguric. Improved. Hold diuretics for now and discontinue vancomycin. Avoid nephrotoxins. Repeat BMP and magnesium outpatient DVT Prophylaxis: SCDs. Discharge Planning Stable for discharge Problem Qualifiers (1) PNA (pneumonia): Qualified Code: J18.1 - Pneumonia of right lower lobe due to infectious organism Ramirez Rocha MD Apr 20, 2016 12:21
[2016-04-20 12:58] VITALS: BP 128/84; PULSE 80; RESP 20; TEMP 96.3; O2SAT 96
--- NOTE | 2016-04-20 13:20 | HHI.GIFU ---
Subjective Remarks Resting in bed. Denies nausea, vomiting, abdominal pain. Ate 100% lunch without difficulty. No bleeding. Pt states he is doing good and wants to go home. at bedside and very hesitant to go home, as she states that we never determined where the bleeding was coming from and what his pain was from. Reviewed all tests with her and current labs. Went over gastroparesis diet with her and patient. Recommended FU as outpatient. Verbalizes understanding and okay with being discharged. (Susu Laurent) Objective Vitals I&O Vital Signs Date Time Temp Pulse Resp B/P Pulse Ox O2 Delivery O2 Flow Rate FiO2 04/20/16 12:58 96.3 80 20 128/84 96 04/20/16 11:11 18 04/20/16 10:07 97 04/20/16 08:31 95.7 80 20 137/78 97 04/20/16 04:00 96.6 80 20 117/72 95 04/20/16 00:00 96.6 77 20 132/90 95 04/19/16 22:07 95 04/19/16 20:00 82 04/19/16 20:00 96.0 94 20 129/82 97 04/19/16 16:56 97.2 79 18 131/83 95 04/19/16 16:41 95 Nasal Cannula 2.00 04/19/16 14:41 75 16 105/63 97 04/19/16 14:28 77 16 114/71 96 04/19/16 14:18 97.9 78 16 123/81 97 04/19/16 13:39 98.5 72 20 143/79 95 I/O 04/19/16 04/19/16 04/19/16 04/20/16 04/20/16 04/20/16 07:00 15:00 23:00 07:00 15:00 23:00 Intake Total 100 ml 480 ml 240 ml Balance 100 ml 480 ml 240 ml Intake Oral 480 ml 240 ml Other 100 ml # Voids 5 1 1 0 # Bowel Movements 0 0 Laboratory Laboratory Tests Test 04/20/16 07:57 White Blood Count 16.5 Red Blood Count 5.21 Hemoglobin 13.5 Hematocrit 41.3 Mean Corpuscular Volume 79.4 Mean Corpuscular Hemoglobin 26.0 Mean Corpuscular Hemoglobin 32.8 Concent Red Cell Distribution Width 17.0 Platelet Count 326 Mean Platelet Volume 8.1 Neutrophils (%) (Auto) 75.3 Lymphocytes (%) (Auto) 15.2 Monocytes (%) (Auto) 8.9 Eosinophils (%) (Auto) 0.5 Basophils (%) (Auto) 0.1 Neutrophils # (Auto) 12.5 Lymphocytes # (Auto) 2.5 Monocytes # (Auto) 1.5 Eosinophils # (Auto) 0.1 Basophils # (Auto) 0.0 CBC Comment AUTO DIFF Differential Total Cells 100 Counted Neutrophils % (Manual) 68 Lymphocytes % 20 Monocytes % 11 Neutrophils # (Manual) 11.4 Myelocytes 1 Differential Comment FINAL DIFF MANUAL Platelet Estimate NORMAL Platelet Morphology Comment NORMAL Sodium Level 137 Potassium Level 3.0 Chloride Level 97 Carbon Dioxide Level 33.8 Anion Gap 6 Blood Urea Nitrogen 21 Creatinine 1.17 Estimat Glomerular Filtration 79 Rate Random Glucose 84 Calcium Level 8.3 Magnesium Level 2.6 Date/Time Procedure Status Source Growth 04/19/16 06:49 Aerobic Blood Culture - Preliminary Resulted Blood Peripheral NO GROWTH IN 1 DAY 04/19/16 06:49 Anaerobic Blood Culture - Preliminary Resulted Blood Peripheral NO GROWTH IN 1 DAY Imaging Last Impressions Hepatobiliary Scan Nuclear Medicine 04/19/16 0000 Signed Impressions: Service Date/Time: March 08:59 - CONCLUSION: 1. Normal examination. Gallbladder activity is visualized indicating a patent cystic duct. 2. There is a normal gallbladder response to CCK administration. 60% EF Benjie Zavala MD Gastric Emptying Nuclear Medicine 04/17/16 0000 Signed Impressions: Service Date/Time: Sunday, April 17, 2016 13:33 - CONCLUSION: Delayed gastric emptying. Following Reglan administration the gastric contents completely empty. Benjie Zavala MD Chest CT 04/16/16 0000 Signed Impressions: Service Date/Time: Saturday, April 16, 2016 17:42 - CONCLUSION: 1. No significant change since April 06. Chronic parenchymal air space disease and adenopathy in the lungs most characteristic of chronic sarcoidosis. Underlying pneumoconiosis and asbestos related pleural disease can have a similar appearance. 2. Gallstones in gallbladder. No acute findings in upper abdomen. Inder Blanca MD Abdomen/Pelvis CT 04/14/16 1656 Signed Impressions: Service Date/Time: Thursday, April 14, 2016 23:36 - CONCLUSION: Persistent right lower lung partially consolidative infiltrates. No acute findings in the abdomen/pelvis. Frank Ortega MD Chest X-Ray 04/14/16 2212 Signed Impressions: Service Date/Time: Thursday, April 14, 2016 23:20 - CONCLUSION: Stable diffuse bilateral infiltrates and stable right pleural effusion. Frank Ortega MD Physical Exam HEENT: Normocephalic; atraumatic; no jaundice. Throat is clear. NECK: Neck is supple, no JVD, no lymphadenopathy. CHEST: Resp even/unlabored, diminished CARDIAC: RRR. ABDOMEN: Soft, obese, nondistended, NONtender; no hepatosplenomegaly; bowel sounds are present in all four quadrants. SKIN: Normal; no rash; no jaundice. HOUSE RN: No focal deficits; alert and oriented times three. (Susu Laurent) Assessment and Plan Plan ASSESSMENT: - Abdominal pain. Abdomen/Pelvis CT (04/14/16)----> Persistent right lower lung partially consolidative infiltrates. No acute findings in the abdomen/pelvis. Pt having epigastric pain, worse with solid food intake. He states this is much worse at home and that he has frequent nausea/vomiting with undigested food shortly after eating while he is at home. S/P EGD (04/18/16)---> gastritis antrum, duodenitis in duodenal bulb, retroflexion revealed hiatal hernia. Colonoscopy (04/19/16)-----> poor prep, hemorrhoids. HIDA (04/19/16)-----> 1. Normal examination. Gallbladder activity is visualized indicating a patent cystic duct. 2. There is a normal gallbladder response to CCK administration. 60% EF. GES (04/17/16)-----> Delayed gastric emptying. Following Reglan administration the gastric contents completely empty. No pain at this time. Ate 100% diet without problems. No n/v. No bleeding. Reglan. PPI. D/W importance of gastroparesis diet with patient and . - Hematemesis. No further episodes. HH stable. - Diarrhea. Improved. CT as above. CDiff negative. EGD/Colon as above. - Sarcoidosis with severe pulmonary fibrosis and chronic respiratory failure. He is on home O2. He follows at [facility]. Recent PFT showed severe obstructive disease. He was recently taken off his methotrexate for ongoing pneumonia. Pulmonary following, w - PNA, nebs. . - Atrial fibrillation. PLAN: - Okay to d/c home - Heart healthy diet - Continue PPI - Continue Reglan - Gastroparesis diet, d/w patient and - FU ERIC 2 weeks - GI will sign off, please reconsult as needed - Patient seen and examined by Dr. Lopez and myself and this note is written on her behalf (Susu Laurent) Susu Laurent Apr 20, 2016 13:20 Jeanette Lopez MD Apr 20, 2016 17:34
[2016-04-20 15:15] VITALS: PULSE 82
--- NOTE | 2016-04-27 13:30 | PQ ---
Physician Query Response Document PATIENT: ZAC DAVIS : 1965 ADMIT DATE: 04/15/2016 12:27 AM DISCH DATE: 04/20/2016 4:04 PM RESPONDING PROVIDER #: Margaux QUERY TEXT: Clarification of Clinical Diagnostic Findings Please clarify documentation or clinical relevance for the clinical / diagnostic findings (chronic ki dney injury stage II). --Chronic renal failure stage II --Chronic renal insufficiency --Other diagnosis --Clinically unable to determine (Acute kidney injury codes to acute kidney/renal failure) If you have any additional questions/comments and/or concerns, please do not hesitate to reach out to the CDI/Coding Hotline, Ext. [phone]. The patient's Clinical Indicators include: Diagnosis from Discharge Summary (also in Progress Notes): Acute on chronic kidney injury stage II. N onoliguric. Query created by: Isa Tijerina on 04/26/2016 2:54 PM RESPONSE TEXT: CKD stage 2 Electronically signed by: Ramirez Rocha MD 04/27/2016 1:26 PM
== END 2016-04-20 16:04 | disposition home or self-care (01) | DRG 377 ==
LOC: NEPC 21:48 → NEDA 04-15 00:27 → NEPGCP 04-15 01:52 → N05A 04-17 22:57
PROVIDERS: ADMIT Internal Medicine; ATTEND Internal Medicine
PROC: 0DB68ZX Excision of Stomach, Via Natural or Artificial Opening Endoscopic, Diagnostic (ICD-10-PCS; 2016-04-18)
PROC: 0DB98ZX Excision of Duodenum, Via Natural or Artificial Opening Endoscopic, Diagnostic (ICD-10-PCS; principal; 2016-04-18 09:35)
PROC: 0DJ08ZZ Inspection of Upper Intestinal Tract, Via Natural or Artificial Opening Endoscopic (ICD-10-PCS; 2016-04-19)
DX: K92.0 Hematemesis (principal); J18.9 Pneumonia, unspecified organism; J96.10 Chronic respiratory failure, unspecified whether with hypoxia or hypercapnia; N17.9 Acute kidney failure, unspecified; R78.81 Bacteremia; Z99.81 Dependence on supplemental oxygen; J44.0 Chronic obstructive pulmonary disease with (acute) lower respiratory infection; Z68.42 Body mass index [BMI] 45.0-49.9, adult; K31.84 Gastroparesis; I48.2 Chronic atrial fibrillation; D86.9 Sarcoidosis, unspecified; E66.01 Morbid (severe) obesity due to excess calories; R19.7 Diarrhea, unspecified; Z79.02 Long term (current) use of antithrombotics/antiplatelets; E87.5 Hyperkalemia; K44.9 Diaphragmatic hernia without obstruction or gangrene; K64.8 Other hemorrhoids; I12.9 Hypertensive chronic kidney disease with stage 1 through stage 4 chronic kidney disease, or unspecified chronic kidney disease; N18.2 Chronic kidney disease, stage 2 (mild)
CPT/HCPCS: 36600; 71020; 71250; 74177; 78227; 78264; 80048; 80053; 80202; 81001; 82164; 82565; 82805; 82948; 83605; 83690; 83735; 83880; 85007; 85014; 85018; 85025; 85027; 85610; 85730; 87040; 87186; 87205; 87493; 87804; 88305; 88312; 93005; 94060; 94640; 94664; 96361; 96374; 96375; A9537; A9541; C9113; J0692; J2270; J2405; J2765; J2805; J2920; J3370; J7030; J7040; J7050; J7512; J7613; Q9967

== ENCOUNTER 2016-05-10 23:39 | Inpatient (IN) | payer MEDICARE, MEDICAID ==
[~2016-05-10] VITALS: Ht 180.3 cm; Wt 150.0 kg
[~2016-05-10 23:39] MED LIST changes: -AZIT500T2 PO; -CEFT500T3 PO; -DILA4TAB2 PO; +LEVA750T PO; -LORA2TAB7 PO; +METO10TA PO
[2016-05-10 23:42] VITALS: BP 137/102; PULSE 111; RESP 16; TEMP 97.8; O2SAT 96
[2016-05-11 02:43] VITALS: BP 126/60; PULSE 98; RESP 16; O2SAT 96
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
[2016-05-11] MEDS ORDERED: SODIUM CHLORIDE 0.9% FLUSH 5 ML FLUSH IVF PRN (03:00)
[2016-05-11] MEDS ORDERED: DICYCLOMINE HCL 20 MG/2 ML VIAL IM ONE (03:30)
[2016-05-11 03:45] LABS: AUTOMATED NEUTROPHIL # 3.3 TH/MM3 (1.8-7.7); BASOPHIL % 0.6 % (0.0-2.0); EOSINOPHIL # 0.2 TH/MM3 (0-0.4); EOSINOPHIL % 3.8 % (0.0-4.0); HEMATOCRIT 39.2 % (39.0-51.0); HEMO FLAGS DIFF FINAL; LYMPH % 23.8 % (9.0-44.0); LYMPHOCYTE # 1.3 TH/MM3 (1.0-4.8); MEAN CELL VOLUME 80.6 FL (80.0-100.0); MEAN CORPUSCULAR HEMOGLOBIN 26.5 PG (27.0-34.0); MEAN CORPUSCULAR HGB CONC 32.9 % (32.0-36.0); MONO % 11.6 % (0.0-8.0); NEUT % 60.2 % (16.0-70.0); PLATELET COUNT 327 TH/MM3 (150-450); RED BLOOD COUNT 4.87 MIL/MM3 (4.50-5.90); RED CELL DISTRIBUTION WIDTH 18.1 % (11.6-17.2); WHITE BLOOD COUNT 5.5 TH/MM3 (4.0-11.0)
[2016-05-11 03:58] LABS: ALKALINE PHOSPHATASE 95 U/L (45-117); TOTAL BILIRUBIN ADULT 0.3 MG/DL (0.2-1.0)
[2016-05-11 04:02] LABS: ALT (GPT) 18 U/L (12-78); ANION GAP 8 MEQ/L (5-15); AST (GOT) 20 U/L (15-37); BICARBONATE 29.4 MEQ/L (21.0-32.0); BLOOD UREA NITROGEN 16 MG/DL (7-18); CHLORIDE 103 MEQ/L (98-107); GLOMERULAR FILTRATION RATE 73 ML/MIN (>89); SODIUM (NA) 140 MEQ/L (136-145)
[2016-05-11 04:03] LABS: POTASSIUM 3.7 MEQ/L (3.5-5.1)
[2016-05-11 04:06] LABS: BLOOD, URINE NEG (NEG); GLUCOSE,URINE NEG (NEG); KETONE, URINE NEG (NEG); MUCUS URINE FEW /lpf (OCC); NITRITE,URINE NEG (NEG); PH, URINE 5.5 (5.0-8.5); SQUAMOUS EPITHELIAL CELL URINE <1 /hpf (0-5); URINE COLOR YELLOW (YELLW/STRAW)
[2016-05-11 04:07] LABS: COMMENT (UR) CULT NOT INDICATED; CULTURE IF INDICATED CULT NOT INDICATED
[2016-05-11] MEDS ORDERED: IOHEXOL 350 MG/ML 50 ML BTL (for RAD DIAG) IV ONE (04:22)
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
[2016-05-11 05:00] VITALS: BP 134/76; PULSE 100; RESP 16; O2SAT 96
[2016-05-11] MEDS ORDERED: ONDANSETRON HCL 4 MG/2 ML VIAL IVP PRN (05:30)
[2016-05-11] MEDS ORDERED: SODIUM CHLORIDE 0.9% FLUSH 5 ML FLUSH FLUSH PRN (05:30)
[2016-05-11] MEDS ORDERED: ACETAMINOPHEN/HYDROcodone 325 MG/5 MG TAB PO PRN (05:30)
[2016-05-11] MEDS ORDERED: methylPREDNISolone SOD SUCC 125 MG/2 ML VIAL IV PUSH ONE (05:30)
[2016-05-11] MEDS ORDERED: BISACODYL 10 MG SUPP PR PRN (05:30)
[2016-05-11] MEDS ORDERED: RESP: ALBUTEROL 2.5 MG/IPRATROPIUM 0.5 MG NEB (PRN) NEB (05:30)
[2016-05-11] MEDS ORDERED: ACETAMINOPHEN 325 MG TAB PO PRN (05:30)
[2016-05-11] MEDS: LEVOFLOXACIN 750 MG PREMIX INJ 150 ML IV SCH (06:08)
[2016-05-11 07:45] VITALS: BP 155/91; PULSE 91; RESP 16; TEMP 98.1; O2SAT 98
[2016-05-11] MEDS ORDERED: CHLORTHALIDONE 50 MG PO SCH (09:00)
--- NOTE | 2016-05-11 09:25 | HHI.HP ---
HPI Service [facility] Hospitalists Primary Care Physician Non-Staff Admission Diagnosis PNEUMONIA Diagnoses: (1) PNA (pneumonia) Chief Complaint: Cough, nausea vomiting and diarrhea Travel History International Travel<30 Days: No Contact w/Intl Traveler <30 Da: No Traveled to Known Affected Are: No History of Present Illness 51-year-old male with PMH of HTN, A. fib on Eliquis, Sarcoidosis and COPD who presented to the ER w/ complaints of nonproductive cough, nausea, vomiting and diarrhea along with left flank and abdominal pain. Patient will recently admitted to [place] and discharged on April 20 on by mouth Levaquin for HCAP. He does have a history of chronic abdominal pain for which he follows at [facility]. He also has a history of sarcoidosis and has been off MTX x 6 weeks secondary to ongoing pneumonia. He denies any GI bleed and is currently afebrile. Review of Systems Other 12 systems are negative except for the ones mentioned in the history of present illness Past Family Social History Past Medical History HTN, A. fib on Eliquis, Sarcoidosis and [employer] Past Surgical History Eye Surgery, Tonsillectomy, Hemorrhoidectomy Allergies: Coded Allergies: No Known Allergies (Verified , 05/10/16) Family History Mother has hypertension Social History Negative for alcohol, tobacco or drugs. Physical Exam Vital Signs Vital Signs Date Time Temp Pulse Resp B/P Pulse Ox O2 Delivery O2 Flow Rate FiO2 05/11/16 07:45 97 Nasal Cannula 1 05/11/16 07:45 98.1 91 16 155/91 98 Nasal Cannula 1 05/11/16 07:45 18 05/11/16 05:00 100 16 134/76 96 Room Air 05/11/16 02:43 98 16 126/60 96 Room Air 05/10/16 23:42 97.8 111 16 137/102 96 Room Air Physical Exam GENERAL: This is a well-nourished, well-developed obese patient, in no apparent distress. SKIN: No rashes, ecchymoses or lesions. Cool and dry. HEAD: Atraumatic. Normocephalic. No temporal or scalp tenderness. EYES: Pupils equal round and reactive. Extraocular motions intact. No scleral icterus. No injection or drainage. ENT: Nose without bleeding, purulent drainage or septal hematoma. Throat without erythema, tonsillar hypertrophy or exudate. Uvula midline. Airway patent. NECK: Trachea midline. No JVD or lymphadenopathy. Supple, nontender, no meningeal signs. CARDIOVASCULAR: Regular rate and rhythm without murmurs, gallops, or rubs. RESPIRATORY: Clear to auscultation. Breath sounds equal bilaterally. No wheezes , rales, or rhonchi. GASTROINTESTINAL: Abdomen soft, non-tender, nondistended. No hepato-splenomegaly , or palpable masses. No guarding. MUSCULOSKELETAL: Extremities without clubbing, cyanosis, or edema. No joint tenderness, effusion, or edema noted. No calf tenderness. Negative Homans sign bilaterally. NEUROLOGICAL: Awake and alert. Cranial nerves II through XII intact. Motor and sensory grossly within normal limits. Five out of 5 muscle strength in all muscle groups. Normal speech. Laboratory Laboratory Tests Test 05/11/16 05/11/16 03:15 03:45 White Blood Count 5.5 Red Blood Count 4.87 Hemoglobin 12.9 Hematocrit 39.2 Mean Corpuscular Volume 80.6 Mean Corpuscular Hemoglobin 26.5 Mean Corpuscular Hemoglobin 32.9 Concent Red Cell Distribution Width 18.1 Platelet Count 327 Mean Platelet Volume 7.9 Neutrophils (%) (Auto) 60.2 Lymphocytes (%) (Auto) 23.8 Monocytes (%) (Auto) 11.6 Eosinophils (%) (Auto) 3.8 Basophils (%) (Auto) 0.6 Neutrophils # (Auto) 3.3 Lymphocytes # (Auto) 1.3 Monocytes # (Auto) 0.6 Eosinophils # (Auto) 0.2 Basophils # (Auto) 0.0 CBC Comment DIFF FINAL Differential Comment Sodium Level 140 Potassium Level 3.7 Chloride Level 103 Carbon Dioxide Level 29.4 Anion Gap 8 Blood Urea Nitrogen 16 Creatinine 1.25 Estimat Glomerular Filtration 73 Rate Random Glucose 122 Lactic Acid Level 2.2 Calcium Level 9.0 Total Bilirubin 0.3 Aspartate Amino Transf 20 (AST/SGOT) Alanine Aminotransferase 18 (ALT/SGPT) Alkaline Phosphatase 95 Total Protein 7.6 Albumin 3.6 Urine Color YELLOW Urine Turbidity CLEAR Urine pH 5.5 Urine Specific [place] 1.024 Urine Protein NEG Urine Glucose (UA) NEG Urine Ketones NEG Urine Occult Blood NEG Urine Nitrite NEG Urine Bilirubin NEG Urine Urobilinogen LESS THAN 2.0 Urine Leukocyte Esterase NEG Urine RBC 1 Urine WBC 1 Urine Squamous Epithelial <1 Cells Urine Mucus FEW Microscopic Urinalysis Comment CULT NOT INDICATED Date/Time Procedure Status Source Growth 05/11/16 05:05 Aerobic Blood Culture Received Blood Peripheral Pending 05/11/16 05:05 Anaerobic Blood Culture Received Blood Peripheral Pending Result Diagram: 05/11/16 0315 05/11/16 0315 Imaging Last Impressions Abdomen/Pelvis CT 05/11/16 0250 Signed Impressions: Service Date/Time: Wednesday, May 11, 2016 04:19 - CONCLUSION: 1. Focal dilated loop of small bowel within the pelvis of uncertain etiology. No discrete mass is identified. A staple line is present and this may reflect a post surgical change 2. Small bowel series can be performed to further evaluate this if clinically indicated 3. Bibasilar bronchitis and pneumonia Keven Moscoso MD Chest CT 05/11/16 0000 Signed Impressions: Service Date/Time: Wednesday, May 11, 2016 04:19 - CONCLUSION: 1. Diffuse alveolar disease characteristic of bronchitis and pneumonia similar to the prior study. Extensive mediastinal adenopathy is unchanged Keven Moscoso MD Assessment and Plan Problem List: (1) Pneumonia ICD Code: J18.9 Status: Acute (2) Sarcoidosis ICD Code: D86.9 Status: Acute Assessment and Plan 51-year-old male with Community-acquired pneumonia: Chest x-ray noted and reviewed by me with finding of Diffuse alveolar disease characteristic of bronchitis and pneumonia. Check flu A and B antigens as well as pneumococcal antigen. Obtain sputum culture. Currently on Levaquin IV and will switch to by mouth. Maintain oxygen saturation above 92%. Abdomen pain: This is a chronic problem for patient and he follows at [facility]. CT noted and reviewed with finding of Focal dilated loop of small bowel within the pelvis of uncertain etiology. Check flat and upright this morning History of sarcoidosis: Continue with Eliquis. Need outpatient follow-up change in History of atrial fibrillation: Currently rate control, continue with Lopressor , Cardizem Hypertension: On Lopressor Hyperlipidemia: Continue Lipitor Other chronic medical conditions: Continue outpatient medications DVT prophylaxis: Eliquis Code Status Full code Discussed Condition With Patient Physician Certification 2 Midnight Certification Type: Admission for Inpatient Services Order for Inpatient Services The services are ordered in accordance with Medicare regulations or non- Medicare payer requirements, as applicable. In the case of services not specified as inpatient-only, they are appropriately provided as inpatient services in accordance with the 2-midnight benchmark. Estimated LOS (days): 2 days is the estimated time the patient will need to remain in the hospital, assuming treatment plan goals are met and no additional complications. Post-Hospital Plan: Not yet determined Problem Qualifiers (1) PNA (pneumonia): Qualified Code: J18.9 - Pneumonia of both lower lobes due to infectious organism Markell Cao MD May 11, 2016 09:25
[2016-05-11] MEDS: DILTIAZEM-CD 240 MG CAP ER PO SCH (09:49)
[2016-05-11] MEDS: FOLIC ACID 1 MG TAB PO SCH (09:49)
[2016-05-11] MEDS: PANTOPRAZOLE SOD 40 MG DELAYED RELEASE TAB PO SCH (09:50)
[2016-05-11] MEDS: FUROSEMIDE 40 MG TAB PO SCH (09:50)
[2016-05-11] MEDS: APIXABAN 5 MG TABLET PO SCH ×2 (09:50→21:06)
[2016-05-11] MEDS: SODIUM CHLORIDE 0.9% FLUSH 5 ML FLUSH FLUSH SCH ×2 (09:51→21:07)
[2016-05-11] MEDS: METOPROLOL TARTRATE 50 MG TAB PO SCH ×2 (09:51→21:06)
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
[2016-05-11] MEDS: TOLTERODINE TARTRATE 2 MG CAP LA PO SCH (10:14)
[2016-05-11 10:18] VITALS: BP 155/102; PULSE 90; RESP 18; O2SAT 98
[2016-05-11 13:53] VITALS: BP 145/92; PULSE 95; RESP 16; O2SAT 98
[2016-05-11 20:00] VITALS: BP 125/75; PULSE 92; RESP 20; TEMP 96; O2SAT 97
[2016-05-11] MEDS ORDERED: ATORVASTATIN 40 MG TAB PO SCH (21:00)
[2016-05-11] MEDS ORDERED: DOXEPIN HCL 50 MG CAP PO SCH (21:00)
[2016-05-11] MEDS ORDERED: GABAPENTIN 300 MG CAP PO SCH (21:00)
[2016-05-11] MEDS: MORPHINE SULFATE 4 MG/ML INJ IV PRN (22:31)
[2016-05-12] VITALS: BP 122/68; PULSE 90; RESP 20; TEMP 97; O2SAT 98
[2016-05-12 05:10] LABS: AUTOMATED NEUTROPHIL # 10.9 TH/MM3 (1.8-7.7); BASOPHIL % 0.1 % (0.0-2.0); HEMATOCRIT 39.8 % (39.0-51.0); HEMO FLAGS DIFF FINAL; LYMPH % 12.1 % (9.0-44.0); LYMPHOCYTE # 1.6 TH/MM3 (1.0-4.8); MEAN CELL VOLUME 80.3 FL (80.0-100.0); MEAN CORPUSCULAR HEMOGLOBIN 26.2 PG (27.0-34.0); MEAN CORPUSCULAR HGB CONC 32.6 % (32.0-36.0); NEUT % 81.8 % (16.0-70.0); PLATELET COUNT 363 TH/MM3 (150-450); RED BLOOD COUNT 4.95 MIL/MM3 (4.50-5.90); RED CELL DISTRIBUTION WIDTH 18.3 % (11.6-17.2); WHITE BLOOD COUNT 13.3 TH/MM3 (4.0-11.0)
[2016-05-12 05:35] LABS: ALKALINE PHOSPHATASE 98 U/L (45-117); ALT (GPT) 16 U/L (12-78); ANION GAP 10 MEQ/L (5-15); AST (GOT) 14 U/L (15-37); BICARBONATE 29.2 MEQ/L (21.0-32.0); BLOOD UREA NITROGEN 19 MG/DL (7-18); CHLORIDE 97 MEQ/L (98-107); GLOMERULAR FILTRATION RATE 73 ML/MIN (>89); POTASSIUM 3.5 MEQ/L (3.5-5.1); SODIUM (NA) 136 MEQ/L (136-145); TOTAL BILIRUBIN ADULT 0.2 MG/DL (0.2-1.0)
[2016-05-12] MEDS: MORPHINE SULFATE 4 MG/ML INJ IV PRN (05:47)
[2016-05-12] MEDS: LEVOFLOXACIN 750 MG PREMIX INJ 150 ML IV SCH (05:48)
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
[2016-05-12 08:00] VITALS: BP 137/84; PULSE 77; RESP 19; TEMP 97.6; O2SAT 96
[2016-05-12] MEDS: FOLIC ACID 1 MG TAB PO SCH (08:21)
[2016-05-12] MEDS: METOPROLOL TARTRATE 50 MG TAB PO SCH (08:21)
[2016-05-12] MEDS: FUROSEMIDE 40 MG TAB PO SCH (08:21)
[2016-05-12] MEDS: SODIUM CHLORIDE 0.9% FLUSH 5 ML FLUSH FLUSH SCH (08:21)
[2016-05-12] MEDS: APIXABAN 5 MG TABLET PO SCH (08:21)
[2016-05-12] MEDS: DILTIAZEM-CD 240 MG CAP ER PO SCH (08:21)
[2016-05-12] MEDS: TOLTERODINE TARTRATE 2 MG CAP LA PO SCH (08:21)
[2016-05-12] MEDS: PANTOPRAZOLE SOD 40 MG DELAYED RELEASE TAB PO SCH (08:21)
[2016-05-12] MEDS ORDERED: HYDR-3516 PO (09:45)
[2016-05-12] MEDS ORDERED: LEVA750T PO (09:45)
--- NOTE | 2016-05-12 09:47 | HHI.DCPOC ---
Discharge Care Plan Diagnosis: (1) PNA (pneumonia) (2) Sarcoidosis (3) Abdominal pain (4) Back pain with sciatica (5) Atrial fibrillation Goals to Promote Your Health * To prevent worsening of your condition and complications * To maintain your health at the optimal level Directions to Meet Your Goals Take your medications as prescribed Follow your dietary instruction Follow activity as directed Keep your appointments as scheduled Take your immunizations and boosters as scheduled If your symptoms worsen call your PCP, if no PCP go to Urgent Care Center or Emergency Room Smoking is Dangerous to Your Health. Avoid second hand smoke Call the 24-hour hour crisis hotline for domestic abuse at Anabela Colon MD May 12, 2016 09:47
--- NOTE | 2016-05-12 09:54 | HHI.PR ---
Subjective Remarks Patient reports that he is feeling better. Nausea, vomiting, diarrhea have resolved. Currently on room air. Respiratory status is back to baseline. He denies any cough. No fevers or chills. He complains of back pain. Feels comfortable going home. Objective Vitals Vital Signs Date Time Temp Pulse Resp B/P Pulse Ox O2 Delivery O2 Flow Rate FiO2 05/12/16 08:00 97.6 77 19 137/84 96 05/12/16 00:00 97.0 90 20 122/68 98 05/11/16 20:00 96.0 92 20 125/75 97 05/11/16 13:53 95 16 145/92 98 Room Air 05/11/16 10:18 90 18 155/102 98 Room Air I/O 05/11/16 05/11/16 05/11/16 05/12/16 05/12/16 05/12/16 07:00 15:00 23:00 07:00 15:00 23:00 Intake Total 922 ml 240 ml 120 ml Output Total 720 ml 1200 ml 600 ml Balance -720 ml -278 ml -360 ml 120 ml Intake Oral 922 ml 240 ml 120 ml Output Urine Total 720 ml 1200 ml 600 ml # Voids 1 1 # Bowel Movements 0 0 Result Diagram: 05/12/16 0410 05/12/16 0410 Imaging Last Impressions Abdomen X-Ray 05/12/16 0600 Signed Impressions: Service Date/Time: Thursday, May 12, 2016 05:35 - CONCLUSION: 1. No evidence of obstruction. Keven Moscoso MD Abdomen/Pelvis CT 05/11/16 0250 Signed Impressions: Service Date/Time: Wednesday, May 11, 2016 04:19 - CONCLUSION: 1. Focal dilated loop of small bowel within the pelvis of uncertain etiology. No discrete mass is identified. A staple line is present and this may reflect a post surgical change 2. Small bowel series can be performed to further evaluate this if clinically indicated 3. Bibasilar bronchitis and pneumonia Keven Moscoso MD Chest CT 05/11/16 0000 Signed Impressions: Service Date/Time: Wednesday, May 11, 2016 04:19 - CONCLUSION: 1. Diffuse alveolar disease characteristic of bronchitis and pneumonia similar to the prior study. Extensive mediastinal adenopathy is unchanged Keven Moscoso MD Objective Remarks GENERAL: Obese male in no apparent distress. CARDIOVASCULAR: Normal rate and irregular rhythm without murmurs, gallops, or rubs. RESPIRATORY: Good respiratory efforts. Breath diminished bilaterally but clear to auscultation. GASTROINTESTINAL: Abdomen soft, non-tender, non-distended. Normal active bowel sounds MUSCULOSKELETAL: Extremities without cyanosis, or edema. NEURO: Alert & Oriented x4 to person, place, time, situation. Moves all ext x4 PSYCH: Appropriate mood and affect. A/P Problem List: (1) PNA (pneumonia) ICD Code: J18.9 Status: Acute Assessment and Plan 51-year-old male with sarcoidosis admitted with nausea, vomiting, diarrhea and evidence of recurrent pneumonia. The patient status quickly improved. He can be discharged home on oral antibiotics. More importantly he needs to follow-up with his director of clinical applications outpatient and [facility] for his chronic problems. Reportedly he will undergo a different treatment for his sarcoidosis at [facility] in the next few weeks. - Patient is discharged on Levaquin for 2 weeks. He is advised to follow-up with his director of clinical applications within a week. Abdomen pain: This is a chronic problem for patient and he follows at [facility]. CT noted and reviewed with finding of Focal dilated loop of small bowel within the pelvis of uncertain etiology. Repeat flat upright with no obstructions. History of sarcoidosis: Patient to follow up outpatient as above. History of atrial fibrillation: Currently rate control, continue with Lopressor , Cardizem Hypertension: On Lopressor Chronic back pain: Patient given limited supply of pain medication. Advise follow-up outpatient to consider physical therapy. Hyperlipidemia: Continue Lipitor Other chronic medical conditions: Continue outpatient medications Discharge home in stable condition Diet: Heart healthy. Follow up with director of clinical applications, PCP, and [facility] Activity: Regular as tolerated Meds: Per med rec Problem Qualifiers (1) PNA (pneumonia): Qualified Code: J18.9 - Pneumonia of both lower lobes due to infectious organism Anabela Colon MD May 12, 2016 09:54
== END 2016-05-12 10:23 | disposition home or self-care (01) | DRG 190 ==
LOC: NEPE 23:39 → NEDA 05-11 05:03 → NEDH 05-11 13:34 → N07A 05-11 17:50
PROVIDERS: ADMIT Family Medicine; ATTEND Family Medicine
DX: J44.0 Chronic obstructive pulmonary disease with (acute) lower respiratory infection (principal); J18.9 Pneumonia, unspecified organism; I50.9 Heart failure, unspecified; D86.9 Sarcoidosis, unspecified; I48.91 Unspecified atrial fibrillation; Z68.42 Body mass index [BMI] 45.0-49.9, adult; I10 Essential (primary) hypertension; R10.9 Unspecified abdominal pain; E66.9 Obesity, unspecified; G47.30 Sleep apnea, unspecified; G89.29 Other chronic pain; M54.9 Dorsalgia, unspecified; E78.5 Hyperlipidemia, unspecified
CPT/HCPCS: 71260; 74020; 74177; 80053; 81001; 83605; 85025; 87040; 96372; J0500; J1956; J2270; J2930; Q9967

== ENCOUNTER 2016-05-15 23:10 | Inpatient (IN) | payer MEDICARE, MEDICAID ==
[~2016-05-15] VITALS: Ht 180.3 cm; Wt 184.0 kg
[~2016-05-15 23:10] MED LIST changes: -EXTR500C PO; +HYDR-3516 PO; -METO10TA PO; -POTA-163 PO; -PRED20 PO; -ZOFR4TAB PO
[2016-05-15 23:13] VITALS: BP 143/101; PULSE 88; RESP 28; TEMP 97.9; O2SAT 95
[2016-05-15] MEDS ORDERED: methylPREDNISolone SOD SUCC 125 MG/2 ML VIAL IVP ONE (23:30)
[2016-05-15] MEDS ORDERED: SODIUM CHLORIDE 0.9% FLUSH 5 ML FLUSH IVF PRN (23:30)
[2016-05-15 23:41] VITALS: BP 140/94; PULSE 85; RESP 18; O2SAT 96
[2016-05-15] MEDS: RESP: ALBUTEROL 2.5 MG/IPRATROPIUM 0.5 MG NEB (SCH) INH (23:53)
[2016-05-16] VITALS (12 sets, daily range): BP systolic 109–143; BP diastolic 58–88; PULSE 77–85; RESP 18–20; TEMP 97.6–97.8; O2SAT 93–98
[2016-05-16 00:01] LABS: AUTOMATED NEUTROPHIL # 5.2 TH/MM3 (1.8-7.7); BASOPHIL # 0.1 TH/MM3 (0-0.2); BASOPHIL % 0.8 % (0.0-2.0); EOSINOPHIL # 0.2 TH/MM3 (0-0.4); EOSINOPHIL % 2.6 % (0.0-4.0); HEMO FLAGS DIFF FINAL; LYMPH % 19.6 % (9.0-44.0); LYMPHOCYTE # 1.5 TH/MM3 (1.0-4.8); MEAN CELL VOLUME 79.2 FL (80.0-100.0); MEAN CORPUSCULAR HEMOGLOBIN 26.9 PG (27.0-34.0); MONO % 11.2 % (0.0-8.0); NEUT % 65.8 % (16.0-70.0); PLATELET COUNT 358 TH/MM3 (150-450); RED CELL DISTRIBUTION WIDTH 17.8 % (11.6-17.2); WHITE BLOOD COUNT 7.8 TH/MM3 (4.0-11.0)
[2016-05-16] MEDS ORDERED: traMADol HCL 50 MG TAB PO ONE (00:15)
[2016-05-16 00:29] LABS: ALT (GPT) 15 U/L (12-78); ANION GAP 5 MEQ/L (5-15); AST (GOT) 29 U/L (15-37); BICARBONATE 33.8 MEQ/L (21.0-32.0); BLOOD UREA NITROGEN 15 MG/DL (7-18); CHLORIDE 102 MEQ/L (98-107); GLOMERULAR FILTRATION RATE 77 ML/MIN (>89); POTASSIUM 4.3 MEQ/L (3.5-5.1); SODIUM (NA) 141 MEQ/L (136-145)
[2016-05-16 00:30] LABS: ALKALINE PHOSPHATASE 94 U/L (45-117); TOTAL BILIRUBIN ADULT 0.3 MG/DL (0.2-1.0)
[2016-05-16] MEDS ORDERED: ONDANSETRON HCL 4 MG/2 ML VIAL IV PUSH ONE ×2 (00:30→01:30)
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
[2016-05-16] MEDS ORDERED: AZITHROMYCIN INJ 500 MG in SODIUM CHLOR 0.9% 250 ML INJ 250 ML IV STA (01:25)
[2016-05-16] MEDS ORDERED: cefTRIAXone INJ 2,000 MG in SODIUM CHLORIDE 0.9% INJ 100 ML IV STA (01:25)
[2016-05-16] MEDS ORDERED: MORPHINE SULFATE 4 MG/ML INJ IV PUSH ONE ×2 (01:30→05:45)
[2016-05-16] MEDS ORDERED: NALOXONE HCL 0.4 MG/ML AMP IV PRN (02:00)
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
[2016-05-16] MEDS: LEVOFLOXACIN 750 MG PREMIX INJ 150 ML IV SCH (03:54)
[2016-05-16] MEDS: SODIUM CHLORIDE 0.9% FLUSH 5 ML FLUSH FLUSH SCH ×2 (08:10→21:55)
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
[2016-05-16] MEDS: TAMSULOSIN HCL 0.4 MG CAP PO SCH (10:07)
[2016-05-16] MEDS: LACTOBACILLUS ACIDOPHILUS TAB PO SCH ×2 (10:07→21:56)
[2016-05-16] MEDS: PANTOPRAZOLE SODIUM 40 MG VIAL IV PUSH SCH ×2 (12:00→21:55)
[2016-05-16] MEDS ORDERED: DIATRIZOATE MEGLUM/DIATRIZOATE SOD 120 ML BTL (for RAD DIAG) PO ONE (12:00)
[2016-05-16] MEDS ORDERED: CHLORTHALIDONE 50 MG PO SCH (13:00)
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
[2016-05-16] MEDS: METOPROLOL TARTRATE 50 MG TAB PO SCH ×2 (13:58→21:56)
[2016-05-16] MEDS: DILTIAZEM-CD 240 MG CAP ER PO SCH (13:58)
[2016-05-16] MEDS: MORPHINE SULFATE 4 MG/ML INJ IV PUSH PRN (13:58)
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
[2016-05-16] MEDS: ACETAMINOPHEN/HYDROcodone 325 MG/5 MG TAB PO PRN ×2 (17:00→22:03)
[2016-05-16] MEDS ORDERED: RESP: ALBUTEROL 2.5 MG/IPRATROPIUM 0.5 MG NEB (PRN) NEB (17:00)
[2016-05-16] MEDS ORDERED: PEG (High)/E-LYTE SOLN 4000 ML BTL PO ONE (17:00)
[2016-05-16 18:07] LABS: AUTOMATED NEUTROPHIL # 12.8 TH/MM3 (1.8-7.7); BASOPHIL % 0.1 % (0.0-2.0); HEMATOCRIT 38.3 % (39.0-51.0); HEMO FLAGS DIFF FINAL; LYMPH % 10.7 % (9.0-44.0); LYMPHOCYTE # 1.6 TH/MM3 (1.0-4.8); MEAN CELL VOLUME 81.7 FL (80.0-100.0); MEAN CORPUSCULAR HEMOGLOBIN 26.8 PG (27.0-34.0); MEAN CORPUSCULAR HGB CONC 32.8 % (32.0-36.0); MONO % 3.1 % (0.0-8.0); NEUT % 86.1 % (16.0-70.0); PLATELET COUNT 319 TH/MM3 (150-450); RED BLOOD COUNT 4.69 MIL/MM3 (4.50-5.90); RED CELL DISTRIBUTION WIDTH 18.5 % (11.6-17.2); WHITE BLOOD COUNT 14.9 TH/MM3 (4.0-11.0)
[2016-05-16 18:52] LABS: ALKALINE PHOSPHATASE 92 U/L (45-117); ALT (GPT) 16 U/L (12-78); ANION GAP 7 MEQ/L (5-15); AST (GOT) 9 U/L (15-37); BICARBONATE 29.7 MEQ/L (21.0-32.0); BLOOD UREA NITROGEN 13 MG/DL (7-18); CHLORIDE 102 MEQ/L (98-107); GLOMERULAR FILTRATION RATE 103 ML/MIN (>89); POTASSIUM 4.3 MEQ/L (3.5-5.1); SODIUM (NA) 139 MEQ/L (136-145); TOTAL BILIRUBIN ADULT LESS THAN 0.1 MG/DL (0.2-1.0)
[2016-05-16] MEDS: GABAPENTIN 300 MG CAP PO SCH (21:56)
[2016-05-16] MEDS: ATORVASTATIN 40 MG TAB PO SCH (21:56)
[2016-05-16] MEDS: DOXEPIN HCL 50 MG CAP PO SCH (21:56)
--- NOTE | 2016-05-16 22:05 | EKG ---
Date Performed: 05/15/2016 Time Performed: 23:36:07 PTAGE: 51 years EKG: Sinus rhythm POSSIBLE RIGHT VENTRICULAR CONDUCTION DELAY BORDERLINE ECG PREVIOUS TRACING : 04/14/2016 22.31 Compared to prior tracing no significant change DOCTOR: Winnie Merritt Interpretating Date/Time 05/16/2016 22:04:34
[2016-05-17 00:58] LABS: HEMATOCRIT 38.7 % (39.0-51.0)
[2016-05-17] MEDS: LEVOFLOXACIN 750 MG PREMIX INJ 150 ML IV SCH (03:29)
[2016-05-17 04:36] VITALS: BP 112/79; PULSE 77; RESP 16; TEMP 97.8; O2SAT 95
[2016-05-17] MEDS ORDERED: LACTATED RINGER'S 1000 ML IV SCH (05:00)
[2016-05-17 05:20] LABS: BLOOD, URINE NEG (NEG); COMMENT (UR) CULT NOT INDICATED; CULTURE IF INDICATED CULT NOT INDICATED; GLUCOSE,URINE NEG (NEG); HYALINE CAST, URINE 1 /lpf (RARE); KETONE, URINE NEG (NEG); MUCUS URINE MOD /lpf (OCC); NITRITE,URINE NEG (NEG); PH, URINE 5.5 (5.0-8.5); RENAL EPITHELIAL CELLS 1 /hpf; SQUAMOUS EPITHELIAL CELL URINE <1 /hpf (0-5); URINE COLOR YELLOW (YELLW/STRAW)
[2016-05-17 08:00] VITALS: BP 140/77; PULSE 78; PULSE 79; RESP 18; TEMP 97; O2SAT 97
[2016-05-17 08:34] LABS: AUTOMATED NEUTROPHIL # 13.7 TH/MM3 (1.8-7.7); BASOPHIL % 0.3 % (0.0-2.0); EOSINOPHIL % 0.3 % (0.0-4.0); HEMATOCRIT 40.4 % (39.0-51.0); HEMO FLAGS DIFF FINAL; LYMPH % 12.1 % (9.0-44.0); MEAN CORPUSCULAR HEMOGLOBIN 26.2 PG (27.0-34.0); MEAN CORPUSCULAR HGB CONC 32.4 % (32.0-36.0); MONO % 5.5 % (0.0-8.0); NEUT % 81.8 % (16.0-70.0); PLATELET COUNT 397 TH/MM3 (150-450); RED BLOOD COUNT 4.98 MIL/MM3 (4.50-5.90); RED CELL DISTRIBUTION WIDTH 18.9 % (11.6-17.2); WHITE BLOOD COUNT 16.7 TH/MM3 (4.0-11.0)
[2016-05-17 08:53] LABS: BICARBONATE 32.6 MEQ/L (21.0-32.0); POTASSIUM 3.5 MEQ/L (3.5-5.1)
[2016-05-17] MEDS: PANTOPRAZOLE SODIUM 40 MG VIAL IV PUSH SCH ×2 (09:31→20:10)
[2016-05-17] MEDS: LACTOBACILLUS ACIDOPHILUS TAB PO SCH ×2 (09:31→20:09)
[2016-05-17] MEDS: TAMSULOSIN HCL 0.4 MG CAP PO SCH (09:32)
[2016-05-17] MEDS: METOPROLOL TARTRATE 50 MG TAB PO SCH ×2 (09:32→20:09)
[2016-05-17] MEDS: FOLIC ACID 1 MG TAB PO SCH (09:32)
[2016-05-17] MEDS: DILTIAZEM-CD 240 MG CAP ER PO SCH (09:32)
[2016-05-17] MEDS: FUROSEMIDE 40 MG TAB PO SCH (09:32)
[2016-05-17] MEDS: SODIUM CHLORIDE 0.9% FLUSH 5 ML FLUSH FLUSH SCH ×2 (09:32→20:10)
[2016-05-17] MEDS: TOLTERODINE TARTRATE 2 MG CAP LA PO SCH (09:32)
[2016-05-17 10:39] VITALS: BP 112/79; PULSE 77; RESP 16; TEMP 97.8; O2SAT 95
[2016-05-17 11:14] LABS: C. DIFF EPI 027 PRESUMPTIVE NEGATIVE (NEGATIVE); C. DIFF TOXIN PCR NEGATIVE (NEGATIVE)
--- NOTE | 2016-05-17 12:27 | HHI.GIFU ---
Subjective Remarks doing ok,. tolerated prep, no bleeding Objective Vitals I&O Vital Signs Date Time Temp Pulse Resp B/P Pulse Ox O2 Delivery O2 Flow Rate FiO2 05/17/16 10:39 97.8 77 16 112/79 95 05/17/16 04:36 97.8 77 16 112/79 95 05/16/16 23:44 97.7 81 18 117/58 93 05/16/16 23:19 78 05/16/16 22:41 97 21 05/16/16 20:48 97.7 79 18 143/78 96 05/16/16 17:55 97.7 77 19 129/71 97 I/O 05/16/16 05/16/16 05/16/16 05/17/16 05/17/16 05/17/16 07:00 15:00 23:00 07:00 15:00 23:00 Intake Total 99 ml Output Total 1 ml Balance -1 ml 99 ml Intake IV Total 99 ml Output Stool Total 1 ml # Voids 1 Laboratory Laboratory Tests Test 05/16/16 05/17/16 05/17/16 05/17/16 16:52 00:13 05:00 07:46 White Blood Count 14.9 16.7 Red Blood Count 4.69 4.98 Hemoglobin 12.6 12.7 13.1 Hematocrit 38.3 38.7 40.4 Mean Corpuscular Volume 81.7 81.0 Mean Corpuscular Hemoglobin 26.8 26.2 Mean Corpuscular Hemoglobin 32.8 32.4 Concent Red Cell Distribution Width 18.5 18.9 Platelet Count 319 397 Mean Platelet Volume 7.9 7.8 Neutrophils (%) (Auto) 86.1 81.8 Lymphocytes (%) (Auto) 10.7 12.1 Monocytes (%) (Auto) 3.1 5.5 Eosinophils (%) (Auto) 0.0 0.3 Basophils (%) (Auto) 0.1 0.3 Neutrophils # (Auto) 12.8 13.7 Lymphocytes # (Auto) 1.6 2.0 Monocytes # (Auto) 0.5 0.9 Eosinophils # (Auto) 0.0 0.0 Basophils # (Auto) 0.0 0.0 CBC Comment DIFF FINAL DIFF FINAL Differential Comment Sodium Level 139 139 Potassium Level 4.3 3.5 Chloride Level 102 99 Carbon Dioxide Level 29.7 32.6 Anion Gap 7 7 Blood Urea Nitrogen 13 10 Creatinine 0.93 0.94 Estimat Glomerular Filtration 103 102 Rate Random Glucose 129 97 Calcium Level 8.8 8.8 Total Bilirubin LESS THAN 0.1 Aspartate Amino Transf 9 (AST/SGOT) Alanine Aminotransferase 16 (ALT/SGPT) Alkaline Phosphatase 92 Total Protein 7.3 Albumin 3.3 Lipase 87 Urine Color YELLOW Urine Turbidity HAZY Urine pH 5.5 Urine Specific [place] 1.039 Urine Protein 30 Urine Glucose (UA) NEG Urine Ketones NEG Urine Occult Blood NEG Urine Nitrite NEG Urine Bilirubin NEG Urine Urobilinogen LESS THAN 2.0 Urine Leukocyte Esterase NEG Urine RBC 1 Urine WBC 5 Urine Squamous Epithelial <1 Cells Urine Renal Epithelial Cells 1 Urine Hyaline Casts 1 Urine Mucus MOD Microscopic Urinalysis Comment CULT NOT INDICATED Prostate Specific Antigen 0.62 Test 05/17/16 09:00 Stool C. difficile Toxin (PCR) NEGATIVE Stl C. difficile Toxin PRESUMPTIVE Epiderm 027 NEGATIVE Date/Time Procedure Status Source Growth 05/16/16 02:00 Aerobic Blood Culture - Preliminary Resulted Blood Peripheral NO GROWTH IN 1 DAY 05/16/16 02:00 Anaerobic Blood Culture - Preliminary Resulted Blood Peripheral NO GROWTH IN 1 DAY Physical Exam HEENT: Pupils round and reactive to light; normocephalic; atraumatic; no jaundice. Throat is clear. NECK: Neck is supple, no JVD, no lymphadenopathy. CHEST: Chest is clear to auscultation and percussion. CARDIAC: Regular rate and rhythm with no murmur gallop or rubs. ABDOMEN: Soft, nondistended, nontender; no hepatosplenomegaly; bowel sounds are present in all four quadrants. EXTREMITIES: No clubbing, cyanosis, or edema. SKIN: Normal; no rash; no jaundice. SILVERER: No focal deficits; alert and oriented times three. Assessment and Plan Assessment: (1) Hematochezia (2) Epigastric abdominal pain (3) Gastroparesis (4) Gastritis and duodenitis (5) Morbid obesity with BMI of 40.0-44.9, adult (6) Chronic anticoagulation Plan This is a pleasant 51 year old male admitted with cough, fever chills, abdominal pain, dark maroon colored stools, N/V vomiting has resolved but still has nausea at times.Last colonoscopy was 04/19/16 had a poor prep and hemorrhoids , last EGD was 04/18/16 had gastritis, duodenitis. Has gastroparesis with GES study on 04/17/16 showing delayed gastric emptying with good response to Reglan, also recent HIDA scan negative. Had normal small bowel xray today. Epigastric pain and nausea likely related to gastroparesis and gastritis, H&H is table at 12.9/38.0. Pneumonia followed by PCP. 05-17-16 doing ok, no sign of active bleed HGB stable colonoscopy showed few polyps either ablated or removed by snare, patient has hemorrhoids and anal fissure (most likely reason for bleed) Plan - regular diet -Protonix 40 mg IV BID -Follow H&H -continue Eliquis -Anti-emetics PRN for nausea -preoperation H for 2 wks bid and then as needed, if this does not help then colorectal surgery consult -Supportive care -Ok to [place] home from Malorie Hickman MD May 17, 2016 12:27
[2016-05-17] MEDS ORDERED: PROPOFOL 200 MG/20 ML AMP IV ONE (12:37)
[2016-05-17] MEDS ORDERED: PETROLEUM/SHARK LIVER OIL 60 GM TUBE RECTAL PRN (14:00)
[2016-05-17 15:37] LABS: HEMATOCRIT 38.9 % (39.0-51.0)
[2016-05-17 16:00] VITALS: BP 100/56; PULSE 85; RESP 18; TEMP 97.5; O2SAT 97
[2016-05-17 20:00] VITALS: BP 101/58; PULSE 91; RESP 19; TEMP 97.7; O2SAT 95
[2016-05-17] MEDS: DOXEPIN HCL 50 MG CAP PO SCH (20:09)
[2016-05-17] MEDS: ATORVASTATIN 40 MG TAB PO SCH (20:09)
[2016-05-17] MEDS: GABAPENTIN 300 MG CAP PO SCH (20:10)
[2016-05-17] MEDS: ACETAMINOPHEN/HYDROcodone 325 MG/5 MG TAB PO PRN (20:15)
[2016-05-17 21:23] VITALS: PULSE 94
[2016-05-17] MEDS: MORPHINE SULFATE 4 MG/ML INJ IV PUSH PRN (22:09)
--- NOTE | 2016-05-17 23:53 | HHI.PR ---
Subjective Remarks patient seen this afternoon around noon following return from colonoscopy. Patient says that abdominal pain controlled. Says that he does not feel like going home today. Denies any chest pain. Reports that shortness of breath is at baseline Objective Vital Signs Date Time Temp Pulse Resp B/P Pulse Ox O2 Delivery O2 Flow Rate FiO2 05/17/16 16:00 97.5 85 18 100/56 97 05/17/16 12:46 73 16 110/74 98 05/17/16 12:35 76 16 117/68 99 05/17/16 12:25 97.8 75 16 113/68 96 05/17/16 10:39 97.8 77 16 112/79 95 05/17/16 08:00 79 05/17/16 08:00 97.0 78 18 140/77 97 05/17/16 04:36 97.8 77 16 112/79 95 I/O 05/16/16 05/16/16 05/16/16 05/17/16 05/17/16 05/17/16 07:00 15:00 23:00 07:00 15:00 23:00 Intake Total 99 ml 1230 ml Output Total 1 ml 1000 ml Balance -1 ml 99 ml 230 ml Intake Oral 630 ml IV Total 99 ml Other 600 ml Output Urine Total 1000 ml Stool Total 1 ml # Voids 1 # Bowel Movements 0 Result Diagram: 05/17/16 1443 05/17/16 0746 Objective Remarks GENERAL: patient lying in bed. Appears mildly uncomfortable. Alert and oriented 3. SKIN: Warm and dry. HEAD: Normocephalic. EYES: No scleral icterus. No injection or drainage. NECK: Supple, trachea midline. No JVD or lymphadenopathy. CARDIOVASCULAR: Regular rate and rhythm without murmurs, gallops, or rubs. RESPIRATORY: Breath sounds equal bilaterally. No accessory muscle use. GASTROINTESTINAL: Abdomen soft, non-tender, nondistended. MUSCULOSKELETAL: No cyanosis, or edema. BACK: Nontender without obvious deformity. No CVA tenderness. A/P Assessment and Plan 51 yo male with extensive PMHX including morbid obesity, atrial fibrillation on Eliquis, CHF, HTN, sarcoidosis undergoing weekly Methotrexate injections, oxygen dependent COPD, asthma, RENZO, GERD, dyslipidemia and migraines who was recently hospitalized one week ago for recurrent PNA, nausea, vomiting and diarrhea discharged on Levaquin presents to [facility] with complaints of N/ V, abdominal pain, soft dark stools and left sided low back pain x 2-3 days. Acute on chronic abdominal pain with dark soft stools with recent abx treatment - patient is hemodynamically stable - Consult GI - order stool studies to include Cdiff and FOBT - Lipase ordered - small bowel series ordered - begin Probiotic - monitor H/H with serial studies q6h - IV Morphine prn -05/17. Colonoscopy by GI. Polyps found. Also with anal fissure, however no other acute findings. Abdominal pain controlled. H/O recurrent PNA s/p recent hospitalization for same -Patient's respiratory status stable, improved. - contine on Levaquin - Duonebs Hx of Sarcoidosis with severe pulmonary fibrosis and chronic respiratory failure - patient to follow up with his superintendent general as outpatient - recent PFT revealed severe obstructive disease - currently on Methotrexate injections q week as outpatient. Hold while here. Atrial fibrillation - rate controlled - c/w home meds including Eliquis and Cardizem -Heart rate acceptable. Continue to monitor vitals closely. HTN - controlled - continue on Lopressor and Chlorthalidone -Blood pressure acceptable. Continue to monitor closely. HLD - continue on home Atorvastatin CHF - BNP negative - c/w home Lasix dose - monitor electrolytes COPD, oxygen dependent - Continue supplemental oxygen Urinary incontinence and urgency - ?BPH - UA appears noninfectious. - Continue Trial Flomax Acute on Chronic back pain - Appreciate PT eval/tx -Continue home pain medication regimen - UA appears noninfectious. DVT prophylaxis - Eliquis Discharge Planning likely discharge home tomorrow. Sabas Mejia MD May 17, 2016 23:53
[2016-05-18] VITALS: BP 121/83; PULSE 88; RESP 19; TEMP 97.7; O2SAT 95
[2016-05-18] MEDS ORDERED: ONDANSETRON HCL 4 MG/2 ML VIAL IV PUSH PRN (00:45)
[2016-05-18] MEDS: LEVOFLOXACIN 750 MG PREMIX INJ 150 ML IV SCH (00:47)
[2016-05-18] MEDS: SODIUM CHLORIDE 0.9% FLUSH 5 ML FLUSH FLUSH PRN ×2 (00:48→02:47)
[2016-05-18] MEDS: MORPHINE SULFATE 4 MG/ML INJ IV PUSH PRN (02:47)
[2016-05-18 04:00] VITALS: BP 121/64; PULSE 80; RESP 17; TEMP 97.8; O2SAT 93
[2016-05-18 08:18] LABS: AUTOMATED NEUTROPHIL # 5.7 TH/MM3 (1.8-7.7); BASOPHIL # 0.1 TH/MM3 (0-0.2); BASOPHIL % 0.7 % (0.0-2.0); EOSINOPHIL # 0.1 TH/MM3 (0-0.4); HEMATOCRIT 37.6 % (39.0-51.0); LYMPH % 23.3 % (9.0-44.0); MEAN CELL VOLUME 81.3 FL (80.0-100.0); MEAN CORPUSCULAR HEMOGLOBIN 26.4 PG (27.0-34.0); MEAN CORPUSCULAR HGB CONC 32.5 % (32.0-36.0); MONO % 9.2 % (0.0-8.0); NEUT % 65.8 % (16.0-70.0); PLATELET COUNT 338 TH/MM3 (150-450); RED BLOOD COUNT 4.63 MIL/MM3 (4.50-5.90); RED CELL DISTRIBUTION WIDTH 18.7 % (11.6-17.2); WHITE BLOOD COUNT 8.7 TH/MM3 (4.0-11.0)
[2016-05-18 08:22] LABS: HEMO FLAGS AUTO DIFF
[2016-05-18 08:36] LABS: BICARBONATE 30.8 MEQ/L (21.0-32.0); POTASSIUM 3.8 MEQ/L (3.5-5.1)
[2016-05-18 09:30] VITALS: O2SAT 94
[2016-05-18] MEDS: TAMSULOSIN HCL 0.4 MG CAP PO SCH (10:19)
[2016-05-18] MEDS: METOPROLOL TARTRATE 50 MG TAB PO SCH (10:19)
[2016-05-18] MEDS: DILTIAZEM-CD 240 MG CAP ER PO SCH (10:20)
[2016-05-18] MEDS: FOLIC ACID 1 MG TAB PO SCH (10:20)
[2016-05-18] MEDS: FUROSEMIDE 40 MG TAB PO SCH (10:20)
[2016-05-18] MEDS: TOLTERODINE TARTRATE 2 MG CAP LA PO SCH (10:21)
[2016-05-18] MEDS: LACTOBACILLUS ACIDOPHILUS TAB PO SCH (10:21)
[2016-05-18] MEDS: PANTOPRAZOLE SODIUM 40 MG VIAL IV PUSH SCH (10:22)
[2016-05-18] MEDS: SODIUM CHLORIDE 0.9% FLUSH 5 ML FLUSH FLUSH SCH (10:22)
[2016-05-18 10:28] LABS: BASOPHILS 1 % (0-2); EOSINOPHILS 2 % (0-4); METAMYELOCYTES 2 % (0-1); NEUTROPHIL # MANUAL DIFF 6.1 TH/MM3 (1.8-7.7); PLATELET ESTIMATE SMEAR NORMAL (NORMAL); POLYS (SEG NEUTROPHILS) 68 % (16-70); WBC DIFF SAMPLE 100
[2016-05-18] MEDS: ACETAMINOPHEN/HYDROcodone 325 MG/5 MG TAB PO PRN (10:28)
[2016-05-18 10:29] LABS: PLATELET MORPHOLOGY NORMAL (NORMAL); SCAN/DIFF FINAL DIFF MANUAL; TOXIC VACUOLATION PRESENT (NONE SEEN)
--- NOTE | 2016-05-18 10:30 | HHI.FF ---
Face to Face Verification Diagnosis: (1) Sarcoidosis (2) Coronary artery disease (3) COPD (chronic obstructive pulmonary disease) Physical Therapy Order: Evaluate and Treat Home Health Nursing Order: Nursing assessment with vital signs Home Health Aide Order: To Assist In: Bathing and personal care I have seen patient Aneudy Billings on 05/18/16. My clinical findings support the need for the requested home health care services because: Deconditioned w/ increased weakness I certify that my clinical findings support that this patient is homebound because: Unsafe to leave home unassisted Sabas Mejia MD May 18, 2016 10:30
[2016-05-18] MEDS ORDERED: PREPOIN RECTAL (10:35)
[2016-05-18] MEDS ORDERED: SENN1TAB2 PO (11:35)
[2016-05-18] MEDS ORDERED: METHOTREXATE SOD PF 50 MG/2 ML VIAL SQ SCH (12:00)
--- NOTE | 2016-05-18 21:38 | HHI.PR ---
Subjective Remarks Patient seen this morning prior to discharge. Says he is feeling better. Sitting up on edge of bed. He says he still has some chronic abdominal pain, however says he feels like going home. Discussed with . She is concerned that patient's abdominal pain has been going on since December, however no reason can be found for this. I discussed with her that there are no life-threatening findings at this time. Objective Vital Signs Date Time Temp Pulse Resp B/P Pulse Ox O2 Delivery O2 Flow Rate FiO2 05/18/16 09:30 94 21 05/18/16 04:00 97.8 80 17 121/64 93 05/18/16 00:00 97.7 88 19 121/83 95 I/O 05/17/16 05/17/16 05/17/16 05/18/16 05/18/16 05/18/16 07:00 15:00 23:00 07:00 15:00 23:00 Intake Total 99 ml 1230 ml 480 ml 580 ml Output Total 1000 ml 1000 ml 600 ml Balance 99 ml 230 ml -520 ml -20 ml Intake Oral 630 ml 480 ml 480 ml IV Total 99 ml 100 ml Other 600 ml Output Urine Total 1000 ml 1000 ml 600 ml # Bowel Movements 0 0 0 Result Diagram: 05/18/16 0747 05/18/16 0747 Imaging Last Impressions Small Bowel X-Ray 05/16/16 0000 Signed Impressions: Service Date/Time: Monday, May 16, 2016 12:11 - CONCLUSION: Negative examination Marvin Silva MD Chest X-Ray 05/15/16 2325 Signed Impressions: Service Date/Time: Sunday, May 15, 2016 23:47 - CONCLUSION: Diffuse mixed interstitial and alveolar consolidation. There is a mild right pleural effusion. Benjie Adamson MD Objective Remarks GENERAL: patient doing up on edge of bed. Also walking around in room. Appears febrile. Alert and oriented 3. SKIN: Warm and dry. HEAD: Normocephalic. EYES: No scleral icterus. No injection or drainage. NECK: Supple, trachea midline. No JVD. CARDIOVASCULAR: Regular rate and rhythm without murmurs, gallops, or rubs. RESPIRATORY: Breath sounds equal bilaterally. No accessory muscle use. GASTROINTESTINAL: Abdomen soft, non-tender, nondistended. MUSCULOSKELETAL: No cyanosis, or edema. BACK: Nontender without obvious deformity. No CVA tenderness. A/P Assessment and Plan 51 yo male with extensive PMHX including morbid obesity, atrial fibrillation on Eliquis, CHF, HTN, sarcoidosis undergoing weekly Methotrexate injections, oxygen dependent COPD, asthma, RENZO, GERD, dyslipidemia and migraines who was recently hospitalized one week ago for recurrent PNA, nausea, vomiting and diarrhea discharged on Levaquin presents to [facility] with complaints of N/ V, abdominal pain, soft dark stools and left sided low back pain x 2-3 days. Acute on chronic abdominal pain with dark soft stools with recent abx treatment - patient is hemodynamically stable - Consult GI - order stool studies to include Cdiff and FOBT - Lipase ordered - small bowel series ordered - begin Probiotic - monitor H/H with serial studies q6h - IV Morphine prn -05/17. Colonoscopy by GI. Polyps found. Also with anal fissure, however no other acute findings. Negative C. difficile. Abdominal pain controlled. -05/18. Colonoscopy on 05/17 shows polyps, forward patient will need repeat colonoscopy in 3 years. Anal fissure, for which he will use Preparation H. //Anal fissure -Continue Preparation H. Follow-up with gastroenterology. -We'll try to avoid constipation. //Colon polyps on colonoscopy. Discussed with patient and , separately. They convey understanding. Advised that biopsies are pending and they will need to follow-up with gastroenterology to obtain these. Necessity of repeat colonoscopy in 3 years. H/O recurrent PNA s/p recent hospitalization for same -Patient's respiratory status stable, improved. - contine on Levaquin to complete treatment course -Can continue with albuterol as necessary at home. Hx of Sarcoidosis with severe pulmonary fibrosis and chronic respiratory failure - patient to follow up with his health promotion officer as outpatient - recent PFT revealed severe obstructive disease - currently on Methotrexate injections q week as outpatient. This was held while here secondary to recent infection, can be restarted on Saturday. Atrial fibrillation - rate controlled - c/w home meds including Eliquis and Cardizem -Heart rate acceptable. Continue to monitor vitals closely. HTN - controlled - continue on Lopressor and Chlorthalidone -Blood pressure acceptable. Continue to monitor closely. HLD - continue on home Atorvastatin CHF - BNP negative - c/w home Lasix dose - monitor electrolytes COPD, oxygen dependent - Continue supplemental oxygen Urinary incontinence and urgency - ?BPH - Patient did receive trial of Flomax with improvement, however will opt for discontinuing Vesicare instead, as this medication has a side effect of urinary retention as well as constipation. Acute on Chronic back pain - Appreciate PT eval/tx -Continue home pain medication regimen - UA appears noninfectious. DVT prophylaxis - Eliquis Discharge Planning Discharge home today. Sabas Mejia MD May 18, 2016 21:38
--- NOTE | 2016-05-18 21:41 | HHI.DS ---
Discharge Summary Admission Date May 16, 2016 at 11:01 Discharge Date: May 18, 2016 Admitting Diagnosis pneumonia/failed outpatient therapy/vomiting (1) Hematochezia ICD Code: K92.1 (2) Abdominal pain ICD Code: R10.9 (3) Sarcoidosis ICD Code: D86.9 (4) Hemorrhoids ICD Code: K64.9 (5) Anal fissure ICD Code: K60.2 Procedures Colonoscopy with polypectomy. Please see report. Apology pending. Will need repeat colonoscopy in 3 years. Brief History - From Admission 51 yo male with extensive PMHX including morbid obesity, atrial fibrillation on Eliquis, CHF, HTN, sarcoidosis undergoing weekly Methotrexate injections, oxygen dependent COPD, asthma, RENZO, GERD, gastroparesis, dyslipidemia and migraines who was recently hospitalized one week ago for PNA and discharged on Levaquin presents to [facility] with complaints of dry cough, occasional unrecorded fevers/chills, left sided low back pain and abdominal pain and dark soft stools x 3 days. Patient also reports nausea with several episodes of vomiting 2 days ago but this has resolved. He complains of dull ache over the epigastric area that is tender to touch. He denies any tobacco or NSAID use and reports only rare alcohol consumption. He states his breathing is at his baseline. He reports dry cough which is chronic and unchanged. He also reports occasional lightheadedness upon standing. He denies any chest pain, diaphoresis, vision changes, palpitations or dizziness. He denies any hematuria or dysuria but does admit to urinary frequency and urgency. In the ED , CXR revealed diffuse mixed interstitial and alveolar consolidation and mild right pleural effusion. Chest CT obtained at the time of his last hospitalization a few days ago on 05/11/16 revealed diffuse alveolar disease characteristic of bronchitis and pneumonia. He had a CT abd/pelvis at that time as well revealing focal dilated loop of small bowel within the pelvis of uncertain etiology, no discrete mass identified recommend small bowel series if indicated. Patient also had a recent admission on 04/18/16 and a colonoscopy was done which showed poor prep, hemorrhoids and an EGD was done showing gastritis antrum, duodenitis in duodenal bulb and hiatal hernia. Patient also has gastroparesis and a GES was done on 04/17/16 that showed delayed gastric emptying with good response to Reglan. CBC/BMP: 05/18/16 0747 05/18/16 0747 Significant Findings Laboratory Tests Test 05/15/16 05/16/16 05/17/16 05/17/16 23:40 16:52 00:13 05:00 Hemoglobin 12.9 GM/DL 12.6 GM/DL 12.7 GM/DL (13.0-17.0) (13.0-17.0) (13.0-17.0) Hematocrit 38.0 % 38.3 % 38.7 % (39.0-51.0) (39.0-51.0) (39.0-51.0) Mean Corpuscular Volume 79.2 FL (80.0-100.0) Mean Corpuscular Hemoglobin 26.9 PG 26.8 PG (27.0-34.0) (27.0-34.0) Red Cell Distribution Width 17.8 % 18.5 % (11.6-17.2) (11.6-17.2) Monocytes (%) (Auto) 11.2 % (0.0-8.0) Carbon Dioxide Level 33.8 MEQ/L (21.0-32.0) Estimat Glomerular Filtration 77 ML/MIN (>89) Rate Calcium Level 8.4 MG/DL (8.5-10.1) Albumin 3.2 GM/DL 3.3 GM/DL (3.4-5.0) (3.4-5.0) White Blood Count 14.9 TH/MM3 (4.0-11.0) Neutrophils (%) (Auto) 86.1 % (16.0-70.0) Neutrophils # (Auto) 12.8 TH/MM3 (1.8-7.7) Random Glucose 129 MG/DL (74-106) Total Bilirubin LESS THAN 0.1 MG/DL (0.2-1.0) Aspartate Amino Transf 9 U/L (15-37) (AST/SGOT) Urine Turbidity HAZY (CLEAR) Urine Specific Dana 1.039 (1.002-1.035) Urine Protein 30 mg/dL (NEG-TRACE) Urine Mucus MOD /lpf (OCC) Test 05/17/16 05/17/16 05/18/16 07:46 14:43 07:47 White Blood Count 16.7 TH/MM3 (4.0-11.0) Mean Corpuscular Hemoglobin 26.2 PG 26.4 PG (27.0-34.0) (27.0-34.0) Red Cell Distribution Width 18.9 % 18.7 % (11.6-17.2) (11.6-17.2) Neutrophils (%) (Auto) 81.8 % (16.0-70.0) Neutrophils # (Auto) 13.7 TH/MM3 (1.8-7.7) Carbon Dioxide Level 32.6 MEQ/L (21.0-32.0) Hemoglobin 12.7 GM/DL 12.2 GM/DL (13.0-17.0) (13.0-17.0) Hematocrit 38.9 % 37.6 % (39.0-51.0) (39.0-51.0) Monocytes (%) (Auto) 9.2 % (0.0-8.0) Monocytes % 9 % (0-8) Metamyelocytes 2 % (0-1) Toxic Vacuolation PRESENT (NONE SEEN) Calcium Level 8.1 MG/DL (8.5-10.1) Imaging Last Impressions Small Bowel X-Ray 05/16/16 0000 Signed Impressions: Service Date/Time: Monday, May 16, 2016 12:11 - CONCLUSION: Negative examination Marvin Silva MD Chest X-Ray 05/15/16 2325 Signed Impressions: Service Date/Time: Sunday, May 15, 2016 23:47 - CONCLUSION: Diffuse mixed interstitial and alveolar consolidation. There is a mild right pleural effusion. Benjie Adamson MD Hospital Course Patient presented with complaints of nausea, vomiting, abdominal pain. Patient also reporting rectal bleeding. Hemoglobin stable. Recent CT scan during last admission reviewed. Small bowel x-ray performed and negative. Gastroenterology consulted, and performed colonoscopy which shows colon polyps of which biopsy is pending, as well as anal fissure as well as internal hemorrhoids which is likely the source of patient's rectal bleeding. He will need to continue using Preparation H for 2 weeks, follow-up with gastroenterology, may need referral to colorectal surgery. As per gastric urology, patient can be restarted on his anticoagulation. Patient denied any acute respiratory complaints, however Levaquin was continued to complete treatment course for recent pneumonia. For problem-based summary for most recent progress note, please see below. 51 yo male with extensive PMHX including morbid obesity, atrial fibrillation on Eliquis, CHF, HTN, sarcoidosis undergoing weekly Methotrexate injections, oxygen dependent COPD, asthma, RENZO, GERD, dyslipidemia and migraines who was recently hospitalized one week ago for recurrent PNA, nausea, vomiting and diarrhea discharged on Levaquin presents to [facility] with complaints of N/ V, abdominal pain, soft dark stools and left sided low back pain x 2-3 days. Acute on chronic abdominal pain with dark soft stools with recent abx treatment - patient is hemodynamically stable - Consult GI - order stool studies to include Cdiff and FOBT - Lipase ordered - small bowel series ordered - begin Probiotic - monitor H/H with serial studies q6h - IV Morphine prn -05/17. Colonoscopy by GI. Polyps found. Also with anal fissure, however no other acute findings. Negative C. difficile. Abdominal pain controlled. -05/18. Colonoscopy on 05/17 shows polyps, forward patient will need repeat colonoscopy in 3 years. Anal fissure, for which he will use Preparation H. //Anal fissure -Continue Preparation H. Follow-up with gastroenterology. -We'll try to avoid constipation. //Colon polyps on colonoscopy. Discussed with patient and , separately. They convey understanding. Advised that biopsies are pending and they will need to follow-up with gastroenterology to obtain these. Necessity of repeat colonoscopy in 3 years. H/O recurrent PNA s/p recent hospitalization for same -Patient's respiratory status stable, improved. - contine on Levaquin to complete treatment course -Can continue with albuterol as necessary at home. Hx of Sarcoidosis with severe pulmonary fibrosis and chronic respiratory failure - patient to follow up with his veterinarian assistant as outpatient - recent PFT revealed severe obstructive disease - currently on Methotrexate injections q week as outpatient. This was held while here secondary to recent infection, can be restarted on Saturday. Atrial fibrillation - rate controlled - c/w home meds including Eliquis and Cardizem -Heart rate acceptable. Continue to monitor vitals closely. HTN - controlled - continue on Lopressor and Chlorthalidone -Blood pressure acceptable. Continue to monitor closely. HLD - continue on home Atorvastatin CHF - BNP negative - c/w home Lasix dose - monitor electrolytes COPD, oxygen dependent - Continue supplemental oxygen Urinary incontinence and urgency - ?BPH - Patient did receive trial of Flomax with improvement, however will opt for discontinuing Vesicare instead, as this medication has a side effect of urinary retention as well as constipation. Acute on Chronic back pain - Appreciate PT eval/tx -Continue home pain medication regimen - UA appears noninfectious. DVT prophylaxis - Eliquis Pt Condition on Discharge: Good Discharge Disposition: Disch w/ Home Health Serv Discharge Time: > 30 minutes Discharge Instructions DIET: Follow Instructions for: Heart Healthy Diet Activities you can perform: Regular-No Restrictions Follow up Referrals: Gastroenterology - 2 Weeks with Malorie Sierra MD Oncology - 1 Week PCP Follow-up - 1 Week New Medications: Sennosides-Docusate Sodium (Senna-Docusate Sodium) 8.6-50 Mg Tab 1 TAB PO BID Constipation Days 30 Ref 0 TAB Phenylephrine-Mineral Oil-Petrolatum Topical (Preparation H Topical) 0.25-3-14- 71.9 % Oint 1 APPLIC RECTAL Q6HR PRN HEMORRHOIDS Days 14 TUBE Continued Medications: Albuterol 8.5 GM Inh (Proair Hfa 8.5 GM Inh) 90 Mcg/Act Aer 1 PUFF INH Q6H 108 mcg/actuation PRN SHORTNESS OF BREATH #1 Ref 0 INHALER Albuterol Neb (Albuterol Neb) 2.5 Mg/3 Ml Neb 2.5 MG NEB Q4HR NEB While awake Breathing Treatment #60 Ref 0 NEBULE Apixaban (Eliquis) 5 Mg Tab 5 MG PO BID Blood Clot Prevention #60 Ref 0 TAB Atorvastatin (Lipitor) 40 Mg Tab 40 MG PO HS Cholesterol Management #30 Ref 0 TAB Chlorthalidone (Chlorthalidone) 50 Mg Tab 50 MG PO DAILY Ref 0 TAB Diltiazem CD 24 HR (Diltiazem CD 24 HR) 240 Mg Caper 240 MG PO DAILY #30 Ref 0 CAP Doxepin (Doxepin) 50 Mg Cap 50 MG PO HS #30 Ref 0 CAP Folic Acid (Folate) 1 Mg Tab 1 MG PO DAILY Nutritional Supplement Ref 0 TAB Furosemide (Furosemide) 40 Mg Tab 40 MG PO DAILY #30 Ref 0 TAB Gabapentin (Gabapentin) 300 Mg Cap 300 MG PO HS #30 Ref 0 CAP Hydrocodone-Acetaminophen (Hydrocodone-Acetaminophen) 5-325 mg Tab 1 TAB PO Q4H PRN PAIN GREATER THAN 5 #15 TAB Levofloxacin (Levaquin) 750 Mg Tab 750 MG PO DAILY Infection #14 Ref 0 TAB Methotrexate Inj (Methotrexate Inj) 50 Mg/2 Ml Inj 15 MG SQ EVERY SATURDAY Metoprolol Tartrate (Metoprolol Tartrate) 50 Mg Tab 50 MG PO BID #60 Ref 0 TAB Pantoprazole (Protonix) 40 Mg Tab 40 MG PO DAILY Reflux #30 Ref 0 TAB Discontinued Medications: Solifenacin (Vesicare) 5 Mg Tab 5 MG PO DAILY Urinary Symptom Managemen #30 Ref 0 TAB Sabas Mejia MD May 18, 2016 21:41
== END 2016-05-18 12:46 | disposition home health service (06) | DRG 393 ==
LOC: NEPC 23:10 → NEDA 05-16 01:46 → NEPGCP 05-16 04:29 → OBSVTOIN 05-16 11:01 → N04A 05-17 03:50
PROVIDERS: ADMIT Internal Medicine; ATTEND Internal Medicine
PROC: 0D5P8ZZ Destruction of Rectum, Via Natural or Artificial Opening Endoscopic (ICD-10-PCS; 2016-05-17)
PROC: 0DBM8ZX Excision of Descending Colon, Via Natural or Artificial Opening Endoscopic, Diagnostic (ICD-10-PCS; principal; 2016-05-17 11:50)
DX: K64.8 Other hemorrhoids (principal); K60.2 Anal fissure, unspecified; K92.1 Melena; J18.9 Pneumonia, unspecified organism; J96.10 Chronic respiratory failure, unspecified whether with hypoxia or hypercapnia; I50.9 Heart failure, unspecified; J84.10 Pulmonary fibrosis, unspecified; Z99.81 Dependence on supplemental oxygen; K31.84 Gastroparesis; Z68.43 Body mass index [BMI] 50.0-59.9, adult; E66.01 Morbid (severe) obesity due to excess calories; D86.9 Sarcoidosis, unspecified; I48.91 Unspecified atrial fibrillation; Z79.02 Long term (current) use of antithrombotics/antiplatelets; Z79.899 Other long term (current) drug therapy; I10 Essential (primary) hypertension; G43.909 Migraine, unspecified, not intractable, without status migrainosus; K63.5 Polyp of colon; R11.2 Nausea with vomiting, unspecified; K29.80 Duodenitis without bleeding; K29.70 Gastritis, unspecified, without bleeding; K44.9 Diaphragmatic hernia without obstruction or gangrene; K21.9 Gastro-esophageal reflux disease without esophagitis; R10.9 Unspecified abdominal pain; G47.33 Obstructive sleep apnea (adult) (pediatric); J44.9 Chronic obstructive pulmonary disease, unspecified; J45.909 Unspecified asthma, uncomplicated; E78.5 Hyperlipidemia, unspecified; N39.41 Urge incontinence; G89.29 Other chronic pain; M54.5 Low back pain
CPT/HCPCS: 71010; 74250; 80048; 80053; 81001; 83690; 83880; 84153; 85007; 85014; 85018; 85025; 85027; 87040; 87493; 88305; 93005; 94640; 94664; 96374; 96375; C9113; J0456; J0696; J1956; J2270; J2405; J2930; J7050; Q9963

== ENCOUNTER 2016-06-15 23:03 | Emergency (ER) | payer MEDICARE, MEDICAID ==
[~2016-06-15] VITALS: Ht 180.3 cm; Wt 140.1 kg
[~2016-06-15 23:03] MED LIST changes: +PREPOIN RECTAL; +SENN1TAB2 PO; -VESI5TAB PO
[2016-06-15 23:12] VITALS: BP 149/108; PULSE 99; RESP 16; TEMP 98.4; O2SAT 95
[2016-06-15] MEDS ORDERED: HYDROmorphone HCL PF 1 MG/ML VIAL IV PUSH ONE (23:45)
[2016-06-15] MEDS ORDERED: ONDANSETRON HCL 4 MG/2 ML VIAL IV PUSH ONE (23:45)
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
[2016-06-16 00:02] LABS: BASOPHIL # 0.3 TH/MM3 (0-0.2); BASOPHIL % 3.7 % (0.0-2.0); EOSINOPHIL # 0.3 TH/MM3 (0-0.4); EOSINOPHIL % 4.8 % (0.0-4.0); HEMATOCRIT 42.4 % (39.0-51.0); HEMO FLAGS DIFF FINAL; LYMPH % 26.3 % (9.0-44.0); LYMPHOCYTE # 1.8 TH/MM3 (1.0-4.8); MEAN CELL VOLUME 79.7 FL (80.0-100.0); MEAN CORPUSCULAR HEMOGLOBIN 25.6 PG (27.0-34.0); MEAN CORPUSCULAR HGB CONC 32.2 % (32.0-36.0); MONO % 8.3 % (0.0-8.0); NEUT % 56.9 % (16.0-70.0); PLATELET COUNT 359 TH/MM3 (150-450); RED BLOOD COUNT 5.32 MIL/MM3 (4.50-5.90)
[2016-06-16 00:08] LABS: POTASSIUM 3.7 MEQ/L (3.5-5.1)
[2016-06-16 00:11] LABS: BICARBONATE 31.7 MEQ/L (21.0-32.0)
[2016-06-16 00:13] LABS: BLOOD, URINE NEG (NEG); GLUCOSE,URINE NEG (NEG); KETONE, URINE NEG (NEG); NITRITE,URINE NEG (NEG)
[2016-06-16 00:15] LABS: URINE COLOR YELLOW (YELLW/STRAW)
[2016-06-16 00:17] LABS: COMMENT (UR) CULT NOT INDICATED; CULTURE IF INDICATED CULT NOT INDICATED; RBC, URINE 0-2 /hpf (0-3); SQUAMOUS EPITHELIAL CELL URINE 0-5 /hpf (0-5); WBC, URINE 0-2 /hpf (0-5)
[2016-06-16] MEDS ORDERED: HYDR-3534 PO (00:27)
--- NOTE | 2016-06-16 00:53 | RADHPO ---
EXAM DATE/TIME: 06/16/2016 00:28 [facility] COMPARISON: No previous studies available for comparison. INDICATIONS : Left knee pain. No known injury. MEDICAL HISTORY : None. SURGICAL HISTORY : None. ENCOUNTER: Initial ACUITY: 3 days PAIN SCORE: 8/10 LOCATION: Left knee FINDINGS: Multiple views of the knee show joint space narrowing with periarticular sclerotic change and osteoph yte production. No fracture or dislocation. No joint effusion. Soft tissues are unremarkable. CONCLUSION: Advanced tricompartmental osteoarthritis. No acute abnormality. Frank Walton Jr., MD on June 16, 2016 at 0:51 Board Certified Radiologist. This report was verified electronically.
[2016-06-16 01:00] VITALS: BP 139/77; PULSE 88; RESP 18; O2SAT 96
[2016-06-16 01:53] VITALS: BP 142/90
== END 2016-06-16 01:57 | disposition home or self-care (01) ==
LOC: PHED 23:03
DX: M54.32 Sciatica, left side (principal); I48.91 Unspecified atrial fibrillation; I10 Essential (primary) hypertension; I50.9 Heart failure, unspecified
CPT/HCPCS: 73564; 80048; 81001; 85025; 96374; 96375; 99284; J1170; J2405

== ENCOUNTER 2016-10-30 22:54 | Emergency (ER) | payer MEDICARE, MEDICAID ==
[~2016-10-30] VITALS: Ht 180.3 cm; Wt 140.5 kg
[~2016-10-30 22:54] MED LIST changes: -HYDR-3516 PO; +HYDR-3534 PO; -LEVA750T PO
[2016-10-30 23:03] VITALS: BP 153/96; PULSE 94; RESP 20; TEMP 97.7; O2SAT 95
[2016-10-31 01:34] VITALS: BP 131/88; PULSE 88; RESP 16; O2SAT 96
[2016-10-31] MEDS ORDERED: AMOX875T PO (02:51)
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
[2016-10-31] MEDS ORDERED: ONDANSETRON HCL 4 MG/2 ML VIAL IM ONE (03:00)
[2016-10-31] MEDS ORDERED: AMOXICILLIN 875 MG TAB PO ONE (03:00)
[2016-10-31] MEDS ORDERED: HYDROmorphone HCL PF 1 MG/ML VIAL SQ ONE (03:00)
[2016-10-31 03:02] VITALS: BP 141/83; PULSE 86; RESP 18; O2SAT 95
[2016-10-31 03:40] VITALS: PULSE 78; RESP 16; O2SAT 94
== END 2016-10-31 03:42 | disposition home or self-care (01) ==
LOC: PHED 22:54
DX: K04.7 Periapical abscess without sinus (principal); G89.29 Other chronic pain; M54.5 Low back pain; D86.9 Sarcoidosis, unspecified; Z79.01 Long term (current) use of anticoagulants; I48.91 Unspecified atrial fibrillation; E78.00 Pure hypercholesterolemia, unspecified; I50.9 Heart failure, unspecified; I11.0 Hypertensive heart disease with heart failure; J44.9 Chronic obstructive pulmonary disease, unspecified
CPT/HCPCS: 96372; 99284; J1170; J2405

== ENCOUNTER 2017-03-14 22:35 | Emergency (ER) | payer MEDICARE, MEDICAID ==
[~2017-03-14] VITALS: Ht 180.3 cm; Wt 136.4 kg
[~2017-03-14 22:35] MED LIST changes: +AMOX875T PO; -DILT-64 PO; +DILT240C44 PO; -FOLI1TAB4 PO; -HYDR-3534 PO; -PREPOIN RECTAL; -SENN1TAB2 PO
[2017-03-14 22:36] VITALS: BP 139/93; PULSE 90; RESP 16; TEMP 98.5; O2SAT 96
[2017-03-15] MEDS ORDERED: MORPHINE SULFATE 2 MG/ML INJ IV PUSH ONE
[2017-03-15] MEDS ORDERED: SODIUM CHLOR 0.9% 1000 ML INJ 1,000 ML IV ONE
[2017-03-15] MEDS ORDERED: ONDANSETRON HCL 4 MG/2 ML VIAL IV PUSH ONE
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
[2017-03-15 00:40] LABS: AUTOMATED NEUTROPHIL # 5.8 TH/MM3 (1.8-7.7); BASOPHIL # 0.1 TH/MM3 (0-0.2); BASOPHIL % 0.8 % (0.0-2.0); EOSINOPHIL # 0.5 TH/MM3 (0-0.4); EOSINOPHIL % 4.9 % (0.0-4.0); HEMATOCRIT 42.7 % (39.0-51.0); HEMOGLOBIN 14.3 GM/DL (13.0-17.0); LYMPH % 30.9 % (9.0-44.0); LYMPHOCYTE # 3.2 TH/MM3 (1.0-4.8); MEAN CELL VOLUME 82.2 FL (80.0-100.0); MEAN CORPUSCULAR HEMOGLOBIN 27.6 PG (27.0-34.0); MEAN CORPUSCULAR HGB CONC 33.6 % (32.0-36.0); MEAN PLATELET VOLUME 7.9 FL (7.0-11.0); MONO % 6.9 % (0.0-8.0); MONOCYTE # 0.7 TH/MM3 (0-0.9); NEUT % 56.5 % (16.0-70.0); PLATELET COUNT 308 TH/MM3 (150-450); RED BLOOD COUNT 5.19 MIL/MM3 (4.50-5.90); RED CELL DISTRIBUTION WIDTH 16.1 % (11.6-17.2); WHITE BLOOD COUNT 10.2 TH/MM3 (4.0-11.0)
[2017-03-15 00:50] LABS: ALBUMIN 3.9 GM/DL (3.4-5.0); ALT (GPT) 23 U/L (12-78); AST (GOT) 16 U/L (15-37); BLOOD UREA NITROGEN 17 MG/DL (7-18); CALCIUM 9.1 MG/DL (8.5-10.1); CHLORIDE 102 MEQ/L (98-107); CREATININE 0.94 MG/DL (0.60-1.30); GLOMERULAR FILTRATION RATE 102 ML/MIN (>89); GLUCOSE,RANDOM 88 MG/DL (74-106); SODIUM (NA) 139 MEQ/L (136-145)
[2017-03-15 00:53] LABS: ALKALINE PHOSPHATASE 107 U/L (45-117); TOTAL BILIRUBIN ADULT 0.3 MG/DL (0.2-1.0); TOTAL PROTEIN 8.4 GM/DL (6.4-8.2)
[2017-03-15] MEDS ORDERED: PENICILLIN G BENZATHINE 1,200,000 UNITS/2 ML SYRINGE IM ONE (01:15)
[2017-03-15] MEDS ORDERED: KETOROLAC TROMETHAMINE 30 MG/ML (IVP) VIAL IV PUSH ONE (01:15)
== END 2017-03-15 03:09 | disposition home or self-care (01) ==
LOC: NEPE 22:35
DX: J02.0 Streptococcal pharyngitis (principal); R11.2 Nausea with vomiting, unspecified; R19.7 Diarrhea, unspecified; I48.91 Unspecified atrial fibrillation; I11.0 Hypertensive heart disease with heart failure; I50.9 Heart failure, unspecified; J44.9 Chronic obstructive pulmonary disease, unspecified; K21.9 Gastro-esophageal reflux disease without esophagitis; E78.00 Pure hypercholesterolemia, unspecified
CPT/HCPCS: 71010; 80053; 83605; 85025; 87804; 87880; 96372; 96374; 96375; 99284; J0561; J1885; J2270; J2405; J7030

== ENCOUNTER 2017-03-17 02:04 | Emergency (ER) | payer MEDICARE, MEDICAID ==
[~2017-03-17] VITALS: Ht 177.8 cm; Wt 135.0 kg
[2017-03-17] MEDS ORDERED: IOHEXOL 350 MG/ML 10 ML VIAL (for RAD DIAG) IVCONTRAST ONE (02:05)
[2017-03-17 02:07] VITALS: BP 141/89; PULSE 110; RESP 16; TEMP 98.7; O2SAT 96
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
[2017-03-17 04:13] LABS: AUTOMATED NEUTROPHIL # 5.8 TH/MM3 (1.8-7.7); BASOPHIL # 0.1 TH/MM3 (0-0.2); BASOPHIL % 0.8 % (0.0-2.0); EOSINOPHIL # 0.5 TH/MM3 (0-0.4); EOSINOPHIL % 4.7 % (0.0-4.0); HEMATOCRIT 41.2 % (39.0-51.0); HEMOGLOBIN 13.6 GM/DL (13.0-17.0); LYMPH % 23.9 % (9.0-44.0); LYMPHOCYTE # 2.3 TH/MM3 (1.0-4.8); MEAN CELL VOLUME 81.4 FL (80.0-100.0); MEAN CORPUSCULAR HEMOGLOBIN 26.9 PG (27.0-34.0); MEAN PLATELET VOLUME 7.5 FL (7.0-11.0); MONO % 9.6 % (0.0-8.0); MONOCYTE # 0.9 TH/MM3 (0-0.9); PLATELET COUNT 286 TH/MM3 (150-450); RED BLOOD COUNT 5.06 MIL/MM3 (4.50-5.90); RED CELL DISTRIBUTION WIDTH 15.9 % (11.6-17.2); WHITE BLOOD COUNT 9.5 TH/MM3 (4.0-11.0)
[2017-03-17 04:25] LABS: BLOOD UREA NITROGEN 14 MG/DL (7-18); CALCIUM 8.7 MG/DL (8.5-10.1); CHLORIDE 103 MEQ/L (98-107); CREATININE 0.97 MG/DL (0.60-1.30); GLOMERULAR FILTRATION RATE 98 ML/MIN (>89); GLUCOSE,RANDOM 96 MG/DL (74-106); SODIUM (NA) 139 MEQ/L (136-145)
[2017-03-17 04:28] LABS: TROPONIN I LESS THAN 0.02 NG/ML (0.02-0.05)
[2017-03-17 04:29] LABS: PROTHROMBIN TIME - PATIENT 10.5 SEC (9.8-11.6)
--- NOTE | 2017-03-17 04:36 | RADRPT ---
EXAM DATE/TIME: 03/17/2017 03:51 [facility] COMPARISON: CHEST SINGLE AP, March 28, 2016, 2:47. CHEST SINGLE AP, March 15, 2017, 0:12. INDICATIONS : Short of breath. MEDICAL HISTORY : None. SURGICAL HISTORY : None. ENCOUNTER: Initial ACUITY: 3 days PAIN SCORE: 6/10 LOCATION: Bilateral chest FINDINGS: Patchy bilateral parenchymal opacities. Right apical pleural thickening. Blunting of the right costop hrenic angle. These findings are stable. Cardiomediastinal contours are stable. CONCLUSION: No significant change Benjie Hamlin MD on March 17, 2017 at 4:34 Board Certified Radiologist. This report was verified electronically.
[2017-03-17 04:40] LABS: BILIRUBIN, URINE NEG (NEG); BLOOD, URINE NEG (NEG); GLUCOSE,URINE NEG (NEG); KETONE, URINE NEG (NEG); NITRITE,URINE NEG (NEG); SQUAMOUS EPITHELIAL CELL URINE 1 /hpf (0-5); URINE COLOR YELLOW (YELLW/STRAW); URINE LEUKOCYTE ESTERASE NEG (NEG)
[2017-03-17] MEDS ORDERED: MORPHINE SULFATE 2 MG/ML INJ IV PUSH ONE (04:45)
[2017-03-17] MEDS ORDERED: ONDANSETRON HCL 4 MG/2 ML VIAL IV PUSH ONE (04:45)
[2017-03-17] MEDS ORDERED: DIAZEPAM 5 MG TAB PO ONE (06:00)
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
[2017-03-17 06:47] VITALS: BP 113/67; PULSE 84; RESP 16; O2SAT 98
[2017-03-17] MEDS ORDERED: TYLE325T PO (06:47)
--- NOTE | 2017-03-17 18:38 | EKG ---
Date Performed: 03/17/2017 Time Performed: 03:34:43 PTAGE: 52 years EKG: SINUS TACHYCARDIA POSSIBLE RIGHT VENTRICULAR CONDUCTION DELAY NONSPECIFIC ST & T-WAVE ABNOR MALITY ABNORMAL RHYTHM ECG PREVIOUS TRACING : 05/15/2016 23.36 Compared to the previous tracing rate faster DOCTOR: Winnie Merritt Interpretating Date/Time 03/17/2017 18:37:47
== END 2017-03-17 07:01 | disposition home or self-care (01) ==
LOC: NEPC 02:04
DX: R10.84 Generalized abdominal pain (principal); R53.1 Weakness; R11.0 Nausea; R19.7 Diarrhea, unspecified; R94.31 Abnormal electrocardiogram [ECG] [EKG]; J44.9 Chronic obstructive pulmonary disease, unspecified; I48.91 Unspecified atrial fibrillation; I11.0 Hypertensive heart disease with heart failure; Z79.01 Long term (current) use of anticoagulants
CPT/HCPCS: 71010; 74177; 80048; 81001; 84484; 85025; 85610; 85730; 93005; 96374; 96375; 99285; J2270; J2405; Q9967

== ENCOUNTER 2017-03-19 01:21 | Emergency (ER) | payer MEDICARE, MEDICAID ==
[~2017-03-19] VITALS: Ht 177.8 cm; Wt 137.0 kg
[~2017-03-19 01:21] MED LIST changes: -AMOX875T PO; +TYLE325T PO
[2017-03-19 01:28] VITALS: BP 133/90; PULSE 88; RESP 16; TEMP 98.2; O2SAT 94
[2017-03-19 01:37] VITALS: BP 129/81; PULSE 87; RESP 20; TEMP 98.1; O2SAT 96
[2017-03-19] MEDS ORDERED: DEXAMETHASONE SOD PHOS 4 MG/ML VIAL IM ONE (02:15)
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
== END 2017-03-19 02:55 | disposition home or self-care (01) ==
LOC: NEPC 01:21
DX: J02.0 Streptococcal pharyngitis (principal); D86.9 Sarcoidosis, unspecified; I11.0 Hypertensive heart disease with heart failure; I50.9 Heart failure, unspecified; I48.91 Unspecified atrial fibrillation; E78.00 Pure hypercholesterolemia, unspecified; J44.9 Chronic obstructive pulmonary disease, unspecified; Z79.01 Long term (current) use of anticoagulants
CPT/HCPCS: 96372; 99284; J1100; 99281

== ENCOUNTER 2017-05-22 01:17 | Emergency (ER) | payer MEDICARE, OTHER ==
[2017-05-22 01:25] VITALS: BP 152/81; PULSE 98; RESP 16; TEMP 98.4; O2SAT 94
[2017-05-22 01:47] VITALS: BP 137/84; PULSE 87; RESP 18; O2SAT 96; O2SAT 97
--- NOTE | 2017-05-22 02:14 | RADRPT ---
EXAM DATE/TIME: 05/22/2017 01:55 [facility] COMPARISON: CHEST SINGLE AP, March 17, 2017, 3:51. INDICATIONS : Cough, congestion. MEDICAL HISTORY : Hypertension. Cardiovascular disease. Chronic obstructive pulmonary disease. SURGICAL HISTORY : None. ENCOUNTER: Initial ACUITY: 3 days PAIN SCORE: 0/10 LOCATION: Bilateral chest FINDINGS: Diffuse interstitial prominence with redemonstration of right pleural thickening. No new focal pleura l or parenchymal opacities. Cardiomediastinal contours are within normal limits. Bony thorax is intac t. CONCLUSION: 1. No acute abnormality or significant interval change. Rojelio Recinos MD on May 22, 2017 at 2:12 Board Certified Radiologist. This report was verified electronically.
[2017-05-22 02:27] VITALS: RESP 18; O2SAT 97
[2017-05-22 02:36] LABS: AUTOMATED NEUTROPHIL # 5.2 TH/MM3 (1.8-7.7); BASOPHIL # 0.1 TH/MM3 (0-0.2); BASOPHIL % 0.6 % (0.0-2.0); BILIRUBIN, URINE NEG (NEG); BLOOD, URINE TRACE (NEG); EOSINOPHIL # 0.3 TH/MM3 (0-0.4); EOSINOPHIL % 3.7 % (0.0-4.0); GLUCOSE,URINE NEG (NEG); HEMATOCRIT 43.1 % (39.0-51.0); HEMOGLOBIN 14.7 GM/DL (13.0-17.0); KETONE, URINE NEG (NEG); LYMPH % 27.8 % (9.0-44.0); LYMPHOCYTE # 2.5 TH/MM3 (1.0-4.8); MEAN CELL VOLUME 81.4 FL (80.0-100.0); MEAN CORPUSCULAR HEMOGLOBIN 27.8 PG (27.0-34.0); MEAN CORPUSCULAR HGB CONC 34.2 % (32.0-36.0); MEAN PLATELET VOLUME 7.2 FL (7.0-11.0); MONO % 10.6 % (0.0-8.0); MUCUS URINE FEW /lpf (OCC); NEUT % 57.3 % (16.0-70.0); NITRITE,URINE NEG (NEG); PH, URINE 5.5 (5.0-8.5); PLATELET COUNT 334 TH/MM3 (150-450); RED CELL DISTRIBUTION WIDTH 15.3 % (11.6-17.2); URINE COLOR YELLOW (YELLW/STRAW); URINE LEUKOCYTE ESTERASE NEG (NEG); WHITE BLOOD COUNT 9.1 TH/MM3 (4.0-11.0)
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
[2017-05-22 02:47] LABS: INTERNATIONAL NORMALIZED RATIO 1.1 RATIO; PROTHROMBIN TIME - PATIENT 10.7 SEC (9.8-11.6)
[2017-05-22 02:54] LABS: BICARBONATE 29.9 MEQ/L (21.0-32.0); BLOOD UREA NITROGEN 17 MG/DL (7-18); CALCIUM 8.6 MG/DL (8.5-10.1); CHLORIDE 102 MEQ/L (98-107); CREATININE 1.31 MG/DL (0.60-1.30); GLOMERULAR FILTRATION RATE 69 ML/MIN (>89); GLUCOSE,RANDOM 102 MG/DL (74-106); SODIUM (NA) 139 MEQ/L (136-145); TROPONIN I LESS THAN 0.02 NG/ML (0.02-0.05)
[2017-05-22 03:03] LABS: MAGNESIUM 2.2 MG/DL (1.5-2.5)
[2017-05-22] MEDS ORDERED: ONDANSETRON HCL 4 MG/2 ML VIAL IV PUSH ONE (03:30)
[2017-05-22] MEDS ORDERED: SODIUM CHLOR 0.9% 250 ML INJ 250 ML IV ONE (03:30)
[2017-05-22] MEDS ORDERED: ACETAMINOPHEN/HYDROcodone 325 MG/5 MG TAB PO ONE (03:30)
--- NOTE | 2017-05-22 12:31 | EKG ---
Date Performed: 05/22/2017 Time Performed: 02:22:31 PTAGE: 52 years EKG: Sinus rhythm POSSIBLE RIGHT VENTRICULAR CONDUCTION DELAY NONSPECIFIC ST & T-WAVE ABNORMALITY BORDERLINE ECG PREVIOUS TRACING : 03/17/2017 03.34 Since the prior tracing, there has been no significant potter DOCTOR: Keven Linda Interpretating Date/Time 05/22/2017 12:29:59
== END 2017-05-22 04:25 | disposition home or self-care (01) ==
LOC: NEPC 01:17
DX: J06.9 Acute upper respiratory infection, unspecified (principal); M19.90 Unspecified osteoarthritis, unspecified site; J45.909 Unspecified asthma, uncomplicated; E78.00 Pure hypercholesterolemia, unspecified; I48.91 Unspecified atrial fibrillation; J44.9 Chronic obstructive pulmonary disease, unspecified; I10 Essential (primary) hypertension; Z79.01 Long term (current) use of anticoagulants
CPT/HCPCS: 71045; 80048; 81001; 82550; 82552; 83735; 83880; 84484; 85025; 85610; 85730; 87804; 93005; 96374; 99285; J2405; J7050

== ENCOUNTER 2017-05-25 20:02 | Emergency (ER) | payer MEDICARE, OTHER ==
[~2017-05-25] VITALS: Ht 180.3 cm; Wt 138.7 kg
[2017-05-25 20:36] VITALS: BP 151/95; PULSE 103; RESP 18; TEMP 97.9; O2SAT 95
[2017-05-25] MEDS ORDERED: PRED20 PO (21:33)
[2017-05-25] MEDS ORDERED: OSEL75 PO (21:33)
[2017-05-25] MEDS ORDERED: AZIT250T3 PO (21:33)
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
[2017-05-25] MEDS ORDERED: traMADol HCL 50 MG TAB PO ONE (21:45)
== END 2017-05-25 21:51 | disposition home or self-care (01) ==
LOC: PHEFT 20:02
DX: J06.9 Acute upper respiratory infection, unspecified (principal); M32.9 Systemic lupus erythematosus, unspecified; M19.90 Unspecified osteoarthritis, unspecified site; I48.91 Unspecified atrial fibrillation; I11.0 Hypertensive heart disease with heart failure; I50.9 Heart failure, unspecified; J44.9 Chronic obstructive pulmonary disease, unspecified; K21.9 Gastro-esophageal reflux disease without esophagitis; E78.00 Pure hypercholesterolemia, unspecified
CPT/HCPCS: 99283

== ENCOUNTER 2017-06-05 04:40 | Emergency (ER) | payer MEDICARE, OTHER ==
[~2017-06-05] VITALS: Ht 177.8 cm; Wt 136.0 kg
[~2017-06-05 04:40] MED LIST changes: +AZIT250T3 PO; +OSEL75 PO; +PRED20 PO; -TYLE325T PO
[2017-06-05 04:46] VITALS: BP 134/90; PULSE 84; RESP 16; TEMP 97.6; O2SAT 95
[2017-06-05 04:56] VITALS: BP 134/93; PULSE 82; RESP 17; TEMP 98; O2SAT 97
[2017-06-05] MEDS ORDERED: DEXAMETHASONE SOD PHOS 4 MG/ML VIAL IV ONE (05:00)
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
[2017-06-05] MEDS ORDERED: ONDANSETRON HCL 4 MG/2 ML VIAL IVP ONE (05:15)
[2017-06-05] MEDS ORDERED: MORPHINE SULFATE 4 MG/ML INJ IV PUSH ONE (05:15)
--- NOTE | 2017-06-05 06:05 | RADRPT ---
EXAM DATE/TIME: 06/05/2017 05:34 [facility] COMPARISON: CT BRAIN W/O CONTRAST, August 03, 2015, 18:21. INDICATIONS : Cephalgia. RADIATION DOSE: 66.34 CTDIvol (mGy) MEDICAL HISTORY : Cardiovascular disease. Hypertension. Sarcoid SURGICAL HISTORY : None. ENCOUNTER: Initial ACUITY: 1 day PAIN SCALE: 6/10 LOCATION: cranial TECHNIQUE: Multiple contiguous axial images were obtained of the head. Using automated exposure control and adj ustment of the mA and/or kV according to patient size, radiation dose was kept as low as reasonably a chievable to obtain optimal diagnostic quality images. DICOM format image data is available electro nically for review and comparison. FINDINGS: CEREBRUM: The ventricles are normal for age. No evidence of midline shift, mass lesion, hemorrhage or acute in farction. No extra-axial fluid collections are seen. POSTERIOR FOSSA: The cerebellum and brainstem are intact. The 4th ventricle is midline. The cerebellopontine angle i s unremarkable. EXTRACRANIAL: The visualized portion of the orbits is intact. SKULL: The calvaria is intact. No evidence of skull fracture. CONCLUSION: Normal examination. Frank Walton Jr., MD on June 05, 2017 at 6:03 Board Certified Radiologist. This report was verified electronically.
[2017-06-05] MEDS ORDERED: FIOR30CA12 PO (06:20)
== END 2017-06-05 06:57 | disposition home or self-care (01) ==
LOC: NEPE 04:40
DX: G44.209 Tension-type headache, unspecified, not intractable (principal); I11.0 Hypertensive heart disease with heart failure; I50.9 Heart failure, unspecified; I48.91 Unspecified atrial fibrillation; J44.9 Chronic obstructive pulmonary disease, unspecified; E78.00 Pure hypercholesterolemia, unspecified; M19.90 Unspecified osteoarthritis, unspecified site; Z79.01 Long term (current) use of anticoagulants; Z79.899 Other long term (current) drug therapy
CPT/HCPCS: 70450; 96374; 96375; 99284; J1100; J2270; J2405

== ENCOUNTER 2017-06-22 01:41 | Emergency (ER) | payer MEDICAID, MEDICARE, OTHER ==
[~2017-06-22] VITALS: Ht 172.7 cm; Wt 136.0 kg
[~2017-06-22 01:41] MED LIST changes: -AZIT250T3 PO; +FIOR30CA12 PO; -OSEL75 PO; -PRED20 PO
[2017-06-22 02:02] VITALS: BP 153/81; PULSE 95; RESP 24; TEMP 98.1; O2SAT 98
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
--- NOTE | 2017-06-22 03:53 | RADRPT ---
EXAM DATE/TIME: 06/22/2017 03:27 [facility] COMPARISON: CHEST SINGLE AP, May 22, 2017, 1:55. INDICATIONS : Shortness of breath. MEDICAL HISTORY : Hypertension. Cardiovascular disease. Chronic obstructive pulmonary disease. SURGICAL HISTORY : None. ENCOUNTER: Initial ACUITY: 1 day PAIN SCORE: 0/10 LOCATION: Bilateral chest FINDINGS: A single view of the chest demonstrates chronic infiltrates bilaterally with pleural thickening on th e right, unchanged. The cardiomediastinal contours are unremarkable. Osseous structures are intact. CONCLUSION: Stable diffuse lung disease. Pleural thickening on the right. Prasanna Connell MD on June 22, 2017 at 3:51 Board Certified Radiologist. This report was verified electronically.
[2017-06-22] MEDS ORDERED: ZITHTAB PO (04:02)
[2017-06-22] MEDS ORDERED: PRED20 PO (04:02)
[2017-06-22] MEDS ORDERED: DEXAMETHASONE SOD PHOS 4 MG/ML VIAL IM ONE (04:30)
== END 2017-06-22 04:44 | disposition home or self-care (01) ==
LOC: NEPC 01:41
DX: J40 Bronchitis, not specified as acute or chronic (principal); L30.9 Dermatitis, unspecified; D86.9 Sarcoidosis, unspecified; I11.0 Hypertensive heart disease with heart failure; I50.9 Heart failure, unspecified; J44.9 Chronic obstructive pulmonary disease, unspecified; K21.9 Gastro-esophageal reflux disease without esophagitis; I48.91 Unspecified atrial fibrillation; E78.00 Pure hypercholesterolemia, unspecified
CPT/HCPCS: 71045; 96372; 99283; J1100

== ENCOUNTER 2017-11-13 04:58 | Inpatient (IN) ==
--- NOTE | 2017-11-13 05:33 | ED ---
HPI General Chief Complaint: Chest Pain Stated Complaint: Diff breathing, chest pain Time Seen by Provider: 11/13/17 05:21 Source: patient Mode of arrival: ambulatory Limitations: no limitations History of Present Illness HPI narrative: The patient is a 52-year-old male with history of sarcoidosis atrial fibrillation hypertension, high cholesterol presenting to the ED with chest pain of acute onset around 6 PM last night. Patient states that his pain radiates straight through his back. Currently on methotrexate. Also reports blood in stool and has internal and external hemorrhoids. MD complaint: chest pain Complete Quality Measures for STEMI Alert Patients STEMI Alert: No Onset (ago): hour(s) (11) Duration: constant Onset: during rest Pain location: substernal Severity: severe Severity scale (1-10): 10 Quality: tightness Pain radiation: back (mid thoracic) Relieving factors: nothing Exacerbating factors: nothing Related Data Home Medications Medication Instructions Recorded Confirmed apixaban [Eliquis] 5 mg PO BID 10/22/17 11/13/17 atorvastatin 40 mg PO DAILY 10/22/17 11/13/17 diltiazem HCl 240 mg PO DAILY 10/22/17 11/13/17 doxepin 50 mg PO DAILY 10/22/17 11/13/17 folic acid 1 mg PO DAILY 10/22/17 11/13/17 furosemide [Lasix] 40 mg PO BID 10/22/17 11/13/17 gabapentin 100 mg PO DAILY 10/22/17 11/13/17 methotrexate (PF) 20 mg SUB-Q QWEEK 10/22/17 11/13/17 metoprolol tartrate [Lopressor] 50 mg PO BID 10/22/17 11/13/17 Previous Rx's Medication Instructions Recorded methocarbamol [Robaxin] 500 mg PO Q6H #10 tab 10/22/17 Allergies Allergy/AdvReac Type Severity Reaction Status Date / Time No Known Allergies Allergy Verified 11/13/17 05:08 Review of Systems ROS: all other systems reviewed are negative Cardiovascular Reports chest pain Respiratory Reports dyspnea and Reports dyspnea on exertion PMFSH Medical History Medical History Afib (Acute) Sarcoidosis (Acute) HBP (high blood pressure) (Acute) High cholesterol (Acute) CHF (congestive heart failure) (Acute) COPD (chronic obstructive pulmonary disease) (Acute) Surgical History Surgical History No history of previous surgery (Acute) Social History Social History Substance History: No History of Abuse Second Hand Smoke Exposure: No Smoking Status: Never smoker How Often Do You Have a Drink Containing Alcohol: Monthly or less Recent Out of Country Travel within the Last 8 Weeks: No Immunization History Tetanus Immunization: Unsure Hx Influenza Vaccine This Season: No Exam Narrative Exam Narrative: GENERAL: Alert and oriented moderate distress. Appears uncomfortable. SKIN: Focused skin assessment warm/dry. HEAD: Atraumatic. Normocephalic. EYES: Pupils equal and round. No scleral icterus. No injection or drainage. ENT: No nasal bleeding or discharge. Mucous membranes pink and moist. NECK: Trachea midline. No JVD. CARDIOVASCULAR: Regular rate and rhythm. No murmur appreciated. RESPIRATORY: No accessory muscle use. Clear to auscultation. Breath sounds equal bilaterally. GASTROINTESTINAL: Abdomen obese soft, non-tender, nondistended. Hepatic and splenic margins not palpable. MUSCULOSKELETAL: No obvious deformities. No clubbing. No cyanosis. No edema. NEUROLOGICAL: Awake and alert. No obvious cranial nerve deficits. Motor grossly within normal limits. Normal speech. PSYCHIATRIC: Appropriate mood and affect; insight and judgment normal. Course Initial Documented Vital Signs Temperature 97.5 F L 11/13/17 05:05 Pulse Rate 92 H 11/13/17 05:05 Respiratory Rate 20 11/13/17 05:05 Blood Pressure 180/108 H 11/13/17 05:05 Pulse Oximetry 96 11/13/17 05:05 Last Documented Vital Signs Temperature 97.5 F L 11/13/17 05:05 Pulse Rate 83 11/13/17 06:00 Respiratory Rate 18 11/13/17 06:00 Blood Pressure 142/86 H 11/13/17 06:00 Pulse Oximetry 96 11/13/17 07:25 Medical Decision Making [facility] Narrative Medical decision making narrative: 0740: Received signout from Dr. garcia for Ct chest. patient c/o chest pain and rectal blood. I did the rectal exam: brown stool, guaiac negative. CXR: CONCLUSION: New small parenchymal consolidation involving the right midlung. Patient is reporting cough and subjective fevers. Will give dose of 1 gram IV rocephin and 500mg po zithromax. Patient is awaiting CT chest. Also requesting med for L upper back pain, will give 1 norco 5/325mg po. CT: CONCLUSION:1. No significant change is appreciated within the lung parenchyma compared to the 2016 examination. There are nonspecific bilateral chronic areas of consolidation, interstitial changes, and architectural distortion.2. Stable chronic right pleural thickening and pleural calcification.3. Stable nonspecific mediastinal lymphadenopathy. Medical Screen Exam Complete: Yes Emergency Medical Condition: Yes Lab Data Result diagrams: 11/13/17 05:40 11/13/17 06:50 Lab Results 11/13/17 11/13/17 11/13/17 Range/Units 05:40 05:40 06:50 WBC 6.0 (4.0-11.0) th/mm3 RBC 5.36 (4.50-5.90) mil/mm3 Hgb 14.9 (13.0-17.0) gm/dL Hct 43.9 (39.0-51.0) % MCV 81.9 (80.0-100.0) fL MCH 27.8 (27.0-34.0) pg MCHC 34.0 (32.0-36.0) % RDW 14.8 (11.6-17.2) % Plt Count 279 (150-450) th/mm3 MPV 7.5 (7.0-11.0) fL Neut % (Auto) 52.5 (16.0-70.0) % Lymph % (Auto) 31.6 (9.0-44.0) % Wetzel % (Auto) 10.6 H (0.0-8.0) % Eos % (Auto) 4.6 H (0.0-4.0) % Baso % (Auto) 0.7 (0.0-2.0) % Neut # (Auto) 3.1 (1.8-7.7) th/mm3 Lymph # (Auto) 1.9 (1.0-4.8) th/mm3 Wetzel # (Auto) 0.6 (0.0-0.9) th/mm3 Eos # (Auto) 0.3 (0.0-0.4) th/mm3 Baso # (Auto) 0.0 (0.0-0.2) th/mm3 WBC Differential . Differential Comment Auto diff final PT 10.7 (9.8-11.6) sec INR 1.1 Ratio APTT 26.7 (24.3-30.1) sec Sodium 139 (136-145) meq/L Potassium 4.5 (3.5-5.1) meq/L Chloride 105 (98-107) meq/L Carbon Dioxide 25.6 (21.0-32.0) meq/L Anion Gap 8 (5-15) meq/L BUN 14 (7-18) mg/dL Creatinine 0.91 (0.60-1.30) mg/dL Estimated GFR Greater than 89 (>89) mL/min Random Glucose 97 (74-106) mg/dL Calcium 8.4 L (8.5-10.1) mg/dL Total Bilirubin 0.4 (0.2-1.0) mg/dL AST 33 (15-37) U/L ALT 21 (12-78) U/L Alkaline Phosphatase 85 (45-117) U/L Troponin I Less than 0.02 L (0.02-0.05) ng/mL Total Protein 8.1 (6.4-8.2) g/dL Albumin 3.5 (3.4-5.0) g/dL Imaging Data Radiologist's impression: Chest X-Ray 11/13/17 05:30 CONCLUSION: New small parenchymal consolidation involving the right midlung. Chest CT 11/13/17 06:34 CONCLUSION: 1. No significant change is appreciated within the lung parenchyma compared to the 2016 examination. There are nonspecific bilateral chronic areas of consolidation, interstitial changes, and architectural distortion. 2. Stable chronic right pleural thickening and pleural calcification. 3. Stable nonspecific mediastinal lymphadenopathy. ECG Data Attestation: I personally reviewed and interpreted this ECG as follows: Interpretation: Sinus rhythm [address]-T wave abnormalities normal axis Discharge Plan Discharge Disposition Patient Disposition: 30 Still Patient Discharge Condition Condition: Stable Discharge Details Diagnosis: Sarcoidosis, Chest pain, Pneumonia Physicians Team ED Provider: Jt Armenta Attending Provider: Armando Christianson Discharge Interventions Interventions: Vital Signs Last Done: 11/13/17 06:00 Status ED Status: Admitted Patient
[2017-11-13] MEDS ORDERED: Morphine Inj 4 MG/ML Vial IV.PUSH ONE (05:35)
[2017-11-13 05:55] LABS: Baso % (Auto) 0.7 % (0.0-2.0); Eos # (Auto) 0.3 th/mm3 (0.0-0.4); Eos % (Auto) 4.6 % (0.0-4.0); Hematocrit 43.9 % (39.0-51.0); Hemoglobin 14.9 gm/dL (13.0-17.0); Lymph # (Auto) 1.9 th/mm3 (1.0-4.8); Lymph % (Auto) 31.6 % (9.0-44.0); Mean Corpuscular Hemoglobin 27.8 pg (27.0-34.0); Mean Corpuscular Volume 81.9 fL (80.0-100.0); Mean Platelet Volume 7.5 fL (7.0-11.0); Mono # (Auto) 0.6 th/mm3 (0.0-0.9); Mono % (Auto) 10.6 % (0.0-8.0); Neut # (Auto) 3.1 th/mm3 (1.8-7.7); Neut % (Auto) 52.5 % (16.0-70.0); Platelet Count 279 th/mm3 (150-450); Red Blood Count 5.36 mil/mm3 (4.50-5.90); Red Cell Distribution Width 14.8 % (11.6-17.2)
[2017-11-13 06:03] LABS: Activated Partial Thrombo Time 26.7 sec (24.3-30.1); INR 1.1 Ratio; Prothrombin Time 10.7 sec (9.8-11.6)
--- NOTE | 2017-11-13 06:09 | XR ---
EXAM DATE: 11/13/2017 5:56 AM EDT AGE/SEX: 52 years / Male INDICATIONS: Shortness of breath and left sided chest pain. CLINICAL DATA: This is the patient's initial encounter. Patient reports that signs and symptoms have been present for 2 days and indicates a pain score of Nonresponsive. MEDICAL/SURGICAL HISTORY: Chronic obstructive pulmonary disease. Congestive heart failure. Ast hma. Hypertension. None. [place]PAR[place]: [facility] [place]22/2017. . FINDINGS: A single AP view of the chest demonstrates new parenchymal consolidation involving the right midlung. Chronic interstitial changes are again noted. Chronic pleural thickening again seen involving the ri ght hemithorax. Heart is normal in size. Bony structures are unremarkable. CONCLUSION: New small parenchymal consolidation involving the right midlung. Electronically signed by: Frank Walton MD 11/13/2017 6:07 AM EDT
[2017-11-13 07:29] LABS: Alkaline Phosphatase 85 U/L (45-117); Total Protein 8.1 g/dL (6.4-8.2)
[2017-11-13 07:32] LABS: Alanine Aminotransferase 21 U/L (12-78); Albumin 3.5 g/dL (3.4-5.0); Anion Gap 8 meq/L (5-15); Aspartate Aminotransferase 33 U/L (15-37); Blood Urea Nitrogen 14 mg/dL (7-18); Calcium 8.4 mg/dL (8.5-10.1); Carbon Dioxide 25.6 meq/L (21.0-32.0); Chloride 105 meq/L (98-107); Glomerular Filtration Rate Greater Than 89 mL/min (>89); Glucose,Random 97 mg/dL (74-106); Sodium 139 meq/L (136-145)
[2017-11-13 07:33] LABS: Potassium 4.5 meq/L (3.5-5.1)
[2017-11-13] MEDS ORDERED: Azithromycin 250 MG Tablet PO ONE (07:42)
--- NOTE | 2017-11-13 08:44 | CT ---
EXAM DATE: 11/13/2017 8:15 AM EDT AGE/SEX: 52 years / Male INDICATIONS: Evaluate new parenchymal consolidation of mid-lung. CLINICAL DATA: This is the patient's initial encounter. Patient reports that signs and symptoms have been present for 1 day and indicates a pain score of 3/10. MEDICAL/SURGICAL HISTORY: Chronic obstructive pulmonary disease. Congestive heart failure. Hypert ension. None. RADIATION DOSE: 20.04 CTDI (mGy) [place] [facility] [place]. [facility] [place]AST[place] 03/17. . TECHNIQUE: Multiple contiguous axial images were obtained through the chest during bolus infusion of 70 ml Omnipaque 350 (iohexol) nonionic water-soluble contrast as a single exam dose. Images were obtained in suspended respiration using multiple row detector helical technique. Using automated exp osure control and adjustment of the mA and/or kV according to patient size, radiation dose was kept a s low as reasonably achievable to obtain optimal diagnostic quality images. DICOM format image data is available electronically for review and comparison. FINDINGS: Lungs: The lung parenchyma bilaterally is diffusely abnormal without significant change appreciated. In the left upper lobe there is a focal chronic airspace opacity with volume loss and surrounding ar chitectural distortion. A similar opacity is present in the right midlung zone. Subtle nodularity nathaniel aterally is stable and stable septal thickening is present. No new parenchymal consolidation is prese nt. Mediastinum: The heart and great vessels demonstrate no acute abnormality. Mediastinal lymphadenopa thy is stable with the largest lymph node being a right paratracheal lymph node measuring 2.1 cm in s hort axis diameter. There is also an enlarged subcarinal lymph node measuring 2.5 cm. Coronary artery calcification is present. Pleurae: There is stable right pleural thickening with pleural base calcification and trace pleural fluid. Axillae: No lymphadenopathy. Musculoskeletal: The bones and soft tissues demonstrate no acute abnormality. There are mild change s of the thoracic spine. Other: The visualized upper abdominal structures demonstrate no acute abnormality. CONCLUSION: 1. No significant change is appreciated within the lung parenchyma compared to the 2016 examination. There are nonspecific bilateral chronic areas of consolidation, interstitial changes, and architectu ral distortion. 2. Stable chronic right pleural thickening and pleural calcification. 3. Stable nonspecific mediastinal lymphadenopathy. Electronically signed by: Benjie Zavala MD 11/13/2017 8:43 AM EDT
--- NOTE | 2017-11-13 11:14 | P.HPIM ---
History of Present Illness Primary Care Physician: Marianna Jimenez History of Present Illness: Mr. Billings is a 52 year old male. He came to the emergency department primarily because of shortness of breath with also complaints of chest pain, back pain, and headache. Workup in the emergency department shows that he has evidence on chest x-ray and CT scan for pneumonia. At baseline he has sarcoidosis which could be contributory. He also has diastolic CHF at baseline. Other complaints include bilateral lower extremity swelling. At baseline he is on Lasix 40 mg p.o. twice daily. When seen his primary complaint is headache pain. First set of troponins has been negative. No other complaints at this time. Inpatient Certification: I certify that the inpatient services were ordered in accordance with Medicare regulations governing the order. This includes certification that hospital inpatient services are reasonable and necessary and in the case of services not specified as inpatient-only under 42 CFR 419.22(n), that they are appropriately provided as inpatient services in accordance to with the 2-midnight benchmark under 43 CFR 412.3(e) Estimated Total Length of Stay (Days): 3 Plans for Post Hospital Care: Home Review of Systems Constitutional: No fevers, no chills no night sweats, no fatigue, no weakness Eyes: No eye pain, no blurry vision, no loss of vision ENT: No sore throat, no ear pain, no rhinorrhea Cardiovascular: Positive chest pain, no tachycardia, no palpitations, no shortness of breath, no syncope Respiratory: No wheezing, no cough, positive shortness of breath Gastrointestinal: No abdominal pain, no black tarry stools, no bright red blood per rectum, no vomiting, no diarrhea Musculoskeletal: No joint pain, no muscle cramps, no stiffness, positive back pain Integumentary: No rash, no ulcers, no drainage Neurologic: No sensory loss, no loss of motor function, no dizziness, positive headache Psychiatric: No behavioral changes, no hallucinations, no suicidal ideations PMFSH - History History Provided By: Patient - Medical History Medical History: Medical History (Last Updated 11/13/17 @ 05:07 by Romeila Houston RN) Afib (Acute) Sarcoidosis (Acute) HBP (high blood pressure) (Acute) High cholesterol (Acute) CHF (congestive heart failure) COPD (chronic obstructive pulmonary disease) - Surgical History Surgical History: Surgical History (Last Reviewed 11/13/17 @ 05:39 by Jt Armenta DO) No history of previous surgery (Acute) - Family History Family History: Family History (Last Updated 11/13/17 @ 11:09 by Armando Christianson MD) Mother CVA (cerebral vascular accident) - Tobacco History Second Hand Smoke Exposure: No Smoking Status: Never smoker - Alcohol History How Often Do You Have a Drink Containing Alcohol: Monthly or less - Substance Use History Substance History: No History of Abuse - Travel History Recent Travel Out of the Country Within the Last 8 Weeks: No - Immunization History Tetanus Immunization: Unsure Hx Influenza Vaccine This Season: No Medications and Allergies Active Medications: Active Medications Al Hydroxide/Mg Hydroxide (Milk Of Minh Antunez) 30 ml PO Q12H PRN PRN Reason: Mild Constipation Apixaban (Eliquis) 5 mg PO BID KERRI Atorvastatin Calcium (Lipitor) 40 mg PO DAILY KERRI Doxepin HCl (Sinequan) 50 mg PO DAILY KERRI Folic Acid (Folic Acid) 1 mg PO DAILY KERRI Furosemide (Lasix Inj) 40 mg IV.PUSH BID@0700,1600 KERRI Gabapentin (Neurontin) 100 mg PO DAILY KERIR Azithromycin 500 mg/ Sodium (Chloride) 250 mls @ 250 mls/hr IV.SIG Q24H KERRI Ceftriaxone Sodium 1,000 mg/ (Sodium Chloride) 100 mls @ 200 mls/hr IV.SIG Q24H KERRI Methocarbamol (Robaxin) 500 mg PO Q6H KERRI Metoprolol Tartrate (Lopressor) 50 mg PO BID KERRI Morphine Sulfate (Morphine Inj) 4 mg IV.PUSH Q4H PRN PRN Reason: BREAKTHROUGH PAIN Non-Formulary Medication (Methotrexate (Pf) [Methotrexate (Pf)]) 20 mg SQ QWEEK [facility] Non-Formulary Medication (Diltiazem Hcl [Diltiazem Hcl]) 240 mg PO DAILY KERRI Ondansetron HCl (Zofran Inj) 4 mg IV.PUSH Q6H PRN PRN Reason: NAUSEA OR VOMITING Oxycodone/Acetaminophen (Percocet 5/325 Mg) 1 tab PO Q4H PRN PRN Reason: Pain 3 to 6 Oxycodone/Acetaminophen (Percocet 10/325 Mg) 1 tab PO Q4H PRN PRN Reason: Pain 7 to 10 Allergies Allergy/AdvReac Type Severity Reaction Status Date / Time No Known Allergies Allergy Verified 11/13/17 05:08 Home Medications Medication Instructions Recorded Confirmed Type apixaban [Eliquis] 5 mg PO BID 10/22/17 11/13/17 History atorvastatin 40 mg PO DAILY 10/22/17 11/13/17 History diltiazem HCl 240 mg PO DAILY 10/22/17 11/13/17 History doxepin 50 mg PO DAILY 10/22/17 11/13/17 History folic acid 1 mg PO DAILY 10/22/17 11/13/17 History furosemide [Lasix] 40 mg PO BID 10/22/17 11/13/17 History gabapentin 100 mg PO DAILY 10/22/17 11/13/17 History methotrexate (PF) 20 mg SUB-Q QWEEK 10/22/17 11/13/17 History metoprolol tartrate [Lopressor] 50 mg PO BID 10/22/17 11/13/17 History Exam Vital signs: Vital Signs 11/13/17 05:05 11/13/17 05:07 11/13/17 05:23 Temperature 97.5 F L Pulse Rate 92 H 86 Respiratory Rate 20 18 Blood Pressure 180/108 H Blood Pressure [Left Arm] 144/75 H Blood Pressure [Right Arm] 146/77 H Pulse Oximetry 96 98 11/13/17 05:38 11/13/17 06:00 11/13/17 07:25 Temperature Pulse Rate 81 83 Respiratory Rate 18 18 Blood Pressure 142/86 H Blood Pressure [Left Arm] Blood Pressure [Right Arm] Pulse Oximetry 97 99 96 11/13/17 08:46 Temperature Pulse Rate 72 Respiratory Rate 16 Blood Pressure 155/93 H Blood Pressure [Left Arm] Blood Pressure [Right Arm] Pulse Oximetry Intake & Output 11/12/17 11/13/17 11/13/17 18:59 06:59 18:59 Weight 138.346 kg Narrative: GENERAL: NAD, A&Ox3 HEAD: Normocephalic. NECK: Supple, trachea midline. No lymphadenopathy. EYES: No scleral icterus. No injection or drainage. CARDIOVASCULAR: Regular rate and rhythm without murmurs, gallops, or rubs. RESPIRATORY: Breath sounds equal bilaterally. No accessory muscle use. GASTROINTESTINAL: Abdomen soft, non-tender, nondistended. MUSCULOSKELETAL: No cyanosis, mild to moderate edema lower extremities SKIN: Warm and dry. NEURO: No focal neurological deficits. Results - Labs CBC & Chem 7: 11/13/17 05:40 11/13/17 06:50 Labs: Short CBC 11/13/17 Range/Units 05:40 WBC 6.0 (4.0-11.0) th/mm3 Hgb 14.9 (13.0-17.0) gm/dL Hct 43.9 (39.0-51.0) % Plt Count 279 (150-450) th/mm3 BMP 11/13/17 06:50 Sodium 139 Potassium 4.5 Chloride 105 Carbon Dioxide 25.6 BUN 14 Creatinine 0.91 Calcium 8.4 L Cardiac Enzymes 11/13/17 Range/Units 06:50 Troponin I Less than 0.02 L (0.02-0.05) ng/mL Liver Function 11/13/17 Range/Units 06:50 Total Bilirubin 0.4 (0.2-1.0) mg/dL AST 33 (15-37) U/L ALT 21 (12-78) U/L Alkaline Phosphatase 85 (45-117) U/L Albumin 3.5 (3.4-5.0) g/dL - Imaging Impressions Chest X-Ray 11/13/17 05:30 CONCLUSION: New small parenchymal consolidation involving the right midlung. Chest CT 11/13/17 06:34 CONCLUSION: 1. No significant change is appreciated within the lung parenchyma compared to the 2016 examination. There are nonspecific bilateral chronic areas of consolidation, interstitial changes, and architectural distortion. 2. Stable chronic right pleural thickening and pleural calcification. 3. Stable nonspecific mediastinal lymphadenopathy. Caprini VTE Risk Assessment Caprini VTE Risk Assessment: Moderate/High Risk (score >= 2) Caprini Risk Assessment Model: Point Value = 1 Point Value = 2 Point Value = 3 Point Value = 5 Age 41-60 Minor surgery BMI > 25 kg/m2 Swollen legs Varicose veins or History of unexplained or recurrent spontaneous Oral contraceptives or hormone replacement Sepsis (< 1 month) Serious lung disease, including pneumonia (< 1 month) Abnormal pulmonary function Acute myocardial infarction Congestive heart failure (< 1 month) History of inflammatory bowel disease Medical patient at bed rest Age 61-74 Arthroscopic surgery Major open surgery (> 45 min) Laparoscopic surgery (> 45 min) Malignancy Confined to bed (> 72 hours) Immobilizing plaster cast Central venous access Age >= 75 History of VTE Family history of VTE Factor V Leiden Prothrombin [id number] Lupus anticoagulant Anticardiolipin antibodies Elevated serum homocysteine Heparin-induced thrombocytopenia Other congenital or acquired thrombophilia Stroke (< 1 month) Elective arthroplasty Hip, pelvis, or leg fracture Acute spinal cord injury (< 1 month) Prophylaxis Regimen: Total Risk Factor Score Risk Level Prophylaxis Regimen 0-1 Low Early ambulation 2 Moderate Order ONE of the following: *Sequential Compression Device (SCD) *Heparin 5000 units SQ BID 3-4 Higher Order ONE of the following medications: *Heparin 5000 units SQ TID *Enoxaparin/Lovenox 40 mg SQ daily (WT < 150 kg, CrCl > 30 mL/min) *Enoxaparin/Lovenox 30 mg SQ daily (WT < 150 kg, CrCl > 10-29 mL/min) *Enoxaparin/Lovenox 30 mg SQ BID (WT < 150 kg, CrCl > 30 mL/min) AND/OR *Sequential Compression Device (SCD) 5 or more Highest Order ONE of the following medications: *Heparin 5000 units SQ TID (Preferred with Epidurals) *Enoxaparin/Lovenox 40 mg SQ daily (WT < 150 kg, CrCl > 30 mL/min) *Enoxaparin/Lovenox 30 mg SQ daily (WT < 150 kg, CrCl > 10-29 mL/min) *Enoxaparin/Lovenox 30 mg SQ BID (WT < 150 kg, CrCl > 30 mL/min) AND *Sequential Compression Device (SCD) Assessment and Plan - Plan 52-year-old male admitted secondary to chest pain and pneumonia Community-acquired pneumonia Azithromycin Rocephin Probiotics Follow for improvement As needed pain treatments Chest pain Back pain Headache Likely related to pneumonia Evaluate for ACS Follow cardiac enzymes Aspirin daily When necessary oxygen When necessary Percocet/morphine for pain. When necessary nitroglycerin Follow on telemetry Atrial fibrillation Diastolic CHF Lower Extremity Edema Follow on telemetry No change in baseline treatments Change dose of Lasix to 40mg IV BID, for now Follow for improvement of edema Sarcoidosis Chronic Continue methotrexate Hypertension Continue baseline treatment Follow blood pressures Adjust treatments as needed Hyperlipidemia Continue present treatment Follow as an outpatient COPD No exacerbation Continue baseline treatments DVT prophylaxis Eliquis
[2017-11-13] MEDS: Morphine Inj 4 MG/ML Vial IV.PUSH PRN ×2 (11:53→16:39)
[2017-11-13] MEDS: oxyCODONE/Acetaminophen 10/325 Tablet PO PRN ×2 (13:41→20:51)
[2017-11-13] MEDS: Methocarbamol 500 MG Tablet PO SCH ×2 (13:41→18:01)
[2017-11-13] MEDS: Metoprolol Tartrate 50 MG Tablet PO SCH (20:52)
--- NOTE | 2017-11-13 21:39 | ECG ---
Date Performed: 11/13/2017 Time Performed: 05:20:00 PTAGE: 52 years EKG: Sinus rhythm POSSIBLE RIGHT VENTRICULAR CONDUCTION DELAY NONSPECIFIC ST ELEVATION BORDERLINE ECG PREVIOUS TRACING : 10/22/2017 13.08 Since the previous tracing, no significant change noted DOCTOR: Alejandro Rice Interpretating Date/Time 11/13/2017 21:37:25
[2017-11-14] MEDS: Methocarbamol 500 MG Tablet PO SCH ×4 (00:03→18:53)
[2017-11-14 00:55] LABS: Alkaline Phosphatase 91 U/L (45-117); Total Protein 8.3 g/dL (6.4-8.2)
[2017-11-14 01:21] LABS: Alanine Aminotransferase 22 U/L (12-78); Albumin 3.4 g/dL (3.4-5.0); Anion Gap 5 meq/L (5-15); Aspartate Aminotransferase 17 U/L (15-37); Blood Urea Nitrogen 15 mg/dL (7-18); Calcium 8.1 mg/dL (8.5-10.1); Carbon Dioxide 28.6 meq/L (21.0-32.0); Chloride 103 meq/L (98-107); Glomerular Filtration Rate 82 mL/min (>89); Glucose,Random 86 mg/dL (74-106); Potassium 4.9 meq/L (3.5-5.1); Sodium 137 meq/L (136-145)
[2017-11-14] MEDS: Morphine Inj 4 MG/ML Vial IV.PUSH PRN ×2 (04:35→11:18)
[2017-11-14] MEDS: Metoprolol Tartrate 50 MG Tablet PO SCH ×2 (08:25→21:02)
[2017-11-14] MEDS: Gabapentin 100 MG Capsule PO SCH (08:25)
[2017-11-14] MEDS: Folic Acid 1 MG Tablet PO SCH (08:25)
[2017-11-14] MEDS: dilTIAZem CD 240 MG Capsule PO SCH (08:25)
[2017-11-14] MEDS: oxyCODONE/Acetaminophen 10/325 Tablet PO PRN ×2 (08:33→18:54)
[2017-11-14] MEDS ORDERED: METHOTREXATE SQ SCH (09:00)
[2017-11-14] MEDS: Azithromycin Inj 500 MG in Sodium Chlor 0.9% Inj 250 ML IV.SIG SCH (10:06)
[2017-11-14 11:04] LABS: Baso % (Auto) 0.4 % (0.0-2.0); Eos # (Auto) 0.3 th/mm3 (0.0-0.4); Eos % (Auto) 4.6 % (0.0-4.0); Hemoglobin 14.8 gm/dL (13.0-17.0); Lymph # (Auto) 1.8 th/mm3 (1.0-4.8); Lymph % (Auto) 25.7 % (9.0-44.0); Mean Corpuscular Hemoglobin 27.2 pg (27.0-34.0); Mean Corpuscular Volume 82.4 fL (80.0-100.0); Mean Platelet Volume 7.5 fL (7.0-11.0); Mono # (Auto) 0.7 th/mm3 (0.0-0.9); Mono % (Auto) 9.6 % (0.0-8.0); Neut # (Auto) 4.2 th/mm3 (1.8-7.7); Neut % (Auto) 59.7 % (16.0-70.0); Platelet Count 296 th/mm3 (150-450); Red Blood Count 5.46 mil/mm3 (4.50-5.90); Red Cell Distribution Width 15.1 % (11.6-17.2); White Blood Count 7.1 th/mm3 (4.0-11.0)
--- NOTE | 2017-11-14 14:50 | P.PN ---
Subjective Interval history: Shortness of breath with activity but none with rest. No cough, no sputum. Complains of headache, neck pain, back pain and chest pain, unchanged from yesterday. Has history of chronic back pain. History of sarcoidosis, indicates he follows up with specialists at [facility]. He missed his appointment last week, was supposed to start Remicade. Is on chronic oxygen at home which according to he does not use regularly. Indicates he has a pressure-like headache, it is frontal, no changes in vision. is requesting Dilaudid for him. Physical Exam Vital signs: Vital Signs 11/13/17 16:00 11/13/17 19:00 11/13/17 19:39 Temperature 97.3 F L 97.2 F L Pulse Rate 75 75 84 Respiratory Rate 20 18 Blood Pressure 149/98 H 148/100 H Pulse Oximetry 100 97 11/13/17 20:00 11/14/17 00:00 11/14/17 04:00 Temperature 98 F 98.2 F Pulse Rate 82 76 95 H Respiratory Rate 18 18 Blood Pressure 140/102 H 151/94 H Pulse Oximetry 98 98 11/14/17 08:00 11/14/17 12:00 Temperature 99.0 F 97.3 F L Pulse Rate 91 H 77 Respiratory Rate 19 18 Blood Pressure 129/93 H 133/68 Pulse Oximetry 94 L 93 L Intake & Output 11/13/17 11/14/17 11/14/17 18:59 06:59 18:59 Intake Total 480 / 480 350 / 350 Output Total 550 / 550 1100 / 1100 Balance -550 / -550 -620 / -620 350 / 350 Weight 141.4 kg 140.8 kg Intake: IV 350 / 350 Azithromycin Inj 500 MG In NS 250 / 250 Inj 250 ML @ 250 mls/hr IV.SIG Q24H [facility] Rx#:[id number] Rocephin Inj 1,000 MG In NS Inj 100 / 100 100 ML @ 200 mls/hr IV.SIG Q24H [facility] Rx#:[id number] Oral 480 / 480 Output: Urine 550 / 550 1100 / 1100 Other: Date of Last Bowel Movement 11/12/17 # Bowel Movements 0 Weight On Admission 141.4 kg Narrative: GENERAL: Obese, black male. Does not appear in any distress. SKIN: Pinpoint lesions to right upper arm, appear to be healing. Skin discolored to both lower extremities. HEAD: Atraumatic. Normocephalic. EYES: Pupils equal and round. No scleral icterus. No injection or drainage. ENT: No nasal bleeding or discharge. Mucous membranes pink and moist. NECK: Trachea midline. No JVD. CARDIOVASCULAR: Regular rate and rhythm. RESPIRATORY: Essentially clear, slightly diminished at bases. GASTROINTESTINAL: Abdomen obese, soft, non-tender, nondistended. Hepatic and splenic margins not palpable. MUSCULOSKELETAL: Extremities without clubbing, cyanosis, or edema. No obvious deformities. NEUROLOGICAL: Awake and alert. No obvious cranial nerve deficits. Motor grossly within normal limits. Five out of 5 muscle strength in the arms and legs. Normal speech. PSYCHIATRIC: Appropriate mood and affect; insight and judgment normal. Results - Labs CBC & Chem 7: 11/14/17 10:24 11/13/17 23:52 Laboratory Results - last 24 hr 11/13/17 11/13/17 11/14/17 18:30 23:52 10:24 WBC 7.1 RBC 5.46 Hgb 14.8 Hct 45.0 MCV 82.4 MCH 27.2 MCHC 33.0 RDW 15.1 Plt Count 296 MPV 7.5 Neut % (Auto) 59.7 Lymph % (Auto) 25.7 [place] % (Auto) 9.6 H Eos % (Auto) 4.6 H Baso % (Auto) 0.4 Neut # (Auto) 4.2 Lymph # (Auto) 1.8 [place] # (Auto) 0.7 Eos # (Auto) 0.3 Baso # (Auto) 0.0 WBC Differential . Differential Comment Auto diff final Sodium 137 Potassium 4.9 Chloride 103 Carbon Dioxide 28.6 Anion Gap 5 BUN 15 Creatinine 1.13 Estimated GFR 82 L Random Glucose 86 Calcium 8.1 L Total Bilirubin 0.2 AST 17 ALT 22 Alkaline Phosphatase 91 Troponin I Less than 0.02 L Less than 0.02 L Total Protein 8.3 H Albumin 3.4 Assessment and Plan - Assessment (1) Pneumonia Code(s): J18.9 - Pneumonia, unspecified organism Status: Acute (2) Obesity Code(s): E66.9 - Obesity, unspecified Status: Chronic (3) Afib Code(s): I48.91 - Unspecified atrial fibrillation Status: Chronic (4) Sarcoidosis Code(s): D86.9 - Sarcoidosis, unspecified Status: Chronic (5) High cholesterol Code(s): E78.00 - Pure hypercholesterolemia, unspecified Status: Chronic (6) Diastolic heart failure Code(s): I50.30 - Unspecified diastolic (congestive) heart failure Status: Chronic - Plan 52-year-old male with significant past medical history of A. fib, obesity, diastolic heart failure, sarcoidosis oxygen dependent . Presented to the emergency room complaining of shortness of breath and chest pain. Found with pneumonia. Community-acquired pneumonia -Continue with empiric antibiotics -azithromycin and Rocephin -Continue with oxygen, duo nebs -probiotics Chest pain Back pain Headache Chronic back pain. Likely related to pneumonia Evaluate for ACS -Follow cardiac enzymes, negative. No evidence of ACS -Aspirin daily -Continue with oxygen at 4 L nasal cannula -Continue with morphine and Percocet as needed -Nitroglycerin as needed -Continuous cardiac telemetry monitoring Atrial fibrillation Diastolic CHF Lower Extremity Edema -Follow on telemetry -Continue diltiazem, beta-blue -Change dose of Lasix to 40mg IV BID, for now -Continue Eliquis -Follow for improvement of edema-improved today. 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 Hypertension -Continue diltiazem and beta-blue -Follow blood pressures -Adjust treatments as needed Hyperlipidemia -Continue statin COPD,No exacerbation -Continue with oxygen and DuoNeb's. Reported blood in the stool, H&H stable. History of internal and external hemorrhoids, follows up with GI as outpatient. -Stool for occult blood pending -Follow-up with GI as outpatient Stool softeners DVT prophylaxis Eliquis Plan of care discussed with patient and , questions answered in detail. (1) Pneumonia Qualifiers: Pneumonia type: due to unspecified organism Laterality: unspecified laterality Lung location: unspecified part of lung Qualified Code(s): J18.9 - Pneumonia, unspecified organism (2) Obesity Qualifiers: Obesity type: unspecified obesity type Body mass index: BMI 40.0-44.9 (3) Afib Qualifiers: Atrial fibrillation type: unspecified Qualified Code(s): I48.91 - Unspecified atrial fibrillation (6) Diastolic heart failure Qualifiers: Heart failure chronicity: chronic Qualified Code(s): I50.32 - Chronic diastolic (congestive) heart failure
[2017-11-14 15:59] LABS: ABG Base Excess 4.7 mmol/L (-2-2); ABG PCO2 57 mmHg (38-42); ABG PO2 56 mmHg (61-120)
[2017-11-15] MEDS: Methocarbamol 500 MG Tablet PO SCH ×4 (01:02→18:48)
[2017-11-15] MEDS: oxyCODONE/Acetaminophen 10/325 Tablet PO PRN ×4 (02:03→20:55)
[2017-11-15] MEDS: Morphine Inj 4 MG/ML Vial IV.PUSH PRN ×3 (05:43→18:47)
[2017-11-15] MEDS: Metoprolol Tartrate 50 MG Tablet PO SCH ×2 (08:15→20:55)
[2017-11-15] MEDS: Folic Acid 1 MG Tablet PO SCH (08:15)
[2017-11-15] MEDS: Gabapentin 100 MG Capsule PO SCH (08:15)
[2017-11-15] MEDS: dilTIAZem CD 240 MG Capsule PO SCH (08:15)
[2017-11-15] MEDS: Senna/Docusate Sodium 8.6/50 MG Tablet PO PRN (08:15)
[2017-11-15] MEDS: Azithromycin Inj 500 MG in Sodium Chlor 0.9% Inj 250 ML IV.SIG SCH (08:58)
--- NOTE | 2017-11-15 10:44 | CT ---
EXAM DATE: 11/15/2017 10:32 AM EDT AGE/SEX: 52 years / Male INDICATIONS: Headache. CLINICAL DATA: This is the patient's initial encounter. Patient reports that signs and symptoms have been present for 2 days and indicates a pain score of 2/10. MEDICAL/SURGICAL HISTORY: Congestive heart failure. Chronic obstructive pulmonary disease. A-fib. None. RADIATION DOSE: 40.11 CTDI (mGy) COMPARISON: No prior exams available for comparison. TECHNIQUE: CT of the head without contrast. Using automated exposure control and adjustment of the mA and/or kV according to patient size, radiation dose was kept as low as reasonably achievable to ob tain optimal diagnostic quality images. DICOM format image data is available electronically for revi ew and comparison. FINDINGS: There is no evidence for intracranial hemorrhage, mass effect, mass lesions, edema, or extra-axial fl uid collections. The visualized bony structures appear intact. The ventricles are normal size for t he patient's age. There are no signs of acute infarction for technique. There is mild mucoperiostea l thickening within the ethmoid air cells. CONCLUSION: Unremarkable study except for mild mucoperiosteal thickening within the ethmoid air cell s. Electronically signed by: Kelli Siegel MD 11/15/2017 10:43 AM EDT
[2017-11-15] MEDS: Budesonide-Formoterol 160/4.5 MCG 6 GM Inhaler INH SCH ×2 (10:54→20:55)
[2017-11-15] MEDS: Pantoprazole Sodium 20 MG DR Tablet PO SCH (10:54)
[2017-11-15] MEDS: MethylPREDNISolone Sod Succinate Inj 125 MG/2 ML Vial IV.PUSH SCH ×2 (10:55→18:48)
[2017-11-15 11:27] LABS: ABG Base Excess 5.7 mmol/L (-2-2); ABG PCO2 60 mmHg (38-42); ABG PO2 126 mmHg (61-120)
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
--- NOTE | 2017-11-15 12:59 | MB ---
cc: Nghia Lebron MD DATE: 11/15/2017 HISTORY OF PRESENT ILLNESS: The patient is a 52-year-old with past medical history of sarcoidosis diagnosed in 2007 per , atrial fibrillation on Eliquis, hypertension, hyperlipidemia, CHF, diastolic dysfunction. The patient was admitted to the hospitalist service on 11/13/2017 for worsening shortness of breath for the past 3 days associated with chest discomfort, and edema of lower extremities. Chest x-ray on arrival showed a new small consolidation involving the right midlung. Subsequently, the patient underwent CT scan of the chest, which showed no significant change appreciated within the lung parenchyma compared to the 2016 study. There are nonspecific bilateral chronic areas of consolidation, interstitial changes, and stable chronic right pleural thickening with pleural calcification and nonspecific mediastinal lymphadenopathy. He is being followed by Dr. Alexandra Payan at [facility], his outpatient manager plan. The patient is currently on methotrexate and his last treatment was 2 weeks ago. He was also on Remicade; however, the last time he received it was about 7 months ago. He reports shortness of breath with minimal exertion, in addition to chest discomfort with exertion and deep inspiration. He uses Ventolin and Advair at home. The patient also was prescribed oxygen; however, he does not use it. He also ruled in for obstructive sleep apnea, however, he refused to use a CPAP machine. The patient is a nonsmoker. According to the , he was treated for pneumonia several times in the past. He also reports wheezing associated with his shortness of breath; however, he denies any cough or any constitutional symptoms. He was started on antibiotic treatment. ABG was performed yesterday, which showed a pH of 7.34, CO2 of 57, PaO2 56, bicarbonate 30, and saturation of 88% on room air. He is currently on 3 liter oxygen with saturations of 97%. PAST MEDICAL HISTORY: Significant for atrial fibrillation, sarcoidosis, hypertension, hyperlipidemia, diastolic congestive heart failure, questionable COPD. PAST SURGICAL HISTORY: The patient had a lung biopsy per . SOCIAL HISTORY: Nonsmoker, social drinker. ALLERGIES: NO KNOWN DRUG ALLERGIES. MEDICATIONS AT HOME: Include Lopressor, Robaxin, Lasix, folic acid, diltiazem, Eliquis, atorvastatin, gabapentin. FAMILY HISTORY: Noncontributory to present illness. REVIEW OF SYSTEMS: As per HPI. Rest of review of systems is unremarkable. PHYSICAL EXAMINATION: GENERAL: A 52-year-old male lying in bed, in no acute respiratory distress. VITAL SIGNS: Temperature 97.7, pulse of 84, respiratory rate of 17, blood pressure 110/60, saturation 97% on 3 liters. HEENT: Atraumatic and normocephalic. Pupils equal, round, and reactive to light and accommodation. Extraocular muscles intact. Conjunctivae pink. Nonicteric sclerae. Oral mucosa within normal. NECK: Supple. No JVD, adenopathy, or thyromegaly. Trachea midline. CARDIOVASCULAR: Regular rate and rhythm. Normal S1, S2. No murmurs, rubs are appreciated. PULMONARY: Bilateral equal air entry with a few coarse breath sounds. ABDOMEN: Soft, obese, nontender. No distention. Positive bowel sounds. EXTREMITIES: No cyanosis, clubbing or edema. NEUROLOGIC: No focal sensory deficit. LABORATORY DATA: From 11/14/2017 showed a WBC 7.1, hemoglobin 14.1, hematocrit 48, platelet count 296. Sodium 137, potassium 4.9, chloride 103, CO2 is 28, BUN is 15, creatinine 1.13, glucose of 86. Troponin less than 0.02 x2 reported already. RADIOGRAPHIC STUDIES: CT chest showed no changes in pulmonary parenchyma compared to 04/2015 study. There are nonspecific bilateral chronic areas of consolidation, interstitial changes, stable chronic right pleural thickening and pleural calcification with nonspecific mediastinal lymphadenopathy. ASSESSMENT: 1. Acute hypercapnic and hypoxemic respiratory failure. 2. Exacerbation of sarcoidosis. 3. Chronic interstitial lung disease. 4. Obstructive sleep apnea. 5. Morbid obesity. 6. Atrial fibrillation, on Eliquis. 7. Hypertension. 8. History of diastolic congestive heart failure. 9. Hyperlipidemia. RECOMMENDATIONS: 1. Monitor neuro status closely. Avoid any sedatives. 2. Continue with oxygen and maintain sats above 92%. 3. Place on bronchodilators in the form of DuoNeb q. 2 hours p.r.n. for shortness of breath and Symbicort 160/4.5, two puffs b.i.d. 4. Start Solu-Medrol 60 mg IV q. 6. 5. BiPAP p.r.n. for respiratory distress. Check ABG now. 6. Continue with empiric antibiotics in the form of Rocephin and azithromycin. Monitor for signs of infection, which include fever and WBC. 7. Check a sputum culture with Gram stain. 8. Obtain a 2-D echo to evaluate LV function and to rule out pulmonary hypertension secondary to chronic interstitial lung disease. 9. Check Doppler ultrasound of lower extremity to rule out deep venous thrombosis. 10. The patient is on methotrexate, as well, being followed by [facility]. 11. PFTs, when stable to assess the severity of his lung disease, rule out obstructive and restrictive lung disease. 12. Gastrointestinal and deep venous thrombosis prophylaxis. He is on Eliquis 5 mg p.o. b.i.d. Further recommendations will be based on hospital course. Thank you for this consultation. MD ZAKIA Gonzalez/jersey , 10:20 AM , 10:37 AM
--- NOTE | 2017-11-15 15:14 | P.PN ---
Subjective Interval history: did not tolerate BIPAP last night, only used 1 hour. Awakes to voice, oriented x 3. C/O nausea, abd. pain epigastric area, c/o diffuse back, neck and chest discomfort, c/o persistent headache. at bsd Physical Exam Vital signs: Vital Signs 11/14/17 15:50 11/14/17 16:00 11/14/17 20:00 Temperature 98.4 F 98.3 F Pulse Rate 79 75 75 Respiratory Rate 18 21 Blood Pressure 118/76 121/71 Pulse Oximetry 98 97 11/14/17 20:50 11/15/17 00:00 11/15/17 04:00 Temperature 98.2 F 97.9 F Pulse Rate 82 74 Respiratory Rate 21 20 Blood Pressure 150/91 H 128/74 Pulse Oximetry 96 95 96 11/15/17 07:45 11/15/17 08:00 11/15/17 12:00 Temperature 98.1 F 97.7 F 97.7 F Pulse Rate 77 84 80 Respiratory Rate 17 17 17 Blood Pressure 140/82 110/66 149/100 H Pulse Oximetry 97 97 95 Intake & Output 11/14/17 11/15/17 11/15/17 18:59 06:59 18:59 Intake Total 1070 / 1070 240 / 240 350 / 350 Output Total 700 / 700 400 / 400 Balance 370 / 370 -160 / -160 350 / 350 Weight 140.7 kg Intake: IV 350 / 350 350 / 350 Azithromycin Inj 500 MG In NS 250 / 250 250 / 250 Inj 250 ML @ 250 mls/hr IV.SIG Q24H [facility] Rx#:[id number] Rocephin Inj 1,000 MG In NS Inj 100 / 100 100 / 100 100 ML @ 200 mls/hr IV.SIG Q24H [facility] Rx#:[id number] Oral 720 / 720 240 / 240 Output: Urine 700 / 700 400 / 400 Other: Date of Last Bowel Movement 11/12/17 11/12/17 Narrative: GENERAL: Obese, black male. Does not appear in any distress. SKIN: Pinpoint lesions to right upper arm, appear to be healing. Skin discolored to both lower extremities. HEAD: Atraumatic. Normocephalic. EYES: Pupils equal and round. No scleral icterus. No injection or drainage. ENT: No nasal bleeding or discharge. Mucous membranes pink and moist. NECK: Trachea midline. No JVD. CARDIOVASCULAR: Regular rate and rhythm. RESPIRATORY: Faint expiratory wheezing, diminished at bases GASTROINTESTINAL: Abdomen obese, soft, non-tender, nondistended. Hepatic and splenic margins not palpable. MUSCULOSKELETAL: Extremities without clubbing, cyanosis, or edema. No obvious deformities. NEUROLOGICAL: Awake and alert. No obvious cranial nerve deficits. Motor grossly within normal limits. Five out of 5 muscle strength in the arms and legs. Normal speech. PSYCHIATRIC: Appropriate mood and affect; insight and judgment normal. Results - Labs CBC & Chem 7: 11/14/17 10:24 11/13/17 23:52 Laboratory Results - last 24 hr 11/14/17 11/15/17 15:49 11:14 Puncture Site Right radial Left radial Patient Temperature 98.6 98.6 O2 Saturation 88 L* 97 ABG pH 7.34 L 7.34 L ABG pCO2 57 H* 60 H* ABG pO2 56 L* 126 H ABG HCO3 30 H 31 H ABG O2 Content 18.2 19.8 ABG Base Excess 4.7 H 5.7 H ABG Methemoglobin 1.1 1.1 Brian Test Present Present Hemoglobin 14.8 14.5 Carboxyhemoglobin 1.2 1.2 O2 Delivery Device Room air Nasal cannula Liter Flow 3.00 Inspired O2 21 Critical Value Yes Yes - Imaging Impressions Venous Doppler Study 11/15/17 00:00 CONCLUSION: 1. The study is negative for bilateral lower extremity deep venous thrombosis. Head CT 11/15/17 09:44 CONCLUSION: Unremarkable study except for mild mucoperiosteal thickening within the ethmoid air cells. Assessment and Plan - Assessment (1) Pneumonia Code(s): J18.9 - Pneumonia, unspecified organism Status: Acute (2) Obesity Code(s): E66.9 - Obesity, unspecified Status: Chronic (3) Afib Code(s): I48.91 - Unspecified atrial fibrillation Status: Chronic (4) Sarcoidosis Code(s): D86.9 - Sarcoidosis, unspecified Status: Chronic (5) High cholesterol Code(s): E78.00 - Pure hypercholesterolemia, unspecified Status: Chronic (6) Diastolic heart failure Code(s): I50.30 - Unspecified diastolic (congestive) heart failure Status: Chronic (7) Acute respiratory failure with hypoxia and hypercarbia Code(s): J96.01 - Acute respiratory failure with hypoxia; J96.02 - Acute respiratory failure with hypercapnia Status: Acute - Plan 52-year-old male with significant past medical history of A. fib, obesity, diastolic heart failure, sarcoidosis oxygen dependent . Presented to the emergency room complaining of shortness of breath and chest pain. Found with pneumonia. Acute hypercarbic and hypoxic respiratory failure possibly secondary to sarcoidosis. Lethargic on 11/14, ABGs done. Patient found hypercarbic. Put on BiPAP, did not tolerated well. Only lasted 1 hour. -Pulmonology consulted, input appreciated. Notes reviewed. Recommends IV steroids, echocardiogram to evaluate LV function presence of pulmonary hypertension. Likely this is an exacerbation of sarcoidosis. -Continue IV steroids, duo nebs, oxygen. -Patient has been recommended CPAP at home, likely has obstructive sleep apnea however he refuses to wear it. Discussed with patient and . Community-acquired pneumonia -Continue with empiric antibiotics -azithromycin and Rocephin -Continue with oxygen, duo nebs -probiotics Chest pain Back pain Headache Chronic back pain. Likely related to pneumonia Evaluate for ACS -Follow cardiac enzymes, negative. 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 Persistent headache ? elevated CO2 -will check CT of head -continue pain management. Hypertension -Continue diltiazem and beta-blue -Follow blood pressures -Adjust treatments as needed Hyperlipidemia -Continue statin COPD,No exacerbation -Continue with oxygen and DuoNeb's. Reported blood in the stool, H&H stable. History of internal and external hemorrhoids, follows up with GI as outpatient. -Stool for occult blood pending -Follow-up with GI as outpatient Stool softeners Complain of nausea today with epigastric discomfort -Zofran PRN -add Protonix 40 mg po daily DVT prophylaxis Eliquis Labs in am Plan of care discussed with patient and , questions answered in detail. (1) Pneumonia Qualifiers: Pneumonia type: due to unspecified organism Laterality: unspecified laterality Lung location: unspecified part of lung Qualified Code(s): J18.9 - Pneumonia, unspecified organism (2) Obesity Qualifiers: Obesity type: unspecified obesity type Body mass index: BMI 40.0-44.9 (3) Afib Qualifiers: Atrial fibrillation type: unspecified Qualified Code(s): I48.91 - Unspecified atrial fibrillation (6) Diastolic heart failure Qualifiers: Heart failure chronicity: chronic Qualified Code(s): I50.32 - Chronic diastolic (congestive) heart failure
[2017-11-15] MEDS: Furosemide 40 MG Tablet PO SCH (20:57)
[2017-11-16] MEDS: Morphine Inj 4 MG/ML Vial IV.PUSH PRN ×2 (00:32→23:24)
[2017-11-16] MEDS: MethylPREDNISolone Sod Succinate Inj 125 MG/2 ML Vial IV.PUSH SCH ×5 (00:32→23:24)
[2017-11-16] MEDS: Methocarbamol 500 MG Tablet PO SCH ×5 (00:33→23:24)
[2017-11-16] MEDS: oxyCODONE/Acetaminophen 10/325 Tablet PO PRN ×3 (06:02→21:50)
[2017-11-16] MEDS: dilTIAZem CD 240 MG Capsule PO SCH (09:04)
[2017-11-16] MEDS: Furosemide 40 MG Tablet PO SCH ×2 (09:05→21:50)
[2017-11-16] MEDS: Metoprolol Tartrate 50 MG Tablet PO SCH ×2 (09:05→21:50)
[2017-11-16] MEDS: Pantoprazole Sodium 20 MG DR Tablet PO SCH (09:05)
[2017-11-16] MEDS: Gabapentin 100 MG Capsule PO SCH (09:05)
[2017-11-16] MEDS: Folic Acid 1 MG Tablet PO SCH (09:05)
[2017-11-16] MEDS: Budesonide-Formoterol 160/4.5 MCG 6 GM Inhaler INH SCH ×2 (09:07→21:50)
[2017-11-16 09:41] LABS: Hematocrit 43.3 % (39.0-51.0); Mean Corpuscular HGB Conc 32.4 % (32.0-36.0); Mean Corpuscular Hemoglobin 26.9 pg (27.0-34.0); Mean Corpuscular Volume 83.1 fL (80.0-100.0); Mean Platelet Volume 7.8 fL (7.0-11.0); Platelet Count 312 th/mm3 (150-450); Red Blood Count 5.21 mil/mm3 (4.50-5.90); Red Cell Distribution Width 14.4 % (11.6-17.2); White Blood Count 18.8 th/mm3 (4.0-11.0)
[2017-11-16] MEDS: Azithromycin Inj 500 MG in Sodium Chlor 0.9% Inj 250 ML IV.SIG SCH (09:53)
[2017-11-16 10:14] LABS: Carbon Dioxide 30.1 meq/L (21.0-32.0); Potassium 4.2 meq/L (3.5-5.1)
--- NOTE | 2017-11-16 13:54 | P.PNPL ---
Subjective Interval history: Patient is feeling better today more awake and alert. Afebrile. Physical Exam Vital signs: Vital Signs 11/15/17 14:53 11/15/17 16:00 11/15/17 18:14 Temperature 97.4 F L Pulse Rate 68 Respiratory Rate 18 Blood Pressure 135/70 Pulse Oximetry 97 92 L 97 11/15/17 19:52 11/15/17 20:00 11/16/17 00:00 Temperature 97.5 F L 97.4 F L Pulse Rate 80 69 69 Respiratory Rate 18 20 21 Blood Pressure 154/73 H 129/71 Pulse Oximetry 91 L 90 L 11/16/17 00:35 11/16/17 00:41 11/16/17 04:00 Temperature 97.4 F L Pulse Rate 72 67 Respiratory Rate 16 14 20 Blood Pressure 137/74 Pulse Oximetry 98 98 11/16/17 04:44 11/16/17 08:00 11/16/17 08:52 Temperature 97.6 F Pulse Rate 74 72 Respiratory Rate 18 16 Blood Pressure 131/74 Pulse Oximetry 98 94 L 92 L 11/16/17 12:00 11/16/17 12:16 Temperature 97.2 F L Pulse Rate 92 H 68 Respiratory Rate 18 16 Blood Pressure 141/72 H Pulse Oximetry 96 Intake & Output 11/15/17 11/16/17 11/16/17 18:59 06:59 18:59 Intake Total 2150 / 2150 562 / 562 350 / 350 Output Total 600 / 600 800 / 800 Balance 1550 / 1550 -238 / -238 350 / 350 Weight 140.8 kg Intake: IV 350 / 350 350 / 350 Azithromycin Inj 500 MG In NS 250 / 250 250 / 250 Inj 250 ML @ 250 mls/hr IV.SIG Q24H [facility] Rx#:[id number] Rocephin Inj 1,000 MG In NS Inj 100 / 100 100 / 100 100 ML @ 200 mls/hr IV.SIG Q24H [facility] Rx#:[id number] Oral 1800 / 1800 562 / 562 Output: Urine 600 / 600 800 / 800 Other: Date of Last Bowel Movement 11/12/17 11/12/17 - Constitutional no acute distress, morbidly obese - Routine HEENT Exam Head: Present: normocephalic, atraumatic Eye: Present: EOMI, PERRL, normal accommodation ENT: Present: mucous membranes moist - Routine Neck Exam Present: supple, full ROM, trachea midline - Routine Respiratory Exam Present: CTA bilaterally - Routine Cardiovascular Exam Present: RRR, S1, S2 - Routine Abdominal Exam Present: soft, normoactive bowel sounds - Routine Extremities Exam Present: full ROM - Routine Skin Exam Present: intact - Routine Neurological Exam Present: alert, oriented X3, CN II-XII intact Assessment and Plan - Plan 1. Acute hypercapnic and hypoxemic respiratory failure. 2. Exacerbation of sarcoidosis. 3. Chronic interstitial lung disease. 4. Obstructive sleep apnea. 5. Morbid obesity. 6. Atrial fibrillation, on Eliquis. 7. Hypertension. 8. History of diastolic congestive heart failure. 9. Hyperlipidemia. Plan Monitor neuro status closely. Avoid any sedatives. Continue with oxygen and maintain sats > 92%. Bronchodilators -DuoNeb and Symbicort 160/4.5 Solu-Medrol 60 mg IV q. 6. BiPAP p.r.n. for respiratory distress. Check ABG Continue abx(Rocephin and azithromycin) Monitor for signs of infection( fever and WBC). Follow up on sputum cx- pending For 2D echo r/o pulm HTN Doppler US LE negative for DVT On methotrexate being followed by [facility]. GI and DVT prophylaxis -on Eliquis 5 mg p.o. b.i.d Continue treatment plan.
--- NOTE | 2017-11-16 14:37 | P.PN ---
Physical Exam Vital signs: Vital Signs 11/15/17 14:53 11/15/17 16:00 11/15/17 18:14 Temperature 97.4 F L Pulse Rate 68 Respiratory Rate 18 Blood Pressure 135/70 Pulse Oximetry 97 92 L 97 11/15/17 19:52 11/15/17 20:00 11/16/17 00:00 Temperature 97.5 F L 97.4 F L Pulse Rate 80 69 69 Respiratory Rate 18 20 21 Blood Pressure 154/73 H 129/71 Pulse Oximetry 91 L 90 L 11/16/17 00:35 11/16/17 00:41 11/16/17 04:00 Temperature 97.4 F L Pulse Rate 72 67 Respiratory Rate 16 14 20 Blood Pressure 137/74 Pulse Oximetry 98 98 11/16/17 04:44 11/16/17 08:00 11/16/17 08:52 Temperature 97.6 F Pulse Rate 74 72 Respiratory Rate 18 16 Blood Pressure 131/74 Pulse Oximetry 98 94 L 92 L 11/16/17 12:00 11/16/17 12:16 Temperature 97.2 F L Pulse Rate 90 68 Respiratory Rate 18 16 Blood Pressure 141/72 H Pulse Oximetry 96 Intake & Output 11/15/17 11/16/17 11/16/17 18:59 06:59 18:59 Intake Total 2150 / 2150 562 / 562 350 / 350 Output Total 600 / 600 800 / 800 Balance 1550 / 1550 -238 / -238 350 / 350 Weight 140.8 kg Intake: IV 350 / 350 350 / 350 Azithromycin Inj 500 MG In NS 250 / 250 250 / 250 Inj 250 ML @ 250 mls/hr IV.SIG Q24H [facility] Rx#:[id number] Rocephin Inj 1,000 MG In NS Inj 100 / 100 100 / 100 100 ML @ 200 mls/hr IV.SIG Q24H [facility] Rx#:[id number] Oral 1800 / 1800 562 / 562 Output: Urine 600 / 600 800 / 800 Other: Date of Last Bowel Movement 11/12/17 11/12/17 Results - Labs CBC & Chem 7: 11/16/17 08:42 11/16/17 08:42 Laboratory Results - last 24 hr 11/16/17 11/16/17 08:42 08:42 WBC 18.8 H RBC 5.21 Hgb 14.0 Hct 43.3 MCV 83.1 MCH 26.9 L MCHC 32.4 RDW 14.4 Plt Count 312 MPV 7.8 Sodium 136 Potassium 4.2 Chloride 97 L Carbon Dioxide 30.1 Anion Gap 9 BUN 19 H Creatinine 1.15 Estimated GFR 80 L Random Glucose 177 H Calcium 9.0 Microbiology 11/16/17 00:30 Sputum - Expectorated Sputum Gram Stain - Final Assessment and Plan - Assessment (1) Pneumonia Code(s): J18.9 - Pneumonia, unspecified organism Status: Acute (2) Obesity Code(s): E66.9 - Obesity, unspecified Status: Chronic (3) Afib Code(s): I48.91 - Unspecified atrial fibrillation Status: Chronic (4) Sarcoidosis Code(s): D86.9 - Sarcoidosis, unspecified Status: Chronic (5) High cholesterol Code(s): E78.00 - Pure hypercholesterolemia, unspecified Status: Chronic (6) Diastolic heart failure Code(s): I50.30 - Unspecified diastolic (congestive) heart failure Status: Chronic (7) Acute respiratory failure with hypoxia and hypercarbia Code(s): J96.01 - Acute respiratory failure with hypoxia; J96.02 - Acute respiratory failure with hypercapnia Status: Acute (8) Obstructive sleep apnea Code(s): G47.33 - Obstructive sleep apnea (adult) (pediatric) Status: Chronic - Plan 52-year-old male with significant past medical history of A. fib, obesity, diastolic heart failure, sarcoidosis oxygen dependent . Presented to the emergency room complaining of shortness of breath and chest pain. Found with pneumonia. Acute hypercarbic and hypoxic respiratory failure possibly secondary to sarcoidosis. Lethargic on 11/14, ABGs done. Patient found hypercarbic. Put on BiPAP, did not tolerated well. Only lasted 1 hour. Patient much more improved today, slept better. Indicates that he saw Dr. Villegas couple years ago and had sleep studies done in the past. -Pulmonology consulted, input appreciated. Notes reviewed. Recommends IV steroids, echocardiogram to evaluate LV function presence of pulmonary hypertension. Likely this is an exacerbation of sarcoidosis. -Continue IV steroids, duo nebs, oxygen. -BiPAP at at bedtime -Patient is to follow-up with pulmonology as outpatient for sleep study in home CPAP. He and verbalized understanding. Community-acquired pneumonia -Continue with empiric antibiotics -azithromycin and Rocephin -Continue with oxygen, duo nebs -probiotics Chest pain Back pain Headache Chronic back pain. Likely related to pneumonia Evaluate for ACS -Follow cardiac enzymes, negative. No evidence of ACS -Aspirin daily -Continue with oxygen at 4 L nasal cannula -Continue with morphine and Percocet as needed -Nitroglycerin as needed -Continuous cardiac telemetry monitoring Atrial fibrillation Diastolic CHF Lower Extremity Edema No evidence of CHF, stable. 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 -Continue IV steroids for now Persistent headache ? elevated CO2. Headache improved today, I slept with BiPAP overnight. -CT of the head negative -continue pain management. Hypertension -Continue diltiazem and beta-blue -Follow blood pressures -Adjust treatments as needed Hyperlipidemia -Continue statin COPD,No exacerbation -Continue with oxygen and DuoNeb's. Reported blood in the stool, H&H stable. History of internal and external hemorrhoids, follows up with GI as outpatient. -Stool for occult blood pending Stool softeners -H&H stable, no active bleeding. Patient can follow-up as outpatient with GI. Complain of nausea today with epigastric discomfort. Result. -Zofran PRN -Protonix 40 mg po daily Leukocytosis, likely secondary to steroids. No fever. Follow CBC DVT prophylaxis Eliquis Overall patient improving, possible discharge in 1-2 days. (1) Pneumonia Qualifiers: Pneumonia type: due to unspecified organism Laterality: unspecified laterality Lung location: unspecified part of lung Qualified Code(s): J18.9 - Pneumonia, unspecified organism (2) Obesity Qualifiers: Obesity type: unspecified obesity type Body mass index: BMI 40.0-44.9 (3) Afib Qualifiers: Atrial fibrillation type: unspecified Qualified Code(s): I48.91 - Unspecified atrial fibrillation (6) Diastolic heart failure Qualifiers: Heart failure chronicity: chronic Qualified Code(s): I50.32 - Chronic diastolic (congestive) heart failure
[2017-11-17] MEDS: oxyCODONE/Acetaminophen 10/325 Tablet PO PRN ×4 (01:50→18:21)
[2017-11-17] MEDS: MethylPREDNISolone Sod Succinate Inj 125 MG/2 ML Vial IV.PUSH SCH (04:12)
[2017-11-17] MEDS: Morphine Inj 4 MG/ML Vial IV.PUSH PRN (05:16)
[2017-11-17 05:29] LABS: ABG PCO2 53 mmHg (38-42); ABG PO2 65 mmHg (61-120)
[2017-11-17] MEDS: Methocarbamol 500 MG Tablet PO SCH ×4 (06:37→23:54)
[2017-11-17 06:41] LABS: Hematocrit 42.5 % (39.0-51.0); Hemoglobin 14.3 gm/dL (13.0-17.0); Mean Corpuscular HGB Conc 33.5 % (32.0-36.0); Mean Corpuscular Hemoglobin 27.2 pg (27.0-34.0); Mean Corpuscular Volume 80.9 fL (80.0-100.0); Platelet Count 338 th/mm3 (150-450); Red Blood Count 5.26 mil/mm3 (4.50-5.90); Red Cell Distribution Width 14.6 % (11.6-17.2); White Blood Count 23.9 th/mm3 (4.0-11.0)
[2017-11-17] MEDS: Gabapentin 100 MG Capsule PO SCH (08:55)
[2017-11-17] MEDS: Metoprolol Tartrate 50 MG Tablet PO SCH ×2 (08:55→21:32)
[2017-11-17] MEDS: dilTIAZem CD 240 MG Capsule PO SCH (08:56)
[2017-11-17] MEDS: Furosemide 40 MG Tablet PO SCH ×2 (08:56→21:32)
[2017-11-17] MEDS: Pantoprazole Sodium 20 MG DR Tablet PO SCH (08:56)
[2017-11-17] MEDS: Azithromycin Inj 500 MG in Sodium Chlor 0.9% Inj 250 ML IV.SIG SCH (08:56)
[2017-11-17] MEDS: Folic Acid 1 MG Tablet PO SCH (08:56)
[2017-11-17] MEDS: Budesonide-Formoterol 160/4.5 MCG 6 GM Inhaler INH SCH ×2 (09:02→21:32)
--- NOTE | 2017-11-17 09:36 | ECHRPT ---
Indication: Shortness of Breath CONCLUSIONS The left ventricular systolic function is normal with an estimated ejection fraction in the range of 55-60%. Mild concentric left ventricular hypertrophy. Normal left ventricular size. The left atrial size is mildly dilated. Pulmonary arterial systolic pressure could not be estimated due to an insufficient tricuspid valve regurgitation doppler jet for measurement. The inferior vena cava was not well visualized. BP: / HR: Rhythm: Sinus MEASUREMENTS (Male / Female) Normal Values Technical Quality:Technically difficult study 2D ECHO LV Diastolic Diameter PLAX 5.0 cm 4.2 - 5.9 / 3.9 - 5.3 cm LV Systolic Diameter PLAX 3.4 cm IVS Diastolic Thickness 1.3 cm 0.6 - 1.0 / 0.6 - 0.9 cm LVPW Diastolic Thickness 1.2 cm 0.6 - 1.0 / 0.6 - 0.9 cm LV Relative Wall Thickness 0.5 RV Internal Dim ED PLAX 2.7 cm LVOT Diameter 2.0 cm LA Systolic Diameter LX 4.2 cm 3.0 - 4.0 / 2.7 - 3.8 cm M-MODE Aortic Root Diameter MM 3.6 cm LA Systolic Diameter MM 3.8 cm LA Ao Ratio MM 1.1 AV Cusp Separation MM 2.5 cm DOPPLER AV Peak Velocity 176.0 cm/s AV Peak Gradient 12.4 mmHg LVOT Peak Velocity 137.5 cm/s LVOT Peak Gradient 7.6 mmHg AV Area Cont Eq pk 2.5 cm MV Area PHT 3.5 cm Mitral E Point Velocity 66.6 cm/s Mitral A Point Velocity 71.1 cm/s Mitral E to A Ratio 0.9 LV E' Lateral Velocity 12.6 cm/s Mitral E to LV E' Lateral Ratio 5.3 LV E' Septal Velocity 8.7 cm/s Mitral E to LV E' Septal Ratio 7.7 FINDINGS LEFT VENTRICLE The left ventricular systolic function is normal with an estimated ejection fraction in the range of 55-60%. Mild concentric left ventricular hypertrophy. Normal left ventricular size. RIGHT VENTRICLE Normal right ventricular size and systolic function. LEFT ATRIUM The left atrial size is mildly dilated. RIGHT ATRIUM The right atrial size is normal. AORTA The aortic root and proximal ascending aorta are normal in size on limited imaging. MITRAL VALVE Structurally normal mitral valve. No mitral valve stenosis or regurgitation. AORTIC VALVE Trileaflet aortic valve. No aortic valve stenosis or regurgitation. TRICUSPID VALVE Structurally normal tricuspid valve. Pulmonary arterial systolic pressure could not be estimated due to an insufficient tricuspid valve regurgitation doppler jet for measurement. PULMONARY VALVE No pulmonary valve regurgitation or stenosis. VESSELS The inferior vena cava was not well visualized. PERICARDIUM No pericardial effusion. Antonio Meyers MD (Electronically Signed) Final Date:17 November 2017 09:34
--- NOTE | 2017-11-17 10:26 | P.PNPL ---
Subjective Interval history: No events overnight patient is awake and alert on room air oxygen when seen. Afebrile. ABG early this morning looks better. Physical Exam Vital signs: Vital Signs 11/16/17 12:00 11/16/17 12:16 11/16/17 16:00 Temperature 97.2 F L 97.7 F Pulse Rate 90 68 84 Respiratory Rate 18 16 18 Blood Pressure 141/72 H 143/72 H Pulse Oximetry 96 97 11/16/17 16:01 11/16/17 19:46 11/16/17 20:00 Temperature 97.8 F Pulse Rate 68 68 79 Respiratory Rate 16 16 16 Blood Pressure 138/75 Pulse Oximetry 96 11/17/17 00:00 11/17/17 01:48 11/17/17 01:54 Temperature 98 F Pulse Rate 82 76 Respiratory Rate 16 18 Blood Pressure 130/74 Pulse Oximetry 96 95 11/17/17 04:00 11/17/17 07:41 11/17/17 08:00 Temperature 98 F 97.1 F L Pulse Rate 83 83 67 Respiratory Rate 17 17 18 Blood Pressure 123/93 H 128/73 Pulse Oximetry 97 97 98 Intake & Output 11/16/17 11/17/17 11/17/17 18:59 06:59 18:59 Intake Total 830 / 830 960 / 960 Output Total 500 / 500 Balance 330 / 330 960 / 960 Weight 141 kg Intake: IV 350 / 350 Azithromycin Inj 500 MG In NS 250 / 250 Inj 250 ML @ 250 mls/hr IV.SIG Q24H [facility] Rx#:[id number] Rocephin Inj 1,000 MG In NS Inj 100 / 100 100 ML @ 200 mls/hr IV.SIG Q24H [facility] Rx#:[id number] Oral 480 / 480 960 / 960 Output: Urine 500 / 500 Other: Date of Last Bowel Movement 11/10/17 - Constitutional no acute distress, morbidly obese - Routine HEENT Exam Head: Present: normocephalic, atraumatic Eye: Present: EOMI, PERRL, normal accommodation, conjunctivae pink ENT: Present: mucous membranes moist - Routine Neck Exam Present: supple, full ROM, trachea midline - Routine Respiratory Exam Present: CTA bilaterally - Routine Cardiovascular Exam Present: RRR, S1, S2 - Routine Abdominal Exam Present: soft, normoactive bowel sounds - Routine Extremities Exam Present: full ROM, pulses intact - Routine Skin Exam Present: intact - Routine Neurological Exam Present: alert, oriented X3, CN II-XII intact - Routine Psychiatric Exam Present: normal affect Assessment and Plan - Plan 1. Acute hypercapnic and hypoxemic respiratory failure. 2. Exacerbation of sarcoidosis. 3. Chronic interstitial lung disease. 4. Obstructive sleep apnea. 5. Morbid obesity. 6. Atrial fibrillation, on Eliquis. 7. Hypertension. 8. History of diastolic congestive heart failure. 9. Hyperlipidemia. 10 Leukocytosis Plan Monitor neuro status closely. Avoid any sedatives. Continue with oxygen and maintain sats > 92%. Bronchodilators -DuoNeb and Symbicort 160/4.5 Taper steroids- Decrease Solu-Medrol 40mg IV Q8 BiPAP p.r.n. for respiratory distress. ABG this morning - improvement in his resp acidosis. Continue abx(Rocephin and azithromycin) Monitor for signs of infection( fever and WBC). sputum cx- normal resp britney Echo showed EF 55-60%, normal RV size and function. PASP could not be estimated due to an insufficient TV regurgitation doppler jet for measurement. Doppler US LE negative for DVT On methotrexate being followed by [facility]. GI and DVT prophylaxis -on Eliquis 5 mg p.o. b.i.d Continue treatment plan.
--- NOTE | 2017-11-17 10:36 | P.PN ---
Subjective Interval history: follow up for sob, pna, sarcoidosis: pt. more awake, feels well rested. Used BIPAP all night, no cp, no sob. No fever. C/O epigastric discomfort, feels "bloated" after eating and some heartburn. No hx of wt loss. Was nauseous yesterday. Saw Dr. Lopez 2 years ago and had EGD and was treated for "lazy bowel ". No follow up since then. Doesn't recall taking prokinetic agents. at bsd, wants him to be evaluated here. Doesn't want to wait for OP follow up as recommended. Physical Exam Vital signs: Vital Signs 11/16/17 12:00 11/16/17 12:16 11/16/17 16:00 Temperature 97.2 F L 97.7 F Pulse Rate 90 68 84 Respiratory Rate 18 16 18 Blood Pressure 141/72 H 143/72 H Pulse Oximetry 96 97 11/16/17 16:01 11/16/17 19:46 11/16/17 20:00 Temperature 97.8 F Pulse Rate 68 68 79 Respiratory Rate 16 16 16 Blood Pressure 138/75 Pulse Oximetry 96 11/17/17 00:00 11/17/17 01:48 11/17/17 01:54 Temperature 98 F Pulse Rate 82 76 Respiratory Rate 16 18 Blood Pressure 130/74 Pulse Oximetry 96 95 11/17/17 04:00 11/17/17 07:41 11/17/17 08:00 Temperature 98 F 97.1 F L Pulse Rate 83 83 67 Respiratory Rate 17 17 18 Blood Pressure 123/93 H 128/73 Pulse Oximetry 97 97 98 Intake & Output 11/16/17 11/17/17 11/17/17 18:59 06:59 18:59 Intake Total 830 / 830 960 / 960 Output Total 500 / 500 Balance 330 / 330 960 / 960 Weight 141 kg Intake: IV 350 / 350 Azithromycin Inj 500 MG In NS 250 / 250 Inj 250 ML @ 250 mls/hr IV.SIG Q24H [facility] Rx#:[id number] Rocephin Inj 1,000 MG In NS Inj 100 / 100 100 ML @ 200 mls/hr IV.SIG Q24H [facility] Rx#:[id number] Oral 480 / 480 960 / 960 Output: Urine 500 / 500 Other: Date of Last Bowel Movement 11/10/17 Narrative: GENERAL: Obese, black male. Does not appear in any distress. SKIN: Pinpoint lesions to right upper arm, appear to be healing. Skin discolored to both lower extremities. HEAD: Atraumatic. Normocephalic. EYES: Pupils equal and round. No scleral icterus. No injection or drainage. ENT: No nasal bleeding or discharge. Mucous membranes pink and moist. NECK: Trachea midline. No JVD. CARDIOVASCULAR: Regular rate and rhythm. RESPIRATORY: Faint expiratory wheezing, diminished at bases GASTROINTESTINAL: Abdomen obese, soft, non-tender, nondistended. Hepatic and splenic margins not palpable. MUSCULOSKELETAL: Extremities without clubbing, cyanosis, or edema. No obvious deformities. NEUROLOGICAL: Awake and alert. No obvious cranial nerve deficits. Motor grossly within normal limits. Five out of 5 muscle strength in the arms and legs. Normal speech. PSYCHIATRIC: Appropriate mood and affect; insight and judgment normal. Results - Labs CBC & Chem 7: 11/17/17 05:31 11/16/17 08:42 Laboratory Results - last 24 hr 11/17/17 11/17/17 01:27 05:31 WBC 23.9 H RBC 5.26 Hgb 14.3 Hct 42.5 MCV 80.9 MCH 27.2 MCHC 33.5 RDW 14.6 Plt Count 338 MPV 8.0 Puncture Site Left radial Patient Temperature 98.6 O2 Saturation 91 ABG pH 7.37 L ABG pCO2 53 H* ABG pO2 65 ABG HCO3 30 H ABG O2 Content 18.5 ABG Base Excess 5.0 H ABG Methemoglobin 1.1 Brian Test Present Hemoglobin 14.4 Carboxyhemoglobin 1.1 O2 Delivery Device Room air Inspired O2 21 Critical Value Yes Microbiology 11/16/17 00:30 Sputum - Expectorated Sputum Gram Stain - Final 11/16/17 00:30 Sputum - Expectorated Sputum Sputum Culture - Preliminary Heavy growth normal respiratory britney at 24 hours Assessment and Plan - Assessment (1) Pneumonia Code(s): J18.9 - Pneumonia, unspecified organism Status: Acute (2) Obesity Code(s): E66.9 - Obesity, unspecified Status: Chronic (3) Afib Code(s): I48.91 - Unspecified atrial fibrillation Status: Chronic (4) Sarcoidosis Code(s): D86.9 - Sarcoidosis, unspecified Status: Chronic (5) High cholesterol Code(s): E78.00 - Pure hypercholesterolemia, unspecified Status: Chronic (6) Diastolic heart failure Code(s): I50.30 - Unspecified diastolic (congestive) heart failure Status: Chronic (7) Acute respiratory failure with hypoxia and hypercarbia Code(s): J96.01 - Acute respiratory failure with hypoxia; J96.02 - Acute respiratory failure with hypercapnia Status: Acute (8) Obstructive sleep apnea Code(s): G47.33 - Obstructive sleep apnea (adult) (pediatric) Status: Chronic - Plan 52-year-old male with significant past medical history of A. fib, obesity, diastolic heart failure, sarcoidosis oxygen dependent . Presented to the emergency room complaining of shortness of breath and chest pain. Found with pneumonia. Acute hypercarbic and hypoxic respiratory failure possibly secondary to sarcoidosis. Lethargic on 11/14, ABGs done. Patient found hypercarbic. Put on BiPAP, did not tolerated well. Only lasted 1 hour. Patient much more improved today, slept better. Indicates that he saw Dr. Villegas couple years ago and had sleep studies done in the past. -Pulmonology consulted, input appreciated. Notes reviewed. Recommends IV steroids, echocardiogram to evaluate LV function presence of pulmonary hypertension. Likely this is an exacerbation of sarcoidosis. -Continue IV steroids, duo nebs, oxygen. -BiPAP at at bedtime -Patient is to follow-up with pulmonology as outpatient for sleep study in home CPAP. He and verbalized understanding. Community-acquired pneumonia -Continue with empiric antibiotics -azithromycin and Rocephin-DC today and start PO abx-Augmentin -Continue with oxygen, duo nebs -probiotics Chest pain Back pain Headache Chronic back pain. Likely related to pneumonia Evaluate for ACS -Follow cardiac enzymes, negative. No evidence of ACS -Aspirin daily -Continue with oxygen at 4 L nasal cannula -Continue with morphine and Percocet as needed -Nitroglycerin as needed -Continuous cardiac telemetry monitoring Atrial fibrillation Diastolic CHF Lower Extremity Edema No evidence of CHF, stable. -Follow on telemetry -Continue diltiazem, beta-blue -Lasix 40 mg PO BID -Continue Eliquis -Echo done EF 55-60%, mild LVH. 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 -Continue IV steroids -start weaning off, dec. to 40 mg IV q 8 Persistent headache ? elevated CO2. Headache improved today, I slept with BiPAP overnight. resolved. -CT of the head negative -continue pain management. Hypertension -Continue diltiazem and beta-blue -Follow blood pressures -Adjust treatments as needed Hyperlipidemia -Continue statin COPD,No exacerbation -Continue with oxygen and DuoNeb's. Reported blood in the stool, H&H stable. History of internal and external hemorrhoids, follows up with GI as outpatient. -Stool for occult blood pending Stool softeners -H&H stable, no active bleeding. Patient can follow-up as outpatient with GI. Complain of nausea today with epigastric discomfort. feels bloated, nauseous, c/o heartburn. Hx what sounds like gastroparesis. wants him to be evaluated here. Recommended OP eval with GI until he is more stable with resp. issues. -Zofran PRN -Continue Protonix 40 mg po daily -Consult GI -may need GES Leukocytosis, likely secondary to steroids. No fever. Follow CBC -WBC 23.9, no fever. DVT prophylaxis Eliquis Overall patient improving, possible discharge in 1-2 days. (1) Pneumonia Qualifiers: Qualified Code(s): J18.9 - Pneumonia, unspecified organism (3) Afib Qualifiers: Qualified Code(s): I48.91 - Unspecified atrial fibrillation (6) Diastolic heart failure Qualifiers: Qualified Code(s): I50.32 - Chronic diastolic (congestive) heart failure
[2017-11-17] MEDS: MethylPREDNISolone Sod Succinate Inj 40 MG/ML Vial IV.PUSH SCH ×2 (12:48→21:32)
[2017-11-17] MEDS: Senna/Docusate Sodium 8.6/50 MG Tablet PO PRN (21:42)
--- NOTE | 2017-11-17 21:54 | P.CONGI ---
History of Present Illness Consult date: 11/17/17 Consult reason: Bloating, nausea, GI bleed Chief complaint: Chest pain, Rectal Bleed, Pna, Sarcoid History of Present Illness: Patient is known to our service from prior encounters with known history of gastroparesis etiology unclear is currently in the hospital with shortness of breath chest pain and pneumonia he reported seeing some blood in his stool but his hemoglobin is stable and complains of being bloated and distended with nausea and is asked to be evaluated while in the hospital currently he is comfortable in bed although he does have discomfort with breathing and with abdominal distention there has been no nausea or vomiting and no further episodes of bleeding the patient and his report a history of internal and external hemorrhoids and reported a history of hemorrhoidectomy the patient has been scoped in the past with Dr. Lopez Review of Systems All other systems reviewed negative except as stated in HPI [facility] - History History Provided By: Patient - Medical History Medical History: Medical History (Last Reviewed 11/15/17 @ 08:24 by Zenaida Morris) Afib (Chronic) Sarcoidosis (Chronic) HBP (high blood pressure) (Acute) High cholesterol (Chronic) CHF (congestive heart failure) COPD (chronic obstructive pulmonary disease) - Surgical History Surgical History: Surgical History (Last Reviewed 11/15/17 @ 08:24 by Zenaida Morris) No history of previous surgery (Acute) - Family History Family History: Family History (Last Updated 11/13/17 @ 11:09 by Armando Christianson MD) Mother CVA (cerebral vascular accident) - Tobacco History Second Hand Smoke Exposure: No Smoking Status: Never smoker - Alcohol History How Often Do You Have a Drink Containing Alcohol: Monthly or less - Substance Use History Substance History: No History of Abuse - Travel History Recent Travel Out of the Country Within the Last 8 Weeks: No - Immunization History Tetanus Immunization: >5 Years Hx Influenza Vaccine This Season: Yes Medications and Allergies Active Medications: Active Medications Al Hydroxide/Mg Hydroxide (Milk Of Minh Liq) 30 ml PO Q12H PRN PRN Reason: Mild Constipation Last Admin: 11/16/17 23:24 Dose: 30 ml Albuterol (Duoneb Neb (Biju)) 1 ampul NEB Q4HR NEB [facility] Last Admin: 11/17/17 19:46 Dose: 1 ampul Albuterol (Duoneb Neb (Prn)) 1 ampul NEB Q2HR NEB PRN PRN Reason: SHORTNESS OF BREATH Amoxicillin/Clavulanate Potassium (Augmentin 875/125 Mg) 1 tab PO Q12HR [facility] Apixaban (Eliquis) 5 mg PO BID [facility] Last Admin: 11/17/17 21:32 Dose: 5 mg Aspirin (Ecotrin) 81 mg PO DAILY [facility] Last Admin: 11/17/17 08:56 Dose: 81 mg Atorvastatin Calcium (Lipitor) 40 mg PO DAILY [facility] Last Admin: 11/17/17 08:55 Dose: 40 mg Budesonide/Formoterol Fumarate (Symbicort 160/4.5 Mcg Inh) 2 puff INH BID [facility] Last Admin: 11/17/17 21:32 Dose: 2 puff Diltiazem HCl (Cardizem Cd 24hr) 240 mg PO DAILY [facility] Last Admin: 11/17/17 08:56 Dose: 240 mg Doxepin HCl (Sinequan) 50 mg PO DAILY [facility] Last Admin: 11/17/17 08:56 Dose: 50 mg Folic Acid (Folic Acid) 1 mg PO DAILY [facility] Last Admin: 11/17/17 08:56 Dose: 1 mg Furosemide (Lasix) 40 mg PO BID [facility] Last Admin: 11/17/17 21:32 Dose: 40 mg Gabapentin (Neurontin) 100 mg PO DAILY [facility] Last Admin: 11/17/17 08:55 Dose: 100 mg Methocarbamol (Robaxin) 500 mg PO Q6HR [facility] Last Admin: 11/17/17 18:22 Dose: 500 mg Methylprednisolone Sodium Succinate (Solumedrol Inj) 40 mg IV.PUSH Q8H [facility] Last Admin: 11/17/17 21:32 Dose: 40 mg Metoprolol Tartrate (Lopressor) 50 mg PO BID [facility] Last Admin: 11/17/17 21:32 Dose: 50 mg Morphine Sulfate (Morphine Inj) 2 mg IV.PUSH Q6H PRN PRN Reason: BREAKTHROUGH PAIN Last Admin: 11/17/17 05:16 Dose: 2 mg Nitroglycerin (Nitrostat Sl) 0.4 mg SL Q5M PRN PRN Reason: CHEST PAIN Ondansetron HCl (Zofran Inj) 4 mg IV.PUSH Q6H PRN PRN Reason: NAUSEA OR VOMITING Last Admin: 11/17/17 02:44 Dose: 4 mg Oxycodone/Acetaminophen (Percocet 5/325 Mg) 1 tab PO Q4H PRN PRN Reason: Pain 3 to 6 Oxycodone/Acetaminophen (Percocet 10/325 Mg) 1 tab PO Q4H PRN PRN Reason: Pain 7 to 10 Last Admin: 11/17/17 18:21 Dose: 1 tab Pantoprazole Sodium (Protonix) 20 mg PO DAILY [facility] Last Admin: 11/17/17 08:56 Dose: 20 mg Pt Own Med: Methotrexate (Pf) 20mg Sq Every Week 1 each SQ Q7D [facility] Promethazine HCl (Phenergan) 25 mg PO Q4H PRN PRN Reason: NAUSEA Last Admin: 11/16/17 16:44 Dose: 25 mg Senna/Docusate Sodium (Maureen-Colace) 1 tab PO BID PRN PRN Reason: CONSTIPATION Last Admin: 11/17/17 21:42 Dose: 1 tab Allergies Allergy/AdvReac Type Severity Reaction Status Date / Time No Known Allergies Allergy Verified 11/13/17 05:08 Home Medications Medication Instructions Recorded Confirmed Type apixaban [Eliquis] 5 mg PO BID 10/22/17 11/13/17 History atorvastatin 40 mg PO DAILY 10/22/17 11/13/17 History diltiazem HCl 240 mg PO DAILY 10/22/17 11/13/17 History doxepin 50 mg PO DAILY 10/22/17 11/13/17 History folic acid 1 mg PO DAILY 10/22/17 11/13/17 History furosemide [Lasix] 40 mg PO BID 10/22/17 11/13/17 History gabapentin 100 mg PO DAILY 10/22/17 11/13/17 History methotrexate (PF) 20 mg SUB-Q QWEEK 10/22/17 11/13/17 History metoprolol tartrate [Lopressor] 50 mg PO BID 10/22/17 11/13/17 History Exam Vital signs: Vital Signs 11/17/17 00:00 11/17/17 01:48 11/17/17 01:54 Temperature 98 F Pulse Rate 82 76 Respiratory Rate 16 18 Blood Pressure 130/74 Pulse Oximetry 96 95 11/17/17 04:00 11/17/17 07:41 11/17/17 08:00 Temperature 98 F 97.1 F L Pulse Rate 83 83 80 Respiratory Rate 17 17 20 Blood Pressure 123/93 H 128/73 Pulse Oximetry 97 97 98 11/17/17 12:00 11/17/17 12:12 11/17/17 16:00 Temperature 97.7 F 97.3 F L Pulse Rate 71 67 72 Respiratory Rate 18 18 18 Blood Pressure 138/62 143/72 H Pulse Oximetry 97 98 11/17/17 17:11 11/17/17 19:49 Temperature Pulse Rate 67 Respiratory Rate 16 Blood Pressure Pulse Oximetry 95 Intake & Output 11/17/17 11/17/17 11/18/17 06:59 18:59 06:59 Intake Total 960 / 960 350 / 350 Balance 960 / 960 350 / 350 Weight 141 kg Intake: IV 350 / 350 Azithromycin Inj 500 MG In NS 250 / 250 Inj 250 ML @ 250 mls/hr IV.SIG Q24H [facility] Rx#:[id number] Rocephin Inj 1,000 MG In NS Inj 100 / 100 100 ML @ 200 mls/hr IV.SIG Q24H [facility] Rx#:[id number] Oral 960 / 960 Other 0 / 0 Other: Date of Last Bowel Movement 11/10/17 11/10/17 - Constitutional no acute distress, morbidly obese - Routine HEENT Exam Head: Present: normocephalic, atraumatic Eye: Present: EOMI ENT: Present: mucous membranes moist - Routine Neck Exam Present: supple - Routine Respiratory Exam Present: distant breath sounds - Routine Cardiovascular Exam Present: S1, S2. Absent: murmur, gallop - Routine Abdominal Exam Present: normoactive bowel sounds, distended. Absent: rebound, guarding Comments: Mildly distended tympanic - Routine Extremities Exam Absent: cyanosis, clubbing - Routine Skin Exam Present: dry, warm - Routine Neurological Exam Present: alert, oriented X3 Results - Labs CBC & Chem 7: 11/17/17 05:31 11/16/17 08:42 Labs: Laboratory Results - last 24 hr 11/17/17 11/17/17 01:27 05:31 WBC 23.9 H RBC 5.26 Hgb 14.3 Hct 42.5 MCV 80.9 MCH 27.2 MCHC 33.5 RDW 14.6 Plt Count 338 MPV 8.0 Puncture Site Left radial Patient Temperature 98.6 O2 Saturation 91 ABG pH 7.37 L ABG pCO2 53 H* ABG pO2 65 ABG HCO3 30 H ABG O2 Content 18.5 ABG Base Excess 5.0 H ABG Methemoglobin 1.1 Brian Test Present Hemoglobin 14.4 Carboxyhemoglobin 1.1 O2 Delivery Device Room air Inspired O2 21 Critical Value Yes Assessment and Plan - Plan Patient with pneumonia shortness of breath chest pain Patient with an episode of rectal bleeding with history of hemorrhoids with complaints of bloating and nausea with history of gastroparesis At this point the priority is for his cardiopulmonary state once this is deemed to be under control and stable we can pursue endoscopy probably an EGD and a flexible sigmoidoscopy to further evaluate the above-mentioned symptoms In the meanwhile agree with current supportive care Monitor labs Can consider anti-emetics such as Phenergan to help with the nausea or even Reglan or erythromycin Patient is noted to be on multiple pain meds which exacerbate gastroparesis and probably are the cause of his current symptoms I would recommend minimizing pain meds Further recommendations she will depend on his hospital course
[2017-11-17] MEDS ORDERED: Zolpidem Tartrate 5 MG Tablet PO ONE (21:56)
[2017-11-18] MEDS: MethylPREDNISolone Sod Succinate Inj 40 MG/ML Vial IV.PUSH SCH (04:45)
[2017-11-18] MEDS: Methocarbamol 500 MG Tablet PO SCH ×4 (06:13→23:23)
[2017-11-18 06:40] LABS: Hematocrit 44.1 % (39.0-51.0); Hemoglobin 14.1 gm/dL (13.0-17.0); Mean Corpuscular HGB Conc 31.9 % (32.0-36.0); Mean Corpuscular Hemoglobin 26.7 pg (27.0-34.0); Mean Corpuscular Volume 83.6 fL (80.0-100.0); Mean Platelet Volume 8.1 fL (7.0-11.0); Platelet Count 327 th/mm3 (150-450); Red Blood Count 5.27 mil/mm3 (4.50-5.90); Red Cell Distribution Width 14.9 % (11.6-17.2); White Blood Count 16.2 th/mm3 (4.0-11.0)
[2017-11-18] MEDS: Gabapentin 100 MG Capsule PO SCH (09:00)
[2017-11-18] MEDS: Pantoprazole Sodium 20 MG DR Tablet PO SCH (09:00)
[2017-11-18] MEDS: Amoxicillin/Clavulanate 875/125 MG Tablet PO SCH ×2 (09:00→22:08)
[2017-11-18] MEDS: Folic Acid 1 MG Tablet PO SCH (09:00)
[2017-11-18] MEDS: predniSONE 20 MG Tablet PO SCH ×2 (09:01→22:08)
[2017-11-18] MEDS: dilTIAZem CD 240 MG Capsule PO SCH (09:01)
[2017-11-18] MEDS: Metoprolol Tartrate 50 MG Tablet PO SCH ×2 (09:01→22:08)
[2017-11-18] MEDS: Furosemide 40 MG Tablet PO SCH ×2 (09:01→22:08)
[2017-11-18] MEDS: Budesonide-Formoterol 160/4.5 MCG 6 GM Inhaler INH SCH ×2 (09:01→22:10)
[2017-11-18] MEDS ORDERED: Sod Phosphate/Sod Biphosphate (Adult) Enema 133 ML Bottle RECTAL PRN (09:32)
--- NOTE | 2017-11-18 10:49 | P.PN ---
Subjective Interval history: follow up for sob, pna, sarcoidosis: slept well, using BIPAP at HS. No cp, sob improved. at bsd, wants to know when he is going for GI procedure, none have been scheduled. States that she wants work up done while here. Endorses pt. has not had BM for 7-8 days. Feels urge to strain but no BM. Has not noticed any blood during straining. Still with occ. bloating after meals, no nausea. Wants to eat breakfast. Informed that I would keep NPO until GI re- evaluates Physical Exam Vital signs: Vital Signs 11/17/17 12:00 11/17/17 12:12 11/17/17 16:00 Temperature 97.7 F 97.3 F L Pulse Rate 71 67 72 Respiratory Rate 18 18 18 Blood Pressure 138/62 143/72 H Pulse Oximetry 97 98 11/17/17 17:11 11/17/17 19:49 11/17/17 20:00 Temperature 96.9 F L Pulse Rate 67 71 Respiratory Rate 16 20 Blood Pressure 122/69 Pulse Oximetry 95 93 L 11/18/17 00:00 11/18/17 00:20 11/18/17 00:21 Temperature 97.2 F L Pulse Rate 68 65 Respiratory Rate 18 12 Blood Pressure 141/80 H Pulse Oximetry 97 99 11/18/17 03:59 11/18/17 04:00 11/18/17 08:00 Temperature 95.7 F L 97.6 F Pulse Rate 66 69 69 Respiratory Rate 15 20 17 Blood Pressure 154/94 H 141/90 H Pulse Oximetry 100 99 Intake & Output 11/17/17 11/18/17 11/18/17 18:59 06:59 18:59 Intake Total 350 / 350 960 / 960 Output Total 1125 / 1125 Balance 350 / 350 -165 / -165 Weight 148.5 kg Intake: IV 350 / 350 Azithromycin Inj 500 MG In NS 250 / 250 Inj 250 ML @ 250 mls/hr IV.SIG Q24H [facility] Rx#:[id number] Rocephin Inj 1,000 MG In NS Inj 100 / 100 100 ML @ 200 mls/hr IV.SIG Q24H [facility] Rx#:[id number] Oral 960 / 960 Other 0 / 0 Output: Urine 1125 / 1125 Other: Date of Last Bowel Movement 11/10/17 # Bowel Movements 0 Narrative: GENERAL: Obese, black male. Does not appear in any distress. SKIN: Pinpoint lesions to right upper arm, appear to be healing. Skin discolored to both lower extremities. HEAD: Atraumatic. Normocephalic. EYES: Pupils equal and round. No scleral icterus. No injection or drainage. ENT: No nasal bleeding or discharge. Mucous membranes pink and moist. NECK: Trachea midline. No JVD. CARDIOVASCULAR: Regular rate and rhythm. RESPIRATORY: Diminished at bases GASTROINTESTINAL: Abdomen obese, soft, non-tender, nondistended. Hepatic and splenic margins not palpable. MUSCULOSKELETAL: Extremities without clubbing, cyanosis, or edema. No obvious deformities. NEUROLOGICAL: Awake and alert. No obvious cranial nerve deficits. Motor grossly within normal limits. Five out of 5 muscle strength in the arms and legs. Normal speech. PSYCHIATRIC: Appropriate mood and affect; insight and judgment normal. Results - Labs CBC & Chem 7: 11/18/17 04:12 11/16/17 08:42 Laboratory Results - last 24 hr 11/18/17 04:12 WBC 16.2 H RBC 5.27 Hgb 14.1 Hct 44.1 MCV 83.6 MCH 26.7 L MCHC 31.9 L RDW 14.9 Plt Count 327 MPV 8.1 Microbiology 11/16/17 00:30 Sputum - Expectorated Sputum Gram Stain - Final 11/16/17 00:30 Sputum - Expectorated Sputum Sputum Culture - Preliminary Heavy growth normal respiratory britney at 24 hours Assessment and Plan - Assessment (1) Pneumonia Code(s): J18.9 - Pneumonia, unspecified organism Status: Acute (2) Obesity Code(s): E66.9 - Obesity, unspecified Status: Chronic (3) Afib Code(s): I48.91 - Unspecified atrial fibrillation Status: Chronic (4) Sarcoidosis Code(s): D86.9 - Sarcoidosis, unspecified Status: Chronic (5) High cholesterol Code(s): E78.00 - Pure hypercholesterolemia, unspecified Status: Chronic (6) Diastolic heart failure Code(s): I50.30 - Unspecified diastolic (congestive) heart failure Status: Chronic (7) Acute respiratory failure with hypoxia and hypercarbia Code(s): J96.01 - Acute respiratory failure with hypoxia; J96.02 - Acute respiratory failure with hypercapnia Status: Acute (8) Obstructive sleep apnea Code(s): G47.33 - Obstructive sleep apnea (adult) (pediatric) Status: Chronic - Plan 52-year-old male with significant past medical history of A. fib, obesity, diastolic heart failure, sarcoidosis oxygen dependent . Presented to the emergency room complaining of shortness of breath and chest pain. Found with pneumonia. Acute hypercarbic and hypoxic respiratory failure possibly secondary to sarcoidosis. Lethargic on 11/14, ABGs done. Patient found hypercarbic. Put on BiPAP, did not tolerated well. Only lasted 1 hour. Patient much more improved today, slept better. Indicates that he saw Dr. Villegas couple years ago and had sleep studies done in the past. -Pulmonology consulted, input appreciated. Notes reviewed. Recommends IV steroids, echocardiogram to evaluate LV function presence of pulmonary hypertension. Likely this is an exacerbation of sarcoidosis. -Continue IV steroids, duo nebs, oxygen. -BiPAP at at bedtime -Patient is to follow-up with pulmonology as outpatient for sleep study in home CPAP. He and verbalized understanding. Community-acquired pneumonia -Continue with empiric antibiotics -azithromycin and Rocephin-DC today and start PO abx-Augmentin -Continue with oxygen, duo nebs -probiotics Chest pain Back pain Headache Chronic back pain. Likely related to pneumonia Evaluate for ACS -Follow cardiac enzymes, negative. No evidence of ACS -Aspirin daily -Continue with oxygen at 4 L nasal cannula -Continue with morphine and Percocet as needed -Nitroglycerin as needed -Continuous cardiac telemetry monitoring Atrial fibrillation Diastolic CHF Lower Extremity Edema No evidence of CHF, stable. -Follow on telemetry -Continue diltiazem, beta-blue -Lasix 40 mg PO BID -Continue Eliquis -Echo done EF 55-60%, mild LVH. 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 -Changed to prednisone 20 mg p.o. twice daily Persistent headache ? elevated CO2. Headache improved today, I slept with BiPAP overnight. resolved. -CT of the head negative -continue pain management. Hypertension -Continue diltiazem and beta-blue -Follow blood pressures -Adjust treatments as needed Hyperlipidemia -Continue statin COPD,No exacerbation -Continue with oxygen and DuoNeb's. Constipation, reports no BM 8 days. Reported blood in the stool, H&H stable. History of internal and external hemorrhoids, follows up with GI as outpatient. -Stool for occult blood pending Stool softeners -H&H stable, no active bleeding. -We will check KUB, give fleets enema 1 Complain of nausea today with epigastric discomfort. feels bloated, nauseous, c/o heartburn. Hx what sounds like gastroparesis. wants him to be evaluated here. Recommended OP eval with GI until he is more stable with resp. issues. -Zofran PRN -Continue Protonix 40 mg po daily -GI input appreciated, they recommended outpatient follow-up. Patient and will like workup to be done during this hospitalization. Discussed with Yee NASH, will keep patient on a clear liquid diet. Will obtain clearance from pulmonary to proceed. Leukocytosis, likely secondary to steroids. No fever. Follow CBC -WBC trending down , no fever. DVT prophylaxis Eliquis D/W Dr. Stanley, ok to proceed with GI procedure ? EGD or colonoscopy D/W GI, will hold Eliquis NPO after midnight. (1) Pneumonia Qualifiers: Pneumonia type: due to unspecified organism Laterality: unspecified laterality Lung location: unspecified part of lung Qualified Code(s): J18.9 - Pneumonia, unspecified organism (2) Obesity Qualifiers: Obesity type: unspecified obesity type Body mass index: BMI 40.0-44.9 (3) Afib Qualifiers: Atrial fibrillation type: unspecified Qualified Code(s): I48.91 - Unspecified atrial fibrillation (6) Diastolic heart failure Qualifiers: Heart failure chronicity: chronic Qualified Code(s): I50.32 - Chronic diastolic (congestive) heart failure
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
[2017-11-18] MEDS: Methylnaltrexone Inj 12 MG/0.6 ML Vial SQ SCH (12:33)
[2017-11-18] MEDS ORDERED: Magnesium Citrate Liq 300 ML Bottle PO ONE (13:38)
[2017-11-18] MEDS: oxyCODONE/Acetaminophen 10/325 Tablet PO PRN ×3 (15:13→23:23)
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
[2017-11-19] MEDS: Methocarbamol 500 MG Tablet PO SCH ×3 (06:13→17:52)
[2017-11-19] MEDS ORDERED: Metoprolol Tartrate 25 MG Tablet PO SCH (06:30)
[2017-11-19] MEDS ORDERED: Chlorhexidine Gluconate 2% 1 Pack (2 Cloths) TOPICAL SCH (06:30)
[2017-11-19] MEDS ORDERED: Sodium Chlor 0.9% Inj 500 ML IV.SIG SCH (07:00)
[2017-11-19] MEDS: predniSONE 20 MG Tablet PO SCH ×2 (08:23→20:07)
[2017-11-19] MEDS: Furosemide 40 MG Tablet PO SCH ×2 (08:23→20:07)
[2017-11-19] MEDS: Metoprolol Tartrate 50 MG Tablet PO SCH ×2 (08:23→20:06)
[2017-11-19] MEDS: Gabapentin 100 MG Capsule PO SCH (08:23)
[2017-11-19] MEDS: Amoxicillin/Clavulanate 875/125 MG Tablet PO SCH ×2 (08:23→20:07)
[2017-11-19] MEDS: dilTIAZem CD 240 MG Capsule PO SCH (08:24)
[2017-11-19] MEDS: Folic Acid 1 MG Tablet PO SCH (08:24)
[2017-11-19] MEDS: Pantoprazole Sodium 20 MG DR Tablet PO SCH (08:24)
[2017-11-19] MEDS: Budesonide-Formoterol 160/4.5 MCG 6 GM Inhaler INH SCH ×2 (08:25→20:07)
[2017-11-19] MEDS ORDERED: Lidocaine PF 1% Inj 5 ML Syringe INFILTRATN ONE (12:34)
[2017-11-19] MEDS: Methylnaltrexone Inj 12 MG/0.6 ML Vial SQ SCH (14:47)
--- NOTE | 2017-11-19 15:11 | GIPROC ---
[facility] [address] [facility] [place] [place], [address] EGD PROCEDURE REPORT EXAM DATE: 11/19/2017 PATIENT NAME: Aneudy Billings MR #: [id number] BIRTHDATE: 1965 ATTENDING: Marce Seymour MD ORDER #: [id number] HEAVY FORGER HELPER: Ayana Braga and Annita Lantigua STATUS: inpatient INDICATIONS: The patient is a 52 yr old male here for an EGD due to acute post hemorrhagic anemia PROCEDURE PERFORMED: EGD w/ biopsy MEDICATIONS: None and Per Anesthesia. TOPICAL ANESTHETIC: CONSENT: The patient understands the risks and benefits of the procedure and understands that these risks include, but are not limited to: sedation, allergic reaction, infection, perforation and/or bleeding. Alternative means of evaluation and treatment include, among others: physical exam, x-rays, and/or surgical intervention. The patient elects to proceed with this endoscopic procedure. medical equipment was checked for proper function. Hand hygiene and appropriate measures for infection prevention was taken. After the risks, benefits and alternatives of the procedure were thoroughly explained, Informed consent was verified, confirmed and timeout was successfully executed by the treatment team. The patient was anesthetized with topical anesthesia and the EC-3490Li (Pedi C) endoscope was introduced through the mouth and advanced to the second portion of the duodenum. Retroflexed views revealed no abnormalities The gastroscope was then slowly withdrawn and removed. ESOPHAGUS: There was LA Class A esophagitis noted. A biopsy was performed using cold forceps. Sample sent for histology. STOMACH: There was erythematous moderate gastritis in the gastric antrum. A biopsy was performed using cold forceps. Sample sent for histology. DUODENUM: The duodenal mucosa appeared normal in the bulb and second portion of the duodenum. ADVERSE EVENTS: There were no complications. IMPRESSIONS: 1. There was LA Class A esophagitis noted; biopsy was performed 2. There was erythematous gastritis in the gastric antrum; biopsy was performed 3. Normal duodenal mucosa in the bulb and second portion of the duodenum 4. Retroflexed views revealed no abnormalities RECOMMENDATIONS: 1. Await biopsy results. Biopsy results will not be ready for 7-10 days. If you don't hear from us in two weeks, call our office for biopsy results. 2. Anti-reflux regimen 3. Continue PPI PATIENT CONDITION: stable DISPOSITION: Inpatient REPEAT EXAM: Return 1 year EGD pending biopsy results Marce Seymour MD eSigned: Marce Seymour MD 11/19/2017 12:30 PM cc: PATIENT NAME: Aneudy Billings MR#: [id number]
--- NOTE | 2017-11-19 15:11 | GIPROC ---
[facility] [address] [facility]. [facility], [address] FLEXIBLE SIGMOIDOSCOPY PROCEDURE REPORT EXAM DATE: 11/19/2017 PATIENT NAME: Aneudy Billings MR #: [id number] BIRTHDATE: 1965 ORDER #: [id number] ATTENDING: Marce Seymour MD CODE MACHINE OPERATOR: Ayana Braga and Annita Lantigua STATUS: inpatient INDICATIONS: The patient is a 52 yr old male here for a flexible sigmoidoscopy due to hematochezia PROCEDURE PERFORMED: Flexible Sigmoidoscopy, diagnostic MEDICATIONS: None and Per Anesthesia. ESTIMATED BLOOD LOSS: None CONSENT: The patient understands the risks and benefits of the procedure and understands that these risks include, but are not limited to: sedation, allergic reaction, infection, perforation and/or bleeding. Alternative means of evaluation and treatment include, among others: physical exam, x-rays, and/or surgical intervention. The patient elects to proceed with this endoscopic procedure. medical equipment was checked for proper function. Hand hygiene and appropriate measures for infection prevention was taken. After the risks, benefits and alternatives of the procedure were thoroughly explained, Informed consent was verified, confirmed and timeout was successfully executed by the treatment team. A digital rectal exam revealed external hemorrhoids The Pentax EC-3490Li endoscope was introduced through the anus and advanced to the sigmoid colon. The prep was poor. The instrument was then slowly withdrawn as the colon was fully examined. COLON FINDINGS: A single non-bleeding, shallow and linear ulcer ranging between 3-7mm in size with a red spot was found in the rectum. Retroflexed views revealed internal hemorrhoid The scope was then completely withdrawn from the patient and the procedure terminated. ADVERSE EVENTS: There were no complications. IMPRESSIONS: 1. Single ulcer ranging between 3-7mm in size was found in the rectum 2. Retroflexed views revealed internal hemorrhoid 3. Revealed external hemorrhoids RECOMMENDATIONS: 1. Continue surveillance 2. Yearly hemoccult 3. Outpatient colonoscopy RECALL: Return 3 months Colonoscopy Marce Seymour MD eSigned: Marce Seymour MD 11/19/2017 12:39 PM cc:
--- NOTE | 2017-11-19 15:15 | P.PNIM ---
Subjective Interval history: The patient said that he feels uncomfortable following the procedure. His was at the bedside. The patient has been ambulating. He has been tolerating a diet. He would like to start using the CPAP at home. Discussed with nursing. Physical Exam Vital signs: Vital Signs 11/18/17 15:44 11/18/17 16:00 11/18/17 19:41 Temperature 97.5 F L Pulse Rate 78 73 76 Respiratory Rate 20 18 18 Blood Pressure 125/76 Pulse Oximetry 96 96 11/18/17 19:46 11/18/17 20:00 11/19/17 00:00 Temperature 97.5 F L 97.1 F L Pulse Rate 80 75 60 Respiratory Rate 20 18 Blood Pressure 159/100 H 131/73 Pulse Oximetry 96 95 11/19/17 00:10 11/19/17 03:48 11/19/17 04:00 Temperature 97.4 F L Pulse Rate 60 66 Respiratory Rate 16 18 Blood Pressure 146/86 H Pulse Oximetry 99 99 96 11/19/17 07:45 11/19/17 07:50 11/19/17 08:00 Temperature 98.2 F Pulse Rate 70 68 69 Respiratory Rate 16 20 Blood Pressure 144/93 H Pulse Oximetry 99 98 11/19/17 12:00 11/19/17 12:50 11/19/17 12:55 Temperature 97.9 F Pulse Rate 65 78 Respiratory Rate 20 16 Blood Pressure 136/77 103/55 L Pulse Oximetry 100 100 100 11/19/17 13:00 Temperature Pulse Rate 78 Respiratory Rate 16 Blood Pressure 113/63 Pulse Oximetry 100 Intake & Output 11/18/17 11/19/17 11/19/17 18:59 06:59 18:59 Intake Total 800 / 800 Output Total 900 / 900 Balance -100 / -100 Intake: IV 500 / 500 LR 1000 mL Inj 1,000 ML @ 30 500 / 500 mls/hr IV.SIG .Q24H [facility] Rx#: [id number] Anesthesia Amount 300 / 300 Output: Urine 900 / 900 Other: Date of Last Bowel Movement 11/18/17 11/18/17 Narrative: GENERAL: Obese male. Not in any distress. SKIN: Skin discolored over both lower extremities. HEAD: Atraumatic. Normocephalic. EYES: Pupils equal and round. No scleral icterus. No injection or drainage. ENT: No nasal bleeding or discharge. Mucous membranes pink and moist. NECK: Trachea midline. No JVD. CARDIOVASCULAR: Regular rate and rhythm. RESPIRATORY: Diminished at bases. GASTROINTESTINAL: Abdomen obese, soft, non-tender, nondistended. Hepatic and splenic margins not palpable. MUSCULOSKELETAL: Extremities without clubbing, cyanosis, TR edema. No obvious deformities. NEUROLOGICAL: Awake and alert. No obvious cranial nerve deficits. Motor grossly within normal limits. Five out of 5 muscle strength in the arms and legs. Normal speech. PSYCHIATRIC: Appropriate mood and affect; insight and judgment normal. Results - Labs CBC & Chem 7: 11/18/17 04:12 11/16/17 08:42 Assessment and Plan - Assessment (1) Pneumonia Code(s): J18.9 - Pneumonia, unspecified organism Status: Acute (2) Obesity Code(s): E66.9 - Obesity, unspecified Status: Chronic (3) Afib Code(s): I48.91 - Unspecified atrial fibrillation Status: Chronic (4) Sarcoidosis Code(s): D86.9 - Sarcoidosis, unspecified Status: Chronic (5) High cholesterol Code(s): E78.00 - Pure hypercholesterolemia, unspecified Status: Chronic (6) Diastolic heart failure Code(s): I50.30 - Unspecified diastolic (congestive) heart failure Status: Chronic (7) Acute respiratory failure with hypoxia and hypercarbia Code(s): J96.01 - Acute respiratory failure with hypoxia; J96.02 - Acute respiratory failure with hypercapnia Status: Acute (8) Obstructive sleep apnea Code(s): G47.33 - Obstructive sleep apnea (adult) (pediatric) Status: Chronic - Plan 52-year-old male with significant past medical history of A. fib, obesity, diastolic heart failure, sarcoidosis oxygen dependent . Presented to the emergency room complaining of shortness of breath and chest pain. Found with pneumonia. Acute hypercarbic and hypoxic respiratory failure possibly secondary to sarcoidosis. Lethargic on 11/14, ABGs done. Patient found hypercarbic. Put on BiPAP, did not tolerated well. Only lasted 1 hour. Patient much more improved today, slept better. Indicates that he saw Dr. Villegas couple years ago and had sleep studies done in the past. -Pulmonology consulted, input appreciated. -Continue prednisone, duo nebs, oxygen. -BiPAP at at bedtime -Patient is to follow-up with pulmonology as outpatient for sleep study and home CPAP. He and verbalized understanding. -continue methotrexate. Community-acquired pneumonia -Continue with empiric antibiotics -azithromycin and Rocephin-DC and started PO abx-Augmentin -Continue with oxygen, duo nebs -probiotics Chest pain Back pain Headache Chronic back pain. Likely related to pneumonia Evaluate for ACS -Follow cardiac enzymes, negative. No evidence of ACS -Aspirin daily -Continue with oxygen at 4 L nasal cannula -Continue with morphine and Percocet as needed -Nitroglycerin as needed -Continuous cardiac telemetry monitoring Atrial fibrillation Diastolic CHF Lower Extremity Edema No evidence of CHF, stable. -Follow on telemetry -Continue diltiazem, beta-blue -Lasix 40 mg PO BID -Continue Eliquis -Echo done EF 55-60%, mild LVH. No PH reported due to quality of study Hypertension -Continue diltiazem and beta-blue -Follow blood pressures -Adjust treatments as needed [facility] GI consult appreciated. Colonoscopy with ulcer and hemorrhoids. -follow up with GI. -follow CBC. DVT prophylaxis Eliquis (1) Pneumonia Qualifiers: Pneumonia type: due to unspecified organism Laterality: unspecified laterality Lung location: unspecified part of lung Qualified Code(s): J18.9 - Pneumonia, unspecified organism (2) Obesity Qualifiers: Obesity type: unspecified obesity type Body mass index: BMI 40.0-44.9 (3) Afib Qualifiers: Atrial fibrillation type: unspecified Qualified Code(s): I48.91 - Unspecified atrial fibrillation (6) Diastolic heart failure Qualifiers: Heart failure chronicity: chronic Qualified Code(s): I50.32 - Chronic diastolic (congestive) heart failure
[2017-11-19] MEDS: oxyCODONE/Acetaminophen 10/325 Tablet PO PRN ×2 (15:44→20:07)
--- NOTE | 2017-11-19 18:16 | P.PN ---
Subjective Interval history: Went for EGD / Colonoscopy. Feels exhausted. Off O2 and used BIPAP at HS. Will get a BIPAP machine for home. Physical Exam Vital signs: Vital Signs 11/18/17 19:41 11/18/17 19:46 11/18/17 20:00 Temperature 97.5 F L Pulse Rate 76 80 75 Respiratory Rate 18 20 Blood Pressure 159/100 H Pulse Oximetry 96 96 11/19/17 00:00 11/19/17 00:10 11/19/17 03:48 Temperature 97.1 F L Pulse Rate 60 60 Respiratory Rate 18 16 Blood Pressure 131/73 Pulse Oximetry 95 99 99 11/19/17 04:00 11/19/17 07:45 11/19/17 07:50 Temperature 97.4 F L Pulse Rate 66 70 68 Respiratory Rate 18 16 Blood Pressure 146/86 H Pulse Oximetry 96 99 11/19/17 08:00 11/19/17 12:00 11/19/17 12:50 Temperature 98.2 F 97.9 F Pulse Rate 69 65 Respiratory Rate 20 20 Blood Pressure 144/93 H 136/77 Pulse Oximetry 98 100 100 11/19/17 12:55 11/19/17 13:00 Temperature Pulse Rate 78 78 Respiratory Rate 16 16 Blood Pressure 103/55 L 113/63 Pulse Oximetry 100 100 Intake & Output 11/18/17 11/19/17 11/19/17 18:59 06:59 18:59 Intake Total 800 / 800 Output Total 900 / 900 Balance -100 / -100 Intake: IV 500 / 500 LR 1000 mL Inj 1,000 ML @ 30 500 / 500 mls/hr IV.SIG .Q24H [facility] Rx#: [id number] Anesthesia Amount 300 / 300 Output: Urine 900 / 900 Other: Date of Last Bowel Movement 11/18/17 11/18/17 Narrative: GENERAL: Obese A/A male. Not in any distress. SKIN: Dry HEAD: Atraumatic. Normocephalic. EYES: Pupils equal and round. No scleral icterus. No injection or drainage. ENT: No nasal bleeding or discharge. Mucous membranes pink and moist. NECK: Trachea midline. No JVD. CARDIOVASCULAR: Regular rate and rhythm. RESPIRATORY: Diminished at bases.Occ wheeze. GASTROINTESTINAL: Abdomen obese, soft, non-tender, nondistended. Hepatic and splenic margins not palpable. MUSCULOSKELETAL: Extremities without clubbing, cyanosis, no edema. No obvious deformities. NEUROLOGICAL: Awake and alert. No obvious cranial nerve deficits. Motor grossly within normal limits. Normal speech. PSYCHIATRIC: Appropriate mood and affect. Results - Labs CBC & Chem 7: 11/18/17 04:12 11/16/17 08:42 Assessment and Plan - Assessment (1) Chest pain Code(s): R07.9 - Chest pain, unspecified Status: Acute (2) Pneumonia Code(s): J18.9 - Pneumonia, unspecified organism Status: Acute (3) Obesity Code(s): E66.9 - Obesity, unspecified Status: Chronic (4) Diastolic heart failure Code(s): I50.30 - Unspecified diastolic (congestive) heart failure Status: Chronic (5) Acute respiratory failure with hypoxia and hypercarbia Code(s): J96.01 - Acute respiratory failure with hypoxia; J96.02 - Acute respiratory failure with hypercapnia Status: Acute (6) Obstructive sleep apnea Code(s): G47.33 - Obstructive sleep apnea (adult) (pediatric) Status: Chronic (7) Afib Code(s): I48.91 - Unspecified atrial fibrillation Status: Chronic (8) Pulmonary fibrosis determined by high resolution computed tomography Code(s): J84.10 - Pulmonary fibrosis, unspecified Status: Acute (9) Consolidation lung Code(s): J18.1 - Lobar pneumonia, unspecified organism Status: Acute - Plan 1. Will leave on O2 2 L daytime.PRN 2. Will get BiPAP at HS and PRN 3. needs Home BiPAP and possibly arrange it through his enterprise mobility architect from [facility] 4. Cont symbicort 160/4.5 MCg , 2 puffs BID 5. Continue lasix 40 mg BID PO 6. CBC,BMP 7. Cont prednisone 30 mg daily (1) Chest pain Qualifiers: Chest pain type: unspecified Qualified Code(s): R07.9 - Chest pain, unspecified (2) Pneumonia Qualifiers: Pneumonia type: due to unspecified organism Laterality: unspecified laterality Lung location: unspecified part of lung Qualified Code(s): J18.9 - Pneumonia, unspecified organism (3) Obesity Qualifiers: Obesity type: unspecified obesity type Body mass index: BMI 40.0-44.9 (4) Diastolic heart failure Qualifiers: Heart failure chronicity: chronic Qualified Code(s): I50.32 - Chronic diastolic (congestive) heart failure (7) Afib Qualifiers: Atrial fibrillation type: unspecified Qualified Code(s): I48.91 - Unspecified atrial fibrillation
[2017-11-20] MEDS: oxyCODONE/Acetaminophen 10/325 Tablet PO PRN ×3 (00:41→10:31)
[2017-11-20] MEDS: Methocarbamol 500 MG Tablet PO SCH ×2 (00:41→06:19)
[2017-11-20 06:26] LABS: Calcium 7.3 mg/dL (8.5-10.1); Carbon Dioxide 32.8 meq/L (21.0-32.0); Magnesium 2.9 mg/dL (1.5-2.5); Potassium 4.5 meq/L (3.5-5.1)
[2017-11-20 06:40] LABS: Total Protein 7.5 g/dL (6.4-8.2)
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
[2017-11-20] MEDS ORDERED: Calcium Carbonate 500 MG Tablet PO ONE (09:30)
[2017-11-20] MEDS: predniSONE 20 MG Tablet PO SCH (09:33)
[2017-11-20] MEDS: Gabapentin 100 MG Capsule PO SCH (09:33)
[2017-11-20] MEDS: Pantoprazole Sodium 20 MG DR Tablet PO SCH (09:33)
[2017-11-20] MEDS: Amoxicillin/Clavulanate 875/125 MG Tablet PO SCH (09:33)
[2017-11-20] MEDS: Metoprolol Tartrate 50 MG Tablet PO SCH (09:33)
[2017-11-20] MEDS: Folic Acid 1 MG Tablet PO SCH (09:33)
[2017-11-20] MEDS: dilTIAZem CD 240 MG Capsule PO SCH (09:33)
[2017-11-20] MEDS: Methylnaltrexone Inj 12 MG/0.6 ML Vial SQ SCH (09:34)
[2017-11-20] MEDS: Furosemide 40 MG Tablet PO SCH (09:34)
[2017-11-20] MEDS: Budesonide-Formoterol 160/4.5 MCG 6 GM Inhaler INH SCH (10:41)
== END 2017-11-20 12:35 | disposition home or self-care (01) ==
LOC: NEPC 04:58 → NEDA 08:56 → N04 11:59
PROVIDERS: ADMIT Hospitalist; ATTEND Hospitalist
PROC: PANENDO (2017-11-19 12:10)

== ENCOUNTER 2017-12-08 18:42 | Inpatient (IN) ==
--- NOTE | 2017-12-08 21:25 | ED ---
HPI General Chief Complaint: Respiratory Symptoms Stated Complaint: SOB/back pain Time Seen by Provider: 12/08/17 21:12 Source: patient and family Mode of arrival: ambulatory Limitations: no limitations History of Present Illness 52-year-old male presents to the emergency department by private transportation of the care of his spouse for evaluation of 2 days of cough congestion shortness of breath and back pain. Patient was recently hospitalized approximately 2 weeks ago for exacerbation of COPD pneumonia and sarcoidosis. Patient reportedly is followed by senior integration developer and specialist at [facility] and does not have a local primary care provider. Patient has multiple medical problems including chronic chest pain recurrent pneumonia obesity diastolic heart failure episodes of respiratory failure with hypoxia and hypercapnia sleep apnea sarcoidosis lung consolidation COPD atrial fibrillation hypertension and dyslipidemia. Patient is reportedly compliant with his medications. Patient is supposed to be undergoing methotrexate treatments and Remicade treatments to [facility] for because his who is his primary source of transportation and medical care has been ill recently he has not been able to return to [facility] to continue his therapy. Patient reportedly had fever of 101.2 F last night no reported fevers today patient has had some mild chills today. Patient is unable to identify exacerbating or alleviating factors. Patient typically has back pain associated with his sarcoidosis and episodes of shortness of breath. No pleuritic chest pain. No report of new lower extremity pain or swelling. MD Complaint: shortness of breath Onset (ago): day(s) Context: recent illness Severity: moderate Consistency/Duration: constant Relieving factors: nothing Exacerbating factors: movement and coughing Known history of: COPD, congestive heart failure, recurrent pneumonia and other (Sarcoidosis) Associated symptoms: chest pain, fever, cough, wheezing and abdominal pain ( Chronic persistent extensive workup with unclear etiology) Treatment prior to arrival: other (Tylenol dose 1 last evening) Related Data Home oxygen amount: as needed at night Home Medications Medication Instructions Recorded Confirmed folic acid 1 mg PO DAILY 10/22/17 12/08/17 methotrexate (PF) 20 mg SUB-Q QWEEK 10/22/17 12/08/17 Previous Rx's Medication Instructions Recorded apixaban [Eliquis] 5 mg PO BID 30 Days #60 tab 12/10/17 atorvastatin 40 mg PO DAILY 30 Days #30 tab 12/10/17 budesonide-formoterol [Symbicort] 2 puff INH BID #1 g 12/10/17 diltiazem HCl 240 mg PO DAILY 30 Days #30 cap 12/10/17 furosemide [Lasix] 40 mg PO BID 30 Days #60 tab 12/10/17 gabapentin 100 mg PO DAILY 30 Days #30 cap 12/10/17 ipratropium-albuterol 1 amp NEB Q2HR NEB PRN 30 Days ml 12/10/17 metoprolol tartrate [Lopressor] 50 mg PO BID 30 Days #60 tab 12/10/17 pantoprazole [Protonix] 40 mg PO DAILY #60 tab 12/10/17 prednisone 20 mg PO DAILY #10 tab 12/10/17 Allergies Allergy/AdvReac Type Severity Reaction Status Date / Time No Known Allergies Allergy Verified 12/08/17 19:26 Review of Systems Constitutional Reports body ache(s), Reports chills and Reports fever(s) Eyes Denies blurry vision and Denies decreased night vision ENT Denies ear discharge and Denies otalgia Cardiovascular Reports chest pain and Reports dyspnea Respiratory Reports cough, Reports dyspnea and Reports wheezing Gastrointestinal Reports abdominal pain (Chronic recurrent persistent) Genitourinary Denies flank pain Musculoskeletal Reports myalgias and Reports arthralgias Integumentary/Breasts Denies rash Neurologic Denies behavioral changes and Denies focal weakness Psychiatric Denies anxiety and Denies depression Hematologic/Lymphatic Denies easy bruising (On Eliquis) [facility] Medical History Medical History COPD (chronic obstructive pulmonary disease) (Acute) CHF (congestive heart failure) (Acute) Afib (Chronic) Sarcoidosis (Chronic) HBP (high blood pressure) (Acute) High cholesterol (Chronic) Surgical History Surgical History No history of previous surgery (Acute) Family History Family History Mother CVA (cerebral vascular accident) Social History Social History Substance History: No History of Abuse Second Hand Smoke Exposure: No Smoking Status: Never smoker Tobacco Type: Cigarettes How Often Do You Have a Drink Containing Alcohol: Monthly or less Recent Travel in [facility] within the Last 8 Weeks: No Recent Out of Country Travel within the Last 8 Weeks: No Immunization History Tetanus Immunization: <5 Years Hx Influenza Vaccine This Season: Yes Exam Narrative Exam Narrative: GENERAL: Well-nourished, well-developed patient. SKIN: Focused skin assessment warm/dry. HEAD: Normocephalic. EYES: No scleral icterus. No injection or drainage. NECK: Supple, trachea midline. No JVD or lymphadenopathy. CARDIOVASCULAR: Regular rate and rhythm without murmurs, gallops, or rubs. RESPIRATORY: Breath sounds equal bilaterally. No accessory muscle use. Diffuse expiratory wheeze. No rales. GASTROINTESTINAL: Abdomen soft, non-tender, nondistended. MUSCULOSKELETAL: No cyanosis, or edema. BACK: Nontender without obvious deformity. No CVA tenderness. Course Initial Documented Vital Signs Temperature 98.6 F 12/08/17 19:23 Pulse Rate 100 H 12/08/17 19:23 Respiratory Rate 28 H 12/08/17 19:23 Blood Pressure 133/77 12/08/17 19:23 Pulse Oximetry 96 12/08/17 19:23 Last Documented Vital Signs Temperature 98.0 F 12/10/17 07:55 Pulse Rate 70 12/10/17 08:06 Respiratory Rate 17 12/10/17 07:55 Blood Pressure 122/73 12/10/17 07:55 Pulse Oximetry 97 12/10/17 08:06 Medical Decision Making [facility] Narrative Medical decision making narrative: 52-year-old male with history of COPD CHF sarcoidosis hypertension dyslipidemia atrial fibrillation presents with complaint of 2 days plus of wheezing shortness of breath cough and fever last evening. Recent hospitalization for pneumonia. Patient is currently not on antibiotic. Patient placed on quality assurance monitor with continuous pulse oximetry IV access obtained specimens collected and sent for resulting DuoNeb updraft ordered At 10:30 PM patient notes improvement of breathing after DuoNeb updraft chest x- ray shows bilateral midlung infiltrates right greater than left and looks concerning for infiltrate possibly infectious white count is wnl however; patient will be given additional updraft treatment also has some vascular congestion has not been taking his Lasix 40 mg twice daily for several days will give a one-time dose of Lasix as well as in view of history of recurrent CHF no marked cardiomegaly noted patient hypertensive will administer nitroglycerin paste to chest wall and for back pain patient given morphine sulfate 3 mg IV and a one-time dose of Zofran for nausea. Due to increasing infiltrative changes on chest x-ray blood cultures will be obtained lactic acid will be obtained and patient will be given IV Zosyn and azithromycin as recently hospitalized on ceftriaxone. Plan will be to await pending diagnostics regarding disposition as patient with exacerbation of COPD CHF hypertension bronchitis/pneumonia with sarcoidosis. CT negative for PE however area of right middle lobe opacity infiltrate is worsening. Patient feels clinically improved however when trialed off of supplemental oxygen patient noted to desaturate. In view of patient's multiple issues and the fact that he is not doing well off supplemental oxygen and only uses oxygen on as needed patient will be discussed with medicine service for admission. Medical Screen Exam Complete: Yes Emergency Medical Condition: Yes Differential Diagnosis Differential Diagnosis: Dyspnea, bronchitis, pneumonia, CHF, exacerbation COPD exacerbation sarcoidosis uncontrolled hypertension [facility] Medical Records Medical records reviewed: Yes I reviewed the patient's medical records. Lab Data Lab results reviewed: Yes I reviewed the patient's lab results. Result diagrams: 12/10/17 03:46 12/10/17 03:46 Lab Results 12/08/17 12/08/17 12/08/17 Range/Units 22:05 22:05 22:05 WBC 5.1 (4.0-11.0) th/mm3 RBC 5.29 (4.50-5.90) mil/mm3 Hgb 14.0 (13.0-17.0) gm/dL Hct 42.5 (39.0-51.0) % MCV 80.5 (80.0-100.0) fL MCH 26.5 L (27.0-34.0) pg MCHC 32.9 (32.0-36.0) % RDW 14.9 (11.6-17.2) % Plt Count 301 (150-450) th/mm3 MPV 7.6 (7.0-11.0) fL Neut % (Auto) 52.0 (16.0-70.0) % Lymph % (Auto) 30.9 (9.0-44.0) % Irwin % (Auto) 10.2 H (0.0-8.0) % Eos % (Auto) 6.2 H (0.0-4.0) % Baso % (Auto) 0.7 (0.0-2.0) % Neut # (Auto) 2.7 (1.8-7.7) th/mm3 Lymph # (Auto) 1.6 (1.0-4.8) th/mm3 Irwin # (Auto) 0.5 (0.0-0.9) th/mm3 Eos # (Auto) 0.3 (0.0-0.4) th/mm3 Baso # (Auto) 0.0 (0.0-0.2) th/mm3 WBC Differential . Differential Comment Auto diff final Sodium 141 (136-145) meq/L Potassium 3.9 (3.5-5.1) meq/L Chloride 104 (98-107) meq/L Carbon Dioxide 27.9 (21.0-32.0) meq/L Anion Gap 9 (5-15) meq/L BUN 9 (7-18) mg/dL Creatinine 1.06 (0.60-1.30) mg/dL Estimated GFR 88 L (>89) mL/min Random Glucose 73 L (74-106) mg/dL Lactic Acid (0.4-2.0) mmol/L Calcium 8.5 (8.5-10.1) mg/dL Magnesium 1.9 (1.5-2.5) mg/dL Total Bilirubin 0.3 (0.2-1.0) mg/dL AST 17 (15-37) U/L ALT 17 (12-78) U/L Alkaline Phosphatase 101 (45-117) U/L Total Creatine Kinase 159 (39-308) U/L CK-MB (CK-2) 1.2 (0.5-3.6) ng/mL Troponin I Less than 0.02 L (0.02-0.05) ng/mL B-Natriuretic Peptide 8 (0-100) pg/mL Total Protein 8.3 H (6.4-8.2) g/dL Albumin 3.4 (3.4-5.0) g/dL 12/08/17 12/10/17 12/10/17 Range/Units 22:45 03:46 03:46 WBC 16.8 H (4.0-11.0) th/mm3 RBC 4.97 (4.50-5.90) mil/mm3 Hgb 13.1 (13.0-17.0) gm/dL Hct 40.6 (39.0-51.0) % MCV 81.7 (80.0-100.0) fL MCH 26.4 L (27.0-34.0) pg MCHC 32.3 (32.0-36.0) % RDW 15.3 (11.6-17.2) % Plt Count 351 (150-450) th/mm3 MPV 7.9 (7.0-11.0) fL Neut % (Auto) 81.8 H (16.0-70.0) % Lymph % (Auto) 11.9 (9.0-44.0) % Irwin % (Auto) 6.0 (0.0-8.0) % Eos % (Auto) 0.0 (0.0-4.0) % Baso % (Auto) 0.3 (0.0-2.0) % Neut # (Auto) 13.8 H (1.8-7.7) th/mm3 Lymph # (Auto) 2.0 (1.0-4.8) th/mm3 Irwin # (Auto) 1.0 H (0.0-0.9) th/mm3 Eos # (Auto) 0.0 (0.0-0.4) th/mm3 Baso # (Auto) 0.0 (0.0-0.2) th/mm3 WBC Differential . Differential Comment Auto diff final Sodium 140 (136-145) meq/L Potassium 4.4 (3.5-5.1) meq/L Chloride 101 (98-107) meq/L Carbon Dioxide 30.8 (21.0-32.0) meq/L Anion Gap 8 (5-15) meq/L BUN 21 H (7-18) mg/dL Creatinine 1.28 (0.60-1.30) mg/dL Estimated GFR 71 L (>89) mL/min Random Glucose 111 H (74-106) mg/dL Lactic Acid 0.9 (0.4-2.0) mmol/L Calcium 8.7 (8.5-10.1) mg/dL Magnesium (1.5-2.5) mg/dL Total Bilirubin 0.2 (0.2-1.0) mg/dL AST 14 L (15-37) U/L ALT 15 (12-78) U/L Alkaline Phosphatase 91 (45-117) U/L Total Creatine Kinase (39-308) U/L CK-MB (CK-2) (0.5-3.6) ng/mL Troponin I (0.02-0.05) ng/mL B-Natriuretic Peptide (0-100) pg/mL Total Protein 8.1 (6.4-8.2) g/dL Albumin 3.3 L (3.4-5.0) g/dL Imaging Data Attestation: I personally reviewed and interpreted this imaging study as follows : Radiologist's impression: Chest X-Ray 12/08/17 21:12 CONCLUSION: 1. Chronic bilateral pulmonary opacity right greater than left with increase in the right midlung zone when compared to the prior study. 2. Scarring versus small pleural effusion on the right. 3. Diffuse volume loss on the right. Chest CTA 12/09/17 00:00 CONCLUSION: No evidence of pulmonary embolism Head CT 12/09/17 00:00 CONCLUSION: Negative CT Head non contrast. . ECG Data EKG Prior to Arrival: No Attestation: I personally reviewed and interpreted this ECG as follows: Prior ECG tracings: available for review Interpretation: EKG: normal sinus rhythm right ventricular conduction delay no acute ST elevation injury pattern or ectopy noted Discharge Plan Discharge Disposition Patient Disposition: 30 Still Patient Discharge Condition Condition: Stable Discharge Order Discharge Orders: Discharge Order (Routine); Ordered 12/10/17 Ordered By: Sabas Mejia Discharge Details Anticipated Discharge Date: 12/10/17 Diagnosis: COPD (chronic obstructive pulmonary disease), Diastolic heart failure, Sarcoidosis, Afib, Bronchitis Physicians Team ED Provider: Iris Lyle Primary Care Provider: NON STAFF,PROVIDER Attending Provider: Sabas Mejia Other Providers: Benjie Akins V Status ED Status: Left Department Discharge Information Discharge Date/Time: 12/09/17 05:47
--- NOTE | 2017-12-08 22:04 | XR ---
EXAM DATE: 12/08/2017 10:01 PM EDT AGE/SEX: 52 years / Male INDICATIONS: Shortness of breath. CLINICAL DATA: This is the patient's initial encounter. Patient reports that signs and symptoms have been present for 1 day and indicates a pain score of 0/10. MEDICAL/SURGICAL HISTORY: Chronic obstructive pulmonary disease. Congestive heart failure. Hy pertension. Colon resection. COMPARISON: [facility] [place], CHEST 1V SINGLE AP, 11/13/2017. . FINDINGS: Single AP view of the chest. Bilateral pulmonary opacities again seen right greater than left with di ffuse volume loss on the right and mild left to right mediastinal shift. Mediastinal silhouette other dean within normal limits. No evidence of pneumothorax. Blunting of the right costophrenic sulcus is chronic. CONCLUSION: 1. Chronic bilateral pulmonary opacity right greater than left with increase in the right midlung zo ne when compared to the prior study. 2. Scarring versus small pleural effusion on the right. 3. Diffuse volume loss on the right. Electronically signed by: Zachary Braga MD 12/08/2017 10:03 PM EDT
[2017-12-08] MEDS ORDERED: Piperacil/Tazo 4.5 GM Premix 4.5 GM/100 ML BAG IV.SIG ONE (22:19)
[2017-12-08] MEDS ORDERED: MethylPREDNISolone Sod Succinate Inj 125 MG/2 ML Vial IV.PUSH ONE (22:19)
[2017-12-08] MEDS ORDERED: Morphine Inj 4 MG/ML Vial IV.PUSH ONE (22:23)
[2017-12-08 22:27] LABS: Baso % (Auto) 0.7 % (0.0-2.0); Eos # (Auto) 0.3 th/mm3 (0.0-0.4); Eos % (Auto) 6.2 % (0.0-4.0); Hematocrit 42.5 % (39.0-51.0); Lymph # (Auto) 1.6 th/mm3 (1.0-4.8); Lymph % (Auto) 30.9 % (9.0-44.0); Mean Corpuscular HGB Conc 32.9 % (32.0-36.0); Mean Corpuscular Hemoglobin 26.5 pg (27.0-34.0); Mean Corpuscular Volume 80.5 fL (80.0-100.0); Mean Platelet Volume 7.6 fL (7.0-11.0); Mono # (Auto) 0.5 th/mm3 (0.0-0.9); Mono % (Auto) 10.2 % (0.0-8.0); Neut # (Auto) 2.7 th/mm3 (1.8-7.7); Platelet Count 301 th/mm3 (150-450); Red Blood Count 5.29 mil/mm3 (4.50-5.90); Red Cell Distribution Width 14.9 % (11.6-17.2); White Blood Count 5.1 th/mm3 (4.0-11.0)
[2017-12-08] MEDS ORDERED: Azithromycin Inj 500 MG in Sodium Chlor 0.9% Inj 250 ML IV.SIG ONE (22:27)
[2017-12-08 22:43] LABS: Alanine Aminotransferase 17 U/L (12-78); Albumin 3.4 g/dL (3.4-5.0); Anion Gap 9 meq/L (5-15); Aspartate Aminotransferase 17 U/L (15-37); Blood Urea Nitrogen 9 mg/dL (7-18); Calcium 8.5 mg/dL (8.5-10.1); Carbon Dioxide 27.9 meq/L (21.0-32.0); Chloride 104 meq/L (98-107); Glomerular Filtration Rate 88 mL/min (>89); Glucose,Random 73 mg/dL (74-106); Magnesium 1.9 mg/dL (1.5-2.5); Potassium 3.9 meq/L (3.5-5.1); Sodium 141 meq/L (136-145)
[2017-12-08 22:47] LABS: Alkaline Phosphatase 101 U/L (45-117); Creatine Kinase 159 U/L (39-308); Total Protein 8.3 g/dL (6.4-8.2)
[2017-12-08 23:00] LABS: Creatine Kinase MB 1.2 ng/mL (0.5-3.6)
--- NOTE | 2017-12-09 01:55 | CT ---
EXAM DATE: 12/09/2017 1:50 AM EDT AGE/SEX: 52 years / Male INDICATIONS: Cephalgia. CLINICAL DATA: This is the patient's initial encounter. Patient reports that signs and symptoms have been present for 2 days and indicates a pain score of 3/10. MEDICAL/SURGICAL HISTORY: Cardiovascular disease. Chronic obstructive pulmonary disease. Hyperten vanessa. None. RADIATION DOSE: 56.35 CTDI (mGy) COMPARISON: [facility] [place], CT HEAD W/O CONTRAST, 11/15/2017. . TECHNIQUE: CT of the head without contrast. Using automated exposure control and adjustment of the mA and/or kV according to patient size, radiation dose was kept as low as reasonably achievable to ob tain optimal diagnostic quality images. DICOM format image data is available electronically for revi ew and comparison. FINDINGS: Cerebrum: The ventricles are normal for age. No evidence of midline shift, mass lesion, hemorrhage or acute infarction. No extraaxial fluid collections are seen. Posterior Fossa: The cerebellum and brainstem are intact. The 4th ventricle is midline. The cerebe llopontine angle is unremarkable. Extracranial: The visualized portion of the orbits is intact. Skull: The calvaria is intact. No evidence of skull fracture. CONCLUSION: Negative CT Head non contrast. . Electronically signed by: Benjie Hamlin MD 12/09/2017 1:54 AM EDT
--- NOTE | 2017-12-09 02:08 | CT ---
EXAM DATE: 12/09/2017 1:56 AM EDT AGE/SEX: 52 years / Male INDICATIONS: Shortness of breath for two days. CLINICAL DATA: This is the patient's initial encounter. Patient reports that signs and symptoms have been present for 2 days and indicates a pain score of 2/10. MEDICAL/SURGICAL HISTORY: Cardiovascular disease. Chronic obstructive pulmonary disease. Hyperten vanessa. None. RADIATION DOSE: 11.04 CTDI (mGy) COMPARISON: [facility] [place] CHEST W CONTRAST, 11/13/2017. . TECHNIQUE: Volumetric scanning was performed using a multi-row detector CT scanner during bolus infu vanessa of 75 ml Omnipaque 350 (iohexol) nonionic water-soluble contrast as a single exam dose. The lesly a was post processed with a variety of visualization algorithms including full volume maximum intensi ty projection and sliding thin slab reformation. Using automated exposure control and adjustment of the mA and/or kV according to patient size, radiation dose was kept as low as reasonably achievable t o obtain optimal diagnostic quality images. DICOM format image data is available electronically for review and comparison. FINDINGS: Pulmonary Arteries: No filling defects are seen in the pulmonary arteries out to the subsegmental v essels. The left and right pulmonary arteries are normal in diameter. Lung: Extensive bilateral pulmonary parenchymal infiltrates are again noted, largely reticular and r eticulonodular infiltrates, however with masslike areas of consolidative change in the anterior left upper lobe and in the lateral perihilar right lower lobe. These areas appear slightly larger than on prior exam. Effusion: Scattered calcified pleural plaques. Minimal pleural fluid. Mediastinum: Enlarged lymph nodes throughout the mediastinum and prominent kiley tissue in the hilar regions bilaterally, similar to prior. Other: The axilla is unremarkable. 1. CONCLUSION: No evidence of pulmonary embolism Electronically signed by: Benjie Hamlin MD 12/09/2017 2:07 AM EDT
[2017-12-09] MEDS ORDERED: Morphine Inj 4 MG/ML Vial IV.PUSH ONE ×2 (02:31→02:33)
[2017-12-09] MEDS ORDERED: Ketorolac Inj 30 MG/ML (IVP) Vial IV.PUSH ONE (02:32)
[2017-12-09] MEDS ORDERED: Bisacodyl 10 MG Supp RECTAL PRN (03:41)
[2017-12-09] MEDS ORDERED: Acetaminophen 325 MG Tablet PO PRN (03:41)
[2017-12-09] MEDS ORDERED: MethylPREDNISolone Sod Succinate Inj 40 MG/ML Vial IV.PUSH SCH (04:00)
--- NOTE | 2017-12-09 04:26 | P.HPIM ---
History of Present Illness Primary Care Physician: PROVIDER NON STAFF History of Present Illness: This is a 52-year-old male with a PMH of HTN, COPD, CHF (Echo 11/16/2017 w/ EF 55 -60%), A-fib on Eliquis and Sarcoidosis who presented to the ER w/ SOB x2 days. Recent admit 11/13-11/20/17 for similar complaints, s/p acute respiratory failure requiring BIPAP, s/p eval by Pulmonology and treatment w/ Steroids and antibiotics for PNA. States he has been off all his medications, including Eliquis for the last 2wks. Normally follows w/ Brick Molder Hand at [facility], however has no upcoming appointment. Reports associated non-productive cough and episodes of chills. Uses Home O2 as needed. On arrival, BP 174/112, HR 93 , O2 sat 95% on 2L NC, Afebrile. CBC unremarkable. Chemistry essentially unremarkable. Troponin negative. CXR with chronic bilateral pulmonary opacity right greater than left with increase in size of right midlung zone. CTA Chest negative for PE. CT Head negative. S/p Solu-Medrol, DuoNeb and IV Abx in ER w / plans to be discharged home, however O2 sat 87% on RA. - Diagnosis (1) Hypoxia (2) CHF (congestive heart failure) (3) Afib (4) Sarcoidosis Review of Systems PAST FAMILY HISTORY: Reviewed. No h/o DM or CAD All other systems reviewed negative except as stated in HPI [facility] - History History Provided By: Patient - Medical History Medical History: Medical History (Last Reviewed 12/08/17 @ 21:24 by Iris Lyle MD) COPD (chronic obstructive pulmonary disease) (Acute) CHF (congestive heart failure) (Acute) Afib (Chronic) Sarcoidosis (Chronic) HBP (high blood pressure) (Acute) High cholesterol (Chronic) - Surgical History Surgical History: Surgical History (Last Reviewed 12/08/17 @ 21:24 by Iris Lyle MD) No history of previous surgery (Acute) - Family History Family History: Family History (Last Reviewed 12/08/17 @ 21:24 by Iris Lyle MD) Mother CVA (cerebral vascular accident) - Tobacco History Second Hand Smoke Exposure: No Tobacco Use In Past 30 Days: No Smoking Status: Never smoker Tobacco Type: Cigarettes - Alcohol History How Often Do You Have a Drink Containing Alcohol: Monthly or less - Substance Use History Substance History: No History of Abuse - Travel History Recent Travel in the [place] Within the Last 8 Weeks: No Recent Travel Out of the Country Within the Last 8 Weeks: No - Immunization History Tetanus Immunization: <5 Years Hx Influenza Vaccine This Season: Yes Medications and Allergies Active Medications: Active Medications Acetaminophen (Tylenol) 650 mg PO Q4H PRN PRN Reason: Temp > 100.4 Al Hydroxide/Mg Hydroxide (Milk Of Magnesia Liq) 30 ml PO Q12H PRN PRN Reason: Mild Constipation Albuterol (Duoneb Neb (Prn)) 1 ampul NEB Q2HR NEB PRN PRN Reason: SOB/WHEEZING Albuterol (Duoneb Neb (Biju)) 1 ampul NEB Q4HR WHILE AWAKE NEB BIJU Apixaban (Eliquis) 5 mg PO BID [facility] Atorvastatin Calcium (Lipitor) 40 mg PO DAILY [facility] Bisacodyl (Dulcolax Supp) 10 mg RECTAL DAILY PRN PRN Reason: SEVERE CONSITIPATION Budesonide/Formoterol Fumarate (Symbicort 160/4.5 Mcg Inh) 2 puff INH BID [facility] Diltiazem HCl (Cardizem Cd 24hr) 240 mg PO DAILY [facility] Folic Acid (Folic Acid) 1 mg PO DAILY [facility] Furosemide (Lasix) 40 mg PO BID [facility] Gabapentin (Neurontin) 100 mg PO DAILY [facility] Lactulose (Lactulose Liq) 30 ml PO DAILY PRN PRN Reason: SEVERE CONSITIPATION Methylprednisolone Sodium Succinate (Solumedrol Inj) 40 mg IV.PUSH Q6H [facility] Metoprolol Tartrate (Lopressor) 50 mg PO BID [facility] Ondansetron HCl (Zofran Inj) 4 mg IV.PUSH Q6H PRN PRN Reason: NAUSEA OR VOMITING Pantoprazole Sodium (Protonix) 40 mg PO DAILY [facility] Senna/Docusate Sodium (Maureen-Colace) 1 tab PO BID [facility] Sennosides (Senokot) 17.2 mg PO Q12H PRN PRN Reason: Moderate Constipation Allergies Allergy/AdvReac Type Severity Reaction Status Date / Time No Known Allergies Allergy Verified 12/08/17 19:26 Home Medications Medication Instructions Recorded Confirmed Type apixaban [Eliquis] 5 mg PO BID 10/22/17 12/08/17 History atorvastatin 40 mg PO DAILY 10/22/17 12/08/17 History diltiazem HCl 240 mg PO DAILY 10/22/17 12/08/17 History folic acid 1 mg PO DAILY 10/22/17 12/08/17 History furosemide [Lasix] 40 mg PO BID 10/22/17 12/08/17 History gabapentin 100 mg PO DAILY 10/22/17 12/08/17 History methotrexate (PF) 20 mg SUB-Q QWEEK 10/22/17 12/08/17 History metoprolol tartrate [Lopressor] 50 mg PO BID 10/22/17 12/08/17 History Exam Vital signs: Vital Signs 12/08/17 19:23 12/08/17 20:44 12/08/17 21:27 Temperature 98.6 F Pulse Rate 100 H 93 H 78 Respiratory Rate 28 H 20 18 Blood Pressure 133/77 174/112 H Pulse Oximetry 96 95 95 12/08/17 22:31 12/08/17 22:39 12/08/17 23:17 Temperature Pulse Rate 94 H 91 H 87 Respiratory Rate 20 18 18 Blood Pressure 141/79 H 156/90 H Pulse Oximetry 95 95 12/09/17 00:36 12/09/17 02:37 12/09/17 03:15 Temperature Pulse Rate 105 H 92 H Respiratory Rate 18 18 Blood Pressure 137/80 135/78 Pulse Oximetry 95 92 L 87 L Intake & Output 12/08/17 12/08/17 12/09/17 06:59 18:59 06:59 Intake Total 350 / 350 Balance 350 / 350 Weight 300 kg Intake: IV 350 / 350 Azithromycin Inj 500 MG In NS 250 / 250 Inj 250 ML @ 250 mls/hr IV.SIG ONCE ONE Rx#:[id number] Zosyn 4.5 GM Premix 4.5 gm In 100 / 100 100 ml @ 200 mls/hr IV.SIG ONCE ONE Rx#:[id number] Narrative: PE: GENERAL: Pleasant middle-aged black male in no acute distress. at bedside SKIN: Focused skin assessment warm and dry. HEENT: PERRLA, EOMI. No scleral icterus or conjunctival pallor. No lid lag or facial droop. CARDIOVASCULAR: Regular rate and rhythm. No obvious murmurs to auscultation. No chest tenderness to palpation. RESPIRATORY: No obvious rhonchi. Occasional wheezing. Clear to auscultation. Breath sounds equal bilaterally. GASTROINTESTINAL: Abdomen soft, non-tender, nondistended. BS normal. MUSCULOSKELETAL: Extremities without clubbing, cyanosis, or edema. No obvious deformities. NEUROLOGICAL: Awake, alert and oriented x4. No focal neurologic deficits. Moving both upper and lower extremities spontaneously. PSYCHIATRIC: Appropriate mood and affect. Insight and judgment normal. Results - Labs CBC & Chem 7: 12/08/17 22:05 12/08/17 22:05 Labs: Short CBC 12/08/17 Range/Units 22:05 WBC 5.1 (4.0-11.0) th/mm3 Hgb 14.0 (13.0-17.0) gm/dL Hct 42.5 (39.0-51.0) % Plt Count 301 (150-450) th/mm3 BMP 12/08/17 22:05 Sodium 141 Potassium 3.9 Chloride 104 Carbon Dioxide 27.9 BUN 9 Creatinine 1.06 Calcium 8.5 Cardiac Enzymes 12/08/17 Range/Units 22:05 Total Creatine Kinase 159 (39-308) U/L CK-MB (CK-2) 1.2 (0.5-3.6) ng/mL Troponin I Less than 0.02 L (0.02-0.05) ng/mL Liver Function 12/08/17 Range/Units 22:05 Total Bilirubin 0.3 (0.2-1.0) mg/dL AST 17 (15-37) U/L ALT 17 (12-78) U/L Alkaline Phosphatase 101 (45-117) U/L Albumin 3.4 (3.4-5.0) g/dL - Imaging Impressions Chest X-Ray 12/08/17 21:12 CONCLUSION: 1. Chronic bilateral pulmonary opacity right greater than left with increase in the right midlung zone when compared to the prior study. 2. Scarring versus small pleural effusion on the right. 3. Diffuse volume loss on the right. Chest CTA 12/09/17 00:00 CONCLUSION: No evidence of pulmonary embolism Head CT 12/09/17 00:00 CONCLUSION: Negative CT Head non contrast. . Caprini VTE Risk Assessment Caprini VTE Risk Assessment: Moderate/High Risk (score >= 2) Caprini Risk Assessment Model: Point Value = 1 Point Value = 2 Point Value = 3 Point Value = 5 Age 41-60 Minor surgery BMI > 25 kg/m2 Swollen legs Varicose veins or History of unexplained or recurrent spontaneous Oral contraceptives or hormone replacement Sepsis (< 1 month) Serious lung disease, including pneumonia (< 1 month) Abnormal pulmonary function Acute myocardial infarction Congestive heart failure (< 1 month) History of inflammatory bowel disease Medical patient at bed rest Age 61-74 Arthroscopic surgery Major open surgery (> 45 min) Laparoscopic surgery (> 45 min) Malignancy Confined to bed (> 72 hours) Immobilizing plaster cast Central venous access Age >= 75 History of VTE Family history of VTE Factor V Leiden Prothrombin [id number] Lupus anticoagulant Anticardiolipin antibodies Elevated serum homocysteine Heparin-induced thrombocytopenia Other congenital or acquired thrombophilia Stroke (< 1 month) Elective arthroplasty Hip, pelvis, or leg fracture Acute spinal cord injury (< 1 month) Prophylaxis Regimen: Total Risk Factor Score Risk Level Prophylaxis Regimen 0-1 Low Early ambulation 2 Moderate Order ONE of the following: *Sequential Compression Device (SCD) *Heparin 5000 units SQ BID 3-4 Higher Order ONE of the following medications: *Heparin 5000 units SQ TID *Enoxaparin/Lovenox 40 mg SQ daily (WT < 150 kg, CrCl > 30 mL/min) *Enoxaparin/Lovenox 30 mg SQ daily (WT < 150 kg, CrCl > 10-29 mL/min) *Enoxaparin/Lovenox 30 mg SQ BID (WT < 150 kg, CrCl > 30 mL/min) AND/OR *Sequential Compression Device (SCD) 5 or more Highest Order ONE of the following medications: *Heparin 5000 units SQ TID (Preferred with Epidurals) *Enoxaparin/Lovenox 40 mg SQ daily (WT < 150 kg, CrCl > 30 mL/min) *Enoxaparin/Lovenox 30 mg SQ daily (WT < 150 kg, CrCl > 10-29 mL/min) *Enoxaparin/Lovenox 30 mg SQ BID (WT < 150 kg, CrCl > 30 mL/min) AND *Sequential Compression Device (SCD) Assessment and Plan - Assessment (1) Hypoxia Code(s): R09.02 - Hypoxemia Status: Acute (2) CHF (congestive heart failure) Code(s): I50.9 - Heart failure, unspecified Status: Acute (3) Afib Code(s): I48.91 - Unspecified atrial fibrillation Status: Chronic (4) Sarcoidosis Code(s): D86.9 - Sarcoidosis, unspecified Status: Chronic - Plan A/P: 1. Hypoxia: Likely multifactorial-Sarcoidosis/PNA/CHF/COPD, O2 sat 87% on RA while in ER, on Home O2 as needed. CXR w/ chronic bilateral opacities, however larger in comparison to previous-possibly developing PNA, will continue w/ IV Abx for PNA, monitor O2. CTA Chest negative for PE. 2. Sarcoidosis: Continue home Methotrexate, follows w/ Brick Molder Hand in [facility] , outpatient follow up as scheduled. Will consult Pulmonology here for further eval/recommendations. 3. COPD: Chronic Respiratory Failure w/ Acute Exacerbation. Moderate-Severe. Solu-Medrol, Symbicort, DuoNeb q4h and q2h prn, Mucinex. 4. A-fib: Chronic, off all medications x2 wks including Eliquis, will resume home medications. 5. CHF: Chronic. Diastolic. Echo 11/16/17 w/ EF 55-60%, resume home medications, monitor I/O. 6. DVT Prophylaxis: Eliquis 7. Social work for d/c planning as needed 8. Case discussed w/ ER physician at length, labs/records/imaging reviewed by me. (3) Afib Qualifiers:
[2017-12-09] MEDS: Budesonide-Formoterol 160/4.5 MCG 6 GM Inhaler INH SCH ×2 (08:39→21:10)
[2017-12-09] MEDS: Gabapentin 100 MG Capsule PO SCH (08:40)
[2017-12-09] MEDS: Senna/Docusate Sodium 8.6/50 MG Tablet PO SCH ×2 (08:40→21:09)
[2017-12-09] MEDS: Pantoprazole Sodium 20 MG DR Tablet PO SCH (08:40)
[2017-12-09] MEDS: Metoprolol Tartrate 50 MG Tablet PO SCH ×2 (08:40→21:09)
[2017-12-09] MEDS: Furosemide 40 MG Tablet PO SCH ×2 (08:40→21:09)
[2017-12-09] MEDS: dilTIAZem CD 240 MG Capsule PO SCH (08:40)
[2017-12-09] MEDS: Folic Acid 1 MG Tablet PO SCH (08:40)
[2017-12-09] MEDS ORDERED: Non-Formulary Drug (Diltiazem Hcl [Diltiazem Hcl] 240 MG) PO SCH (09:00)
[2017-12-09] MEDS: predniSONE 20 MG Tablet PO SCH (13:20)
[2017-12-09] MEDS: Morphine Sulfate Inj 2 MG/ML Vial IV.PUSH PRN ×2 (15:35→21:16)
--- NOTE | 2017-12-09 19:20 | ECG ---
Date Performed: 12/08/2017 Time Performed: 21:49:03 PTAGE: 52 years EKG: Sinus rhythm POSSIBLE RIGHT VENTRICULAR CONDUCTION DELAY BORDERLINE ECG PREVIOUS TRACING : 11/13/2017 05.20 Since the previous tracing, no significant change noted DOCTOR: Codi Duff Interpretating Date/Time 12/09/2017 19:19:07
--- NOTE | 2017-12-09 22:33 | MB ---
cc: Mercy Stanley MD DATE: 12/09/2017 REASON FOR CONSULTATION: Respiratory failure and sleep apnea. HISTORY OF PRESENT ILLNESS: This is a 52-year-old male who has a prior history of hypertension, CHF, COPD and obstructive sleep apnea as well as a longstanding history of sarcoidosis, who was admitted through the emergency room with shortness of breath. The patient has had similar episodes this past month and has been on oral steroids and antibiotics for pneumonia. He had a sleep study done and was advised to have a CPAP mask at home, but apparently, he has not gotten his CPAP mask as yet. Upon arrival this time, the patient was in respiratory distress and was placed on oxygen via nasal cannula at 3 liters and was complaining of a cough with expectoration and having mild chills. The patient had a chest x-ray which showed bilateral interstitial infiltrates, more on the right side. A CTA was done which was not suggestive of pulmonary emboli. The patient was given IV Solu-Medrol and started on IV antibiotics including Zithromax. He is now on nasal cannula 2 liters and seems quite comfortable. He has no chest pain. He coughs up a little whitish mucus. Denies hemoptysis and is not having any fever. PAST MEDICAL HISTORY: As has previously been documented, which includes a history of sarcoidosis, interstitial lung disease, CHF, hypertension, history of atrial fibrillation, history of hyperlipidemia, exogenous obesity and obstructive sleep apnea. PAST SURGICAL HISTORY: No history of surgery. HABITS: The patient does not smoke. Alcohol use, occasional. FAMILY HISTORY: Noncontributory. There is a history of strokes. REVIEW OF SYSTEMS: Reveals the patient is overweight. He has dizziness, postnasal drip, cough with expectoration, epigastric distress and reflux. He has leg swelling but no calf muscle pains. He has some joint pains to his extremities. Denies blackout spells. He has no depression or anxiety. PHYSICAL EXAMINATION: GENERAL: This is a moderately obese, middle-aged, male who is alert, in no acute distress. VITAL SIGNS: Blood pressure 140/80, pulse 100, respirations 16, temperature 98.2. HEENT: Head is normocephalic. Pupils are reactive and equal. Sclerae are clear. Throat is clear. Nasal mucosa is injected. NECK: Supple. No bruits, thyroid enlargement or lymphadenopathy. CHEST: Distant breath sounds with expiratory wheezes bilaterally, prolonged expirations with occasional basilar crackles. HEART: Sounds are irregular. S1 and S2 with no murmur. ABDOMEN: Soft, obese without masses. No organomegaly or tenderness. Bowel sounds are active. EXTREMITIES: Mild varicosities. No edema. NEUROLOGIC: Reflexes are 1+ with no gross motor deficits. The patient is alert, oriented, answers all questions appropriately and normal affect. IMPRESSION: 1. Chronic obstructive pulmonary disease, in acute exacerbation. 2. Congestive heart failure and cardiomyopathy. 3. Atrial fibrillation. 4. Hypertension. 5. Sarcoidosis, in remission. 6. History of hypertension. PLAN: The patient has been placed on antibiotic therapy and will have a followup chest x-ray done this week. He has obstructive sleep apnea and thus will be given a BiPAP mask at night at 15/6 cm FiO2 of 30%. During the day, he will use nasal cannula O2 at 3 liters. The patient will be also continued on prednisone at 40 mg daily and we will continue with diuretic therapy including Lasix 40 mg b.i.d. A CPAP mask will be arranged as an outpatient from Dr. Carlson's clinic upon discharge. If his clinical condition is stabilized and his oxygenation is adequate, arrangements will be made to discharge him this week on oxygen at 3 liters. Thank you for this consultation. Mercy Stanley MD VJAIME/stan , 07:43 PM , 07:56 PM
[2017-12-10] MEDS: Morphine Sulfate Inj 2 MG/ML Vial IV.PUSH PRN (03:23)
[2017-12-10 05:07] LABS: Baso % (Auto) 0.3 % (0.0-2.0); Hematocrit 40.6 % (39.0-51.0); Hemoglobin 13.1 gm/dL (13.0-17.0); Lymph % (Auto) 11.9 % (9.0-44.0); Mean Corpuscular HGB Conc 32.3 % (32.0-36.0); Mean Corpuscular Hemoglobin 26.4 pg (27.0-34.0); Mean Corpuscular Volume 81.7 fL (80.0-100.0); Mean Platelet Volume 7.9 fL (7.0-11.0); Neut # (Auto) 13.8 th/mm3 (1.8-7.7); Neut % (Auto) 81.8 % (16.0-70.0); Platelet Count 351 th/mm3 (150-450); Red Blood Count 4.97 mil/mm3 (4.50-5.90); Red Cell Distribution Width 15.3 % (11.6-17.2); White Blood Count 16.8 th/mm3 (4.0-11.0)
[2017-12-10 05:40] LABS: Alanine Aminotransferase 15 U/L (12-78); Albumin 3.3 g/dL (3.4-5.0); Alkaline Phosphatase 91 U/L (45-117); Anion Gap 8 meq/L (5-15); Aspartate Aminotransferase 14 U/L (15-37); Blood Urea Nitrogen 21 mg/dL (7-18); Calcium 8.7 mg/dL (8.5-10.1); Carbon Dioxide 30.8 meq/L (21.0-32.0); Chloride 101 meq/L (98-107); Glomerular Filtration Rate 71 mL/min (>89); Glucose,Random 111 mg/dL (74-106); Sodium 140 meq/L (136-145); Total Protein 8.1 g/dL (6.4-8.2)
[2017-12-10 05:41] LABS: Potassium 4.4 meq/L (3.5-5.1)
[2017-12-10 07:56] VITALS: BP 122/73; RESP 17; TEMP 98; O2SAT 97
[2017-12-10] MEDS: Gabapentin 100 MG Capsule PO SCH (08:01)
[2017-12-10] MEDS: Senna/Docusate Sodium 8.6/50 MG Tablet PO SCH (08:02)
[2017-12-10] MEDS: Pantoprazole Sodium 20 MG DR Tablet PO SCH (08:02)
[2017-12-10] MEDS: Metoprolol Tartrate 50 MG Tablet PO SCH (08:02)
[2017-12-10] MEDS: Folic Acid 1 MG Tablet PO SCH (08:03)
[2017-12-10] MEDS: predniSONE 20 MG Tablet PO SCH (08:03)
[2017-12-10] MEDS: Budesonide-Formoterol 160/4.5 MCG 6 GM Inhaler INH SCH (08:03)
[2017-12-10] MEDS: dilTIAZem CD 240 MG Capsule PO SCH (08:03)
[2017-12-10] MEDS: Furosemide 40 MG Tablet PO SCH (08:03)
[2017-12-10 08:08] VITALS: PULSE 70
--- NOTE | 2017-12-10 09:29 | P.PNIM ---
Subjective Interval history: Patient says he is feeling comfortable. Feels like going home. Physical Exam Vital signs: Vital Signs 12/09/17 12:00 12/09/17 12:08 12/09/17 15:51 Temperature 97.4 F L Pulse Rate 78 87 73 Respiratory Rate 18 16 18 Blood Pressure 134/82 Pulse Oximetry 91 L Pulse Oximetry [Resting on Room Air] Pulse Oximetry [Resting with Oxygen] 12/09/17 16:00 12/09/17 18:29 12/09/17 20:00 Temperature 97.6 F 97.3 F L Pulse Rate 74 81 Respiratory Rate 18 18 Blood Pressure 126/73 127/78 Pulse Oximetry 95 94 L Pulse Oximetry [Resting on Room Air] 88 L Pulse Oximetry [Resting with Oxygen] 92 L 12/09/17 21:10 12/09/17 21:46 12/10/17 00:00 Temperature 98 F Pulse Rate 77 77 Respiratory Rate 18 Blood Pressure 137/76 Pulse Oximetry 94 L 97 94 L Pulse Oximetry [Resting on Room Air] Pulse Oximetry [Resting with Oxygen] 12/10/17 01:14 12/10/17 07:55 12/10/17 08:06 Temperature 98.0 F Pulse Rate 82 70 Respiratory Rate 17 Blood Pressure 122/73 Pulse Oximetry 94 L 97 97 Pulse Oximetry [Resting on Room Air] Pulse Oximetry [Resting with Oxygen] Intake & Output 12/09/17 12/10/17 12/10/17 18:59 06:59 18:59 Intake Total 1200 / 1200 360 / 360 Output Total 600 / 600 Balance 600 / 600 360 / 360 Intake: Oral 1200 / 1200 360 / 360 Output: Urine 600 / 600 Other: # Voids 4 Date of Last Bowel Movement 12/06/17 12/06/17 Narrative: GENERAL: Patient lying in bed. Appears comfortable. Alert and oriented 3. SKIN: Warm and dry. HEAD: Normocephalic. EYES: No scleral icterus. No injection or drainage. NECK: Supple, trachea midline. No JVD . CARDIOVASCULAR: Regular rate and rhythm without murmurs, gallops, or rubs. RESPIRATORY: Breath sounds equal bilaterally. No accessory muscle use. GASTROINTESTINAL: Abdomen soft, non-tender, nondistended. MUSCULOSKELETAL: No cyanosis, or edema. BACK: Nontender without obvious deformity. No CVA tenderness. Results - Labs CBC & Chem 7: 09/18/18 03:46 12/10/17 03:46 Laboratory Results - last 24 hr 12/10/17 12/10/17 03:46 03:46 WBC 16.8 H RBC 4.97 Hgb 13.1 Hct 40.6 MCV 81.7 MCH 26.4 L MCHC 32.3 RDW 15.3 Plt Count 351 MPV 7.9 Neut % (Auto) 81.8 H Lymph % (Auto) 11.9 Wheeler % (Auto) 6.0 Eos % (Auto) 0.0 Baso % (Auto) 0.3 Neut # (Auto) 13.8 H Lymph # (Auto) 2.0 Wheeler # (Auto) 1.0 H Eos # (Auto) 0.0 Baso # (Auto) 0.0 WBC Differential . Differential Comment Auto diff final Sodium 140 Potassium 4.4 Chloride 101 Carbon Dioxide 30.8 Anion Gap 8 BUN 21 H Creatinine 1.28 Estimated GFR 71 L Random Glucose 111 H Calcium 8.7 Total Bilirubin 0.2 AST 14 L ALT 15 Alkaline Phosphatase 91 Total Protein 8.1 Albumin 3.3 L Microbiology 12/08/17 22:53 Blood - Peripheral Aerobic Blood Culture - Preliminary No growth in 1 day 12/08/17 22:53 Blood - Peripheral Anaerobic Blood Culture - Preliminary No growth in 1 day 12/08/17 22:45 Blood - Peripheral Aerobic Blood Culture - Preliminary No growth in 1 day 12/08/17 22:45 Blood - Peripheral Anaerobic Blood Culture - Preliminary No growth in 1 day Assessment and Plan - Assessment (1) Hypoxia Code(s): R09.02 - Hypoxemia Status: Acute (2) CHF (congestive heart failure) Code(s): I50.9 - Heart failure, unspecified Status: Acute (3) Afib Code(s): I48.91 - Unspecified atrial fibrillation Status: Chronic (4) Sarcoidosis Code(s): D86.9 - Sarcoidosis, unspecified Status: Chronic - Plan //Hypoxia: //COPD exacerbation //Chronic respiratory failure with acute exacerbation. Likely multifactorial-Sarcoidosis/PNA/CHF/COPD, O2 sat 87% on RA while in ER, on Home O2 as needed. CXR w/ chronic bilateral opacities, however larger in comparison to previous-possibly developing PNA, will continue w/ IV Abx for PNA , monitor O2. CTA Chest negative for PE. = Respiratory status improving. Follow with pulmonology as outpatient. Prednisone taper. //Sarcoidosis: Continue home Methotrexate, follows w/ Public Policy Manager in [facility], outpatient follow up as scheduled. Will consult Pulmonology here for further eval/recommendations. //A-fib: Chronic, off all medications x2 wks including Eliquis, will resume home medications. /CHF: Chronic. Diastolic. Echo 11/16/17 w/ EF 55-60%, resume home medications , monitor I/O. //DVT Prophylaxis: Eliquis Discussed Condition With: Patient, nurse. Discharge Planning: Discharge home today. Follow-up with pulmonology as outpatient. (3) Afib Qualifiers:
== END 2017-12-10 10:59 | disposition home or self-care (01) ==
LOC: NEPC 18:42 → NEDA 12-09 04:17 → N07 12-09 05:55
PROVIDERS: ADMIT Internal Medicine; ATTEND Internal Medicine

== ENCOUNTER 2018-01-01 14:19 | Observation (INO) ==
[2018-01-01] MEDS ORDERED: Aspirin 325 MG Tablet PO ONE (15:01)
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
[2018-01-01 15:35] LABS: Baso % (Auto) 0.6 % (0.0-2.0); Eos # (Auto) 0.2 th/mm3 (0.0-0.4); Hematocrit 40.8 % (39.0-51.0); Hemoglobin 13.3 gm/dL (13.0-17.0); Lymph # (Auto) 1.8 th/mm3 (1.0-4.8); Lymph % (Auto) 26.6 % (9.0-44.0); Mean Corpuscular HGB Conc 32.6 % (32.0-36.0); Mean Corpuscular Hemoglobin 26.8 pg (27.0-34.0); Mean Corpuscular Volume 82.3 fL (80.0-100.0); Mean Platelet Volume 7.5 fL (7.0-11.0); Mono # (Auto) 0.8 th/mm3 (0.0-0.9); Neut % (Auto) 57.8 % (16.0-70.0); Platelet Count 243 th/mm3 (150-450); Red Blood Count 4.96 mil/mm3 (4.50-5.90); Red Cell Distribution Width 16.3 % (11.6-17.2); White Blood Count 6.9 th/mm3 (4.0-11.0)
[2018-01-01 15:59] LABS: Activated Partial Thrombo Time 29.9 sec (24.3-30.1); Alanine Aminotransferase 20 U/L (12-78); Albumin 3.3 g/dL (3.4-5.0); Anion Gap 11 meq/L (5-15); Aspartate Aminotransferase 15 U/L (15-37); Blood Urea Nitrogen 11 mg/dL (7-18); Carbon Dioxide 25.4 meq/L (21.0-32.0); Chloride 106 meq/L (98-107); Glomerular Filtration Rate Greater Than 89 mL/min (>89); Glucose,Random 73 mg/dL (74-106); INR 1.1 Ratio; Lipase 143 U/L (73-393); Potassium 4.1 meq/L (3.5-5.1); Sodium 142 meq/L (136-145)
[2018-01-01 16:03] LABS: Alkaline Phosphatase 84 U/L (45-117); Creatine Kinase 168 U/L (39-308); Total Protein 7.5 g/dL (6.4-8.2)
[2018-01-01] MEDS ORDERED: Morphine Inj 4 MG/ML Vial IV.PUSH ONE (16:06)
[2018-01-01] MEDS ORDERED: MethylPREDNISolone Sod Succinate Inj 125 MG/2 ML Vial IV.PUSH ONE (16:32)
[2018-01-01] MEDS ORDERED: Acetaminophen 500 MG Tablet PO PRN (16:46)
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
[2018-01-01 17:37] LABS: Creatine Kinase 160 U/L (39-308)
[2018-01-01] MEDS: Morphine Inj 4 MG/ML Vial IV.PUSH PRN ×2 (19:44→23:51)
--- NOTE | 2018-01-01 20:03 | ECG ---
Date Performed: 01/01/2018 Time Performed: 16:19:10 PTAGE: 52 years EKG: Sinus rhythm MINIMAL ST ABNORMALITY, CONSIDER EARLY REPOLARIZATION PREVIOUS TRACING : 01/01/2018 14.37 No significant change from previous tracing noted. DOCTOR: Kyree Zamudio Interpretating Date/Time 01/01/2018 20:01:53
--- NOTE | 2018-01-01 20:17 | ECG ---
Date Performed: 01/01/2018 Time Performed: 14:37:34 PTAGE: 52 years EKG: Sinus rhythm NORMAL ECG NO PREVIOUS TRACING DOCTOR: Kyree Zamudio Interpretating Date/Time 01/01/2018 20:16:47
--- NOTE | 2018-01-01 22:26 | ECG ---
Date Performed: 01/01/2018 Time Performed: 20:31:42 PTAGE: 52 years EKG: Sinus rhythm NONSPECIFIC ST ELEVATION BORDERLINE ECG PREVIOUS TRACING : 01/01/2018 16.19 No significant change from previous tracing noted. DOCTOR: Kyree Zamudio Interpretating Date/Time 01/01/2018 22:24:46
[2018-01-01 23:04] LABS: Creatine Kinase 140 U/L (39-308)
[2018-01-02] MEDS: Morphine Inj 4 MG/ML Vial IV.PUSH PRN (04:22)
[2018-01-02 08:29] VITALS: BP 130/87; PULSE 82; RESP 18; TEMP 98.2; O2SAT 94
[2018-01-02] MEDS ORDERED: Furosemide 40 MG Tablet PO SCH (09:15)
--- NOTE | 2018-01-02 09:59 | P.HPCA ---
History of Present Illness Primary Care Physician: PROVIDER NON STAFF Chief Complaint: Chest pain History of Present Illness: This is a 52-year-old male history of sarcoidosis, right-sided heart failure, hypertension, hyperlipidemia, paroxysmal atrial ablation that presents to ED with complaint of chest discomfort. Patient states that he developed a left- sided chest heaviness while driving home from [place]. Episode lasted about 2 -3 minutes but continued to recur a few more times over the next 20 minutes. He was short of breath and nauseous. Denies diaphoresis. He denies history of heart disease but states he follows a heart at [facility] for right-sided heart failure. States he had a stress test about 2 years ago at that facility. Upon reviewing our records, patient had a heart catheterization October 09, 2013 that revealed normal coronary arteries. Currently denies chest discomfort. Patient has history of sarcoidosis, hypertension, hyperlipidemia, paroxysmal atrial relation, right-sided heart failure, obesity. Denies family history of CAD. He is a non-smoker. Rarely has alcohol. Denies illicit drugs. - Diagnosis (1) Chest pain (2) History of heart failure (3) Paroxysmal atrial fibrillation (4) Obesity (5) Sarcoidosis (6) HBP (high blood pressure) (7) High cholesterol Review of Systems General: Patient denies fevers, chills, and recent travel. HEENT: Patient denies headache, sore throat, difficulty swallowing. Cardiovascular: Has the chest discomfort as mentioned above. Denies sensation of heart beating rapidly or irregularly. No syncope. Denies diaphoresis. Respiratory: He was short of breath. Denies inspirational chest discomfort. Denies coughing wheezing or hemoptysis. GI: He was nauseous. Patient denies vomiting, diarrhea, abdominal pain, bloody stools. Musculoskeletal: Patient denies joint pain or edema. Denies calf pain or edema. Neurovascular: Patient denies numbness, tingling, weakness in extremities. Denies headache. Endocrine: Denies polyuria and polydipsia. Hematologic: Denies easy bruising. Skin: Denies rash or itching. PMFSH - History History Provided By: Patient - Medical History Medical History: Medical History (Last Reviewed 01/01/18 @ 16:53 by MAIKOL Epps) COPD (chronic obstructive pulmonary disease) (Acute) CHF (congestive heart failure) (Acute) Afib (Chronic) Sarcoidosis (Chronic) HBP (high blood pressure) (Acute) High cholesterol (Chronic) - Surgical History Surgical History: Surgical History (Last Reviewed 01/01/18 @ 16:53 by MAIKOL Epps) H/O abdominal surgery - Family History Family History: Family History (Last Reviewed 01/01/18 @ 16:53 by MAIKOL Epps) Mother CVA (cerebral vascular accident) - Tobacco History Second Hand Smoke Exposure: No Tobacco Use In Past 30 Days: No Smoking Status: Never smoker Tobacco Type: Cigarettes - Alcohol History How Often Do You Have a Drink Containing Alcohol: Never - Substance Use History Substance History: No History of Abuse - Travel History Recent Travel in the [place] Within the Last 8 Weeks: No Recent Travel Out of the Country Within the Last 8 Weeks: No - Immunization History Tetanus Immunization: Unsure Medications and Allergies Active Medications: Active Medications Acetaminophen (Tylenol) 500 mg PO Q4H PRN PRN Reason: HEADACHE Hydrocodone Bitart/Acetaminophen ([place] 7.5/325) 1 tab PO Q4H PRN PRN Reason: PAIN SCALE 1 TO 7 Albuterol (Duoneb Neb (Prn)) 1 ampul NEB Q4HR NEB PRN PRN Reason: SHORTNESS OF BREATH/WHEEZING Apixaban (Eliquis) 5 mg PO BID [facility] Atorvastatin Calcium (Lipitor) 40 mg PO DAILY [facility] Folic Acid (Folic Acid) 1 mg PO DAILY [facility] Furosemide (Lasix) 40 mg PO BID [facility] Gabapentin (Neurontin) 100 mg PO DAILY [facility] Metoprolol Tartrate (Lopressor) 50 mg PO BID [facility] Morphine Sulfate (Morphine Inj) 2 mg IV.PUSH Q4H PRN PRN Reason: PAIN SCALE 8 TO 10 Last Admin: 01/02/18 04:22 Dose: 2 mg Non-Formulary Medication (Diltiazem Hcl [Diltiazem Hcl]) 240 mg PO DAILY [facility] Ondansetron HCl (Zofran Inj) 4 mg IV.PUSH Q6H PRN PRN Reason: NAUSEA Pantoprazole Sodium (Protonix) 40 mg PO DAILY [facility] Sodium Chloride (Ns Flush) 2 ml IV.FLUSH UNSCH PRN PRN Reason: FLUSH AFTER USING IV ACCESS Last Admin: 01/01/18 16:14 Dose: 2 ml Sodium Chloride (Ns Flush) 2 ml IV.FLUSH PRN PRN PRN Reason: FLUSH AFTER USING IV ACCESS Sodium Chloride (Ns Flush) 2 ml IV.FLUSH BID [facility] Last Admin: 01/01/18 21:00 Dose: 2 ml Allergies Allergy/AdvReac Type Severity Reaction Status Date / Time No Known Allergies Allergy Verified 01/01/18 14:47 Home Medications Medication Instructions Recorded Confirmed Type folic acid 1 mg PO DAILY 10/22/17 01/01/18 History Exam Vital signs: Vital Signs 01/01/18 14:30 01/01/18 14:47 01/01/18 15:01 Temperature 98.3 F Pulse Rate 81 75 75 Respiratory Rate 24 Blood Pressure 140/81 Pulse Oximetry 95 01/01/18 15:02 01/01/18 15:03 01/01/18 15:04 Temperature Pulse Rate 76 76 76 Respiratory Rate 23 19 21 Blood Pressure 118/79 129/85 129/85 Pulse Oximetry 96 96 96 01/01/18 15:05 01/01/18 16:46 01/01/18 17:27 Temperature Pulse Rate 74 74 Respiratory Rate 18 18 Blood Pressure 140/95 H Pulse Oximetry 97 95 01/01/18 18:20 01/01/18 20:00 01/01/18 23:29 Temperature 97.7 F 98.0 F Pulse Rate 75 80 Respiratory Rate 16 18 Blood Pressure 130/87 133/95 H Pulse Oximetry 95 96 96 01/01/18 23:52 01/02/18 04:00 01/02/18 08:23 Temperature 98.3 F 97.9 F 98.2 F Pulse Rate 78 74 82 Respiratory Rate 18 19 18 Blood Pressure 138/86 136/88 130/87 Pulse Oximetry 96 95 94 L Intake & Output 01/01/18 01/02/18 01/02/18 18:59 06:59 18:59 Weight 182.798 kg Other: # Voids 3 Narrative: GENERAL: This is a well-nourished, well-developed patient, in no apparent distress. He is obese. Patient speaks in clear complete sentences. Patient is pleasant. HEENT: Head is atraumatic and normocephalic. Neck is supple without lymphadenopathy and trachea is midline. No JVD or carotid bruits. CARDIOVASCULAR: Regular rate and rhythm without murmurs, gallops, or rubs. RESPIRATORY: Left-sided expiratory wheezing. Breath sounds equal bilaterally. No rales or rhonchi. Chest wall is nontender. No use of accessory muscles. GASTROINTESTINAL: Abdomen is nontender, nondistended. Abdomen soft. No obvious pulsatile mass or bruit. No CVA tenderness. Strong femoral pulses bilaterally. Normal bowel sounds in all quadrants. MUSCULOSKELETAL: Patient is moving upper and lower extremities freely. No calf tenderness or edema, no Homans sign. Strong pulses in upper and lower extremities. NEUROLOGICAL: Patient is alert and oriented. Cranial nerves 2-12 are grossly intact. No focal deficits and speech is clear. SKIN: No rash and turgor is normal. Results 01/01/18 15:10 01/01/18 15:10 Cardiac Enzymes 01/01/18 01/01/18 01/01/18 Range/Units 15:10 15:10 17:00 AST 15 (15-37) U/L CK-MB (CK-2) Less than 1.0 (0.5-3.6) ng/mL Troponin I Less than 0.02 L Less than 0.02 L (0.02-0.05) ng/mL B-Natriuretic Peptide 10 (0-100) pg/mL 01/01/18 Range/Units 21:45 AST (15-37) U/L CK-MB (CK-2) (0.5-3.6) ng/mL Troponin I Less than 0.02 L (0.02-0.05) ng/mL B-Natriuretic Peptide (0-100) pg/mL Coagulation 01/01/18 01/01/18 Range/Units 15:10 15:10 PT 11.0 (9.8-11.6) sec APTT 29.9 (24.3-30.1) sec B-Natriuretic Peptide 10 (0-100) pg/mL CBC 01/01/18 Range/Units 15:10 WBC 6.9 (4.0-11.0) th/mm3 RBC 4.96 (4.50-5.90) mil/mm3 Hgb 13.3 (13.0-17.0) gm/dL Hct 40.8 (39.0-51.0) % Plt Count 243 D (150-450) th/mm3 Neut # (Auto) 4.0 (1.8-7.7) th/mm3 Lymph # (Auto) 1.8 (1.0-4.8) th/mm3 [place] # (Auto) 0.8 (0.0-0.9) th/mm3 Eos # (Auto) 0.2 (0.0-0.4) th/mm3 Baso # (Auto) 0.0 (0.0-0.2) th/mm3 Comprehensive Metabolic Panel 01/01/18 Range/Units 15:10 Sodium 142 (136-145) meq/L Potassium 4.1 (3.5-5.1) meq/L Chloride 106 (98-107) meq/L Carbon Dioxide 25.4 (21.0-32.0) meq/L BUN 11 (7-18) mg/dL Creatinine 0.89 (0.60-1.30) mg/dL Calcium 8.0 L (8.5-10.1) mg/dL AST 15 (15-37) U/L ALT 20 (12-78) U/L Alkaline Phosphatase 84 (45-117) U/L Total Protein 7.5 (6.4-8.2) g/dL Albumin 3.3 L (3.4-5.0) g/dL Intake and Output 01/01/18 01/02/18 01/02/18 22:59 06:59 14:59 Other: # Voids 3 - Imaging and Cardiology Imaging: Impressions Chest X-Ray 01/01/18 15:01 CONCLUSION: Chronic lung opacities. EKG interpretations - EKG EKG shows: sinus rhythm (EKGs are sinus rhythm without significant ST segment depressions or elevations.) Caprini VTE Risk Assessment Caprini VTE Risk Assessment: No/Low Risk (score <= 1) Caprini Risk Assessment Model: Point Value = 1 Point Value = 2 Point Value = 3 Point Value = 5 Age 41-60 Minor surgery BMI > 25 kg/m2 Swollen legs Varicose veins or History of unexplained or recurrent spontaneous Oral contraceptives or hormone replacement Sepsis (< 1 month) Serious lung disease, including pneumonia (< 1 month) Abnormal pulmonary function Acute myocardial infarction Congestive heart failure (< 1 month) History of inflammatory bowel disease Medical patient at bed rest Age 61-74 Arthroscopic surgery Major open surgery (> 45 min) Laparoscopic surgery (> 45 min) Malignancy Confined to bed (> 72 hours) Immobilizing plaster cast Central venous access Age >= 75 History of VTE Family history of VTE Factor V Leiden Prothrombin [id number] Lupus anticoagulant Anticardiolipin antibodies Elevated serum homocysteine Heparin-induced thrombocytopenia Other congenital or acquired thrombophilia Stroke (< 1 month) Elective arthroplasty Hip, pelvis, or leg fracture Acute spinal cord injury (< 1 month) Prophylaxis Regimen: Total Risk Factor Score Risk Level Prophylaxis Regimen 0-1 Low Early ambulation 2 Moderate Order ONE of the following: *Sequential Compression Device (SCD) *Heparin 5000 units SQ BID 3-4 Higher Order ONE of the following medications: *Heparin 5000 units SQ TID *Enoxaparin/Lovenox 40 mg SQ daily (WT < 150 kg, CrCl > 30 mL/min) *Enoxaparin/Lovenox 30 mg SQ daily (WT < 150 kg, CrCl > 10-29 mL/min) *Enoxaparin/Lovenox 30 mg SQ BID (WT < 150 kg, CrCl > 30 mL/min) AND/OR *Sequential Compression Device (SCD) 5 or more Highest Order ONE of the following medications: *Heparin 5000 units SQ TID (Preferred with Epidurals) *Enoxaparin/Lovenox 40 mg SQ daily (WT < 150 kg, CrCl > 30 mL/min) *Enoxaparin/Lovenox 30 mg SQ daily (WT < 150 kg, CrCl > 10-29 mL/min) *Enoxaparin/Lovenox 30 mg SQ BID (WT < 150 kg, CrCl > 30 mL/min) AND *Sequential Compression Device (SCD) Assessment and Plan - Assessment (1) Chest pain Code(s): R07.9 - Chest pain, unspecified Status: Acute (2) History of heart failure Code(s): Z86.79 - Personal history of other diseases of the circulatory system Status: Acute (3) Paroxysmal atrial fibrillation Code(s): I48.0 - Paroxysmal atrial fibrillation Status: Acute (4) Obesity Code(s): E66.9 - Obesity, unspecified Status: Chronic (5) Sarcoidosis Code(s): D86.9 - Sarcoidosis, unspecified Status: Chronic (6) HBP (high blood pressure) Code(s): I10 - Essential (primary) hypertension Status: Acute (7) High cholesterol Code(s): E78.00 - Pure hypercholesterolemia, unspecified Status: Chronic - Plan * Chest pain: Patient has had serial cardiac enzymes and EKGs for ruling out purposes. His symptoms seem atypical. He also had a heart catheterization about 4 years ago that revealed normal coronary arteries. Patient has been evaluated by Dr. Serrano of cardiology and chest pain center at this time will be discharged home with instructions to follow-up with his physicians at [facility]. Return to ED for interval issues. * History of right-sided heart failure: Continue medications. 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 * Sarcoidosis: Continue treatment as directed by his physicians. * Hypertension: Continue medication. * Hyperlipidemia: Continue medication. 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 * Obesity: Patient has been counseled on importance of diet, exercise, weight loss. Patient is stable at this time. He is agreeable to this plan. H&P: Quality - VTE Deep Vein Thrombosis/Pulmonary Embolism Present on Admission: No
[2018-01-02] MEDS ORDERED: Folic Acid 1 MG Tablet PO SCH (10:00)
[2018-01-02] MEDS ORDERED: dilTIAZem CD 240 MG Capsule PO SCH (10:00)
[2018-01-02] MEDS ORDERED: Gabapentin 100 MG Capsule PO SCH (10:00)
[2018-01-02] MEDS ORDERED: Pantoprazole Sodium 20 MG DR Tablet PO SCH (10:00)
--- NOTE | 2018-01-02 11:26 | P.PNCA ---
Subjective Interval history: 52-year-old gentleman with a complex medical history evaluated by physician panel coverer and then discussed prior to seeing the patient personally and examining him. Patient has a history of sarcoidosis CHF COPD and atrial fibrillation. 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 He has been previously fully evaluated for cardiac issues including a catheterization in 2014 was normal according to Dr. Ian Pereira. Patient states that he has approximately 30% pulmonary function remaining and at the time of his presentation here he was wheezing. He is also significantly overweight which is probably contributing to some of his immediate issues. He had an evaluation with a stress test a year and a half ago which was also unremarkable. His history is well stated in the documentation already entered. Medications and Allergies Active Medications: Active Medications Acetaminophen (Tylenol) 500 mg PO Q4H PRN PRN Reason: HEADACHE Hydrocodone Bitart/Acetaminophen ([place] 7.5/325) 1 tab PO Q4H PRN PRN Reason: PAIN SCALE 1 TO 7 Albuterol (Duoneb Neb (Prn)) 1 ampul NEB Q4HR NEB PRN PRN Reason: SHORTNESS OF BREATH/WHEEZING Apixaban (Eliquis) 5 mg PO BID KERRI Atorvastatin Calcium (Lipitor) 40 mg PO DAILY KERRI Diltiazem HCl (Cardizem Cd 24hr) 240 mg PO DAILY KERRI Folic Acid (Folic Acid) 1 mg PO DAILY KERRI Furosemide (Lasix) 40 mg PO BID KERRI Gabapentin (Neurontin) 100 mg PO DAILY KERRI Metoprolol Tartrate (Lopressor) 50 mg PO BID KERRI Morphine Sulfate (Morphine Inj) 2 mg IV.PUSH Q4H PRN PRN Reason: PAIN SCALE 8 TO 10 Last Admin: 01/02/18 04:22 Dose: 2 mg Ondansetron HCl (Zofran Inj) 4 mg IV.PUSH Q6H PRN PRN Reason: NAUSEA Pantoprazole Sodium (Protonix) 40 mg PO DAILY KERRI Sodium Chloride (Ns Flush) 2 ml IV.FLUSH UNSCH PRN PRN Reason: FLUSH AFTER USING IV ACCESS Last Admin: 01/01/18 16:14 Dose: 2 ml Sodium Chloride (Ns Flush) 2 ml IV.FLUSH PRN PRN PRN Reason: FLUSH AFTER USING IV ACCESS Sodium Chloride (Ns Flush) 2 ml IV.FLUSH BID KERRI Last Admin: 01/01/18 21:00 Dose: 2 ml Allergies Allergy/AdvReac Type Severity Reaction Status Date / Time No Known Allergies Allergy Verified 01/01/18 14:47 Home Medications Medication Instructions Recorded Confirmed Type folic acid 1 mg PO DAILY 10/22/17 01/01/18 History Physical Exam Vital signs: Vital Signs 01/01/18 14:30 01/01/18 14:47 01/01/18 15:01 Temperature 98.3 F Pulse Rate 81 75 75 Respiratory Rate 24 Blood Pressure 140/81 Pulse Oximetry 95 01/01/18 15:02 01/01/18 15:03 01/01/18 15:04 Temperature Pulse Rate 76 76 76 Respiratory Rate 23 19 21 Blood Pressure 118/79 129/85 129/85 Pulse Oximetry 96 96 96 01/01/18 15:05 01/01/18 16:46 01/01/18 17:27 Temperature Pulse Rate 74 74 Respiratory Rate 18 18 Blood Pressure 140/95 H Pulse Oximetry 97 95 01/01/18 18:20 01/01/18 20:00 01/01/18 23:29 Temperature 97.7 F 98.0 F Pulse Rate 75 80 Respiratory Rate 16 18 Blood Pressure 130/87 133/95 H Pulse Oximetry 95 96 96 01/01/18 23:52 01/02/18 04:00 01/02/18 08:23 Temperature 98.3 F 97.9 F 98.2 F Pulse Rate 78 74 82 Respiratory Rate 18 19 18 Blood Pressure 138/86 136/88 130/87 Pulse Oximetry 96 95 94 L Intake & Output 01/01/18 01/02/18 01/02/18 18:59 06:59 18:59 Weight 182.798 kg Other: # Voids 3 Narrative: Obese black gentleman probably in excess of 300 pounds currently resting comfortably. Neck supple no JVD masses nodes or bruits Chest currently clear to auscultation with fairly well preserved breath sounds bilaterally and no rales wheezes or rhonchi (post pulmonary treatment) Cardiovascular regular sinus rhythm with no gallops rubs or murmurs Abdomen is obese but soft nontender with no guarding or rebound Results 01/01/18 15:10 01/01/18 15:10 Cardiac Enzymes 01/01/18 01/01/18 01/01/18 Range/Units 15:10 15:10 17:00 AST 15 (15-37) U/L CK-MB (CK-2) Less than 1.0 (0.5-3.6) ng/mL Troponin I Less than 0.02 L Less than 0.02 L (0.02-0.05) ng/mL B-Natriuretic Peptide 10 (0-100) pg/mL 01/01/18 Range/Units 21:45 AST (15-37) U/L CK-MB (CK-2) (0.5-3.6) ng/mL Troponin I Less than 0.02 L (0.02-0.05) ng/mL B-Natriuretic Peptide (0-100) pg/mL Coagulation 01/01/18 01/01/18 Range/Units 15:10 15:10 PT 11.0 (9.8-11.6) sec APTT 29.9 (24.3-30.1) sec B-Natriuretic Peptide 10 (0-100) pg/mL CBC 01/01/18 Range/Units 15:10 WBC 6.9 (4.0-11.0) th/mm3 RBC 4.96 (4.50-5.90) mil/mm3 Hgb 13.3 (13.0-17.0) gm/dL Hct 40.8 (39.0-51.0) % Plt Count 243 D (150-450) th/mm3 Neut # (Auto) 4.0 (1.8-7.7) th/mm3 Lymph # (Auto) 1.8 (1.0-4.8) th/mm3 [place] # (Auto) 0.8 (0.0-0.9) th/mm3 Eos # (Auto) 0.2 (0.0-0.4) th/mm3 Baso # (Auto) 0.0 (0.0-0.2) th/mm3 Comprehensive Metabolic Panel 01/01/18 Range/Units 15:10 Sodium 142 (136-145) meq/L Potassium 4.1 (3.5-5.1) meq/L Chloride 106 (98-107) meq/L Carbon Dioxide 25.4 (21.0-32.0) meq/L BUN 11 (7-18) mg/dL Creatinine 0.89 (0.60-1.30) mg/dL Calcium 8.0 L (8.5-10.1) mg/dL AST 15 (15-37) U/L ALT 20 (12-78) U/L Alkaline Phosphatase 84 (45-117) U/L Total Protein 7.5 (6.4-8.2) g/dL Albumin 3.3 L (3.4-5.0) g/dL Intake and Output 01/01/18 01/02/18 01/02/18 22:59 06:59 14:59 Other: # Voids 3 - Imaging and Cardiology Imaging: Impressions Chest X-Ray 01/01/18 15:01 CONCLUSION: Chronic lung opacities. Assessment and Plan - Assessment (1) Chest pain Code(s): R07.9 - Chest pain, unspecified Status: Acute Plan: Patient is ruled out for ACS using standard chest pain center protocol. His chest heaviness appears to have been related to shortness of breath and wheezing. This is resolved during his stay and treatment in the emergency room. He is being carefully and thoroughly followed and studied through [facility] at further evaluation at this time was felt best left to continuity through his physicians there. Patient is in full agreement. He is scheduled for appointment there this coming week and is hopeful for starting experimental medication for his sarcoid. Patient is currently stable and comfortable and will be discharged to follow-up at [facility]. (2) History of heart failure Code(s): Z86.79 - Personal history of other diseases of the circulatory system Status: Acute (3) Paroxysmal atrial fibrillation Code(s): I48.0 - Paroxysmal atrial fibrillation Status: Acute (4) Obesity Code(s): E66.9 - Obesity, unspecified Status: Chronic (5) Sarcoidosis Code(s): D86.9 - Sarcoidosis, unspecified Status: Chronic (6) HBP (high blood pressure) Code(s): I10 - Essential (primary) hypertension Status: Acute (7) High cholesterol Code(s): E78.00 - Pure hypercholesterolemia, unspecified Status: Chronic - Plan * Chest pain: Patient has had serial cardiac enzymes and EKGs for ruling out purposes. His symptoms seem atypical. He also had a heart catheterization about 4 years ago that revealed normal coronary arteries. Patient has been evaluated by Dr. Serrano of cardiology and chest pain center at this time will be discharged home with instructions to follow-up with his physicians at [facility]. Return to ED for interval issues. * History of right-sided heart failure: Continue medications. Follow-up with his tire mounter. * Sarcoidosis: Continue treatment as directed by his physicians. * Hypertension: Continue medication. * Hyperlipidemia: Continue medication. * Paroxysmal atrial relation: Continue medication and follow-up with his tire mounter. * Obesity: Patient has been counseled on importance of diet, exercise, weight loss. Patient is stable at this time. He is agreeable to this plan.
[2018-01-02] MEDS ORDERED: Metoprolol Tartrate 50 MG Tablet PO SCH (21:00)
== END 2018-01-02 11:55 | disposition home or self-care (01) ==
LOC: NEPE 14:19 → NEDA 14:19 → NEPGCP 18:07
PROVIDERS: ADMIT Internal Medicine Cardiovascular Disease; ATTEND Internal Medicine Cardiovascular Disease